=== PATIENT | female | born 1955 ===

== ENCOUNTER 2020-01-27 08:20 | Outpatient (REF) | payer MEDICARE, MEDICAID, SELFPAY ==
[2020-01-27 09:46] LABS: ~HepC Num1 0.08 S/CO (0.00-0.79); ~Hepatitis C Antibody Nonreactive (Nonreactive)
[2020-01-27 09:53] LABS: Vitamin D 25-OH Total 30.3 ng/mL (>30)
== END 2020-01-27 08:21 | disposition home or self-care (01) ==
LOC: HO.LAB 08:20
PROVIDERS: PCP Internal Medicine Geriatric Medicine; Visit Provider Internal Medicine Geriatric Medicine
DX: M81.0 Age-related osteoporosis without current pathological fracture (principal); Z11.59 Encounter for screening for other viral diseases
CPT/HCPCS: 82306; 86803

== ENCOUNTER 2020-05-23 07:37 | Outpatient (REF) | payer MEDICARE, MEDICAID, SELFPAY ==
--- NOTE | ~2020-05-23 | US_ITS ---
EXAMINATION: US ABDOMEN COMPLETE CLINICAL INFORMATION: Right upper quadrant pain. COMPARISON: None TECHNIQUE: Real-time imaging of the abdominal viscera. FINDINGS: PANCREAS: Normal. ABDOMINAL AORTA: The proximal, mid, and distal segments are normal in caliber. INFERIOR VENA CAVA: Visualized portions are normal. LIVER: Normal. The liver is normal in size. The liver contour is normal. Parenchymal echogenicity is normal. No focal hepatic lesion. There is no intrahepatic biliary duct dilatation seen. GALLBLADDER: Normal. The gallbladder is physiologically distended without evidence of stones, sludge, polyps, wall thickening or pericholecystic fluid. COMMON BILE DUCT: Normal in caliber measuring 0.3 cm in diameter. RIGHT KIDNEY: Normal. No hydronephrosis. No renal calculi or focal parenchymal lesions. The kidney measures 10.7 cm in maximum dimension. LEFT KIDNEY: There is a small 6 mm left renal cyst. No hydronephrosis. No renal calculi. The kidney measures 10.3 cm in maximum dimension. SPLEEN: Normal. The spleen measures 8.3 cm in maximum dimension. FREE FLUID: None. US/US abdomen complete IMPRESSION: Small left renal cyst otherwise unremarkable exam.
== END 2020-05-23 07:38 | disposition home or self-care (01) ==
LOC: HO.US 07:37
PROVIDERS: Visit Provider Internal Medicine Geriatric Medicine
DX: R10.11 Right upper quadrant pain (principal)
CPT/HCPCS: 76700

== ENCOUNTER 2020-06-29 12:52 | Outpatient (REF) | payer MEDICARE, MEDICAID, SELFPAY ==
--- NOTE | ~2020-06-29 | MM_ITS ---
EXAMINATION: MM SCREENING DIGITAL BREAST TOMOSYNTHESIS, BILATERAL CLINICAL INFORMATION: Screening. Asymptomatic. Prior bilateral excisional biopsies . The lifetime risk of breast cancer based on the Tyrer-Cuzick Model is 10%. COMPARISON: Mammography: 04/27/2019, 01/08/2018 TECHNIQUE: Digital breast tomosynthesis is performed in both the craniocaudal and mediolateral oblique views along with computer-aided detection (CAD). Synthesized 2D images are generated from the tomosynthesis. FINDINGS: There are scattered areas of fibroglandular density (ACR BI-RADS breast composition Category b). Parenchymal pattern is similar to prior studies. There is no developing density or interval mass or architectural abnormality. No abnormal calcifications. Left axilla unremarkable. There is a prominent node right axilla since prior exam 2019. Patient had second dose COVID vaccine right arm recently, 06/21/2020 and finding likely related to benign reactive change. The skin contours are smooth. No coarsening of the Cl's ligaments. MM/MM tomosynthesis screening BI IMPRESSION: 1. Right: Prominent right axillary node, likely reactive change from recent vaccination right arm. Breast otherwise unremarkable. 2. Left: No mammographic evidence of malignancy. ASSESSMENT: BI-RADS 0: Incomplete - Need Additional Imaging Evaluation RECOMMENDATION: 1. Additional views of the right breast in 6-12 weeks (MLO). 2. Targeted ultrasound if warranted after review of the additional views. 3. Radiology department staff will contact the patient for additional imaging. This patient's information was entered into a reminder system with a target due date for their next mammogram.
== END 2020-06-29 12:53 | disposition home or self-care (01) ==
LOC: HO.MAMMO 12:52
PROVIDERS: PCP Internal Medicine Geriatric Medicine; Visit Provider Internal Medicine Geriatric Medicine
DX: Z12.31 Encounter for screening mammogram for malignant neoplasm of breast (principal)
CPT/HCPCS: 77063; 77067

== ENCOUNTER 2020-09-03 10:05 | Outpatient (REF) | payer MEDICARE, MEDICAID, SELFPAY ==
--- NOTE | ~2020-09-03 | MM_ITS ---
EXAMINATION: MM DIAGNOSTIC DIGITAL BREAST TOMOSYNTHESIS, RIGHT US DIAGNOSTIC ULTRASOUND BREAST, RIGHT CLINICAL INFORMATION: Prominent right axillary node, likely reactive change from evacuation right arm. TC score 10%. COMPARISON: Mammography: 06/29/2020, 04/27/2019. TECHNIQUE: Digital breast tomosynthesis is performed. 2D images are generated from the tomosynthesis. The following views are obtained: 3-D MLO. Ultrasound right breast is targeted to the axilla. Grayscale imaging and color Doppler are performed. FINDINGS: There are scattered areas of fibroglandular density (ACR BI-RADS breast composition Category b). The prominent right axillary node noted on recent imaging 06/29/2020 is decreased in size, similar to the 2019 exam. Ultrasound demonstrates normal right axillary node corresponding to the mammography. No measures 1.1 cm short axis with normal rio architecture and color flow. Results are discussed with the patient at time of visit. MM/MM tomosynthesis added views R IMPRESSION: Normal right axillary node, decreased in size from recent mammography. ASSESSMENT: BI-RADS 2: Benign RECOMMENDATION: Routine annual mammography screening. This patient's information was entered into a reminder system with a target due date for their next mammogram.
== END 2020-09-03 10:06 | disposition home or self-care (01) ==
LOC: HO.MAMMO 10:05
PROVIDERS: PCP Internal Medicine Geriatric Medicine; Visit Provider Internal Medicine Geriatric Medicine
DX: N63.31 Unspecified lump in axillary tail of the right breast (principal)
CPT/HCPCS: 76642; 77061; 77065

== ENCOUNTER 2020-11-08 08:43 | Outpatient (REF) | payer MEDICARE, MEDICAID, SELFPAY ==
--- NOTE | ~2020-11-08 | XR_ITS ---
EXAMINATION: XR HIP, LEFT XR HIP, RIGHT CLINICAL INFORMATION: Pain COMPARISON: DEXA from 10/19/2018. TECHNIQUE: Right hip, 2 views Left hip, 2 views FINDINGS: Right hip: Bone density is diffusely decreased in this patient with history of osteoporosis. There is mild narrowing of superomedial joint space of the right hip and coxa profunda of the hip. The proximal femur and acetabulum are intact. No fracture or osteonecrosis. Soft tissues are unremarkable. Left hip: There is mild narrowing of superomedial joint space of the left hip and coxa profunda of the hip. The proximal femur and acetabulum are intact. No fracture or osteonecrosis. Soft tissues are unremarkable. XR/XR hip LT min 2V IMPRESSION: * No acute findings. No fracture or subluxation of either hip. * Mild narrowing of superomedial joint space of each hip could be a manifestation of mild degeneration of the articular cartilage.
--- NOTE | ~2020-11-08 | XR_ITS ---
EXAMINATION: XR HIP, LEFT XR HIP, RIGHT CLINICAL INFORMATION: Pain COMPARISON: DEXA from 10/19/2018. TECHNIQUE: Right hip, 2 views Left hip, 2 views FINDINGS: Right hip: Bone density is diffusely decreased in this patient with history of osteoporosis. There is mild narrowing of superomedial joint space of the right hip and coxa profunda of the hip. The proximal femur and acetabulum are intact. No fracture or osteonecrosis. Soft tissues are unremarkable. Left hip: There is mild narrowing of superomedial joint space of the left hip and coxa profunda of the hip. The proximal femur and acetabulum are intact. No fracture or osteonecrosis. Soft tissues are unremarkable. XR/XR hip RT min 2V IMPRESSION: * No acute findings. No fracture or subluxation of either hip. * Mild narrowing of superomedial joint space of each hip could be a manifestation of mild degeneration of the articular cartilage.
== END 2020-11-08 08:44 | disposition home or self-care (01) ==
LOC: HO.XRAY 08:43
PROVIDERS: PCP Internal Medicine Geriatric Medicine; Visit Provider Internal Medicine Geriatric Medicine
DX: M17.12 Unilateral primary osteoarthritis, left knee (principal); M25.552 Pain in left hip
CPT/HCPCS: 73502

== ENCOUNTER 2020-11-27 07:48 | Outpatient (REF) | payer MEDICARE, MEDICAID, SELFPAY ==
--- NOTE | ~2020-11-27 | XR_ITS ---
EXAMINATION: XR BOTH KNEES AP STANDING XR LEFT KNEE, 2 VIEWS CLINICAL INFORMATION: Pain. COMPARISON: Most recent knee radiographs dated 06/18/2018 TECHNIQUE: Standing AP view of both knees and lateral and sunrise views of the left knee. FINDINGS: Right knee: Total right knee arthroplasty. No acute hardware or osseous fracture. No perihardware lucency to suggest loosening or infection. No abnormal soft tissue calcification. Left knee: Severe medial compartment joint space narrowing with subchondral sclerosis and mild bony remodeling. Mild subchondral cystic change. Tricompartmental marginal osteophytes. No acute fracture or dislocation. No significant joint effusion. Redemonstration of posterior ossified loose bodies. XR/XR knee LT 2V IMPRESSION: Right knee: Total knee arthroplasty without evidence of hardware complication. Left knee: Tricompartmental osteoarthritis, most severe within the medial compartment. Findings have slightly progressed when compared to the prior radiographs from 2019.
--- NOTE | ~2020-11-27 | XR_ITS ---
EXAMINATION: XR BOTH KNEES AP STANDING XR LEFT KNEE, 2 VIEWS CLINICAL INFORMATION: Pain. COMPARISON: Most recent knee radiographs dated 06/18/2018 TECHNIQUE: Standing AP view of both knees and lateral and sunrise views of the left knee. FINDINGS: Right knee: Total right knee arthroplasty. No acute hardware or osseous fracture. No perihardware lucency to suggest loosening or infection. No abnormal soft tissue calcification. Left knee: Severe medial compartment joint space narrowing with subchondral sclerosis and mild bony remodeling. Mild subchondral cystic change. Tricompartmental marginal osteophytes. No acute fracture or dislocation. No significant joint effusion. Redemonstration of posterior ossified loose bodies. XR/XR knee standing BI IMPRESSION: Right knee: Total knee arthroplasty without evidence of hardware complication. Left knee: Tricompartmental osteoarthritis, most severe within the medial compartment. Findings have slightly progressed when compared to the prior radiographs from 2019.
== END 2020-11-27 07:49 | disposition home or self-care (01) ==
LOC: HO.HOSX 07:48
PROVIDERS: Visit Provider Physician Assistant
DX: M17.12 Unilateral primary osteoarthritis, left knee (principal)
CPT/HCPCS: 73560; 73565; 99212

== ENCOUNTER → 2020-12-10 08:14 | Outpatient (BNVA) | payer MEDICARE, MEDICAID, SELFPAY | PROVIDERS: Visit Provider Orthopaedic Surgery | DX: M17.12 Unilateral primary osteoarthritis, left knee (principal) | CPT/HCPCS: 99212 ==

== ENCOUNTER → 2021-01-03 10:03 | Outpatient (BNVA) | payer MEDICARE, MEDICAID, SELFPAY | PROVIDERS: Visit Provider Obstetrics & Gynecology ==

== ENCOUNTER 2021-01-23 09:22 | Outpatient (REF) | payer MEDICARE, MEDICAID, SELFPAY ==
--- NOTE | ~2021-01-23 | MM_ITS ---
EXAMINATION: BONE DENSITOMETRY CLINICAL INDICATION: Menopause. COMPARISON: Previous BD dated 10/19/2018 and baseline BD dated 10/14/2016. TECHNIQUE: Using a [employer] DXA System (software version: 13.1) manufactured by [employer], dual-energy x-ray absorptiometry was performed of the lumbar spine and left hip. The images are of good technical quality. Summary results are attached. FINDINGS: AP SPINE L1-L4: Current: BMD 0.944 g/cm2, Z-score -0.8, T-score -2.0, osteopenia, 0.1% increase from previous, 0.9% decrease from baseline (<5% change is not significant). Prior: BMD 0.943 g/cm2. Baseline: BMD 0.953 g/cm2. LEFT FEMUR, NECK: Current: BMD 0.641 g/cm2, Z-score -1.6, T-score -2.9, osteoporosis. Prior: BMD 0.611 g/cm2. Baseline: BMD 0.690 g/cm2. LEFT FEMUR, TOTAL: Current: BMD 0.677 g/cm2, Z-score -1.6, T-score -2.6, osteoporosis, 8.1% increase from previous, 7.0% decrease from baseline (<5% change is not significant). Prior: BMD 0.626 g/cm2. Baseline: BMD 0.728 g/cm2. IDENTIFIED RISK FACTORS: Menopause, osteoporosis, left oophorectomy, hysterectomy. HISTORY OF FRACTURE: None listed. MEDICATIONS: Calcium, vitamin D. MM/XR DEXA axial skeleton IMPRESSION: 1. DIAGNOSIS: Osteoporosis based on the lowest T-score value of -2.9 in the femoral neck applying World Health Organization criteria. 2. 10-YEAR FRACTURE RISK PREDICTION, FRAX: According to the guidelines, FRAX calculation should only be performed on patients in the osteopenia bone density category. 3. Treatment Recommendations: NOF guidelines recommend consideration for treatment in postmenopausal women and men age 50 and older presenting with the following: -A hip or vertebral (clinical or morphometric) fracture. -T-score less than or equal to -2.5 at the femoral neck or spine after appropriate evaluation to exclude secondary causes. -Low bone mass at the hip or spine and a 10-year fracture probability by FRAX of greater than or equal to 3% for hip fracture or greater than or equal to 20% for major osteoporotic fracture based on the [place] adapted WHO algorithm. 4. Other Recommendations: All treatment decisions require clinical judgment and consideration of individual patient factors, including patient preferences, comorbidities, previous drug use, risk factors not captured in the FRAX model (e.g. frailty, falls, vitamin D deficiency, increased bone turnover, interval significant decline in bone density) and possible under or overestimation of fracture risk by FRAX. Additional medical evaluation for secondary cause of low bone mineral density may be appropriate. FUTURE SCAN RECOMMENDATION: People with diagnosed cases of osteoporosis or at high risk for fracture should have regular bone mineral density tests. For patients eligible for Medicare, routine testing is allowed once every 2 years. The testing frequency can be increased to one year for patients who have rapidly progressing disease, those who are receiving or discontinuing medical therapy to restore bone mass, or have additional risk factors.
== END 2021-01-23 09:23 | disposition home or self-care (01) ==
LOC: HO.MAMMO 09:22
PROVIDERS: Visit Provider Obstetrics & Gynecology
DX: Z13.820 Encounter for screening for osteoporosis (principal); M81.0 Age-related osteoporosis without current pathological fracture; Z78.0 Asymptomatic menopausal state; Z79.899 Other long term (current) drug therapy
CPT/HCPCS: 77080

== ENCOUNTER 2021-01-24 08:09 | Emergency (ER) | payer MEDICARE, MEDICAID, SELFPAY ==
--- NOTE | ~2021-01-24 | CT_ITS ---
EXAMINATION: CT BRAIN AND CT CERVICAL SPINE WITHOUT CONTRAST. CLINICAL INFORMATION: Fall plus LOC. Neck pain. COMPARISON: None TECHNIQUE: 5 mm thin axial and reformatted 2 mm thin sagittal and coronal images of brain were obtained without contrast. Subsequently axial 3 mm thin and reformatted 2 mm thin sagittal coronal images of cervical spine were obtained. DL [id number] FINDINGS: BRAIN: There is no acute intra-axial, extra-axial bleed, masses or midline shift. There is no acute infarction evolution. There is no edema. The lateral ventricles are symmetrical in size and configuration without enlargement. The yung to white matter difference is maintained normal. The bone windows reveal no calvarial abnormality bilateral paranasal sinuses are significant well-aerated and clear. The mastoid sinuses are clear. There is no scalp soft tissue abnormality seen. CERVICAL SPINE: There is mild straightening of cervical lordosis. The vertebral heights, alignment and disc heights are normal. There is mild ventral spurring C1-C2 disc level. There is mild ventral spondylosis C3-C4, C4-C5, C5-C6 and C6-C7 disc levels. There is mild posterior spondylosis at C6-C7 disc level. The craniovertebral junction and the C1-C2 alignment is normal. There is mild left C7-T1 facet joint arthropathy. The prevertebral and paravertebral soft tissues are normal. CT/CT cervical spine wo con IMPRESSION: No acute intracranial process seen There is mild straightening of cervical lordosis with ventral spondylosis C3-C4, C4-C5, C5-C6 and C6-C7 disc levels. There is no visible acute fracture, dislocation or subluxation seen.
--- NOTE | ~2021-01-24 | XR_ITS ---
EXAMINATION: XR RIBS, LEFT CLINICAL INFORMATION: Fall, trauma, anterior chest wall pain. COMPARISON: Chest radiographs 06/02/2018, 10/16/2016. TECHNIQUE: Frontal view chest and 3 views of the left ribs are obtained for a total of 4 views. FINDINGS: There is no visible rib fracture or rib destructive process. The lungs are clear. There is no pneumothorax or pleural reaction. No airspace consolidation or effusion. The costophrenic sulci are well-defined. The heart is normal in size. Tapering cardiac apex is consistent with areolar tissue. The hilar and mediastinal contours are normal. There are multilevel degenerative changes spine. Circumscribed cyst left humeral tuberosity 1.2 cm. XR/XR ribs LT min 3V w CXR1V IMPRESSION: 1. No visible rib fracture or rib destructive process. 2. No pneumothorax or effusion.
--- NOTE | ~2021-01-24 | XR_ITS ---
EXAMINATION: XR KNEE, LEFT CLINICAL INFORMATION: Fall, trauma, pain COMPARISON: Radiographs left knee 11/27/2020. TECHNIQUE: 5 views of the left knee. FINDINGS: There are prominent tricompartment osteoarthritic changes, greatest medial compartment with joint narrowing and osteophyte. There may be some fine meniscal calcification. No erosive change. There is spurring at the quadriceps insertion patella. Small suprapatellar effusion again seen, slightly increased. Hoffa's fat pad appears normal. There is no fracture or dislocation or destructive process. XR/XR knee LT 4V IMPRESSION: 1. No fracture or dislocation. 2. Prominent tricompartment osteoarthritis with effusion.
--- NOTE | ~2021-01-24 | CT_ITS ---
EXAMINATION: CT BRAIN AND CT CERVICAL SPINE WITHOUT CONTRAST. CLINICAL INFORMATION: Fall plus LOC. Neck pain. COMPARISON: None TECHNIQUE: 5 mm thin axial and reformatted 2 mm thin sagittal and coronal images of brain were obtained without contrast. Subsequently axial 3 mm thin and reformatted 2 mm thin sagittal coronal images of cervical spine were obtained. DL [id number] FINDINGS: BRAIN: There is no acute intra-axial, extra-axial bleed, masses or midline shift. There is no acute infarction evolution. There is no edema. The lateral ventricles are symmetrical in size and configuration without enlargement. The yung to white matter difference is maintained normal. The bone windows reveal no calvarial abnormality bilateral paranasal sinuses are significant well-aerated and clear. The mastoid sinuses are clear. There is no scalp soft tissue abnormality seen. CERVICAL SPINE: There is mild straightening of cervical lordosis. The vertebral heights, alignment and disc heights are normal. There is mild ventral spurring C1-C2 disc level. There is mild ventral spondylosis C3-C4, C4-C5, C5-C6 and C6-C7 disc levels. There is mild posterior spondylosis at C6-C7 disc level. The craniovertebral junction and the C1-C2 alignment is normal. There is mild left C7-T1 facet joint arthropathy. The prevertebral and paravertebral soft tissues are normal. CT/CT head/brain wo con IMPRESSION: No acute intracranial process seen There is mild straightening of cervical lordosis with ventral spondylosis C3-C4, C4-C5, C5-C6 and C6-C7 disc levels. There is no visible acute fracture, dislocation or subluxation seen.
[2021-01-24 09:13] VITALS: BP 171/90; PULSE 88; RESP 16; O2SAT 99; BMI 33.0
--- NOTE | 2021-01-24 09:47 | ED.FALL ---
HPI - Fall General Chief Complaint: Fall Stated Complaint: fall chest back shoulder inj Time Seen by Provider: 01/24/21 09:47 Source: patient Mode of arrival: ambulatory Limitations: no limitations History of Present Illness HPI Narrative: 65-year-old female past medical history significant for hypertension and asthma presents to the emergency department with 6 days of progressively worsening headache, neck pain, anterior chest wall pain, and left knee pain status post trip and fall. Patient tells me she tripped on the curb and fell on the left side of her body, she states that she lost consciousness. She tells me that she is having anterior chest wall pain with palpation, and at times it hurts when she takes a deep breath. She tells me she does not know why she did not come to the hospital before, but she decided to come in today because the pain is intolerable. She is not on any blood thinners. She has had no past surgical procedures the left knee. She denies shortness of breath, nausea, vomiting, fevers, chills, abdominal pain, vision changes. MD complaint: fall Onset (ago): day(s) (6) Fall from: standing Fall witnessed: yes, by family Place fall occurred: other (shopping ) Loss of consciousness: yes Prolonged down time: no Symptoms prior to fall: none Context: tripped/slipped Location of injury: other (head, neck, left knee ) Severity: severe Severity scale (1-10): 10 Quality: other (constant ) Associated symptoms (after fall): headache, neck pain and chest pain Related Data Home Medications Medication Instructions Recorded Confirmed albuterol sulfate 2.5 mg INHALATION QID 12/10/20 atorvastatin 80 mg tablet 80 mg PO DAILY 12/10/20 docusate sodium 100 mg capsule 100 mg PO BID 12/10/20 (Colace) mometasone 50 mcg/actuation nasal 2 spray INTRANASAL DAILY 12/10/20 spray (Nasonex) polyvinyl alcohol 1.4 % eye drops 1 drp OPHTHALMIC (EYE) BID-QID PRN 12/10/20 (Artificial Tears (polyvinyl alcohol)) raloxifene 60 mg tablet (Evista) 60 mg PO DAILY 12/10/20 sennosides 8.6 mg capsule (senna) 8.6 mg PO BID 12/10/20 sertraline 50 mg tablet 50 mg PO DAILY 12/10/20 Previous Rx's Medication Instructions Recorded cyclobenzaprine 10 mg tablet 10 mg PO BEDTIME PRN #7 tab 01/24/21 lidocaine 5 % topical patch 1 patch TOPICAL DAILY PRN #15 ea 01/24/21 naproxen 500 mg tablet 500 mg PO BID #14 tab 01/24/21 Allergies Allergy/AdvReac Type Severity Reaction Status Date / Time No Known Allergies Allergy Verified 01/03/21 10:26 [No Known Allergies*] Review of Systems Review of Systems: Constitutional : No Weight loss, No Fever, No Chills, No Fatigue, No Malaise ENT/Mouth : No sore throat, No Rhinorrhea Eyes: No Eye Pain, No Swelling, No Redness Cardiovascular : + Chest Pain, No SOB, No Dyspnea on Exertion, No Orthopnea, No Edema, No Palpitations Respiratory : No Cough, No Sputum, No Wheezing Gastrointestinal : No Nausea, No Vomiting, No Diarrhea, No Constipation, No abdominal Pain, No Hematochezia, No Melena Genitourinary : No Dysuria, No Urinary Frequency, No Hematuria, Musculoskeletal : + joint pain, No Myalgias, No Joint Swelling, + neck pain Skin : No Skin Lesions, No rash Neuro : No Weakness, No Numbness, No Dizziness, + Headache All other systems reviewed and are negative [facility] Past Medical History Attestation statement: The following information was validated with the patient. Source: old records reviewed and nursing notes reviewed Medical History Arthritis Asthma Hypertension Surgical History H/O unilateral oophorectomy History of total right knee replacement Family History Family History Maternal Aunt Breast CA Mother Colon cancer Social History Social History Patient Tobacco Use Status: Current someday Tobacco user Advance Directives: No Advance Directives Information Provided: Yes Current occupational status: disabled Current occupation: rt handed Physical Exam Vital Signs: Vital Signs: Last Vital Signs Temp 98.5 F 01/24/21 11:11 Pulse 73 01/24/21 11:11 Resp 16 01/24/21 11:11 BP 129/71 01/24/21 11:11 Pulse Ox 98 01/24/21 11:11 BMI result Body Mass Index 33.0 VSS - slightly hypertensive. Appearance: Alert.? Oriented X3.? No acute distress.? Head: Normocephalic, atraumatic, no step-offs or deformities Eyes: Pupils equal, round and reactive to light.?EOMI ENT: Pharynx normal.? Neck: Normal inspection.? Neck supple.? CVS: Normal heart rate and rhythm.? Pulses normal.? Respiratory: No respiratory distress.? Breath sounds normal.? Abdomen: Soft and nontender.? Skin: Skin warm and dry.? Normal skin color.? Normal skin turgor.?+ small abrasion to left knee Extremities: No lower extremity edema.? No calf ttp. 5/5 strength to bilateral upper and lower extremities + full ROM to neck, and left knee however painful. Back: No midline tenderness, no C-spine tenderness, full range of motion, no CVA tenderness bilaterally Neuro: Oriented X 3.? No motor deficit.? No sensory deficit. Steady gait no ataxia. Course Reevaluation(s) Reevaluation #1: Ct scan negative. Xray of knee no fractures, osteoarthritis noted. Xray of chest and ribs negative. No leukocytosis, anemia or electrolyte abnormlaites noted. COVID negative. Pain to neck, head and knee likley secondary to muscle strain. No ICH. At this time pateint safe for DC home w/PCP follow up. Should return to ED with new or worsening symptoms Time: 11:39 MDM - Fall [facility] Narrative Medical decision making narrative: 1001 65-year-old female past medical history significant for hypertension, asthma, arthritis presents to the emergency department with headache, neck pain and left knee pain status post trip and fall 6 days ago. Positive LOC. Not currently on blood thinners. Upon physical examination patient appears well, she is ambulating with a steady gait, no acute distress. S1-S2 appreciated free of murmurs. Lungs are clear. Abdomen soft nontender nondistended. No focal neuro deficits, normal [id number], [id number], normal strength upper and lower extremities. Neck and knee with full range of motion, however slightly painful. There is a small abrasion noted overlying the left knee. No midline tenderness of the neck or back. Sensory and motor intact. There is pain to palpation with anterior chest wall. No midline tenderness, no back pain no concern for cauda equina or epidural abcess Plan at this time is to obtain a CT of the head/neck. X-ray of the ribs and chest as well as a left knee x-ray. Basic labs will be ordered, and EKG will be done. Medical Records Attestation: I reviewed the patient's medical records. Lab Data Attestation: I reviewed the patient's lab results. Result diagrams: 01/24/21 10:36 01/24/21 10:36 Labs: Lab Results 01/24/21 01/24/21 01/24/21 Range/Units 10:36 10:36 10:36 WBC 6.6 (4.8-10.8) X10*3/uL RBC 4.24 (4.20-5.50) X10*6/uL Hgb 12.6 (12.0-16.0) g/dl Hct 38.0 (37.0-47.0) % MCV 89.6 (80.0-98.0) fL MCH 29.7 (27.0-33.0) pg MCHC 33.2 (31.0-35.0) g/dl RDW 13.0 (11.0-16.0) % Plt Count 234 (160-400) X10*3/uL MPV 10.4 (9.4-12.3) fL Immature Gran % (Auto) 0.3 (0.0-0.4) % Neut % (Auto) 72.6 (45-73) % Lymph % (Auto) 19.4 L (20-40) % [place] % (Auto) 5.2 (2-11) % Eos % (Auto) 1.7 (0-4) % Baso % (Auto) 0.8 (0-2) % Lymph # (Auto) 1.3 (1.2-4.9) X10*3/uL [place] # (Auto) 0.3 (0.1-1.2) X10*3/uL Eos # (Auto) 0.1 (0.0-0.4) X10*3/uL Baso # (Auto) 0.1 (0.0-0.2) X10*3/uL Abs Immat Gran (auto) 0.02 (0.00-0.03) X10*3/uL Absolute Neuts (auto) 4.8 (2.0-8.3) x10*3/uL Absolute Nucleated RBC 0.000 (0.0-0.012) X10*3/uL Nucleated RBC % (auto) 0.0 (0.0-0.2) /100WBC Sodium 141 (135-145) mmol/L Potassium 4.0 (3.3-5.1) mmol/L Chloride 105 (96-108) mmol/L Carbon Dioxide 27 (22-29) mmol/L Anion Gap 13 (12-20) BUN 14 (9-16) mg/dL Creatinine 0.80 (0.5-1.4) mg/dL Estim Creat Clear Calc 62.4 Estimated GFR > 60 Random Glucose 96 (60-115) mg/dL Calcium 9.9 (8.4-10.2) mg/dL Magnesium 2.2 (1.6-2.6) mg/dL Total Bilirubin 0.8 (0.0-1.0) mg/dL AST 23 (5-31) U/L ALT 31 (0-31) U/L Alkaline Phosphatase 98 (39-117) U/L Total Protein 7.2 (6.5-8.0) g/dL Albumin 4.4 (3.5-5.0) g/dL COVID-19 ([facility]OR[facility]) Negative (Negative) COVID-19 Clin Com See Note Imaging Data CT head/brain and c-spine: Attestation: I personally reviewed and interpreted this imaging study as follows: Radiologist's impression: CT/CT cervical spine wo con IMPRESSION: No acute intracranial process seen ? There is mild straightening of cervical lordosis with ventral spondylosis C3-C4, C4-C5, C5-C6 and C6-C7 disc levels. There is no visible acute fracture, dislocation or subluxation seen. xray of chest and ribs : Attestation: I personally reviewed and interpreted this imaging study as follows: Radiologist's impression: XR/XR ribs LT min 3V w CXR1V IMPRESSION: ? 1. No visible rib fracture or rib destructive process. 2. No pneumothorax or effusion. Xray knee : Attestation: I personally reviewed and interpreted this imaging study as follows: Radiologist's impression: XR/XR knee LT 4V IMPRESSION: ? 1. No fracture or dislocation. 2. Prominent tricompartment osteoarthritis with effusion. ECG Data Attestation: I personally reviewed and interpreted this ECG as follows: ECG interpretation date: 01/24/21 ECG interpretation time: 10:18 Prior ECG tracings: available for review Interpretation: Ventricular rate of 90, IN normal, QRS normal, QT/QTC normal. EKG shows normal sinus rhythm. No ST elevations or inversions. No acute ischemia. No acute changes when compared to EKG from June 09, 2017. Critical Care Time Critical Care Time Critical Care Time: No Discharge Plan Discharge Clinical Impression: Osteoarthritis of left knee, Neck strain, Fall Patient Disposition: Home, Self-Care Instructions: Cervical Strain (ED), Osteoarthritis (ED), Fall Prevention for Older Adults (ED), Fall Prevention (ED) Additional Instructions: Take your medications as prescribed. Cyclobenzaprine is a muscle relaxer it can make you tired please do not drive on this medicaiton Follow-up with your primary care provider this week. Return to the emergency department with new or worsening symptoms. In case of emergency call 911 Prescriptions: New cyclobenzaprine 10 mg tablet 10 mg PO BEDTIME PRN (Reason: muscle spasm) Qty: 7 RF: 0 lidocaine 5 % adhesive patch,medicated 1 patch topical DAILY PRN (Reason: pain) Qty: 15 RF: 0 naproxen 500 mg tablet 500 mg PO BID Qty: 14 RF: 0 Referrals: Name,MD Aaron [Primary Care Provider] - 2 days Stand Alone Forms: Work/School Release
--- NOTE | 2021-01-24 09:57 | ECG_ITS ---
Test Reason : FALL Blood Pressure : / mmHG Vent. Rate : 090 BPM Atrial Rate : 090 BPM P-R Int : 186 ms QRS Dur : 080 ms QT Int : 386 ms P-R-T Axes : 068 -03 055 degrees QTc Int : 472 ms Normal sinus rhythm Normal ECG When compared with ECG of 09-JUN-2017 09:12, No significant change was found Referred By: Priscilla Oreilly Electronically Signed By:KARENA RUDOLPH
[2021-01-24] MEDS: Ketorolac Tromethamine 15 MG/ML VIAL 30 MG IM (10:42)
[2021-01-24] MEDS: Cyclobenzaprine HCl 10 MG TABLET PO (10:42)
[2021-01-24 10:49] LABS: MANUAL DIFF FLAG NO
[2021-01-24 10:50] LABS: Basophils Absolute Auto 0.1 X10*3/uL (0.0-0.2); Basophils Percent Auto 0.8 % (0-2); Eosinophils Absolute Auto 0.1 X10*3/uL (0.0-0.4); Eosinophils Percent Auto 1.7 % (0-4); Hemoglobin 12.6 g/dl (12.0-16.0); Imm Gran Abs Auto 0.02 X10*3/uL (0.00-0.03); Imm Gran Pct Auto 0.3 % (0.0-0.4); Lymphocytes Absolute Auto 1.3 X10*3/uL (1.2-4.9); Lymphocytes Percent Auto 19.4 % (20-40); Mean Corpuscular HGB Conc 33.2 g/dl (31.0-35.0); Mean Corpuscular Hemoglobin 29.7 pg (27.0-33.0); Mean Corpuscular Volume 89.6 fL (80.0-98.0); Mean Platelet Volume 10.4 fL (9.4-12.3); Monocytes Absolute Auto 0.3 X10*3/uL (0.1-1.2); Monocytes Percent Auto 5.2 % (2-11); Neutrophils Absolute Auto 4.8 x10*3/uL (2.0-8.3); Neutrophils Percent Auto 72.6 % (45-73); Platelet Count 234 X10*3/uL (160-400); Red Blood Count 4.24 X10*6/uL (4.20-5.50); White Blood Count 6.6 X10*3/uL (4.8-10.8)
[2021-01-24 11:08] LABS: Alanine Aminotransferase 31 U/L (0-31); Albumin Level 4.4 g/dL (3.5-5.0); Alkaline Phosphatase 98 U/L (39-117); Anion Gap 13 (12-20); Aspartate Amino Transferase 23 U/L (5-31); Bilirubin Total 0.8 mg/dL (0.0-1.0); Blood Urea Nitrogen 14 mg/dL (9-16); Calcium 9.9 mg/dL (8.4-10.2); Carbon Dioxide 27 mmol/L (22-29); Chloride 105 mmol/L (96-108); Creatinine Clr Calc Pharmacy 62.4; Estimated Glomerular Filt Rate > 60; Glucose Random 96 mg/dL (60-115); Magnesium 2.2 mg/dL (1.6-2.6); Sodium 141 mmol/L (135-145); Total Protein 7.2 g/dL (6.5-8.0)
[2021-01-24 11:11] VITALS: BP 129/71; PULSE 73; RESP 16; TEMP 36.9; O2SAT 98
[2021-01-24 11:11] LABS: COVID-19 Test Negative (Negative); IDNOW Serial# 9DD0AD1C
== END 2021-01-24 12:25 | disposition home or self-care (01) ==
PROVIDERS: Physician Assistant; Emergency Provider Emergency Medicine; PCP Internal Medicine Geriatric Medicine
DX: S16.1XXA Strain of muscle, fascia and tendon at neck level, initial encounter (principal); W10.1XXA Fall (on)(from) sidewalk curb, initial encounter; M17.12 Unilateral primary osteoarthritis, left knee; R07.9 Chest pain, unspecified; Z20.822 Contact with and (suspected) exposure to COVID-19; Y93.01 Activity, walking, marching and hiking; Y92.480 Sidewalk as the place of occurrence of the external cause; Y99.9 Unspecified external cause status
CPT/HCPCS: 36415; 70450; 71101; 72125; 73564; 80053; 83735; 85025; 87635; 93005; 96372; 99284; J1885

== ENCOUNTER → 2021-01-31 09:14 | Outpatient (BNVA) | payer MEDICARE, MEDICAID, SELFPAY | PROVIDERS: PCP Internal Medicine Geriatric Medicine; Visit Provider Obstetrics & Gynecology | DX: M81.0 Age-related osteoporosis without current pathological fracture (principal) | CPT/HCPCS: 99212 ==

== ENCOUNTER → 2021-02-28 10:59 | Outpatient (BNVA) | payer MEDICARE, MEDICAID, SELFPAY | PROVIDERS: Visit Provider Physician Assistant | DX: M17.12 Unilateral primary osteoarthritis, left knee (principal) | CPT/HCPCS: 99212 ==

== ENCOUNTER → 2021-06-20 10:41 | Outpatient (BNVA) | payer MEDICARE, MEDICAID, SELFPAY | PROVIDERS: Visit Provider Physician Assistant | DX: M17.12 Unilateral primary osteoarthritis, left knee (principal) | CPT/HCPCS: 99212 ==

== ENCOUNTER 2021-06-25 08:02 | Inpatient (IN) | payer MEDICARE, MEDICAID, SELFPAY ==
[2021-02-27 12:04] VITALS: BMI 31.9
[2021-02-27 12:08] VITALS: BP 141/70; PULSE 82; RESP 20; O2SAT 97
--- NOTE | 2021-02-27 12:23 | P.CONAN_ITS ---
HPI - Anesthesia Eval Consult details Narrative: Rescheduled to 06/2021 65yo F for Left Knee Replacement Total PCP cleared s/p Right TKA 2018 with spinal/block - pt reports, no issue PMFSH Active Problems Active Problems: All Active Problems (Updated 02/27/21 @ 11:59 by Leigh Perez RN) Osteoarthritis of left knee (Acute) Well woman exam (Acute) Atrophic vaginitis (Acute) Urinary frequency (Acute) Osteoporosis (Acute) Past Medical History Medical History Arthritis Asthma COVID-19 vaccine series completed GERD (gastroesophageal reflux disease) Hypertension Pre-diabetes Family History Family History Maternal Aunt Breast CA Mother Colon cancer Family history of problems with anesthesia: No Surgical History Surgical History H/O colonoscopy H/O unilateral oophorectomy History of total right knee replacement Hx of breast biopsy Hx of hand surgery Hx of hysterectomy Hx of knee surgery History of Problems with Anesthesia: No Social History Social History Are you a primary care attendant to a significant other at home: No Do you presently have visiting nurse or other home services: No Patient Tobacco Use Status: Former Tobacco user Quit Date: age 43 Tobacco use type: Cigarette Advance Directives Date on File: 07/17/17 Current occupational status: disabled Current occupation: rt handed Narrative Narrative: No recent illness No CP/SOB with activity, limited only to pain Meds Allergies Allergy/AdvReac Type Severity Reaction Status Date / Time No Known Allergies Allergy Verified 02/28/21 11:33 [No Known Allergies*] Home Medications Medication Instructions Recorded Confirmed Last Taken Type atorvastatin 80 80 mg PO DAILY 12/10/20 02/27/21 Unknown History mg tablet mometasone 50 2 spray 12/10/20 02/27/21 Unknown History mcg/actuation INTRANASAL DAILY nasal spray (Nasonex) polyvinyl alcohol 1 drp OPHTHALMIC 12/10/20 02/26/21 Unknown History 1.4 % eye drops (EYE) BID-QID PRN (Artificial Tears (polyvinyl alcohol)) albuterol sulfate 1 amp INHALATION 02/26/21 02/27/21 Unknown History QID albuterol sulfate 2 puff PO Q4-6H 02/26/21 02/27/21 Unknown History 90 mcg/actuation PRN aerosol inhaler (Ventolin HFA) amlodipine 10 mg 1 tab PO QAM 02/26/21 02/27/21 Unknown History tablet fluticasone 500 1 puff PO Q12H 02/26/21 02/27/21 Unknown History mcg-salmeterol 50 mcg/dose blistr powdr for inhalation (Advair Diskus) montelukast 10 mg 1 tab PO QPM 02/26/21 02/27/21 Unknown History tablet omeprazole 20 mg 1 cap PO QAM 02/26/21 02/27/21 Unknown History capsule,delayed release valsartan 320 1 tab PO DAILY 02/26/21 02/27/21 Unknown History mg-hydrochlorothi azide 12.5 mg tablet Exam Exam Date and Time: February 27, 2021 1223 Height,Weight and Vital Signs: Height 5 ft 1 in Weight 76.657 kg Last Vital Signs Pulse 82 02/27/21 12:08 Resp 20 02/27/21 12:08 BP 141/70 H 02/27/21 12:08 Pulse Ox 97 02/27/21 12:08 Pertinent Lab Results Pertinent Lab Results: Laboratory Tests 01/24/21 01/24/21 10:36 10:36 WBC 6.6 Hgb 12.6 Hct 38.0 Plt Count 234 Sodium 141 Potassium 4.0 Chloride 105 Carbon Dioxide 27 BUN 14 Creatinine 0.80 Lab Results 02/27/21 02/27/21 Range/Units 12:10 12:55 Nasal Screen MRSA (PCR) NEGATIVE (Negative) Nasal S. aureus Screen NEGATIVE (Negative) Nasal MRSA/S.aureus Interp SEE NOTE Blood Type A Positive Antibody Screen NEGATIVE Narrative Narrative: EKG 01/2021 Vent. Rate : 090 BPM ? ? Atrial Rate : 090 BPM ?? P-R Int : 186 ms? QRS Dur : 080 ms ? ? QT Int : 386 ms ? ? ? P-R-T Axes : 068 -03 055 degrees ?? QTc Int : 472 ms ? Normal sinus rhythm Normal ECG When compared with ECG of 09-JUN-2017 09:12, No significant change was found Airway Mallampati Class: I TM Dist: >3cm Neck ROM: Full Adult Head Mouth w/Numbe Teeth: 1. [place] Loose/Missing/Broken Teeth: No Heart: RRR Lungs: CTAB Assessment and Plan Assessment Anesthesia Assessment: Anesthesia Plan Discussed (Spinal and block) and PAT Visit Final Anesthetic Review Family History of Problems with Anesthesia: No History of Problems with Anesthesia: No
[2021-02-27 14:18] LABS: MRSA Nasal PCR NEGATIVE (Negative); SA Nasal PCR NEGATIVE (Negative)
[2021-06-12 11:55] VITALS: BP 144/77; PULSE 82; RESP 20; O2SAT 97
[2021-06-12 13:11] LABS: Hematocrit 39.6 % (37.0-47.0); Hemoglobin 12.9 g/dl (12.0-16.0); Mean Corpuscular HGB Conc 32.6 g/dl (31.0-35.0); Mean Corpuscular Hemoglobin 29.1 pg (27.0-33.0); Mean Corpuscular Volume 89.2 fL (80.0-98.0); Mean Platelet Volume 10.8 fL (9.4-12.3); Platelet Count 247 X10*3/uL (160-400); Red Blood Count 4.44 X10*6/uL (4.20-5.50); Red Cell Distribution Width 13.1 % (11.0-16.0); White Blood Count 6.7 X10*3/uL (4.8-10.8)
[2021-06-12 13:42] LABS: Anion Gap 13 (12-20); Blood Urea Nitrogen 17 mg/dL (9-16); Calcium 10.7 mg/dL (8.4-10.2); Carbon Dioxide 29 mmol/L (22-29); Chloride 101 mmol/L (96-108); Creatinine Clr Calc Pharmacy 63.1; Estimated Glomerular Filt Rate > 60; Glucose Random 93 mg/dL (60-115); Sodium 139 mmol/L (135-145)
[2021-06-12 14:22] LABS: MRSA Nasal PCR NEGATIVE (Negative); SA Nasal PCR NEGATIVE (Negative)
--- NOTE | 2021-06-24 08:47 | P.CONAN_ITS ---
Documented by User: Leann Mendoza NP 06/24/21 08:48 HPI - Anesthesia Eval Consult details Narrative: 65yo F for Left Knee Replacement Total PCP cleared s/p Right TKA 2018 with spinal/block - pt reports, no issue PMFSH Active Problems Active Problems: All Active Problems (Updated 02/27/21 @ 11:59 by Leigh Perez RN) Osteoarthritis of left knee (Acute) Well woman exam (Acute) Atrophic vaginitis (Acute) Urinary frequency (Acute) Osteoporosis (Acute) Past Medical History Medical History Arthritis Asthma COVID-19 vaccine series completed GERD (gastroesophageal reflux disease) Hypertension Pre-diabetes Family History Family History Maternal Aunt Breast CA Mother Colon cancer Family history of problems with anesthesia: No Surgical History Surgical History H/O colonoscopy H/O unilateral oophorectomy History of total right knee replacement Hx of breast biopsy Hx of hand surgery Hx of hysterectomy Hx of knee surgery History of Problems with Anesthesia: No Social History Social History (Updated 06/20/21 @ 11:33 by Elizabeth Mckeon CMA) Household Members: Spouse Household Members Other:: daughter Housing: House Are you a primary residential care facility manager to a significant other at home: No Do you presently have visiting nurse or other home services: No Alcohol intake: current Alcohol intake frequency: holidays/special occasions only Patient Tobacco Use Status: Former Tobacco user Quit Date: age 43 Tobacco use type: Cigarette Years Smoked: 20 Use of substances other than those prescribed or required for medical reasons: No Have you been hit, kicked, punched, or otherwise hurt by someone within the past year? If so, by whom?: No Are you DNR?: No Advance Directives: Yes Advance Directives Information Provided: Yes Advance Directives on File: Yes Advance Directives Date on File: 07/17/17 Recently lost weight without trying: No Eating poorly because of decreased appetite: No Nutrition Risks: No Nutritional Risk Poor oral hygiene: No Current occupational status: disabled Current occupation: rt handed Meds Allergies Allergy/AdvReac Type Severity Reaction Status Date / Time No Known Allergies Allergy Verified 06/20/21 11:31 [No Known Allergies*] Home Medications Medication Instructions Recorded Confirmed Last Taken Type atorvastatin 80 mg tablet 80 mg PO DAILY 12/10/20 06/12/21 Unknown History mometasone 50 mcg/actuation nasal 2 spray INTRANASAL DAILY 12/10/20 06/12/21 Unknown History spray (Nasonex) polyvinyl alcohol 1.4 % eye drops 1 drp OPHTHALMIC (EYE) BID-QID PRN 12/10/20 06/12/21 Unknown History (Artificial Tears (polyvinyl alcohol)) albuterol sulfate 1 amp INHALATION QID 02/26/21 06/12/21 Unknown History albuterol sulfate 90 mcg/actuation 2 puff PO Q4-6H PRN 02/26/21 06/12/21 Unknown History aerosol inhaler (Ventolin HFA) amlodipine 10 mg tablet 1 tab PO QAM 02/26/21 06/12/21 Unknown History fluticasone 500 mcg-salmeterol 50 1 puff PO Q12H 02/26/21 06/12/21 Unknown History mcg/dose blistr powdr for inhalation (Advair Diskus) montelukast 10 mg tablet 1 tab PO QPM 02/26/21 06/12/21 Unknown History omeprazole 20 mg capsule,delayed 1 cap PO QAM 02/26/21 06/12/21 Unknown History release acetaminophen 500 mg tablet 1 tab PO Q8H PRN 06/12/21 06/12/21 Unknown History cyclobenzaprine 5 mg tablet 1 tab PO TID PRN 06/12/21 06/12/21 Unknown History valsartan 320 1 tab PO DAILY 06/12/21 06/12/21 Unknown History mg-hydrochlorothiazide 25 mg tablet Exam Exam Date and Time: June 24, 2021 0847 Height,Weight and Vital Signs: Height 5 ft 1 in Weight 76.657 kg Last Vital Signs Pulse 82 06/12/21 11:55 Resp 20 06/12/21 11:55 BP 144/77 H 06/12/21 11:55 Pulse Ox 97 06/12/21 11:55 Pertinent Lab Results Pertinent Lab Results: Laboratory Tests 02/27/21 02/27/21 06/12/21 12:10 12:55 12:15 WBC RBC Hgb Hct MCV MCH MCHC RDW Plt Count MPV Absolute Nucleated RBC Nucleated RBC % (auto) Sodium Potassium Chloride Carbon Dioxide Anion Gap BUN Creatinine Estim Creat Clear Calc Estimated GFR Random Glucose Calcium Nasal Screen MRSA (PCR) NEGATIVE NEGATIVE Nasal S. aureus Screen NEGATIVE NEGATIVE Nasal MRSA/S.aureus Interp SEE NOTE SEE NOTE Blood Type A Positive Antibody Screen NEGATIVE 06/12/21 06/12/21 06/12/21 12:51 12:54 12:54 WBC 6.7 RBC 4.44 Hgb 12.9 Hct 39.6 MCV 89.2 MCH 29.1 MCHC 32.6 RDW 13.1 Plt Count 247 MPV 10.8 Absolute Nucleated RBC 0.000 Nucleated RBC % (auto) 0.0 Sodium 139 Potassium 4.0 Chloride 101 Carbon Dioxide 29 Anion Gap 13 BUN 17 H Creatinine 0.81 Estim Creat Clear Calc 63.1 Estimated GFR > 60 Random Glucose 93 Calcium 10.7 H D Nasal Screen MRSA (PCR) Nasal S. aureus Screen Nasal MRSA/S.aureus Interp Blood Type A Positive Antibody Screen NEGATIVE Narrative Narrative: EKG 01/2021 Vent. Rate : 090 BPM ? ? Atrial Rate : 090 BPM ?? P-R Int : 186 ms? QRS Dur : 080 ms ? ? QT Int : 386 ms ? ? ? P-R-T Axes : 068 -03 055 degrees ?? QTc Int : 472 ms ? Normal sinus rhythm Normal ECG When compared with ECG of 09-JUN-2017 09:12, No significant change was found Airway Mallampati Class: I TM Dist: >3cm Neck ROM: Full Loose/Missing/Broken Teeth: No Heart: RRR Lungs: CTAB Other: Exam on 02/27/21 with PAT Assessment and Plan Assessment Anesthesia Assessment: Anesthesia Plan Discussed, PAT Visit and Chart Reviewed Final Anesthetic Review Family History of Problems with Anesthesia: No History of Problems with Anesthesia: No Documented by User: Andrew Barba MD 06/25/21 10:18 [facility] Past Medical History Medical History Arthritis Asthma COVID-19 vaccine series completed GERD (gastroesophageal reflux disease) Hypertension Pre-diabetes Family History Family History Maternal Aunt Breast CA Mother Colon cancer Surgical History Surgical History H/O colonoscopy H/O unilateral oophorectomy History of total right knee replacement Hx of breast biopsy Hx of hand surgery Hx of hysterectomy Hx of knee surgery Social History Social History (Updated 06/20/21 @ 11:33 by Elizabeth Mckeon CMA) Household Members: Spouse Household Members Other:: daughter Housing: House Are you a primary residential care facility manager to a significant other at home: No Do you presently have visiting nurse or other home services: No Alcohol intake: current Alcohol intake frequency: holidays/special occasions only Patient Tobacco Use Status: Former Tobacco user Quit Date: age 43 Tobacco use type: Cigarette Years Smoked: 20 Use of substances other than those prescribed or required for medical reasons: No Have you been hit, kicked, punched, or otherwise hurt by someone within the past year? If so, by whom?: No Are you DNR?: No Advance Directives: Yes Advance Directives Information Provided: Yes Advance Directives on File: Yes Advance Directives Date on File: 07/17/17 Recently lost weight without trying: No Eating poorly because of decreased appetite: No Nutrition Risks: No Nutritional Risk Poor oral hygiene: No Current occupational status: disabled Current occupation: rt handed Meds Allergies Allergy/AdvReac Type Severity Reaction Status Date / Time No Known Allergies Allergy Verified 06/20/21 11:31 [No Known Allergies*] Home Medications Medication Instructions Recorded Confirmed Last Taken Type atorvastatin 80 mg tablet 80 mg PO DAILY 12/10/20 06/12/21 Unknown History mometasone 50 mcg/actuation nasal 2 spray INTRANASAL DAILY 12/10/20 06/12/21 Unknown History spray (Nasonex) polyvinyl alcohol 1.4 % eye drops 1 drp OPHTHALMIC (EYE) BID-QID PRN 12/10/20 06/12/21 Unknown History (Artificial Tears (polyvinyl alcohol)) albuterol sulfate 1 amp INHALATION QID 02/26/21 06/12/21 Unknown History albuterol sulfate 90 mcg/actuation 2 puff PO Q4-6H PRN 02/26/21 06/12/21 Unknown History aerosol inhaler (Ventolin HFA) amlodipine 10 mg tablet 1 tab PO QAM 02/26/21 06/12/21 Unknown History fluticasone 500 mcg-salmeterol 50 1 puff PO Q12H 02/26/21 06/12/21 Unknown History mcg/dose blistr powdr for inhalation (Advair Diskus) montelukast 10 mg tablet 1 tab PO QPM 02/26/21 06/12/21 Unknown History omeprazole 20 mg capsule,delayed 1 cap PO QAM 02/26/21 06/12/21 Unknown History release acetaminophen 500 mg tablet 1 tab PO Q8H PRN 06/12/21 06/12/21 Unknown History cyclobenzaprine 5 mg tablet 1 tab PO TID PRN 06/12/21 06/12/21 Unknown History valsartan 320 1 tab PO DAILY 06/12/21 06/12/21 Unknown History mg-hydrochlorothiazide 25 mg tablet Exam Airway Mallampati Class: II Loose/Missing/Broken Teeth: Yes Assessment and Plan Final Anesthetic Review NPO: Yes ASA Class: II Final Preanesthetic Review: Meds/Allgs Chart Reviewed, Consent Obtained/Reviewed and Anes Risks/Benef Reviewed Patient Risk: Intermediate Procedure Risk: Intermediate Anesthetic Plan Anesthetic Plan: Spinal and Regional Block Disposition: Inp. Admit - Standard Bed
[2021-06-25] VITALS (25 sets, daily range): BP systolic 106–129; BP diastolic 58–77; PULSE 63–104; RESP 16–20; TEMP 36.1–36.9; O2SAT 93–98
--- NOTE | ~2021-06-25 | XR_ITS ---
EXAMINATION: XR KNEE, LEFT CLINICAL INFORMATION: Left total knee arthroplasty. COMPARISON: Left knee radiographs dated 11/27/2020. TECHNIQUE: Four views of the left knee. FINDINGS: The patient is status post left knee arthroplasty showing good anatomic alignment with no evidence for hardware malfunction. Intra-articular and subcutaneous air are noted. Surgical clips overlie the anterior soft tissues. XR/XR knee LT 2V IMPRESSION: Post surgical changes. No hardware abnormality.
[2021-06-25 08:20] LABS: Hematocrit 40.3 % (37.0-47.0)
[2021-06-25] MEDS: Lactated Ringers 1,000 ML 100 ML IVCONT ×3 (08:26→22:59)
[2021-06-25 08:35] LABS: COVID-19 Test Negative (Negative); IDNOW Serial# 16C4AD1C
--- NOTE | 2021-06-25 09:22 | MHC.SHP ---
Pre-Procedural Eval Section A Date of Service: 06/25/21 The patient is an INPATIENT: No Changes since office visit: Yes Patient answered all questions; No Cold of Flu in the past 2 weeks, No New Medical Problems and No Changes in Medication The History & Physical has been completed within 30 days and I have reviewed it.: Yes Section B Chief Complaint: LT TKA Allergies: Allergies Allergy/AdvReac Type Severity Reaction Status Date / Time No Known Allergies Allergy Verified 06/20/21 11:31 [No Known Allergies*] Plan I have reviewed the history and physical and performed a pertinent physical examination on my patient. No changes have occurred unless specified.
--- NOTE | 2021-06-25 11:26 | P.BOP_ITS ---
Brief Operative Note Date of Service: 06/25/21 Pre-op diagnosis: Left knee OA Post-op diagnosis: same Procedure: Left TKA Implants: [place] Tri[employer] Press fit posterior stabilized 03/28/15/a Surgeon: Ramses Jacobson MD Anesthesia: regional and spinal Was an Associate Professor Of Media Arts used for this Procedure?: Yes Associate Professor Of Media Arts: Javi Clinton Estimated blood loss (mL): 150 IV fluids (mL): 1,000 Pathology: other Condition: stable Disposition: PACU
--- NOTE | 2021-06-25 11:35 | W.PM.OPN ---
Operative Note Operative Note Date of Service: 06/25/21 Narrative: Pre-op diagnosis: Left knee OA Post-op diagnosis: same Procedure: Left TKA Implants: [place] Tri[employer] Press fit posterior stabilized 03/28/15PS/29a Surgeon: Ramses Jacobson MD Anesthesia: regional and spinal Was an Hemodialysis Patient Care Specialist used for this Procedure?: Yes Hemodialysis Patient Care Specialist: Javi Clinton Estimated blood loss (mL): 150 IV fluids (mL): 1,000 Pathology: other Condition: stable Disposition: PACU Procedure in detail: The patient was brought to the operating room and prepped and draped in standard sterile fashion. A time-out was called to identify proper site proper procedure proper surgeon and IV antibiotics were administered. 1 g of IV tranexamic acid was administered. I began by making a midline incision to the retinaculum and performed a medial parapatellar arthrotomy. The patella was translated laterally and the knee was flexed up. The medial compartmanet was eburnated. I performed a small medial peel and resected the infrapatellar fat pad. Hickman's line was then used to drill my intramedullary femoral guide and my distal femur cut of 10 mm was made in 5 degrees of valgus while protecting the soft tissues. I then measured a # 2 femur and placed my cutting guide and made my anterior posterior and chamfer cuts protecting the soft tissues at all times. I then made my box and removed the PCL. Once I was satisfied with my cuts I turned my attention to the tibia. I removed the meniscus medially and laterally and , using an external cutting guide, in line with the tibial crest and the third ray, I made my distal tibial cut in 0 deg slope of while protecting the PCL the posterior soft tissues at all times. I removed several large osteophytes from the posterior fossa. An extension block was used to confirm appropriate amount of bony resection. I then sized a #3 tibia and once I was satisfied that there was complete tibial coverage I placed my trial and with the trial femur in place took the knee through range of motion. I was satisfied with the extension and flexion as well as the balance and stability at 0, 30 and 90 degrees. I then turned my attention to the patella where I removed 1 cm from the undersurface of the patella and then trialed a 29a patellar button. Again the knee was taken through range of motion I was satisfied with the tracking. I then returned to the femur and drilled my femoral lug holes and prepared the tibia. A femoral bone plug was placed and the knee was irrigated copiously. I then press fit the patella, tibia and femur in standard fashion. I trialed different inserts until I selected a #16 insert. The final insert was placed and a 3 minutes iodine soak with local TXA was performed. A Werewolf cautery wand was used to maintain hemostasis over the capsule and meniscal beds, the gutters and peripatellar soft tissues. The knee was then closed with a running Quill suture, a 3 0 Vicryl and salazar on the skin. Patient was then placed in sterile dressing and brought to recovery room in stable condition there were no known complications.
[2021-06-25] MEDS: HYDROmorphone HCl 0.5 MG/0.5 ML SYRINGE 0.25 MG IVPUSH ×4 (11:57→12:42)
[2021-06-25] MEDS: oxyCODONE HCl Immed Release 5 MG TABLET PO (11:57)
[2021-06-25] MEDS: ceFAZolin Sodium/Dextrose,Iso 2 GM/50 ML PIGGYBACK IV (15:36)
[2021-06-25] MEDS: oxyCODONE HCl Immed Release 5 MG TABLET 10 MG PO ×2 (16:30→20:59)
--- NOTE | 2021-06-25 17:09 | P.CONIM_ITS ---
History of Present Illness Data of Consult Service Date: 06/25/21 Primary Care Provider: Aaron Martinez MD HPI Reason for consult: htn, asthma, hld 65F Admitted for elective left total knee arthroplasty. Medical consult requested for management of comorbidities of hypertension, hyperlipidemia, osteoporosis, asthma. Patient is feeling well postoperatively, denies chest pain, shortness of breath, fever, chills. Review of Systems Review of Systems: Yes all other systems are reviewed and are negative [facility] Medical History Arthritis Asthma COVID-19 vaccine series completed GERD (gastroesophageal reflux disease) Hypertension Pre-diabetes Family History Maternal Aunt Breast CA Mother Colon cancer Surgical History H/O colonoscopy H/O unilateral oophorectomy History of total right knee replacement Hx of breast biopsy Hx of hand surgery Hx of hysterectomy Hx of knee surgery Social History Household Members: Family Household Members Other:: daughter Housing: House Are you a primary career guidance counselor to a significant other at home: No Do you presently have visiting nurse or other home services: No Alcohol intake: current Alcohol intake frequency: holidays/special occasions only Patient Tobacco Use Status: Former Tobacco user Quit Date: 2001 Tobacco use type: Cigarette Years Smoked: 20 Smoked in Last 30 Days: No Patient Interested in Nicotine Replacement: No Patient Given Instructions on How to Stop Smoking: No Second Hand Smoke Exposure: No Use of substances other than those prescribed or required for medical reasons: No Have you been hit, kicked, punched, or otherwise hurt by someone within the past year? If so, by whom?: No Do you feel safe in your current relationship?: Yes Is there a partner from a previous relationship who is making you feel unsafe now?: No Are you made to feel afraid or neglected: No Are you DNR?: No Advance Directives: Yes Advance Directives Information Provided: Yes Advance Directives on File: Yes Advance Directives Date on File: 07/17/17 Do you have thoughts of harming others: None Do you have a plan to hurt others: No Plan Recently lost weight without trying: No How much weight loss: Not applicable Eating poorly because of decreased appetite: Yes Nutrition screen score: 1 Nutrition Risks: No Nutritional Risk Patient : No : No Poor oral hygiene: No Current occupational status: disabled Current occupation: rt handed Meds Allergies Allergy/AdvReac Type Severity Reaction Status Date / Time begum Allergy Itching Verified 06/25/21 16:25 pollen extracts Allergy Sneezing Verified 06/25/21 16:26 tomato Allergy Hives Verified 06/25/21 16:24 Active Medications: Current Medications Acetaminophen (Acetaminophen 325 Mg Tablet) 650 mg PO Q6H PRN PRN Reason: Pain, Mild (Pain Scale 1-3) Albuterol Sulfate (Albuterol Sulfate 90 Mcg 8 Gm Inhaler) 2 puff INHALE Q4H PRN PRN Reason: Wheezing Albuterol Sulfate (Albuterol Sulfate (0.083%) 2.5 Mg/3 Ml Vial.Neb) 2.5 mg INHALE RQID [facility] Last Admin: 06/25/21 15:13 Dose: Not Given Documented by: Artificial Tears (Artificial Tears 15 Ml Drops) 1 drop EYE-BOTH TID PRN PRN Reason: Dry Eye(S) Aspirin (Aspirin 325 Mg Tablet) 325 mg PO BID [facility] Celecoxib (Celecoxib 200 Mg Capsule) 200 mg PO BID [facility] Cyclobenzaprine HCl (Cyclobenzaprine Hcl 5 Mg Tablet) 5 mg PO TID PRN PRN Reason: low back pain Docusate Sodium (Docusate Sodium 100 Mg Capsule) 100 mg PO BID [facility] Fluticasone Propionate (Fluticasone Propionate Nasal 16 Gm Bogue) 2 spray NOSTRIL-B DAILY [facility] Fluticasone/Vilanterol (Fluticasone/Vilanterol 200/25 Blst.W.Dev) 1 puff INHALE DAILY [facility] Hydromorphone HCl (Hydromorphone Hcl 1 Mg/Ml Syringe) 0.25 mg IVPUSH Q4H PRN; Protocol PRN Reason: Pain, Severe (Pain Scale 7-10) Lactated Ringer's (Lr) 1,000 mls @ 100 mls/hr IVCONT .Q10H [facility] Last Admin: 06/25/21 13:23 Dose: 100 mls/hr Documented by: Montelukast Sodium (Montelukast Sodium 10 Mg Tablet) 10 mg PO BEDTIME [facility] Omeprazole (Omeprazole 20 Mg Capsule.Dr) 20 mg PO DAILY@0630 [facility] Ondansetron HCl (Ondansetron Hcl 4 Mg/2 Ml Vial) 4 mg IVPUSH Q8H PRN PRN Reason: Nausea and Vomiting Oxycodone HCl (Oxycodone Hcl Immed Release 5 Mg Tablet) 10 mg PO Q4H PRN PRN Reason: Pain, Moderate (Pain Scale 4-6 Last Admin: 06/25/21 16:30 Dose: 10 mg Documented by: Oxycodone HCl (Oxycodone Hcl Er 10 Mg Tab.Er.12h) 10 mg PO BID [facility] Sodium Chloride (0.9 % Sodium Chloride Flush 3 Ml Syringe) 3 ml IVFLUSH QSHIFT [facility] Last Admin: 06/25/21 16:26 Dose: Not Given Documented by: Home Medications Medication Instructions Recorded Confirmed Last Taken Type atorvastatin 80 mg tablet 80 mg PO DAILY 12/10/20 06/12/21 Unknown History mometasone 50 mcg/actuation nasal 2 spray INTRANASAL DAILY 12/10/20 06/12/21 Unknown History spray (Nasonex) polyvinyl alcohol 1.4 % eye drops 1 drp OPHTHALMIC (EYE) BID-QID PRN 12/10/20 06/12/21 Unknown History (Artificial Tears (polyvinyl alcohol)) albuterol sulfate 1 amp INHALATION QID 02/26/21 06/12/21 Unknown History albuterol sulfate 90 mcg/actuation 2 puff PO Q4-6H PRN 02/26/21 06/12/21 Unknown History aerosol inhaler (Ventolin HFA) amlodipine 10 mg tablet 1 tab PO QAM 02/26/21 06/12/21 Unknown History fluticasone 500 mcg-salmeterol 50 1 puff PO Q12H 02/26/21 06/12/21 Unknown History mcg/dose blistr powdr for inhalation (Advair Diskus) montelukast 10 mg tablet 1 tab PO QPM 02/26/21 06/12/21 Unknown History omeprazole 20 mg capsule,delayed 1 cap PO QAM 02/26/21 06/12/21 Unknown History release acetaminophen 500 mg tablet 1 tab PO Q8H PRN 06/12/21 06/12/21 Unknown History cyclobenzaprine 5 mg tablet 1 tab PO TID PRN 06/12/21 06/12/21 Unknown History valsartan 320 1 tab PO DAILY 06/12/21 06/12/21 Unknown History mg-hydrochlorothiazide 25 mg tablet Physical Exam Vital Signs and Narrative: Vital Signs: Last Vital Signs Temp 97 F 06/25/21 15:30 Pulse 79 06/25/21 15:30 Resp 16 06/25/21 15:30 BP 122/77 06/25/21 15:30 Pulse Ox 97 06/25/21 15:30 BMI result Body Mass Index 31.9 General: AO X 3, no acute distress Resp: CTA bilateral, no accessory muscles used CVS: S1,S2,RRR GI: soft, non tender, non distended Neuro: motor grossly intact, alert Psych: appropriate affect, appropriate insight Results Labs CBC and Chem 7: 06/25/21 08:09 06/12/21 12:54 Labs: Laboratory Results - last 24 hr 06/25/21 07:55 COVID-19 ([facility]) Negative COVID-19 Clin Com See Note Imaging Radiologist's Impressions: Impressions Knee X-Ray 06/25/21 12:33 IMPRESSION: Post surgical changes. No hardware abnormality. Assessment and Plan (1) Osteoarthritis of left knee: Status: Acute Plan 65-year-old female admitted status post left TKA hypertension on amlodipine, valsartan / hydrochlorothiazide at home, can hold BP meds perioperatively, restart when blood pressures high Hyperlipidemia continue statin mild persistent asthma continue Advair, bronchodilators as needed osteoporosis hold alendronate for now
[2021-06-25] MEDS: Acetaminophen 325 MG TABLET 650 MG PO (18:46)
[2021-06-25] MEDS: Albuterol Sulfate (0.083%) 2.5 MG/3 ML VIAL.NEB INHALE (19:25)
[2021-06-25] MEDS: Montelukast Sodium 10 MG TABLET PO (19:47)
[2021-06-25] MEDS: Docusate Sodium 100 MG CAPSULE PO (19:47)
[2021-06-25] MEDS: oxyCODONE HCl ER 10 MG TAB.ER.12H PO (19:47)
[2021-06-25] MEDS: Celecoxib 200 MG CAPSULE PO (19:47)
[2021-06-26] VITALS (11 sets, daily range): BP systolic 105–143; BP diastolic 55–80; PULSE 85–100; RESP 17–20; TEMP 36.2–36.9; O2SAT 92–98
[2021-06-26] MEDS: oxyCODONE HCl Immed Release 5 MG TABLET 10 MG PO ×3 (01:43→13:27)
[2021-06-26] MEDS: Omeprazole 20 MG CAPSULE.DR PO (06:00)
[2021-06-26 06:42] LABS: MANUAL DIFF FLAG NO
[2021-06-26 06:51] LABS: Basophils Percent Auto 0.1 % (0-2); Hematocrit 33.4 % (37.0-47.0); Hemoglobin 10.8 g/dl (12.0-16.0); Imm Gran Abs Auto 0.11 X10*3/uL (0.00-0.03); Imm Gran Pct Auto 0.8 % (0.0-0.4); Lymphocytes Absolute Auto 0.9 X10*3/uL (1.2-4.9); Lymphocytes Percent Auto 6.1 % (20-40); Mean Corpuscular HGB Conc 32.3 g/dl (31.0-35.0); Mean Corpuscular Hemoglobin 29.3 pg (27.0-33.0); Mean Corpuscular Volume 90.5 fL (80.0-98.0); Monocytes Absolute Auto 0.9 X10*3/uL (0.1-1.2); Monocytes Percent Auto 6.3 % (2-11); Neutrophils Absolute Auto 12.2 x10*3/uL (2.0-8.3); Neutrophils Percent Auto 86.7 % (45-73); Platelet Count 249 X10*3/uL (160-400); Red Blood Count 3.69 X10*6/uL (4.20-5.50); Red Cell Distribution Width 13.2 % (11.0-16.0); White Blood Count 14.1 X10*3/uL (4.8-10.8)
[2021-06-26 07:04] LABS: Anion Gap 15 (12-20); Blood Urea Nitrogen 23 mg/dL (9-16); Calcium 9.2 mg/dL (8.4-10.2); Carbon Dioxide 26 mmol/L (22-29); Chloride 98 mmol/L (96-108); Creatinine Clr Calc Pharmacy 60.1; Estimated Glomerular Filt Rate > 60; Glucose Fasting 133 mg/dL (60-99); Potassium 4.5 mmol/L (3.3-5.1); Sodium 134 mmol/L (135-145)
[2021-06-26] MEDS: Albuterol Sulfate (0.083%) 2.5 MG/3 ML VIAL.NEB INHALE ×4 (07:25→19:33)
--- NOTE | 2021-06-26 08:16 | P.PNOP_ITS ---
Subjective Subjective Date of Service: 06/26/21 Interval history: Postop day 1 status post left knee Patient is resting in bed No overnight events Physical Exam Vital Signs: Vital Signs: Last Vital Signs Temp 98.4 F 06/26/21 03:33 Pulse 91 06/26/21 07:25 Resp 18 06/26/21 07:25 BP 124/61 06/26/21 03:33 Pulse Ox 92 06/26/21 03:33 BMI result Body Mass Index 31.9 Const: General: cooperative, healthy appearing and no acute distress Resp: Effort & Inspection: normal respiratory effort and able to speak in complete sentences Cardio: Rate: regular rate Peripheral pulses: Peripheral pulses 2+ throughout GI: Palpation (GI): Soft to palpation Skin: General skin exam: no rashes or lesions noted Extrem: Other: incision clean dry and intact. [place] intact. No erythema or joint effusion. Calf supple nontender. Neurovascularly intact. Procedures Date of Service Date of Service: 06/26/21 Progress Note: A&P Assessment and plan (1) Status post total left knee replacement: Status: Acute Assessment and Plan: * Continue pain mgmnt * Begin Aspirin for dvt ppx * begin PT for LT TKA * Dispo planning-Pending PT eval, pain mgmnt Time Spent With Patient Time: Total time spent is greater than 50% in coordination of care (as documented) at patient's floor/unit and/or counseling patient: Quality Stroke Does the patient have a stroke diagnosis?: No VTE Prior VTE?: No VTE Risk Level:: Surgical - very high VTE Device Contraindication: N/A - Device Ordered VTE Drug Contraindication: N/A - Med Ordered
[2021-06-26] MEDS: Lactated Ringers 1,000 ML 100 ML IVCONT ×2 (09:12→20:17)
[2021-06-26] MEDS: ondansetron HCL 4 MG/2 ML VIAL IVPUSH (09:13)
[2021-06-26] MEDS: Aspirin 325 MG TABLET PO ×2 (09:16→20:18)
[2021-06-26] MEDS: Celecoxib 200 MG CAPSULE PO ×2 (09:16→20:20)
[2021-06-26] MEDS: Docusate Sodium 100 MG CAPSULE PO ×2 (09:17→20:19)
[2021-06-26] MEDS: Atorvastatin Calcium 80 MG TABLET PO (09:17)
[2021-06-26] MEDS: oxyCODONE HCl ER 10 MG TAB.ER.12H PO ×2 (09:17→20:19)
[2021-06-26] MEDS: amLODIPine Besylate 5 MG TABLET PO (09:17)
--- NOTE | 2021-06-26 09:27 | MHC.CM.PN ---
met with pt who lives with her souse pt is independent had no previous servceis pt will be going home with home physical therapy pt is vax has own ride home
--- NOTE | 2021-06-26 15:26 | HO.POSTANES ---
Post Anesthesia Evaluation Post Anesthesia Evaluation Vital Signs: Vital Signs Temp Pulse Resp BP Pulse Ox 06/26/21 15:09 88 18 06/26/21 12:00 97.7 F 95 18 125/80 94 06/26/21 11:12 89 18 06/26/21 08:00 98.3 F 100 18 105/55 L 98 06/26/21 07:25 91 18 06/26/21 03:33 98.4 F 98 20 124/61 92 Anesthesia: Spinal and Nerve Block Mental Status: Awake Pain Control: Satisfactory Nausea/Vomiting: None Hydration: Adequate Anesthesia-Related Issues: No Anes. Related Issues
[2021-06-26] MEDS: HYDROmorphone HCl 1 MG/ML SYRINGE 0.25 MG IVPUSH (15:52)
[2021-06-26] MEDS: 0.9 % Sodium Chloride Flush 3 ML SYRINGE IVFLUSH (15:54)
[2021-06-26] MEDS: Montelukast Sodium 10 MG TABLET PO (20:20)
--- NOTE | 2021-06-26 20:28 | PC.NURSE ---
Ppatient c/o itchiness all over her body,reports allergy to begum ,pollen and tomateos,has begum in room from her daughter but does not want to remove them I Dr. Gibson notified E will adm Benadryl when ordered
[2021-06-26] MEDS: diphenhydrAMINE HCL 25 MG TABLET PO (20:40)
[2021-06-26] MEDS: Acetaminophen 325 MG TABLET 650 MG PO (20:41)
[2021-06-27] VITALS (10 sets, daily range): BP systolic 117–146; BP diastolic 57–68; PULSE 98–105; RESP 17–20; TEMP 36.2–37.1; O2SAT 91–97
[2021-06-27] MEDS: oxyCODONE HCl Immed Release 5 MG TABLET 10 MG PO ×3 (00:26→19:29)
[2021-06-27 06:01] LABS: MANUAL DIFF FLAG NO
[2021-06-27 06:08] LABS: Basophils Percent Auto 0.2 % (0-2); Eosinophils Percent Auto 0.1 % (0-4); Hematocrit 29.4 % (37.0-47.0); Hemoglobin 9.4 g/dl (12.0-16.0); Imm Gran Abs Auto 0.08 X10*3/uL (0.00-0.03); Imm Gran Pct Auto 0.6 % (0.0-0.4); Lymphocytes Absolute Auto 0.8 X10*3/uL (1.2-4.9); Lymphocytes Percent Auto 6.5 % (20-40); Mean Corpuscular Hemoglobin 29.3 pg (27.0-33.0); Mean Corpuscular Volume 91.6 fL (80.0-98.0); Mean Platelet Volume 10.8 fL (9.4-12.3); Monocytes Absolute Auto 0.9 X10*3/uL (0.1-1.2); Neutrophils Absolute Auto 11.1 x10*3/uL (2.0-8.3); Neutrophils Percent Auto 85.6 % (45-73); Platelet Count 206 X10*3/uL (160-400); Red Blood Count 3.21 X10*6/uL (4.20-5.50); Red Cell Distribution Width 13.9 % (11.0-16.0); White Blood Count 12.9 X10*3/uL (4.8-10.8)
[2021-06-27 06:32] LABS: Anion Gap 12 (12-20); Blood Urea Nitrogen 25 mg/dL (9-16); Calcium 8.6 mg/dL (8.4-10.2); Carbon Dioxide 27 mmol/L (22-29); Chloride 99 mmol/L (96-108); Creatinine Clr Calc Pharmacy 61.5; Estimated Glomerular Filt Rate > 60; Glucose Fasting 121 mg/dL (60-99); Sodium 134 mmol/L (135-145)
[2021-06-27] MEDS: Omeprazole 20 MG CAPSULE.DR PO (06:34)
[2021-06-27] MEDS: Albuterol Sulfate (0.083%) 2.5 MG/3 ML VIAL.NEB INHALE ×4 (07:55→20:14)
[2021-06-27] MEDS: Fluticasone/Vilanterol 200/25 BLST.W.DEV 1 PUFF INHALE (07:55)
[2021-06-27] MEDS: Aspirin 325 MG TABLET PO ×2 (09:14→22:30)
[2021-06-27] MEDS: oxyCODONE HCl ER 10 MG TAB.ER.12H PO ×2 (09:14→22:30)
[2021-06-27] MEDS: amLODIPine Besylate 5 MG TABLET PO (09:15)
[2021-06-27] MEDS: 0.9 % Sodium Chloride Flush 3 ML SYRINGE IVFLUSH ×2 (09:15→22:31)
[2021-06-27] MEDS: Atorvastatin Calcium 80 MG TABLET PO (09:15)
[2021-06-27] MEDS: Docusate Sodium 100 MG CAPSULE PO ×2 (09:15→22:30)
[2021-06-27] MEDS: Celecoxib 200 MG CAPSULE PO ×2 (09:15→22:30)
--- NOTE | 2021-06-27 19:14 | P.PNOP_ITS ---
Subjective Subjective Date of Service: 06/27/21 Interval history: POD 2 s/p LT TKA no overnight events PT went well yesterday, states she is feeling better in regards to the pain denies cp,palpitations, sob Physical Exam Vital Signs: Vital Signs: Last Vital Signs Temp 97.8 F 06/27/21 15:26 Pulse 105 H 06/27/21 15:52 Resp 20 06/27/21 15:52 BP 126/62 06/27/21 15:26 Pulse Ox 94 06/27/21 15:26 BMI result Body Mass Index 31.9 Const: General: cooperative, healthy appearing and no acute distress Resp: Effort & Inspection: normal respiratory effort and able to speak in complete sentences Cardio: Rate: regular rate Peripheral pulses: Peripheral pulses 2+ throu ghout GI: Palpation (GI): Soft to palpation Skin: General skin exam: no rashes or lesions noted Extrem: Other: incision clean dry and intact. [place] intact. No erythema or joint effusion. Calf supple nontender. Neurovascularly intact. Procedures Date of Service Date of Service: 06/27/21 Progress Note: A&P Assessment and plan (1) Status post total left knee replacement: Status: Acute Assessment and Plan: continue pain mgmnt continue PT for LT TKA continue ASA for dvt ppx dispo-pending pain mgmnt and PT clearance. Time Spent With Patient Time: Total time spent is greater than 50% in coordination of care (as documented) at patient's floor/unit and/or counseling patient: Quality Stroke Does the patient have a stroke diagnosis?: No VTE Prior VTE?: No VTE Risk Level:: Surgical - very high VTE Device Contraindication: N/A - Device Ordered VTE Drug Contraindication: N/A - Med Ordered
[2021-06-27] MEDS: Montelukast Sodium 10 MG TABLET PO (22:30)
[2021-06-28 03:38] VITALS: BP 111/57; PULSE 90; RESP 18; TEMP 36.8; O2SAT 93
[2021-06-28] MEDS: Omeprazole 20 MG CAPSULE.DR PO (05:57)
[2021-06-28] MEDS: oxyCODONE HCl Immed Release 5 MG TABLET 10 MG PO (05:59)
[2021-06-28 06:06] LABS: MANUAL DIFF FLAG NO
[2021-06-28 06:14] LABS: Basophils Percent Auto 0.2 % (0-2); Eosinophils Absolute Auto 0.1 X10*3/uL (0.0-0.4); Eosinophils Percent Auto 0.8 % (0-4); Hematocrit 25.1 % (37.0-47.0); Hemoglobin 8.2 g/dl (12.0-16.0); Imm Gran Abs Auto 0.05 X10*3/uL (0.00-0.03); Imm Gran Pct Auto 0.6 % (0.0-0.4); Lymphocytes Percent Auto 11.2 % (20-40); Mean Corpuscular HGB Conc 32.7 g/dl (31.0-35.0); Mean Corpuscular Hemoglobin 29.5 pg (27.0-33.0); Mean Corpuscular Volume 90.3 fL (80.0-98.0); Mean Platelet Volume 10.6 fL (9.4-12.3); Monocytes Absolute Auto 0.7 X10*3/uL (0.1-1.2); Monocytes Percent Auto 7.8 % (2-11); Neutrophils Absolute Auto 6.9 x10*3/uL (2.0-8.3); Neutrophils Percent Auto 79.4 % (45-73); Platelet Count 168 X10*3/uL (160-400); Red Blood Count 2.78 X10*6/uL (4.20-5.50); Red Cell Distribution Width 14.1 % (11.0-16.0); White Blood Count 8.7 X10*3/uL (4.8-10.8)
[2021-06-28 06:33] LABS: Anion Gap 10 (12-20); Blood Urea Nitrogen 17 mg/dL (9-16); Calcium 8.2 mg/dL (8.4-10.2); Carbon Dioxide 30 mmol/L (22-29); Chloride 98 mmol/L (96-108); Creatinine Clr Calc Pharmacy 64.7; Estimated Glomerular Filt Rate > 60; Glucose Fasting 121 mg/dL (60-99); Potassium 3.8 mmol/L (3.3-5.1); Sodium 134 mmol/L (135-145)
[2021-06-28] MEDS: 0.9 % Sodium Chloride Flush 3 ML SYRINGE IVFLUSH (07:34)
[2021-06-28 07:48] VITALS: BP 136/61; PULSE 99; RESP 17; TEMP 36.7; O2SAT 95
--- NOTE | 2021-06-28 07:53 | P.DS_ITS ---
DS: Providers Provider Date of Service: 06/28/21 Date of admission: 06/25/21 08:02 Primary care physician: Aaron Martinez MD Consults: 06/25/21 16:03 Consult to Hospitalist Routine Consulting Provider: Hospitalist Reason For Exam: HTN DS: Diagnosis Discharge Diagnosis (1) Status post total left knee replacement: Status: Acute DS: Summary Hospital Course Hospital Course: The patient underwent a successful left total knee arthroplasty, was transferred to PACU and then to the floor to recover. During their stay, their vitals were stable, afebrile at 98.1. Labs were unremarkable, H/H 8.2/25.1. POD 1 she was started on asa for DVT ppx, they also received PT services twice a day. Prior to discharge, their dressing was change, incision clean dry and intact, new Aquacel dressing applied and the plan was to be discharged home with vna Time Spent with Patient Time attestation: Total time spent providing and/or coordinating discharge services: Discharge coordination time: Less than 30 minutes Quality: Safe Use of Opioids Does Pt have an Active Cancer Diagnosis on the Problem List?: No Quality: Stroke Does the patient have a stroke diagnosis?: No Physical Exam Vital Signs: Vital Signs: Last Vital Signs Temp 98.1 F 06/28/21 07:48 Pulse 99 06/28/21 07:48 Resp 17 06/28/21 07:48 BP 136/61 06/28/21 07:48 Pulse Ox 95 06/28/21 07:48 BMI result Body Mass Index 31.9 Const: General: cooperative and no acute distress Orientation/consciousness: patient oriented x3 Resp: Effort & Inspection: normal respiratory effort and able to speak in complete sentences Cardio: Rate: regular rate Peripheral pulses: Peripheral pulses 2+ throughout GI: Palpation (GI): Soft to palpation Skin: General skin exam: no rashes or lesions noted Neuro: General: patient oriented x3 Extrem: Other: incision clean dry and intact. [place] intact. No erythema or joint effusion. Calf supple nontender. Neurovascularly intact. DS: Data Data Completed and Pending Completed studies during hospitalization [Text1]: Pending at discharge 06/25/21 11:08 Surgical [PTH] Routine Labs on day of discharge: Laboratory Results - last 24 hr 06/28/21 06/28/21 05:59 05:59 WBC 8.7 RBC 2.78 L Hgb 8.2 L Hct 25.1 L MCV 90.3 MCH 29.5 MCHC 32.7 RDW 14.1 Plt Count 168 MPV 10.6 Immature Gran % (Auto) 0.6 H Neut % (Auto) 79.4 H Lymph % (Auto) 11.2 L [place] % (Auto) 7.8 Eos % (Auto) 0.8 Baso % (Auto) 0.2 Lymph # (Auto) 1.0 L [place] # (Auto) 0.7 Eos # (Auto) 0.1 Baso # (Auto) 0.0 Abs Immat Gran (auto) 0.05 H Absolute Neuts (auto) 6.9 Absolute Nucleated RBC 0.000 Nucleated RBC % (auto) 0.0 Sodium 134 L Potassium 3.8 Chloride 98 Carbon Dioxide 30 H Anion Gap 10 L BUN 17 H Creatinine 0.79 Estim Creat Clear Calc 64.7 Estimated GFR > 60 Fasting Glucose 121 H Calcium 8.2 L Discharge Plan Discharge Patient Disposition: Home Health Service Discharge Diagnosis: lt tka Referrals: Javi Clinton PA-C [Physician Route Clerk] - 2 Weeks (07/11/21 12:30 [facility] Javi Clinton PA-C) Discharge Medications: New celecoxib 200 mg Capsule 200 mg PO BID 30 Days Qty: 60 0RF docusate sodium 100 mg Capsule 100 mg PO BID 14 Days Qty: 28 0RF oxycodone 5 mg Tablet 5 mg PO Q4H PRN (Reason: Pain, Moderate (Pain Scale 4-6) 7 Days Qty: 42 0RF acetaminophen 325 mg Tablet 650 mg PO Q6H PRN (Reason: Pain, Mild (Pain Scale 1-3)) 30 Days Qty: 240 0RF aspirin 325 mg Tablet 325 mg PO BID 42 Days Qty: 84 0RF Continued albuterol sulfate 2.5 mg /3 mL (0.083 %) solution for nebulization 1 amp inhalation QID 0RF amlodipine 10 mg tablet 1 tab PO QAM 0RF fluticasone propion-salmeterol [Advair Diskus] 500-50 mcg/dose blister with device 1 puff PO Q12H 0RF omeprazole 20 mg capsule,delayed release(DR/EC) 1 cap PO QAM 0RF montelukast 10 mg tablet 1 tab PO QPM 0RF albuterol sulfate [Ventolin HFA] 90 mcg/actuation HFA aerosol inhaler 2 puff PO Q4-6H PRN (Reason: Wheezing) 0RF valsartan-hydrochlorothiazide 320-25 mg Tablet 1 tab PO DAILY 0RF cyclobenzaprine 5 mg tablet 1 tab PO TID PRN (Reason: low back pain) 0RF polyvinyl alcohol [Artificial Tears (polyvin alc)] 1.4 % drops 1 drp ophthalmic (eye) BID-QID PRN (Reason: Dry Eye(S)) 0RF mometasone [Nasonex] 50 mcg/actuation spray,non-aerosol 2 spray intranasal DAILY 0RF Rx Instructions: administer into each nostril atorvastatin 80 mg tablet 80 mg PO DAILY 0RF alendronate 70 mg tablet 70 mg PO QWEEK Qty: 14 3RF Discontinued acetaminophen 500 mg tablet 1 tab PO Q8H PRN (Reason: Pain) 0RF Discharge Orders: Discharge Order (Routine); Ordered 06/28/21 Ordered By: Javi Clinton Diet: regular diet Activity on Discharge: Use cane or walker Stand Alone Forms: Patient Portal Discharge page Care Plan Goals: Restore function of joint Health Concerns: none Plan of Treatment: Physical Therapy Pain management DVT prophylaxis Assessment: Physical Therapy for Total knee arthroplasty: WBAT, gait training, ROM 0-12, quad strength * Limit stair climbing * No showering, no tub bath-keep dressing clean, dry and intact * No driving x6 weeks * Continue Aspirin twice a day x 6 weeks * Follow up with [facility]: * --you will also have your first out patient PT rach on the day of your post op appt-so please plan on being in the office that day for an extended period of time.
--- NOTE | 2021-06-28 07:56 | W.MHC.F2F ---
Service Date Service Date: 06/28/21 Encounter Date of encounter: 06/28/21 Reasons for Services Signs and symptoms assessed: left knee pain , swelling, weakness, unable to drive Reason for physical therapy: home safety and mobility, therapeutic exercises, restore joint function, gait/transfer training, ADL training and energy conservation Reason for occupational therapy: home safety and mobility, therapeutic exercises, restore joint function, gait/transfer training, ADL training and energy conservation Overseeing Care: Ramses Jacobson Homebound: Leaving the home is medically contraindicated at this time without the asist of a device and/or another person due th the listed conditions above and below. Reason homebound: unsteady gait / fall risk, pain with ambulation, pain with transfers, poor balance / fall risk and unable to drive Homebound supporting statement: Pt. is considered home bound due to recent surgery. Unable to drive, poor balance, poor gait mechanics. Certification: Based on the above findings, I certify that this patient is confined to the home and needs intermittent half-way care, physical therapy and/or speech therapy, or continues to need occupational therapy. The patient is under my care, and I have initiated the establishment of the plan of care. The patient will be followed by a physician who will periodically review the plan of care.
[2021-06-28 08:43] VITALS: PULSE 84; RESP 16; O2SAT 98
[2021-06-28] MEDS: Albuterol Sulfate (0.083%) 2.5 MG/3 ML VIAL.NEB INHALE (08:43)
[2021-06-28] MEDS: Fluticasone/Vilanterol 200/25 BLST.W.DEV 1 PUFF INHALE (08:43)
--- NOTE | 2021-06-28 08:52 | MHC.CM.PN ---
PATIENT IS DISCHARGED HOME WITH [facility]. RN AND PATIENT AWARE OF PLAN. IMM 06/26 COMPLETED
[2021-06-28] MEDS: Aspirin 325 MG TABLET PO (09:53)
[2021-06-28] MEDS: Docusate Sodium 100 MG CAPSULE PO (09:53)
[2021-06-28] MEDS: Atorvastatin Calcium 80 MG TABLET PO (09:53)
[2021-06-28] MEDS: Celecoxib 200 MG CAPSULE PO (09:53)
[2021-06-28] MEDS: amLODIPine Besylate 5 MG TABLET PO (09:53)
[2021-06-28] MEDS: oxyCODONE HCl ER 10 MG TAB.ER.12H PO (09:53)
[2021-06-28] MEDS: Fluticasone Propionate Nasal 16 GM SPRAY 2 SPRAY NOSTRIL-B (09:56)
[2021-06-28 10:22] VITALS: PULSE 84
== END 2021-06-28 10:05 | disposition home health service (06) | DRG 470 ==
LOC: HO.SSSA 08:10 → HO.S3 15:03
PROVIDERS: Nurse Practitioner; Orthopaedic Surgery; Admitting Provider Physician Assistant; PCP Internal Medicine Geriatric Medicine; Visit Provider Physician Assistant
PROC: 0SRD0JA Replacement of Left Knee Joint with Synthetic Substitute, Uncemented, Open Approach (ICD-10-PCS; CPT 27447; principal; 2021-06-25 09:30)
DX: M17.12 Unilateral primary osteoarthritis, left knee (principal); J45.30 Mild persistent asthma, uncomplicated; E78.5 Hyperlipidemia, unspecified; M81.0 Age-related osteoporosis without current pathological fracture; K21.9 Gastro-esophageal reflux disease without esophagitis; I10 Essential (primary) hypertension; Z20.822 Contact with and (suspected) exposure to COVID-19; Z87.891 Personal history of nicotine dependence; Z79.51 Long term (current) use of inhaled steroids; Z79.899 Other long term (current) drug therapy
CPT/HCPCS: 36415; 73560; 80048; 85014; 85018; 85025; 85027; 86850; 86900; 86901; 87635; 87640; 87641; 88305; 88311; 94640; 97110; 97116; 97162; C1776; J0690; J1100; J1170; J2250; J2370; J2405; J2795; Q0163

== ENCOUNTER → 2021-07-01 11:22 | Outpatient (BNVA) | payer MEDICARE, MEDICAID, SELFPAY | PROVIDERS: PCP Internal Medicine Geriatric Medicine; Visit Provider Orthopaedic Surgery | DX: Z13.89 Encounter for screening for other disorder (principal) ==

== ENCOUNTER → 2021-07-11 12:12 | Outpatient (BNVA) | payer MEDICARE, MEDICAID, SELFPAY | PROVIDERS: PCP Internal Medicine Geriatric Medicine; Visit Provider Physician Assistant | DX: Z47.1 Aftercare following joint replacement surgery (principal); Z96.652 Presence of left artificial knee joint | CPT/HCPCS: 99212 ==

== ENCOUNTER 2021-07-31 09:00 | Outpatient (RCR) | payer MEDICARE, MEDICAID, SELFPAY ==
--- NOTE | 2021-07-11 13:02 | MHC.PT.EP ---
[facility] [place] Office [place] Office [place] Office [address] Rose Mary Souza [address] [phone] F: [phone] F: [phone] F: [phone] F: [phone] Physical Therapy Plan of Care Date of Evaluation: Date of Surgery: 06/25/21 Diagnosis: LEFT TKA Assessment: 65 YO FEMALE REF TO PT S/P LEFT TKA 06/25/21 - SHE RESIDES W HER SPOUSE IN A 1 LEVEL HOME AND IS CURRENTLY AMB W A CANE . OBJECTIVE FINDINGS: LIMITED AROM Lt KNEE, TIGHT PSOAS MM HERON AND DECR ANKLE DF HERON; DECR STRENGTH IN PROX / LUMBOPELVIC AND Lt LE, POST-OP PAIN IN LEFT KNEE ,AND HEALING ANT Lt KNEE INCISION. FUNCTIONALLY, Pt IS AMB W A CANE - SHE HAS COMPENSATORY GAIT, MODIFIED STAIR MGMT, DECR STANDING, SLEEPING, AND DECR AMPARO TO ADLs REQ Lt KNEE FLEX. Pt IS A VERY GOOD PT CANDIDATE TO GUIDE HER IN HER POST-OP TKR COURSE, ADDRESSING THE ABOVE FINDINGS, PAIN MGMT, AND MAXIMIZING FUNCTIONAL INDEPENDENCE. Frequency and Duration: The patient will be seen 2 X wk X 9 wks Short Term Goals: Pt DEMON PROPER QUAD SET IN 1 WK Pt'S KNEE PAIN DECREASED TO 2-3/10 IN 2 WKS Pt DEMON WFL AROM HIP EXT AND ANKLE DF/PF AND AROM KNEE 0* TO 120* IN 3 WKS Pt DEMO IMPROVED GAIT MECH W LEAST RESTRICTIVE AD ON LEVEL GROUND AND STAIRS IN 2 WKS Pt INDEP W SCAR MOBILITY LEFT ANT KNEE IN 3 WKS Glaze Wiper Goals: Pt INDEP W HEP PROGRESSION AND SELF-SX MGMT STRATEGIES IN 9 WKS Pt RESUME REG ADLs EVIDENT W IMPROVED LEFI SCORE BY 8-10 POINTS (AT EVAL ) IN 9 WKS Pt INCR LE STRENGTH BY 1 GRADE IN 9 WKS Treatment Plan: Modalities to reduce pain, spasms and effusion. Manual therapy to restore motion and function. Therapeutic exercise to improve strength and flexibility. Neuromuscular re-education for posture and balance. Therapeutic activities to return to functional activities of daily living. Electronically signed by: Jacey ParkerPT Please sign and return to therapist. Thank you for your referral.
--- NOTE | 2021-07-31 10:35 | MHC.PT.DC ---
[facility] [place] Office [place] [facility] [place] [facility] [address] Rose Mary Souza [address] [facility] [phone] F: [phone] F: [phone] F: [phone] F: [phone] Physical Therapy Discharge Report Diagnosis: LEFT TKA Date of Surgery: 06/25/21 Date of Evaluation: 07/11/21 Date of Discharge: 07/31/21 Treatments to Date: 6 Cancellations to Date: No Shows to Date: Discharge Status: Achieved Goals Independent with HEP Discharge Summary: Pt HAS DEMON SIGNIF PROGRESS IN PT S/P LEFT TKA. HER PAIN IS MINIMAL, SHE DEMON GAIT W/O ASST DEVICES ON LEVEL GROUND AND STAIRS W RECIPROCAL TECHN. Pt HAS SIGNIF IMPROVED HER LEFI SCORE AND HAS MET HER PT GOALS. HER LEFT KNEE AROM TODAY IS 0* TO 125*. Pt IS MOTIVATED AND COMPLIANT W HEP. Electronically signed by: Jacey Parker PT Please sign and return to therapist. Thank you for your referral.
== END 2021-07-31 10:35 | disposition home or self-care (01) ==
LOC: HO.PT 09:00
PROVIDERS: Visit Provider Physician Assistant
DX: Z96.652 Presence of left artificial knee joint (principal)
CPT/HCPCS: 97110; 97161

== ENCOUNTER 2021-09-05 08:55 | Outpatient (REF) | payer MEDICARE, MEDICAID, SELFPAY ==
--- NOTE | ~2021-09-05 | MM_ITS ---
EXAMINATION: MM SCREENING DIGITAL BREAST TOMOSYNTHESIS, BILATERAL CLINICAL INFORMATION: Screening. Asymptomatic. Prior history remote bilateral excisional biopsies, . The lifetime risk of breast cancer based on the Tyrer-Cuzick Model is 4%. COMPARISON: Mammography: 09/03/2020, 06/29/2020, 04/27/2019, 01/08/2018, 05/14/2017, targeted right breast/axillary ultrasound 09/03/2020. TECHNIQUE: Digital breast tomosynthesis is performed in both the craniocaudal and mediolateral oblique views along with computer-aided detection (CAD). Synthesized 2D images are generated from the tomosynthesis. FINDINGS: There are scattered areas of fibroglandular density (ACR BI-RADS breast composition Category b). There are no significant changes from prior studies. Scattered bilateral minor asymmetries are stable. No developing density, significant mass, or interval architectural changes. No abnormal calcifications. There is old scarring central right breast on CC view. The axilla and skin contours are unremarkable. MM/MM tomosynthesis screening BI IMPRESSION: No mammographic evidence of malignancy. ASSESSMENT: BI-RADS 2: Benign RECOMMENDATION: Routine annual mammography screening. This patient's information was entered into a reminder system with a target due date for their next mammogram.
== END 2021-09-05 08:56 | disposition home or self-care (01) ==
LOC: HO.MAMMO 08:55
PROVIDERS: Visit Provider Internal Medicine Geriatric Medicine
DX: Z12.31 Encounter for screening mammogram for malignant neoplasm of breast (principal)
CPT/HCPCS: 77063; 77067

== ENCOUNTER 2021-10-14 08:24 | Outpatient (REF) | payer MEDICARE, MEDICAID, SELFPAY ==
--- NOTE | ~2021-10-14 | XR_ITS ---
EXAMINATION: X-RAY LEFT KNEE, LATERAL AND SUNRISE VIEW X-RAY BILATERAL KNEES STANDING AP VIEW CLINICAL INFORMATION: Pain. COMPARISON: Radiograph of the left knee 06/25/2021. TECHNIQUE: Lateral and sunrise views of the left knee. AP standing view of both knees. FINDINGS: Total left knee arthroplasty with patellar prosthesis intact. Small joint effusion and soft tissue swelling of the anterior compartment. Total right knee arthroplasty appears intact in this limited single AP view of the right knee. No acute fracture or malalignment. XR/XR knee LT 2V IMPRESSION: Small left joint effusion with soft tissue swelling of the anterior compartment of the left knee. Correlate with physical examination. Total left knee arthroplasty with patellar prosthesis. No evidence of hardware failure. Limited evaluation of the right knee with only one AP view provided demonstrating a total right knee arthroplasty.
--- NOTE | ~2021-10-14 | XR_ITS ---
EXAMINATION: X-RAY LEFT KNEE, LATERAL AND SUNRISE VIEW X-RAY BILATERAL KNEES STANDING AP VIEW CLINICAL INFORMATION: Pain. COMPARISON: Radiograph of the left knee 06/25/2021. TECHNIQUE: Lateral and sunrise views of the left knee. AP standing view of both knees. FINDINGS: Total left knee arthroplasty with patellar prosthesis intact. Small joint effusion and soft tissue swelling of the anterior compartment. Total right knee arthroplasty appears intact in this limited single AP view of the right knee. No acute fracture or malalignment. XR/XR knee standing BI IMPRESSION: Small left joint effusion with soft tissue swelling of the anterior compartment of the left knee. Correlate with physical examination. Total left knee arthroplasty with patellar prosthesis. No evidence of hardware failure. Limited evaluation of the right knee with only one AP view provided demonstrating a total right knee arthroplasty.
== END 2021-10-14 08:25 | disposition home or self-care (01) ==
LOC: HO.HOSX 08:24
PROVIDERS: Visit Provider Orthopaedic Surgery
DX: M25.562 Pain in left knee (principal); M25.561 Pain in right knee
CPT/HCPCS: 73560; 73565

== ENCOUNTER 2022-05-22 08:34 | Outpatient (REF) | payer MEDICARE, MEDICAID, SELFPAY ==
--- NOTE | ~2022-05-22 | XR_ITS ---
EXAMINATION: XR HIP, LEFT CLINICAL INFORMATION: Left hip pain. COMPARISON: None available. TECHNIQUE: Two views of the left hip. FINDINGS: Minimal left hip degenerative joint changes are seen. There is no acute fracture or dislocation. The visualized right hemipelvis is intact. Mild pubic symphysis degenerative joint changes are seen. The soft tissues are unremarkable. XR/XR hip LT min 2V IMPRESSION: 1. Minimal left hip degenerative joint changes suggesting osteoarthritis. 2. Mild pubic symphysis degenerative joint changes.
--- NOTE | ~2022-05-22 | XR_ITS ---
EXAMINATION: XR LUMBOSACRAL SPINE CLINICAL INFORMATION: Chronic midline low back pain with bilateral sciatica. COMPARISON: None available. TECHNIQUE: Three views of the lumbosacral spine. FINDINGS: Prominent marginal osteophyte formation is seen in the visualized inferior lumbar spine. Mild marginal osteophyte formation and degenerative disc disease is seen at L1-2. Mild disc space narrowing and grade 1 anterolisthesis is seen at L4-5 with approximate 8 mm displacement and bilateral facet arthropathy. Severe degenerative disc disease and minimal grade 1 anterolisthesis is seen at L5-S1. Bilateral facet arthropathy is seen at this level as well. There is no acute fracture. The soft tissues are unremarkable. XR/XR lumbar spine 2-3V IMPRESSION: Multilevel degenerative changes in the lumbar spine most pronounced at L4-5 and L5-S1 with grade 1 anterolisthesis at L4-5 and L5-S1. No acute abnormality. If the patient has persistent pain, further evaluation with lumbar spine MRI is recommended.
--- NOTE | ~2022-05-22 | XR_ITS ---
EXAMINATION: XR HIP, RIGHT CLINICAL INFORMATION: Right hip pain. COMPARISON: None available. TECHNIQUE: Two views of the right hip. FINDINGS: Minimal right hip degenerative joint changes are seen. There is no acute fracture or dislocation. The visualized right hemipelvis is intact. Mild pubic symphysis degenerative joint changes are seen. The soft tissues are unremarkable. XR/XR hip RT min 2V IMPRESSION: Minimal right hip degenerative joint changes suggesting osteoarthritis. No acute fracture.
== END 2022-05-22 08:35 | disposition home or self-care (01) ==
LOC: HO.XRAY 08:34
PROVIDERS: PCP Internal Medicine Geriatric Medicine; Visit Provider Internal Medicine Geriatric Medicine
DX: M54.41 Lumbago with sciatica, right side (principal); M54.42 Lumbago with sciatica, left side
CPT/HCPCS: 72100; 73502

== ENCOUNTER → 2022-07-17 08:41 | Outpatient (BNVA) | payer MEDICARE, SELFPAY | PROVIDERS: PCP Internal Medicine Geriatric Medicine; Visit Provider Physician Assistant | DX: K21.9 Gastro-esophageal reflux disease without esophagitis (principal); Z86.010 Personal history of colon polyps | CPT/HCPCS: 99202 ==

== ENCOUNTER 2022-08-20 09:47 | Outpatient (RCR) | payer MEDICARE, MEDICAID, SELFPAY | END 2022-09-11 08:28 | disposition home or self-care (01) | LOC: HO.PT 09:47 | PROVIDERS: PCP Internal Medicine Geriatric Medicine; Visit Provider Internal Medicine Geriatric Medicine | DX: M54.16 Radiculopathy, lumbar region (principal); M47.816 Spondylosis without myelopathy or radiculopathy, lumbar region | CPT/HCPCS: 97110; 97162 ==

== ENCOUNTER 2022-10-15 08:58 | Outpatient (REF) | payer MEDICARE, MEDICAID, SELFPAY ==
--- NOTE | ~2022-10-15 | MM_ITS ---
EXAMINATION: MM SCREENING DIGITAL BREAST TOMOSYNTHESIS, BILATERAL CLINICAL INFORMATION: Screening. Asymptomatic. Prior history remote bilateral excisional biopsies, . COMPARISON: Mammography: 09/05/2021, 09/03/2020, 06/29/2020, 04/27/2019, and dating back to 2017. TECHNIQUE: Digital breast tomosynthesis is performed in both the craniocaudal and mediolateral oblique views along with computer-aided detection (CAD). Synthesized 2D images are generated from the tomosynthesis. FINDINGS: There are scattered areas of fibroglandular density (ACR BI-RADS breast composition Category b). There are no suspicious masses, suspicious grouped calcifications, or areas of architectural distortion. The parenchymal pattern is stable from prior exams. There are no skin changes. MM/MM tomosynthesis screening BI IMPRESSION: No mammographic evidence of malignancy. ASSESSMENT: BI-RADS BI-RADS 1 - Negative RECOMMENDATION: Routine annual mammography screening. 1 year F/U This examination should not preclude the clinical evaluation of a suspicious palpable abnormality. This patient's information was entered into a reminder system with a target due date for their next mammogram.
== END 2022-10-15 08:59 | disposition home or self-care (01) ==
LOC: HO.MAMMO 08:58
PROVIDERS: PCP Internal Medicine Geriatric Medicine; Visit Provider Internal Medicine Geriatric Medicine
DX: Z12.31 Encounter for screening mammogram for malignant neoplasm of breast (principal)
CPT/HCPCS: 77063; 77067

== ENCOUNTER → 2022-10-15 09:15 | Outpatient (BNV) | payer MEDICARE, SELFPAY | PROVIDERS: PCP Internal Medicine Geriatric Medicine; Visit Provider Radiology Diagnostic Radiology | DX: Z12.31 Encounter for screening mammogram for malignant neoplasm of breast (principal) | CPT/HCPCS: 77063; 77067 ==

== ENCOUNTER 2023-01-27 10:15 | Outpatient (REF) | payer MEDICARE, MEDICAID, SELFPAY ==
--- NOTE | ~2023-01-27 | MM_ITS ---
EXAMINATION: BONE DENSITOMETRY CLINICAL INDICATION: Age-related osteoporosis without current pathological fracture. COMPARISON: Previous BD dated 01/23/2021 and baseline BD dated 10/14/2016. TECHNIQUE: Using a [employer] DXA System (software version: 13.1) manufactured by [employer], dual-energy x-ray absorptiometry was performed of the lumbar spine and left hip. The images are of good technical quality. Summary results are attached. FINDINGS: AP SPINE L1-L4: Current: BMD 1.048 g/cm2, Z-score 0.2, T-score -1.1, osteopenia, 11.0% increase from previous, 10.0% increase from baseline (<5% change is not significant). Prior: BMD 0.944 g/cm2. Baseline: BMD 0.953 g/cm2. LEFT FEMUR, NECK: Current: BMD 0.659 g/cm2, Z-score -1.3, T-score -2.7, osteoporosis. Prior: BMD 0.641 g/cm2. Baseline: BMD 0.690 g/cm2. LEFT FEMUR, TOTAL: Current: BMD 0.697 g/cm2, Z-score -1.3, T-score -2.5, osteoporosis, 3.0% increase from previous, 4.3% decrease from baseline (<5% change is not significant). Prior: BMD 0.677 g/cm2. Baseline: BMD 0.728 g/cm2. IDENTIFIED RISK FACTORS: Osteoporosis. Menopause. Hysterectomy. Left oophorectomy. HISTORY OF FRACTURE: None listed. MEDICATIONS: Calcium supplement and/or multivitamin. Vitamin D. Bisphosphonates. MM/XR DEXA axial skeleton IMPRESSION: 1. DIAGNOSIS: Osteoporosis based on the lowest T-score value of -2.7 in the femoral neck applying World Health Organization criteria. 2. 10-YEAR FRACTURE RISK PREDICTION, FRAX: According to the guidelines, FRAX calculation should only be performed on patients in the osteopenia bone density category.?Therefore, FRAX was not performed on this patient.? 3. Treatment Recommendations: NOF guidelines recommend consideration for treatment in postmenopausal women and men age 50 and older presenting with the following: -A hip or vertebral (clinical or morphometric) fracture. -T-score less than or equal to -2.5 at the femoral neck or spine after appropriate evaluation to exclude secondary causes. -Low bone mass at the hip or spine and a 10-year fracture probability by FRAX of greater than or equal to 3% for hip fracture or greater than or equal to 20% for major osteoporotic fracture based on the [place] adapted WHO algorithm. 4. Other Recommendations: All treatment decisions require clinical judgment and consideration of individual patient factors, including patient preferences, comorbidities, previous drug use, risk factors not captured in the FRAX model (e.g. frailty, falls, vitamin D deficiency, increased bone turnover, interval significant decline in bone density) and possible under or overestimation of fracture risk by FRAX. Additional medical evaluation for secondary cause of low bone mineral density may be appropriate. FUTURE SCAN RECOMMENDATION: People with diagnosed cases of osteoporosis or at high risk for fracture should have regular bone mineral density tests. For patients eligible for Medicare, routine testing is allowed once every 2 years. The testing frequency can be increased to one year for patients who have rapidly progressing disease, those who are receiving or discontinuing medical therapy to restore bone mass, or have additional risk factors.
== END 2023-01-27 10:16 | disposition home or self-care (01) ==
LOC: HO.MAMMO 10:15
PROVIDERS: PCP Internal Medicine Geriatric Medicine; Visit Provider Internal Medicine Geriatric Medicine
DX: Z13.820 Encounter for screening for osteoporosis (principal); Z78.0 Asymptomatic menopausal state; M81.0 Age-related osteoporosis without current pathological fracture
CPT/HCPCS: 77080

== ENCOUNTER 2023-02-11 08:13 | Outpatient (AMB) | payer MEDICARE, MEDICAID, SELFPAY ==
--- NOTE | 2023-02-11 08:24 | MHC.OFFVIS ---
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 Complaining of urinary frequency especially at night Last Pap/HPV was few years ago negative, history of hysterectomy for benign disease with no history of abnormal Pap smears Last Mammogram was BI-RADS 1 in 11/15 Last Colonoscopy was 5 years ago, the patient is due this year for another screening colonoscopy, the patient has an appointment scheduled with GI for another screening colonoscopy within few weeks Last DEXA scan was in 02/14 T-score at the spine and femur level -1.1/-2.7 BMD at the spine level increased by 11% from previous and by 10% from baseline, the femur level increased by 3% from previous and decreased by 4.3% from baseline. [facility] Medical History COVID-19 vaccine series completed Pre-diabetes GERD (gastroesophageal reflux disease) Arthritis Asthma Hypertension Osteoarthritis of left knee Surgical History History of left knee surgery Hx of breast biopsy Hx of hysterectomy H/O colonoscopy Hx of hand surgery Hx of knee surgery H/O unilateral oophorectomy History of total right knee replacement Family History Maternal Aunt Breast CA Mother Colon cancer Social History Household Members: Family Household Members Other:: daughter Housing: House Are you a primary child care specialist to a significant other at home: No Do you presently have visiting nurse or other home services: No Alcohol intake: current Alcohol intake frequency: holidays/special occasions only Patient Tobacco Use Status: Former Tobacco user Quit Date: 2001 Tobacco use type: Cigarette Years Smoked: 20 Second Hand Smoke Exposure: No Advance Directives Date on File: 07/17/17 service: No Current occupational status: disabled Current occupation: rt handed Female Reproductive History Menstrual Age of Menarche: 9 Menopause type: natural Total pregnancies: 1 Full term: 1 Number of Living Children: 1 Date of Mammogram: 10/15/22 Review of Systems Const All systems reviewed & are unremarkable except as noted in HPI and below Card Reports as per HPI Resp Reports as per HPI GI Reports as per HPI and Reports no additional complaints Reports as per HPI Physical Exam Vital Signs: Last Vital Signs BP 132/70 02/11/23 08:25 BMI result Body Mass Index 31.4 Const General: cooperative, healthy appearing and comfortable Chest Chest palpation & inspection: normal inspection of the chest and normal palpation of entire chest wall Breast/axilla inspection: normal inspection of the breasts and normal inspection of the axillae Breast/axilla palpation: normal palpation of the breasts, normal palpation of the axillae and no axillary lymphadenopathy Resp Effort & Inspection: normal respiratory effort Auscultation: clear to auscultation bilaterally Percussion: percussion normal Cardio Palpation: normal PMI Rate: regular rate Rhythm: regular rhythm Heart sounds: no murmurs and no rubs Peripheral pulses: Peripheral pulses 2+ throughout GI Inspection: Yes normal to inspection Palpation (GI): Soft to palpation, nontender, no guarding, not rigid and No hepatosplenomegaly present Percussion: Yes normal to percussion Auscultation: normal bowel sounds Rectal Exam - Female: deferred General: Yes bladder normal to palpation External Female Exam: No lesion Speculum Exam - Vagina: normal appearance of the vagina, normal palpation, normal vaginal discharge and not erythematous Speculum Exam - Cervix: Cervix absent Bimanual exam- vagina & uterus: normal bimanual exam, normal palpation, bladder normal to palpation and uterus absent Bimanual Exam- Adnexa, other: tender and Other (No pelvic masses) Assessment & Plan Assessment & Plan (1) Well woman exam: Code(s): Z01.419 - Encounter for gynecological examination (general) (routine) without abnormal findings Plan: Co testing not indicated since the patient 's age is above 65 with no history of abnormal Pap smears last 25 years and status post hysterectomy for benign disease. Counseled the patient about the recommended dietary allowance of 1200 mg of Calcium & 800 IU of vitamin D. Instructions given the patient to schedule next screening Mammogram in 02/15. The patient has an appointment with GI in few weeks for screening colonoscopy . The patient was instructed to perform monthly self-breast exams and to schedule an annual exam in a year; All questions answered and the patient verbalized understanding. (2) Osteoporosis: Code(s): M81.0 - Age-related osteoporosis without current pathological fracture Plan: Discussed the patient the results of her DEXA scan showing evidence of osteoporosis with an increase in bone density with no significant more than 5% decrease, since the patient discontinued alendronate due to body aches in bone pain, will refer to rheumatology for further management (3) Nocturia: Code(s): R35.1 - Nocturia Plan: Discussed with the patient possible causes of nocturia, Will refer to Urology for further manage Coding Level of Care Code Est Pt Prev Care >65y(18767) Diagnoses Well woman exam Z01.419 Osteoporosis M81.0 Nocturia R35.1
[2023-02-11 08:25] VITALS: BP 132/70; BMI 31.4
== END 2023-02-11 08:50 | disposition home or self-care (01) ==
LOC: HO.HWS 08:13
PROVIDERS: PCP Internal Medicine Geriatric Medicine; Visit Provider Obstetrics & Gynecology
DX: Z01.419 Encounter for gynecological examination (general) (routine) without abnormal findings (principal); M81.0 Age-related osteoporosis without current pathological fracture; R35.1 Nocturia
CPT/HCPCS: 99397

== ENCOUNTER → 2023-02-11 08:13 | Outpatient (BNVA) | payer MEDICARE, MEDICAID, SELFPAY | PROVIDERS: PCP Internal Medicine Geriatric Medicine; Visit Provider Obstetrics & Gynecology | DX: Z01.419 Encounter for gynecological examination (general) (routine) without abnormal findings (principal); M81.0 Age-related osteoporosis without current pathological fracture; R35.1 Nocturia | CPT/HCPCS: 99397 ==

== ENCOUNTER 2023-03-20 10:20 | Outpatient (AMB) | payer MEDICARE, MEDICAID, SELFPAY ==
--- NOTE | 2023-03-20 10:21 | A.OFFVIS_ITS ---
Intake Vital Signs 03/20/23 10:24 Height 5 ft 1 in Weight 173 lb 4.533 oz BMI 32.7 BP 120/70 Blood Pressure Location Lt brachial Position Sitting Pulse 89 Pulse Source Pulse Oximeter Temp 97.4 F Temp Source Skin Pulse Oximetry (%) 97 Oxygen Delivery Method Room Air Intake Visit Reasons: osteoporosis Intake Note: New patient, internally referred, presents today for osteoporosis. 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 Casiano, 67 yoF presents today on PCP referral for Osteoporosis management. She was started on Alendronate but has had some side effects such as worsening thoracic back pain per patient. She does take calcium and vitamin D. She also takes Omeprazole for GERD. Her medical history includes asthma and pure hypercholesterolemia, Hysterectomy, and GERD. Her risk factors for Osteoporosis includes being a postmenopause, long standing use of PPIs for GERD, and uses steroids for Asthma. She is fairly active, and denies excessive consumption of alcohol. Patient denies history of eating disorder and other concerns for mal-absorption. She denies inflammatory arthritis but has Osteoarthritis. She denies personal and family history of fr actures. Per PCP records 01/2023 Presenting for annual exam. Complaining of urinary frequency especially at night Last Pap/HPV was few years ago negative, history of hysterectomy for benign disease with no history of abnormal Pap smears Last Mammogram was BI-RADS 1 in 11/15 Last Colonoscopy was 5 years ago, the patient is due this year for another screening colonoscopy, the patient has an appointment scheduled with GI for another screening colonoscopy within few weeks Last DEXA scan was in 02/14 T-score at the spine and femur level -1.1/-2.7 BMD at the spine level increased by 11% from previous and by 10% from baseline, the femur level increased by 3% from previous and decreased by 4.3% from baseline. 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, bilateral Hypovitaminosis D Age related osteoporosis COVID-19 vaccine series completed Pre-diabetes GERD (gastroesophageal reflux disease) Arthritis Asthma Hypertension Osteoarthritis of left knee Surgical History History of left knee surgery Hx of breast biopsy Hx of hysterectomy H/O colonoscopy Hx of hand surgery Hx of knee surgery H/O unilateral oophorectomy History of total right knee replacement Family History (Updated 03/20/23 @ 10:23 by ELMO Leal) Maternal Aunt Breast CA Mother Colon cancer Arthritis Sister Arthritis Social History Household Members: Family Household Members Other:: daughter Housing: House Are you a primary career services officer to a significant other at home: No Do you presently have visiting nurse or other home services: No Alcohol intake: current Alcohol intake frequency: holidays/special occasions only Patient Tobacco Use Status: Former Tobacco user Quit Date: 2001 Tobacco use type: Cigarette Years Smoked: 20 Second Hand Smoke Exposure: No Advance Directives Date on File: 07/17/17 service: No Current occupational status: disabled Current occupation: rt handed Female Reproductive History Menstrual Age of Menarche: 9 Physical Exam Vital Signs: Last Vital Signs Temp 97.4 F 03/20/23 10:24 BMI result Body Mass Index 32.7 Vital signs reviewed. Constitutional: Non-toxic appearing. No acute distress. Well-developed and well-nourished. HEENT: Normocephalic and atraumatic. External auditory canals without erythema or edema bilaterally. Dry mucous membranes. No pharyngeal erythema or exudates. Skin: Warm and dry. No rashes or lesions noted. Neck: Full and painless range of motion. No cervical lymphadenopathy. Cardio: Regular rate and rhythm. No murmurs, gallops, or rubs. No lower extremity edema. No JVD. Pulmonary: No respiratory distress. No accessory muscle usage. Scattered expiratory wheezing. Musculoskeletal: Normal range of motion in joints throughout the body. No deformity or other signs of injury. Herberden nodes to bilateral DIPs non tender Neuro: Alert and oriented x4. Cranial nerves 2-12 grossly intact. No focal deficits appreciated. Results Reviewed Results Reviewed: EXAMINATION: BONE DENSITOMETRY CLINICAL INDICATION: Age-related osteoporosis without current pathological fracture. COMPARISON: Previous BD dated 01/23/2021 and baseline BD dated 10/14/2016. TECHNIQUE: Using a [employer] DXA System (software version: 13.1) manufactured by [employer], dual-energy x-ray absorptiometry was performed of the lumbar spine and left hip. The images are of good technical quality. Summary results are attached. FINDINGS: AP SPINE L1-L4: Current: BMD 1.048 g/cm2, Z-score 0.2, T-score -1.1, osteopenia, 11.0% increase from previous, 10.0% increase from baseline (<5% change is not significant). Prior: BMD 0.944 g/cm2. Baseline: BMD 0.953 g/cm2. LEFT FEMUR, NECK: Current: BMD 0.659 g/cm2, Z-score -1.3, T-score -2.7, osteoporosis. Prior: BMD 0.641 g/cm2. Baseline: BMD 0.690 g/cm2. LEFT FEMUR, TOTAL: Current: BMD 0.697 g/cm2, Z-score -1.3, T-score -2.5, osteoporosis, 3.0% increase from previous, 4.3% decrease from baseline (<5% change is not significant). Prior: BMD 0.677 g/cm2. Baseline: BMD 0.728 g/cm2. IDENTIFIED RISK FACTORS: Osteoporosis. Menopause. Hysterectomy. Left oophorectomy. HISTORY OF FRACTURE: None listed. MEDICATIONS: Calcium supplement and/or multivitamin. Vitamin D. Bisphosphonates. Assessment & Plan Assessment & Plan (1) Age related osteoporosis: Code(s): M81.0 - Age-related osteoporosis without current pathological fracture Qualifiers: Presence of current pathological fracture: without current pathological fracture Qualified Code(s): M81.0 - Age-related osteoporosis without current pathological fracture (2) Hypovitaminosis D: Code(s): E55.9 - Vitamin D deficiency, unspecified (3) GERD (gastroesophageal reflux disease): Comment: Here of acid reflux, however opportunity for dietary modifications Code(s): K21.9 - Gastro-esophageal reflux disease without esophagitis Qualifiers: Esophagitis presence: with esophagitis Esophagitis bleeding: without hemorrhage Qualified Code(s): K21.00 - Gastro-esophageal reflux disease with esophagitis, without bleeding (4) Osteoarthritis of hands, bilateral: Code(s): M19.041 - Primary osteoarthritis, right hand; M19.042 - Primary osteoarthritis, left hand Qualifiers: Osteoarthritis type: primary Qualified Code(s): M19.041 - Primary osteoarthritis, right hand; M19.042 - Primary osteoarthritis, left hand (5) Osteoarthritis of lumbar spine: Code(s): M47.816 - Spondylosis without myelopathy or radiculopathy, lumbar region Qualifiers: Spinal osteoarthritis complication: without myelopathy or radiculopathy Qualified Code(s): M47.816 - Spondylosis without myelopathy or radiculopathy, lumbar region Plan #Osteoporosis/Hypo Vitamin D/GERD: Mrs. Casiano is here for management of Osteoporosis. Bone Density shows lowest TScore -2.7. I think Reclast infusion is a reasonable option. We will start the PA and obtain initial lab work. We discussed possible flu like symptoms and joint ache for about 1 week after the infusion for which she can take Tylenol. The patient is currently taking calcium carbonate. I will switch her to Calcium citrate for better absorption given that she takes a PPI. Patient is encouraged to do muscle strengthening exercises and we discussed fall precautions for home and outside. We will meet again in 6 months. #Osteoarthritis Multiple Joints: She has severe OA of the lumbar spine and her hand IP joints have herberden nodes which she denies are not painful. Her back pain is about 1 year old. She takes Tylenol and is happy with that regimen. She does have chronic low back pain that affects sleep. She may benefit from a O rtho/Surgical Evaluation and will discuss with PCP if she decides to go that route She does not want injections to the lower back. I spent 40 minutes reviewing chart, evaluating patient, prescribing, ordering and documenting Orders: Orders Vitamin D 1,25 dihydroxy Today E55.9 - Vitamin D deficiency, unspecified, M81.0 - Age-related osteoporosis without current pathological fracture Parathyroid Hormone Intact Today E55.9 - Vitamin D deficiency, unspecified, M 81.0 - Age-related osteoporosis without current pathological fracture Collagen Type I C-Telopeptide Today E55.9 - Vitamin D deficiency, unspecified, M81.0 - Age-related osteoporosis without current pathological fracture Comprehensive Met. Panel Today E55.9 - Vitamin D deficiency, unspecified, M81.0 - Age-related osteoporosis without current pathological fracture Alkaline Phosphatase Bone Today E55.9 - Vitamin D deficiency, unspecified, M81.0 - Age-related osteoporosis without current pathological fracture Collagen Crosslinks NTX Today E55.9 - Vitamin D deficiency, unspecified, M81.0 - Age-related osteoporosis without current pathological fracture Thyroid Stimulating Hormone Today E55.9 - Vitamin D deficiency, unspecified, M81.0 - Age-related osteoporosis without current pathological fracture Complete Blood Count Man Dif Today E55.9 - Vitamin D deficiency, unspecified, M81.0 - Age-related osteoporosis without current pathological fracture Creatinine Clearance Urine Today E55.9 - Vitamin D deficiency, unspecified, M81.0 - Age-related osteoporosis without current pathological fracture Referrals Rheumatology Referral E55.9 - Vitamin D deficiency, unspecified, M81.0 - Age- related osteoporosis without current pathological fracture Coding Level of Care Code Est Pt Level 4 (40434) Diagnoses Age-related osteoporosis without current pathological fracture M81.0 Presence of current pathological fracture: without current pathological fracture Hypovitaminosis D E55.9 Gastroesophageal reflux disease with esophagitis without hemorrhage K21.00 Esophagitis presence: with esophagitis Esophagitis bleeding: without hemorrhage Primary osteoarthritis of both hands M19.041; M19.042 Osteoarthritis type: primary 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
[2023-03-20 10:24] VITALS: BP 120/70; PULSE 89; TEMP 36.3; O2SAT 97; BMI 32.7
== END 2023-03-20 10:53 | disposition home or self-care (01) ==
PROVIDERS: PCP Internal Medicine Geriatric Medicine; Visit Provider Nurse Practitioner Family
DX: M81.0 Age-related osteoporosis without current pathological fracture (principal); E55.9 Vitamin D deficiency, unspecified; K21.00 Gastro-esophageal reflux disease with esophagitis, without bleeding; M19.041 Primary osteoarthritis, right hand; M19.042 Primary osteoarthritis, left hand; M47.816 Spondylosis without myelopathy or radiculopathy, lumbar region
CPT/HCPCS: 99214

== ENCOUNTER → 2023-03-20 10:20 | Outpatient (BNVA) | payer MEDICARE, MEDICAID, SELFPAY | PROVIDERS: PCP Internal Medicine Geriatric Medicine; Visit Provider Nurse Practitioner Family | DX: M81.0 Age-related osteoporosis without current pathological fracture (principal); E55.9 Vitamin D deficiency, unspecified; K21.9 Gastro-esophageal reflux disease without esophagitis; M19.041 Primary osteoarthritis, right hand; M19.042 Primary osteoarthritis, left hand; M47.816 Spondylosis without myelopathy or radiculopathy, lumbar region | CPT/HCPCS: 99212 ==

== ENCOUNTER 2023-03-23 08:29 | Outpatient (REF) | payer MEDICARE, MEDICAID, SELFPAY ==
[2023-03-23 10:46] LABS: Baso%MD 1.2 %; Hematocrit 38.9 % (37.0-47.0); Hemoglobin 12.8 g/dl (12.0-16.0); IG%MD 0.4 %; Lymph%MD 24.6 %; Mean Corpuscular HGB Conc 32.9 g/dl (31.0-35.0); Mean Corpuscular Volume 88.2 fL (80.0-98.0); Mean Platelet Volume 10.6 fL (9.4-12.3); Neut%MD 62.8 %; Platelet Count 259 X10*3/uL (160-400); Red Blood Count 4.41 X10*6/uL (4.20-5.50); Red Cell Distribution Width 13.2 % (11.0-16.0)
[2023-03-23 10:53] LABS: Alanine Aminotransferase 26 U/L (0-31); Albumin Level 4.2 g/dL (3.5-5.0); Alkaline Phosphatase 71 U/L (39-117); Anion Gap 10 (12-20); Aspartate Amino Transferase 20 U/L (5-31); Bilirubin Total 0.5 mg/dL (0.0-1.0); Blood Urea Nitrogen 14 mg/dL (9-16); Calcium 9.9 mg/dL (8.4-10.2); Carbon Dioxide 32 mmol/L (22-29); Chloride 104 mmol/L (96-108); Estimated Glomerular Filt Rate > 60; Glucose Random 91 mg/dL (60-115); Potassium 3.6 mmol/L (3.3-5.1); Sodium 142 mmol/L (135-145); Total Protein 7.4 g/dL (6.5-8.0)
[2023-03-23 11:02] LABS: Alanine Aminotransferase 25 U/L (0-31); Albumin Level 4.2 g/dL (3.5-5.0); Alkaline Phosphatase 70 U/L (39-117); Anion Gap 10 (12-20); Aspartate Amino Transferase 20 U/L (5-31); Bilirubin Total 0.5 mg/dL (0.0-1.0); Blood Urea Nitrogen 14 mg/dL (9-16); Calcium 9.6 mg/dL (8.4-10.2); Carbon Dioxide 31 mmol/L (22-29); Chloride 104 mmol/L (96-108); Cholesterol 203 mg/dL (<200); Estimated Glomerular Filt Rate > 60; Glucose Random 91 mg/dL (60-115); HDL Cholesterol 55 mg/dL (>40); LDL Cholesterol Calculated 122 mg/dL (<100); Potassium 3.5 mmol/L (3.3-5.1); Sodium 141 mmol/L (135-145); Total Protein 7.4 g/dL (6.5-8.0); Triglycerides 132 mg/dL (<150)
[2023-03-23 11:15] LABS: Thyroid Stimulating Hormone 2.52 uIU/mL (0.32-4.0)
[2023-03-23 11:29] LABS: Parathyroid Hormone Intact 165.3 pg/mL (8.7-77.1)
[2023-03-23 11:33] LABS: Band Neutrophils Percent 2 % (3-5); Basophils Abs Manual 0.1 X10*3/uL (0.0-0.2); Basophils Percent Manual 2 % (0-2); Lymphocytes Absolute Manual 1.4 X10*3/uL (1.2-4.9); Lymphocytes Percent Manual 27 % (20-40); Monocytes Absolute Manual 0.4 X10*3/uL (0.1-1.2); Monocytes Percent Manual 7 % (2-11); Neutrophils Absolute Manual 3.2 X10*3/uL (2.0-8.3); Neutrophils Percent Manual 62 % (45-73)
[2023-03-23 11:36] LABS: Platelet Estimate NORMAL (NORMAL); Platelet Morphology Comment NORMAL; RBC Morphology NORMAL; Toxic Vacuolation PRESENT
[2023-03-23 11:59] LABS: Total Volume 24 Hour Urine 1725 mL
[2023-03-23 12:00] LABS: Creatinine (CrCl) 0.82 mg/dL (0.5-1.4)
[2023-03-23 12:14] LABS: Creatinine Clearance 106.3 mL/min (85-125); Creatinine, 24Hr Urine 1.3 G/Day (1.0-2.0); Creatinine, mg/dL 72.83
[2023-03-26 16:33] LABS: Alkaline Phosphatase Bone 13.8 mcg/L (5.6-29.0)
[2023-03-26 19:18] LABS: VITAMIN D (1,25 OH) D3 63 pg/mL; Vit D (1,25-Dihydroxy) Total 63 pg/mL (18-72); Vitamin D (1,25 OH) D2 <8 pg/mL
[2023-03-26 21:28] LABS: N-Telopeptide 22 (see note); NTXCreaRU 43 mg/dL (20-275)
[2023-03-27 14:29] LABS: Collagen Type I C-Telopeptide 267 pg/mL (see note)
== END 2023-03-23 08:30 | disposition home or self-care (01) ==
LOC: HO.10HDL 08:29
PROVIDERS: Internal Medicine Geriatric Medicine; Visit Provider Nurse Practitioner Family
DX: M81.0 Age-related osteoporosis without current pathological fracture (principal); E55.9 Vitamin D deficiency, unspecified; I10 Essential (primary) hypertension; R52 Pain, unspecified; E78.00 Pure hypercholesterolemia, unspecified
CPT/HCPCS: 36415; 80053; 80061; 82523; 82575; 82652; 83970; 84075; 84443; 85007; 85027

== ENCOUNTER 2023-04-01 09:49 | Outpatient (AMB) | payer MEDICARE, MEDICAID, SELFPAY ==
--- NOTE | 2023-04-01 09:47 | A.OFFVIS_ITS ---
Intake Intake Visit Reasons: Nocturia Intake Note: New Patient presents for initial visit Nocturia Urology Medications: none Blood Thinner: none PVR: Electrocardiogram Technician Required: No Accompanied by: Self / Same As Patient Allergies begum Allergy (Verified 04/01/23 10:43) Itching pollen extracts Allergy (Verified 04/01/23 10:43) Sneezing tomato Allergy (Verified 04/01/23 10:43) Hives Medication List - Last Reconciled 04/01/23 by ANA Mills-LEATHA acetaminophen 650 mg (2 x 325 mg) PO Q6H PRN 30 days albuterol sulfate 1 amp inhalation QID albuterol sulfate 90 mcg/actuation (Ventolin HFA) 2 puffs PO Q4-6H PRN amlodipine 1 tab PO QAM atorvastatin 80 mg PO DAILY bisacodyl (Dulcolax (bisacodyl)) 10 mg (2 x 5 mg) PO ONCE 1 day calcium carbonate-vitamin D3 600 mg-20 mcg (800 unit) 1 tab PO fluticasone propion-salmeterol 500-50 mcg/dose (Advair Diskus) 1 puff PO Q12H montelukast 1 tab PO QPM omeprazole 1 cap PO QAM polyethylene glycol 3350 (Miralax) 238 grams PO ONCE PRN 1 day polyvinyl alcohol 1.4% (Artificial Tears (polyvinyl alcohol)) 1 drp ophthalmic (eye) BID-QID PRN sertraline 25 mg PO DAILY valsartan-hydrochlorothiazide 320-25 mg 1 tab PO DAILY HPI HPI Comments History of Present Illness Details Lorie is a pleasant 67-year-old female patient of Dr. Martinez. She has a past medical history of osteoarthritis, pre diabetes, GERD, asthma, and hypertension. She presents to the office today as a new patient for nocturia. In discussion with the patient today she reports episodes of nocturia approximately 5 times per night. She otherwise denies urinary urgency, urinary frequency, incontinence, hematuria, dysuria, foul smelling urine, changes to urinary stream, flank pain, fever, and or chills. Discussed at length potential causes of nocturia. When asked she does report snoring and feels fatigued in the morning. Discussed further workup of potential sleep apnea. Discussed obtaining retroperitoneal ultrasound for further assessment evaluation. In office urinalysis results reviewed with the patient today. PVR 50 mL. She otherwise denies any other issues or concerns at this time. 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, bilateral Hypovitaminosis D Age related osteoporosis COVID-19 vaccine series completed Pre-diabetes GERD (gastroesophageal reflux disease) Arthritis Asthma Hypertension Osteoarthritis of left knee Surgical History History of left knee surgery Hx of breast biopsy Hx of hysterectomy H/O colonoscopy Hx of hand surgery Hx of knee surgery H/O unilateral oophorectomy History of total right knee replacement Family History Maternal Aunt Breast CA Mother Colon cancer Arthritis Sister Arthritis Social History Household Members: Family Household Members Other:: daughter Housing: House Are you a primary hemodialysis patient care specialist to a significant other at home: No Do you presently have visiting nurse or other home services: No Alcohol intake: current Alcohol intake frequency: holidays/special occasions only Patient Tobacco Use Status: Former Tobacco user Quit Date: 2001 Tobacco use type: Cigarette Years Smoked: 20 Second Hand Smoke Exposure: No Advance Directives Date on File: 07/17/17 service: No Current occupational status: disabled Current occupation: rt handed Female Reproductive History Menstrual Age of Menarche: 9 Review of Systems Eyes Reports no additional complaints ENT Reports no additional complaints Card Reports as per HPI Resp Reports as per HPI GI Reports as per HPI Reports as per HPI Musc Reports as per HPI Neuro Reports no additional complaints Psych Reports no additional complaints Endo Reports no additional complaints Srinivas/Lymph Reports no additional complaints Aller/Immun Reports no additional complaints Physical Exam Const General: cooperative, healthy appearing, comfortable, no acute distress, well developed, alert and awake Orientation/consciousness: patient oriented x3 Limitations: no limitations HEENT Head: Yes normal to inspection, Yes normocephalic and Yes atraumatic Ears: hearing grossly normal bilaterally Eyes General: appearance normal, both eyes and all related structures Neck Neck: Yes normal visual inspection and Yes trachea midline Chest Chest palpation & inspection: normal inspection of the chest Resp Effort & Inspection: normal respiratory effort and able to speak in complete sentences Cardio Rate: regular rate GI Inspection: Yes normal to inspection General: Yes no CVA tenderness Back/Spine/Pelvis Back: no CVA tenderness Skin General skin exam: no rashes or lesions noted Neuro General: patient oriented x3 Extrem General: Yes normal to inspection Psych Appearance: grossly normal and well kempt Mental Status: mental status grossly normal Speech and movement: Normal speech and movement present and Clear speech present Affect: normal affect Attitude: cooperative Thought process: Normal thought process present Thought content: Normal thought content present Insight: Fair insight present (Psych) Judgement: Fair judgement present (Psych) Office Procedures Post Void Residual Post Residual Void Post Void Residual (PVR): 50 36443-[id number] Void Residual by ultrasound Results AMB Urinalysis, Automated UA Leukoctes 0 Enrique/uL Last Edit by [employer] on 04/01/23 10:22 UA Nitrite Negative Last Edit by [employer] [place] on 04/01/23 10:22 UA Urobilinogen 0.2 mg/dL Last Edit by [employer] [place] on 04/01/23 10:22 UA Protein 15 mg/dL Last Edit by [employer] [place] on 04/01/23 10:22 UA pH 6.0 Last Edit by [employer] [place] on 04/01/23 10:22 UA Blood 0 Uvaldo/uL Last Edit by [employer] [employer] on 04/01/23 10:22 UA Specific [place] 1.020 Last Edit by [employer] [place] on 04/01/23 10:22 UA Ketone Negative Last Edit by [employer] [place] on 04/01/23 10:22 UA Bilirubin 0 mg/dL Last Edit by [employer] [place] on 04/01/23 10:22 UA Glucose 0 mg/dL Last Edit by [employer] on 04/01/23 10:22 Results Reviewed Results Reviewed: Laboratory Last Values Urine pH (Auto) 6.0 04/01/23 09:50 Specific [place] (Auto) 1.020 04/01/23 09:50 Urine Protein (Auto) 15 mg/dL 04/01/23 09:50 Glucose (UA)(Auto) 0 mg/dL 04/01/23 09:50 Urine Ketones (Auto) Negative 04/01/23 09:50 Urine Blood (Auto) 0 Uvaldo/uL 04/01/23 09:50 Urine Nitrite (Auto) Negative 04/01/23 09:50 Urine Bilirubin (Auto) 0 mg/dL 04/01/23 09:50 Urine Urobilinogen (Auto) 0.2 mg/dL 04/01/23 09:50 Leukocyte Esterase (Auto) 0 Enrique/uL 04/01/23 09:50 Assessment & Plan Assessment & Plan (1) Nocturia: Code(s): R35.1 - Nocturia (2) Snoring: Code(s): R06.83 - Snoring (3) Fatigue: Code(s): R53.83 - Other fatigue Plan In office urinalysis results reviewed with the patient today; as noted above. PVR 50 mL. Discussed at length potential causes for nocturia she is experiencing. Will refer for further assessment evaluation of sleep apnea. Will obtain retroperitoneal ultrasound for further assessment evaluation. Discussed limiting fluids 2-3 hours prior to bed to assist with decreasing episodes of nocturia. Follow-up in 3 months with imaging and sleep study; or sooner with any issues, concerns, and or questions. Orders: Orders AMB Urinalysis Automated Today Z13.9 - Encounter for screening, unspecified AMB Post Void Residual by ultrasound Today R35.0 - Frequency of micturition US retroperitoneal comp Today R35.1 - Nocturia RT home sleep study Today R06.83 - Snoring, R35.1 - Nocturia, R53.83 - Other fatigue Patient Instructions: The patient had an opportunity to ask questions regarding the treatment plan. All questions were answered. Physical exam, labs, and imaging were discussed and reviewed in detail. As well as risks, benefits, and discussion of treatment choices. No major barriers to understanding were identified. The patient expressed understanding and agreement with the above treatment plan. The patient was made aware they should contact our office by phone for worsening of their current condition, the appearance of new symptoms, or with any questions or concerns. Compliance is encouraged with any medications and follow up testing that is ordered. It is a privilege to be allowed the opportunity to participate in? your urological care.? Again, if you have any questions or concerns If you have any questions or concerns please do not hesitate to contact me. The office is [phone]. This note is constructed using voice recognition software. While every effort has been made to ensure accuracy instrument mechanic weapons system errors may have been included. Yours sincerely, Aracely Sen, [employer] Coding Level of Care Code New Pt Level 3 (67679) Diagnoses Nocturia R35.1 Snoring R06.83 Fatigue R53.83 CPT Codes Post Residual Void - PVR CPT Code: 18266-Axls Void Residual by ultrasound ([id number])
== END 2023-04-01 10:58 | disposition home or self-care (01) ==
PROVIDERS: PCP Internal Medicine Geriatric Medicine; Visit Provider Nurse Practitioner Family
DX: R35.1 Nocturia (principal); R06.83 Snoring; R53.83 Other fatigue; Z13.9 Encounter for screening, unspecified
CPT/HCPCS: 99203; 99213

== ENCOUNTER → 2023-04-01 09:49 | Outpatient (BNVA) | payer MEDICARE, MEDICAID, SELFPAY | PROVIDERS: PCP Internal Medicine Geriatric Medicine; Visit Provider Nurse Practitioner Family | DX: R35.1 Nocturia (principal); R06.83 Snoring; R53.83 Other fatigue | CPT/HCPCS: 51798; 81003; 99202 ==

== ENCOUNTER 2023-04-02 09:14 | Outpatient (REF) | payer MEDICARE, MEDICAID, SELFPAY | END 2023-04-02 09:15 | disposition home or self-care (01) | LOC: HO.MDS 09:14 | PROVIDERS: Visit Provider Internal Medicine Endocrinology, Diabetes & Metabolism | DX: M81.0 Age-related osteoporosis without current pathological fracture (principal) | CPT/HCPCS: 96365; J3489 ==

== ENCOUNTER → 2023-05-13 12:39 | Outpatient (REF) | payer MEDICARE, MEDICAID, SELFPAY | LOC: HO.SL 12:39 | PROVIDERS: PCP Internal Medicine Geriatric Medicine; Visit Provider Nurse Practitioner Family | DX: R06.83 Snoring (principal); R53.83 Other fatigue; R35.1 Nocturia | CPT/HCPCS: 95806 ==

== ENCOUNTER → 2023-05-13 13:14 | Outpatient (BNV) | payer MEDICARE, MEDICAID, SELFPAY | PROVIDERS: PCP Internal Medicine Geriatric Medicine; Visit Provider Internal Medicine | DX: R06.83 Snoring (principal) | CPT/HCPCS: 95806 ==

== ENCOUNTER 2023-06-19 10:01 | Outpatient (REF) | payer MEDICARE, MEDICAID, SELFPAY ==
--- NOTE | ~2023-06-19 | US_ITS ---
EXAMINATION: US RETROPERITONEAL COMPLETE (RENAL) CLINICAL INFORMATION: Nocturia. COMPARISON: Ultrasound abdomen complete 05/23/2020. TECHNIQUE: Real-time imaging of the kidneys and bladder. FINDINGS: RIGHT KIDNEY: 10.0 x 5.1 x 4.4 cm (SAG x AP x TRV). The kidney is normal in size, contour, and echogenicity. Renal cortical thickness is normal. No calculi or focal parenchymal lesions. No hydronephrosis. LEFT KIDNEY: 10.2 x 6.0 x 4.8 cm (SAG x AP x TRV). The kidney is normal in size, contour, and echogenicity. Renal cortical thickness is normal. No renal calculi or hydronephrosis. Small cortical and parapelvic simple cysts. No follow-up imaging is recommended. BLADDER: Well distended and normal. Bilateral ureteral jets are demonstrated. Prevoid bladder volume is 153 mL. Postvoid bladder volume is 9.5 mL. US/US retroperitoneal comp IMPRESSION: Unremarkable renal and bladder ultrasound.
== END 2023-06-19 10:02 | disposition home or self-care (01) ==
LOC: HO.US 10:01
PROVIDERS: PCP Internal Medicine Geriatric Medicine; Visit Provider Nurse Practitioner Family
DX: R35.1 Nocturia (principal)
CPT/HCPCS: 76770

== ENCOUNTER 2023-06-30 09:36 | Outpatient (AMB) | payer MEDICARE, MEDICAID, SELFPAY ==
--- NOTE | 2023-06-30 09:38 | A.OFFVIS_ITS ---
Intake Visit Reasons: 3m/US(set) Intake Note: Patient presents for follow up visit for urinary frequency and ultrasound results Imagin06/19/23 Urology Medications: none Blood Thinner: none PVR: 15ml's Parachute Packer Required: No Accompanied by: Self / Same As Patient Allergies begum Allergy (Verified 06/30/23 21:33) Itching pollen extracts Allergy (Verified 06/30/23 21:33) Sneezing tomato Allergy (Verified 06/30/23 21:33) Hives Medication List - Last Reconciled 06/30/23 by ANA Mills-LEATHA acetaminophen 650 mg (2 x 325 mg) PO Q6H PRN 30 days albuterol sulfate 1 amp inhalation QID albuterol sulfate 90 mcg/actuation (Ventolin HFA) 2 puffs PO Q4-6H PRN amlodipine 1 tab PO QAM atorvastatin 80 mg PO DAILY bisacodyl (Dulcolax (bisacodyl)) 10 mg (2 x 5 mg) PO ONCE 1 day calcium carbonate-vitamin D3 600 mg-20 mcg (800 unit) 1 tab PO fluticasone propion-salmeterol 500-50 mcg/dose (Advair Diskus) 1 puff PO Q12H montelukast 1 tab PO QPM omeprazole 1 cap PO QAM polyethylene glycol 3350 (Miralax) 238 grams PO ONCE PRN 1 day polyvinyl alcohol 1.4% (Artificial Tears (polyvinyl alcohol)) 1 drp ophthalmic (eye) BID-QID PRN sertraline 25 mg PO DAILY valsartan-hydrochlorothiazide 320-25 mg 1 tab PO DAILY HPI Comments Details: Lorie is a pleasant 67-year-old female patient of Dr. Martinez. She has a past medical history of osteoarthritis, pre diabetes, GERD, asthma, and hypertension. She presents to the office today for follow-up. Of note, patient was seen approximately 3 months ago as a new patient for as a new patient for nocturia at which time a retroperitoneal ultrasound was ordered and sleep study for further assessment evaluation of possible sleep apnea. In discussion with the patient today she reports feeling it is not her bladder that wakes her up. She reports having insomnia and feels because she does not sleep well she gets up to use the bathroom. Recent retroperitoneal ultrasound results reviewed with the patient today. Bilateral kidneys with no calculi and or hydronephrosis. Small cortical and parapelvic simple cyst noted. No follow-up imaging is recommended per radiology report. The bladder is well distended and normal. Bladder ureteral jets are demonstrated. Pre void bladder volume is approximately 150 mL. Postvoid bladder volume is approximately 10 mL. Unremarkable renal bladder ultrasound. It appears sleep study has been completed. No sleep apnea noted. In office urinalysis results reviewed with the patient today. PVR 0 mL. Discussed importance of bedtime routine to assist with sleep hygiene and insomnia. She otherwise denies urinary urgency, urinary frequency, incontinence, hematuria, dysuria, foul smelling urine, changes to urinary stream, flank pain, fever, and or chills. When asked she does report snoring and feels fatigued in the morning. Discussed further workup of potential sleep apnea. She otherwise denies any other issues or concerns at this time. 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, bilateral Hypovitaminosis D Age related osteoporosis COVID-19 vaccine series completed Pre-diabetes GERD (gastroesophageal reflux disease) Arthritis Asthma Hypertension Osteoarthritis of left knee Surgical History History of left knee surgery Hx of breast biopsy Hx of hysterectomy H/O colonoscopy Hx of hand surgery Hx of knee surgery H/O unilateral oophorectomy History of total right knee replacement Family History Maternal Aunt Breast CA Mother Colon cancer Arthritis Sister Arthritis Social History Household Members: Family Household Members Other:: daughter Housing: House Are you a primary daycare provider to a significant other at home: No Do you presently have visiting nurse or other home services: No Alcohol intake: current Alcohol intake frequency: holidays/special occasions only Patient Tobacco Use Status: Former Tobacco user Quit Date: 2001 Tobacco use type: Cigarette Years Smoked: 20 Second Hand Smoke Exposure: No Advance Directives Date on File: 07/17/17 service: No Current occupational status: disabled Current occupation: rt handed Female Reproductive History Menstrual Age of Menarche: 9 Review of Systems Eyes Reports no additional complaints ENT Reports no additional complaints Card Reports as per HPI Resp Reports as per HPI GI Reports as per HPI Reports as per HPI Musc Reports as per HPI Neuro Reports no additional complaints Psych Reports no additional complaints Endo Reports no additional complaints Srinivas/Lymph Reports no additional complaints Aller/Immun Reports no additional complaints Physical Exam Const General: cooperative, healthy appearing, comfortable, no acute distress, well developed, alert and awake Orientation/consciousness: patient oriented x3 Limitations: no limitations HEENT Head: Yes normal to inspection, Yes normocephalic and Yes atraumatic Ears: hearing grossly normal bilaterally Eyes General: appearance normal, both eyes and all related structures Neck Neck: Yes normal visual inspection and Yes trachea midline Chest Chest palpation & inspection: normal inspection of the chest Resp Effort & Inspection: normal respiratory effort and able to speak in complete sentences Cardio Rate: regular rate GI Inspection: Yes normal to inspection General: Yes no CVA tenderness Back/Spine/Pelvis Back: no CVA tenderness Skin General skin exam: no rashes or lesions noted Neuro General: patient oriented x3 Extrem General: Yes normal to inspection Psych Appearance: grossly normal and well kempt Mental Status: mental status grossly normal Speech and movement: Normal speech and movement present and Clear speech present Affect: normal affect Attitude: cooperative Thought process: Normal thought process present Thought content: Normal thought content present Insight: Fair insight present (Psych) Judgement: Fair judgement present (Psych) Office Procedures Post Void Residual Post Residual Void Post Void Residual (PVR): 15 [id number] Void Residual by ultrasound Results AMB Urinalysis, Automated UA Leukoctes 15 Enrique/uL Last Edit by [employer] on 06/30/23 09:59 UA Nitrite Last Edit by [employer] [place] on 06/30/23 09:59 UA Urobilinogen 0.2 mg/dL Last Edit by [employer] on 06/30/23 09:59 UA Protein 15 mg/dL Last Edit by [employer] on 06/30/23 09:59 UA pH 6.0 Last Edit by [employer] on 06/30/23 09:59 UA Blood 0 Uvaldo/uL Last Edit by [employer] on 06/30/23 09:59 UA Specific [place] 1.015 Last Edit by [employer] on 06/30/23 09:59 UA Ketone Positive Last Edit by [employer] on 06/30/23 09:59 UA Bilirubin 1 mg/dL Last Edit by [employer]ia [employer] on 06/30/23 09:59 UA Glucose 0 mg/dL Last Edit by [employer] on 06/30/23 09:59 Results Reviewed Results Reviewed: Laboratory Last Values Urine pH (Auto) 6.0 06/30/23 09:44 Specific [place] (Auto) 1.015 06/30/23 09:44 Urine Protein (Auto) 15 mg/dL 06/30/23 09:44 Glucose (UA)(Auto) 0 mg/dL 06/30/23 09:44 Urine Ketones (Auto) Positive 06/30/23 09:44 Urine Blood (Auto) 0 Uvaldo/uL 06/30/23 09:44 Urine Bilirubin (Auto) 1 mg/dL 06/30/23 09:44 Urine Urobilinogen (Auto) 0.2 mg/dL 06/30/23 09:44 Leukocyte Esterase (Auto) 15 Enrique/uL 06/30/23 09:44 Date of Service: 06/19/23 EXAMINATION: US RETROPERITONEAL COMPLETE (RENAL) FINDINGS: RIGHT KIDNEY: 10.0 x 5.1 x 4.4 cm (SAG x AP x TRV). The kidney is normal in size, contour, and echogenicity. Renal cortical thickness is normal. No calculi or focal parenchymal lesions. No hydronephrosis. LEFT KIDNEY: 10.2 x 6.0 x 4.8 cm (SAG x AP x TRV). The kidney is normal in size, contour, and echogenicity. Renal cortical thickness is normal. No renal calculi or hydronephrosis. Small cortical and parapelvic simple cysts. No follow-up imaging is recommended. BLADDER: Well distended and normal. Bilateral ureteral jets are demonstrated. Prevoid bladder volume is 153 mL. Postvoid bladder volume is 9.5 mL. IMPRESSION: Unremarkable renal and bladder ultrasound. Assessment & Plan Assessment & Plan (1) Nocturia: Code(s): R35.1 - Nocturia Category: Medical Plan In office urinalysis results reviewed with the patient today; as noted above. PVR 0 mL. Recent retroperitoneal ultrasound results reviewed with the patient today. Recent sleep study results reviewed with the patient today; as noted above. Discussed importance of sleep hygiene to assist with insomnia. Discussed importance of limiting fluids 2-3 hours prior to bed to decrease episodes of nocturia. Discussed pelvic floor therapy verses trial of medication verses surveillance monitoring Will continue with surveillance monitoring at this time. Follow-up in 6 months with PVR; or sooner with any issues, concerns, and or questions. Orders: Orders AMB Urinalysis Automated Today Z13.9 - Encounter for screening, unspecified AMB Post Void Residual by ultrasound Today R35.0 - Frequency of micturition Patient Instructions: The patient had an opportunity to ask questions regarding the treatment plan. All questions were answered. Physical exam, labs, and imaging were discussed and reviewed in detail. As well as risks, benefits, and discussion of treatment choices. No major barriers to understanding were identified. The patient expressed understanding and agreement with the above treatment plan. The patient was made aware they should contact our office by phone for worsening of their current condition, the appearance of new symptoms, or with any questions or concerns. Compliance is encouraged with any medications and follow up testing that is ordered. It is a privilege to be allowed the opportunity to participate in? your urological care.? Again, if you have any questions or concerns If you have any questions or concerns please do not hesitate to contact me. The office is [phone]. This note is constructed using voice recognition software. While every effort has been made to ensure accuracy auto transport driver errors may have been included. Yours sincerely, BELLO Mills Coding Level of Care Code Est Pt Level 3 (00960) Diagnoses Nocturia R35.1 CPT Codes Post Residual Void - PVR CPT Code: 35543-Taix Void Residual by ultrasound ([id number])
== END 2023-06-30 10:17 | disposition home or self-care (01) ==
PROVIDERS: PCP Internal Medicine Geriatric Medicine; Visit Provider Nurse Practitioner Family
DX: R35.1 Nocturia (principal); Z13.9 Encounter for screening, unspecified
CPT/HCPCS: 99213

== ENCOUNTER → 2023-06-30 09:36 | Outpatient (BNVA) | payer MEDICARE, MEDICAID, SELFPAY | PROVIDERS: PCP Internal Medicine Geriatric Medicine; Visit Provider Nurse Practitioner Family | DX: R35.1 Nocturia (principal); R35.0 Frequency of micturition | CPT/HCPCS: 51798; 81003; 99212 ==

== ENCOUNTER 2023-07-31 09:00 | Outpatient (REF) | payer MEDICARE, MEDICAID, SELFPAY ==
--- NOTE | ~2023-07-31 | XR_ITS ---
EXAMINATION: XR ANKLE, LEFT CLINICAL INFORMATION: Pain and swelling. COMPARISON: None available. TECHNIQUE: AP, lateral, and mortise views of the left ankle. FINDINGS: Well-corticated chronic appearing osseous fragments adjacent to the medial malleolus. No evidence of acute fractures or subluxation. Moderate multifocal degenerative osteoarthritis. Calcaneal spurring. Nonspecific diffuse soft tissue swelling, slightly more noticeable adjacent to the lateral malleolus. XR/XR ankle LT 2V IMPRESSION: 1. No acute fractures or malalignment. 2. Moderate multifocal degenerative osteoarthritis. 3. Nonspecific soft tissue swelling, slightly more noticeable adjacent to the lateral malleolus. If symptoms persist on short-term follow-up, consider further characterization with an MRI of the left ankle.
== END 2023-07-31 09:01 | disposition home or self-care (01) ==
LOC: HO.XRAY 09:00
PROVIDERS: PCP Internal Medicine Geriatric Medicine; Visit Provider Internal Medicine Geriatric Medicine
DX: M25.572 Pain in left ankle and joints of left foot (principal)
CPT/HCPCS: 73600

== ENCOUNTER 2023-08-03 10:18 | Outpatient (AMB) | payer MEDICARE, MEDICAID, SELFPAY ==
[2023-08-03 10:28] VITALS: BP 148/60; BMI 32.5
--- NOTE | 2023-08-03 10:28 | A.OFFVIS_ITS ---
Vital Signs 08/03/23 10:28 Height 5 ft 1 in Weight 171 lb 15.369 oz BMI 32.5 BP 148/60 H Intake Visit Reasons: Pelvic pain Clerk Operator Required: No Information Interpreted: non-clinical & clinical Continuous Process Coffee Roaster: Continuous Process Coffee Roaster Present (Elizabeth Mckeon ELMO) Accompanied by: Self / Same As Patient Allergies begum Allergy (Verified 08/03/23 10:33) Itching pollen extracts Allergy (Verified 08/03/23 10:33) Sneezing tomato Allergy (Verified 08/03/23 10:33) Hives Post menopausal: Yes HPI Comments Details: The patient is presenting with left-sided lower abdominal pain started few days ago. It's intermittent in nature lasting few seconds and occurs 3x/day. 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, bilateral Hypovitaminosis D Age related osteoporosis COVID-19 vaccine series completed Pre-diabetes GERD (gastroesophageal reflux disease) Arthritis Asthma Hypertension Osteoarthritis of left knee Surgical History History of left knee surgery Hx of breast biopsy Hx of hysterectomy H/O colonoscopy Hx of hand surgery Hx of knee surgery H/O unilateral oophorectomy History of total right knee replacement Family History Maternal Aunt Breast CA Mother Colon cancer Arthritis Sister Arthritis Social History Household Members: Family Household Members Other:: daughter Housing: House Are you a primary respiratory care specialist to a significant other at home: No Do you presently have visiting nurse or other home services: No Alcohol intake: current Alcohol intake frequency: holidays/special occasions only Patient Tobacco Use Status: Former Tobacco user Tobacco use type: Cigarette Years Smoked: 20 Second Hand Smoke Exposure: No Advance Directives Date on File: 07/17/17 service: No Current occupational status: disabled Current occupation: rt handed Female Reproductive History Menstrual Age of Menarche: 9 Review of Systems Const All systems reviewed & are unremarkable except as noted in HPI and below Card Reports as per HPI and Reports no additional complaints Resp Reports as per HPI and Reports no additional complaints GI Reports as per HPI and Reports no additional complaints Reports as per HPI Physical Exam Vital Signs: BMI result Body Mass Index 32.5 Const General: cooperative, healthy appearing and comfortable GI Inspection: Yes normal to inspection Palpation (GI): Soft to palpation, Tenderness to palpation present (GI) in the LLQ, no guarding and No Rebound tenderness present General: Yes bladder normal to palpation External Female Exam: No lesion Speculum Exam - Vagina: normal appearance of the vagina, normal vaginal discharge and not erythematous Speculum Exam - Cervix: Cervix absent Bimanual exam- vagina & uterus: bladder normal to palpation and uterus absent Bimanual Exam- Adnexa, other: Other (No masses detected) Results AMB Urinalysis Dipstick UR Leukocytes Trace Last Edit by Elizabeth Mckeon CMA on 08/03/23 10:38 UR Nitrite Negative Last Edit by Elizabeth Mckeon, POWER ELECTRONICS RESEARCH ENGINEER on 08/03/23 10:38 UR Urobilinogen Normal Last Edit by Elizabeth Mckeon, CASSI on 08/03/23 10:38 UR Protein Negative Last Edit by Elizabeth Mckeon, POWER ELECTRONICS RESEARCH ENGINEER on 08/03/23 10:38 UR Ph 6.0 Last Edit by Elizabeth Mckeon, POWER ELECTRONICS RESEARCH ENGINEER on 08/03/23 10:38 UR Blood Negative Last Edit by Elizabeth Mckeon, POWER ELECTRONICS RESEARCH ENGINEER on 08/03/23 10:38 UR Specific [place] 1.010 Last Edit by Elizabeth Mckeon, POWER ELECTRONICS RESEARCH ENGINEER on 08/03/23 10:38 UR Ketone Negative Last Edit by Elizabeth Mckeon, POWER ELECTRONICS RESEARCH ENGINEER on 08/03/23 10:38 UR Bilirubin Negative Last Edit by Elizabeth Mckeon, POWER ELECTRONICS RESEARCH ENGINEER on 08/03/23 10:38 UR Glucose Negative Last Edit by Elizabeth Mckeon, POWER ELECTRONICS RESEARCH ENGINEER on 08/03/23 10:38 Assessment & Plan Assessment & Plan (1) LLQ abdominal pain: Code(s): R10.32 - Left lower quadrant pain Category: Medical Plan: Urine dip done in the office was negative. pelvic ultrasound ordered. Discussed with the patient the differential diagnosis of left lower quadrant abdominal pain including but not limited to adnexal, GI the (Irritable bowel syndrome, diverticulitis, others), musculoskeletal, myofascial pain abdominal wall , adhesions, endometriosis, psychological and others causes. Instructed the patient to go to emergency room yee to be evaluated for causes of abdominal pain, to schedule pelvic ultrasound and a follow-up appointment within 2 weeks. All questions answered, the patient verbalized understanding especially the urgency of her clinical situation and agreed with the plan. Instructed the patient to schedule follow-up appointment in 2 weeks Orders: Orders AMB Urinalysis Dipstick Today R10.2 - Pelvic and perineal pain Coding Level of Care Code Est Pt Level 3 (43507) Diagnoses LLQ abdominal pain R10.32
== END 2023-08-03 10:49 | disposition home or self-care (01) ==
LOC: HO.HWS 10:18
PROVIDERS: PCP Internal Medicine Geriatric Medicine; Visit Provider Obstetrics & Gynecology
DX: R10.32 Left lower quadrant pain (principal); R10.2 Pelvic and perineal pain
CPT/HCPCS: 99213

== ENCOUNTER → 2023-08-03 10:18 | Outpatient (BNVA) | payer MEDICARE, MEDICAID, SELFPAY | PROVIDERS: PCP Internal Medicine Geriatric Medicine; Visit Provider Obstetrics & Gynecology | DX: R10.32 Left lower quadrant pain (principal) | CPT/HCPCS: 81002; 99212 ==

== ENCOUNTER 2023-08-04 07:47 | Emergency (ER) | payer MEDICARE, MEDICAID, SELFPAY ==
--- NOTE | ~2023-08-04 | US_ITS ---
EXAMINATION: US PELVIC CLINICAL INFORMATION: Rule out torsion, left-sided pain. COMPARISON: None available. TECHNIQUE: Transabdominal and transvaginal pelvic ultrasound. Transvaginal exam performed for better visualization of ovaries. FINDINGS: The uterus has been removed. The ovaries are not seen. No fluid is seen in the pelvis. US/US pelvic and transvaginal IMPRESSION: Ovaries not seen. Torsion cannot be excluded.
[2023-08-04 07:53] VITALS: BP 148/79; PULSE 94; RESP 18; TEMP 36.8; O2SAT 97; BMI 34.1
[2023-08-04 08:10] LABS: MANUAL DIFF FLAG NO
[2023-08-04 08:13] LABS: Basophils Absolute Auto 0.1 X10*3/uL (0.0-0.2); Basophils Percent Auto 1.3 % (0-2); Eosinophils Absolute Auto 0.4 X10*3/uL (0.0-0.4); Eosinophils Percent Auto 6.8 % (0-4); Hematocrit 37.8 % (37.0-47.0); Hemoglobin 12.8 g/dl (12.0-16.0); Imm Gran Abs Auto 0.05 X10*3/uL (0.00-0.03); Imm Gran Pct Auto 0.8 % (0.0-0.4); Lymphocytes Absolute Auto 1.7 X10*3/uL (1.2-4.9); Lymphocytes Percent Auto 28.7 % (20-40); Mean Corpuscular HGB Conc 33.9 g/dl (31.0-35.0); Mean Corpuscular Hemoglobin 29.6 pg (27.0-33.0); Mean Corpuscular Volume 87.5 fL (80.0-98.0); Monocytes Absolute Auto 0.4 X10*3/uL (0.1-1.2); Monocytes Percent Auto 6.4 % (2-11); Neutrophils Absolute Auto 3.4 x10*3/uL (2.0-8.3); Platelet Count 283 X10*3/uL (160-400); Red Blood Count 4.32 X10*6/uL (4.20-5.50); Red Cell Distribution Width 13.4 % (11.0-16.0); White Blood Count 6.1 X10*3/uL (4.8-10.8)
[2023-08-04 08:14] LABS: Appearance Urine Clear; Color Urine Yellow; Glucose Urine UA Negative (Negative); Leukocyte Esterase Urine Small (1+) (Negative); Nitrite Urine Negative (Negative); UMIC TRIGGER UACC YES; Urine Blood Negative (Negative); Urine Ketones Trace mg/dL (Negative); Urine Protein Negative (Neg-Trace)
[2023-08-04 08:26] LABS: Bacteria Urine None Seen (None Seen); Hyaline Casts Urine 0-2 /LPF (0-2); RBC Urine 0-2 /HPF (0-2); Squamous Epithelial Cell Urine 0-2 /HPF (0-2); UACC Culture Trigger YES; WBC Urine 0-5 /HPF (0-5)
[2023-08-04 08:32] LABS: Alanine Aminotransferase 25 U/L (0-31); Albumin Level 4.4 g/dL (3.5-5.0); Alkaline Phosphatase 68 U/L (39-117); Anion Gap 13 (12-20); Aspartate Amino Transferase 24 U/L (5-31); Bilirubin Direct 0.1 mg/dL (0.0-0.5); Bilirubin Total 0.4 mg/dL (0.0-1.0); Blood Urea Nitrogen 16 mg/dL (9-16); Calcium 10.3 mg/dL (8.4-10.2); Carbon Dioxide 30 mmol/L (22-29); Chloride 103 mmol/L (96-108); Creatinine Clr Calc Pharmacy 62.5; Estimated Glomerular Filt Rate > 60; Glucose Random 102 mg/dL (60-115); Lipase 24 U/L (8-78); Potassium 3.5 mmol/L (3.3-5.1); Sodium 142 mmol/L (135-145); Total Protein 7.6 g/dL (6.5-8.0)
[2023-08-04 09:12] VITALS: BP 151/71; PULSE 79; RESP 16; TEMP 36.7; O2SAT 98
--- NOTE | 2023-08-04 09:40 | ED.ABDPAIN ---
HPI - Abdominal Pain General Chief Complaint: Abdominal Pain Stated Complaint: pelvic pain Time Seen by Provider: 08/04/23 09:03 Source: patient and old records reviewed Mode of arrival: ambulatory Limitations: no limitations History of Present Illness ED Provider: Marcial Horta PA-C HPI narrative: 67-year-old female with history of GERD, osteoporosis, hysterectomy with unilateral oopherectomy presenting for evaluation of LLQ pain x4 days. Thursday morning she woke up with a sharp pain in her lower left abdomen. Since then she has had intermittent pains in the same place ~3x/day. Yesterday she was seen by her cosmetic sales advisor for this issue. They did a cosmetic sales advisor exam and urine dip which were both normal and told her to come to the ER for further eval. She denies nausea, vomitting, diarrhea. Denies constipation, last BM was this morning, has not noticed any blood in her stool. Denies urinary symptoms including burning, urgency, or frequency. Denies vaginal discharge or bleeding. Denies fevers/sweats/chills. MD elicited complaint: abdominal pain Onset (ago): day(s) (4) Pain Consistency: intermittent Location: LLQ Quality: sharp Radiation: none Migration to: no migration Exacerbating factors: nothing Relieving factors: nothing Associated symptoms: denies other symptoms Related Data Home Medications ?Medication ?Instructions ?Recorded ?Confirmed atorvastatin 80 mg tablet 80 mg PO DAILY 12/10/20 07/17/22 polyvinyl alcohol 1.4 % eye drops 1 drp ophthalmic (eye) BID-QID PRN 12/10/20 07/17/22 (Artificial Tears (polyvinyl Dry Eye(S) alcohol)) albuterol sulfate 2.5 mg/3 mL 1 amp inhalation QID 02/26/21 07/17/22 (0.083 %) solution for nebulization albuterol sulfate 90 mcg/actuation 2 puff PO Q4-6H PRN Wheezing 02/26/21 07/17/22 aerosol inhaler (Ventolin HFA) amlodipine 10 mg tablet 1 tab PO QAM 02/26/21 07/17/22 fluticasone 500 mcg-salmeterol 50 1 puff PO Q12H 02/26/21 07/17/22 mcg/dose blistr powdr for inhalation (Advair Diskus) montelukast 10 mg tablet 1 tab PO QPM 02/26/21 07/17/22 omeprazole 20 mg capsule,delayed 1 cap PO QAM 02/26/21 07/17/22 release valsartan 320 1 tab PO DAILY 06/12/21 07/17/22 mg-hydrochlorothiazide 25 mg tablet calcium carbonate 600 mg-vitamin 1 tab PO 01/07/22 07/17/22 D3 20 mcg (800 unit) tablet sertraline 25 mg tablet 25 mg PO DAILY 01/07/22 07/17/22 Previous Rx's ?Medication ?Instructions ?Recorded acetaminophen 325 mg tablet 650 mg (2 x 325 mg) PO Q6H PRN 06/28/21 Pain, Mild (Pain Scale 1-3) 30 days #240 tabs bisacodyl 5 mg tablet,delayed 10 mg (2 x 5 mg) PO ONCE 07/17/22 release (Dulcolax (bisacodyl)) colonoscopy prep 1 day #2 tabs polyethylene glycol 3350 17 238 g PO ONCE PRN laxative effect 07/17/22 gram/dose oral powder (Miralax) 1 day #238 grams Allergies Allergy/AdvReac Type Severity Reaction Status Date / Time begum Allergy Itching Verified 08/04/23 07:57 pollen extracts Allergy Sneezing Verified 08/04/23 07:57 tomato Allergy Hives Verified 08/04/23 07:57 Review of Systems Review of Systems Yes all other systems are reviewed and are negative [facility] Past Medical History Medical History 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, bilateral Hypovitaminosis D Age related osteoporosis COVID-19 vaccine series completed Pre-diabetes GERD (gastroesophageal reflux disease) Arthritis Asthma Hypertension Osteoarthritis of left knee Surgical History History of left knee surgery Hx of breast biopsy Hx of hysterectomy H/O colonoscopy Hx of hand surgery Hx of knee surgery H/O unilateral oophorectomy History of total right knee replacement Family History Family History Maternal Aunt Breast CA Mother Colon cancer Arthritis Sister Arthritis Social History Social History Household Members: Family Household Members Other:: daughter Housing: House Are you a primary director day care center to a significant other at home: No Do you presently have visiting nurse or other home services: No Alcohol intake: current Alcohol intake frequency: holidays/special occasions only Patient Tobacco Use Status: Former Tobacco user Tobacco use type: Cigarette Years Smoked: 20 Second Hand Smoke Exposure: No Advance Directives: No Advance Directives Information Provided: Yes Advance Directives Date on File: 07/17/17 service: No Current occupational status: disabled Current occupation: rt handed Physical Exam ED Vital Signs: Vital Signs - 24 hr 08/04/23 07:53 08/04/23 09:12 Temperature 98.3 F 98.1 F Pulse Rate 94 79 Respiratory Rate 18 16 Blood Pressure 148/79 H 151/71 H Pulse Oximetry 97 98 Oxygen Delivery Method Room Air Room Air BMI result Body Mass Index 34.1 Appearance: Alert. Oriented X3. No acute distress. Head: normocephalic, atraumatic. Eyes: Pupils equal, round and reactive to light. ENT: Pharynx normal. No tonsillar swelling or exudate. Neck: Normal inspection. Neck supple. CVS: Normal heart rate and rhythm. Pulses normal. Respiratory: No respiratory distress. Breath sounds normal. Abdomen: +BS x4. Soft, nondistended. Focal tenderness to palpation in the LLQ with voluntary guarding, no rebound. Skin: Skin warm and dry. Normal skin color. Normal skin turgor. No rashes. Extremities: No lower extremity edema. No joint swelling. Neuro/psych: Oriented X 3. No motor deficit. No sensory deficit. CN II-XII intact. Normal speech and cognition. Medical Decision Making Medical Decision Making MDM Narrative: 67-year-old female with history of GERD, osteoporosis, hysterectomy with unilateral oopherectomy presenting for evaluation of LLQ pain x4 days. Patient is having abdominal pain, denies rectal bleeding, therefore suspicion for diverticulosis is low. No known history of diverticulosis, no leukocytosis, no fever, LLQ pain is intermittent ~3x/day, therefore suspicion for diverticulitis is low. Patient denies urinary symptoms, urinalysis in cosmetic sales advisor office yesterday and here today are not concerning for UTI. Pain in LLQ is intermittent and sharp, therefore considering passage of kidney stone, however no blood on urine dip. Pain is focal in adnexal area, therefore considering ovarian cyst +/- rupture. Patient has history of hysterctomy with unilateral oopherectomy but is not sure which ovary was taken. Pelvic and transvaginal US were obtained as initial diagnostic study to evaluate for the above differential diagnosis. Due to downtime in radiology department the read will be delayed. After US patient eloped from the emergency department prior to getting rad results back. Differential Diagnosis Differential Diagnoses: The differential diagnosis associated with the presentation includes diverticulosis, diverticulitis, colitis, UTI, nephrolithiasis, ovarian cyst +/-rupture Lab Data MDM Lab Attestation statement: I reviewed the patient's lab results. 08/04/23 08:07 08/04/23 08:07 Labs: Lab Results 08/04/23 Range/Units 08:07 WBC 6.1 (4.8-10.8) X10*3/uL RBC 4.32 (4.20-5.50) X10*6/uL Hgb 12.8 (12.0-16.0) g/dl Hct 37.8 (37.0-47.0) % MCV 87.5 (80.0-98.0) fL MCH 29.6 (27.0-33.0) pg MCHC 33.9 (31.0-35.0) g/dl RDW 13.4 (11.0-16.0) % Plt Count 283 (160-400) X10*3/uL MPV 10.0 (9.4-12.3) fL Immature Gran % (Auto) 0.8 H (0.0-0.4) % Neut % (Auto) 56.0 (45-73) % Lymph % (Auto) 28.7 (20-40) % [place] % (Auto) 6.4 (2-11) % Eos % (Auto) 6.8 H (0-4) % Baso % (Auto) 1.3 (0-2) % Lymph # (Auto) 1.7 (1.2-4.9) X10*3/uL [place] # (Auto) 0.4 (0.1-1.2) X10*3/uL Eos # (Auto) 0.4 (0.0-0.4) X10*3/uL Baso # (Auto) 0.1 (0.0-0.2) X10*3/uL Abs Immat Gran (auto) 0.05 H (0.00-0.03) X10*3/uL Absolute Neuts (auto) 3.4 (2.0-8.3) x10*3/uL Absolute Nucleated RBC 0.000 (0.0-0.012) X10*3/uL Nucleated RBC % (auto) 0.0 (0.0-0.2) /100WBC Sodium 142 (135-145) mmol/L Potassium 3.5 (3.3-5.1) mmol/L Chloride 103 (96-108) mmol/L Carbon Dioxide 30 H (22-29) mmol/L Anion Gap 13 (12-20) BUN 16 (9-16) mg/dL Creatinine 0.79 (0.5-1.4) mg/dL Estim Creat Clear Calc 62.5 Estimated GFR > 60 Random Glucose 102 (60-115) mg/dL Calcium 10.3 H (8.4-10.2) mg/dL Total Bilirubin 0.4 (0.0-1.0) mg/dL Direct Bilirubin 0.1 (0.0-0.5) mg/dL AST 24 (5-31) U/L ALT 25 (0-31) U/L Alkaline Phosphatase 68 (39-117) U/L Total Protein 7.6 (6.5-8.0) g/dL Albumin 4.4 (3.5-5.0) g/dL Lipase 24 (8-78) U/L Urine Color Yellow Urine Appearance Clear Urine pH 7.0 (5.0-9.0) Ur Specific [place] 1.020 (1.005-1.025) Urine Protein Negative (Neg-Trace) mg/dL Urine Glucose (UA) Negative (Negative) mg/dL Urine Ketones Trace (Negative) mg/dL Urine Blood Negative (Negative) Urine Nitrite Negative (Negative) Ur Leukocyte Esterase Small (1+) H (Negative) Urine RBC 0-2 (0-2) /HPF Urine WBC 0-5 (0-5) /HPF Ur Squamous Epith Cells 0-2 (0-2) /HPF Urine Bacteria None Seen (None Seen) Hyaline Casts 0-2 (0-2) /LPF External Record Review External record reviewed: Office record, Outpatient record and Prior outpatient labs Prescription Management I considered prescription management with: Pain Medication Critical Care Time Critical Care Time Critical Care Time: No Discharge Plan Discharge Clinical Impression: Abdominal pain Qualifiers: Abdominal location: left lower quadrant Qualified Code(s): R10.32 - Left lower quadrant pain Patient Disposition: Left W/O Completing Treatment Prescriptions: No Action albuterol sulfate 2.5 mg /3 mL (0.083 %) solution for nebulization 1 amp inhalation QID amlodipine 10 mg tablet 1 tab PO QAM fluticasone propion-salmeterol [Advair Diskus] 500-50 mcg/dose blister with device 1 puff PO Q12H omeprazole 20 mg capsule,delayed release(DR/EC) 1 cap PO QAM montelukast 10 mg tablet 1 tab PO QPM albuterol sulfate [Ventolin HFA] 90 mcg/actuation HFA aerosol inhaler 2 puff PO Q4-6H PRN (Reason: Wheezing) valsartan-hydrochlorothiazide 320-25 mg Tablet 1 tab PO DAILY acetaminophen 325 mg Tablet 650 mg PO Q6H PRN (Reason: Pain, Mild (Pain Scale 1-3)) 30 Days Qty: 240 0RF polyvinyl alcohol [Artificial Tears (polyvin alc)] 1.4 % drops 1 drp ophthalmic (eye) BID-QID PRN (Reason: Dry Eye(S)) atorvastatin 80 mg tablet 80 mg PO DAILY sertraline 25 mg tablet 25 mg PO DAILY calcium carbonate-vitamin D3 600 mg-20 mcg (800 unit) tablet 1 tab PO bisacodyl [Dulcolax (bisacodyl)] 5 mg tablet,delayed release (DR/EC) 10 mg PO ONCE 1 Days Qty: 2 0RF Rx Instructions: Take 2 tablets by mouth at 12:00pm the day before your procedure. polyethylene glycol 3350 [Miralax] 17 gram/dose powder 238 g PO ONCE PRN (Reason: laxative effect) 1 Days Qty: 238 0RF Rx Instructions: Take as directed by mouth the day before your procedure. Discharge Date/Time: 08/04/23 12:24
--- NOTE | 2023-08-04 10:17 | PC.NURSE ---
Pt in US
--- NOTE | 2023-08-04 12:22 | PC.NURSE ---
Pt noted to still not be in room after US, this RN called US who reported they brought the patient back awhile. They said they told her you're all set and thought maybe she misunderstood and left. Clara HURST made aware, stated she will call pt.
== END 2023-08-04 12:24 | disposition left against medical advice (07) ==
PROVIDERS: Emergency Provider Emergency Medicine; PCP Internal Medicine Geriatric Medicine
DX: R10.32 Left lower quadrant pain (principal); R10.2 Pelvic and perineal pain; Z79.899 Other long term (current) drug therapy; Z87.891 Personal history of nicotine dependence
CPT/HCPCS: 36415; 76830; 76856; 80053; 81001; 82248; 83690; 85025; 87086; 99283; 99284

== ENCOUNTER 2023-08-05 07:52 | Emergency (ER) | payer MEDICARE, MEDICAID, SELFPAY ==
--- NOTE | ~2023-08-05 | XR_ITS ---
EXAMINATION: XR LUMBOSACRAL SPINE CLINICAL INFORMATION: Low back pain COMPARISON: Lumbar spine x-ray on 05/22/2022 TECHNIQUE: Three views of the lumbosacral spine. FINDINGS: The visualized lumbar vertebrae are intact with mild L2-L3 dextroscoliosis. There is persistent anterior L4 on L5 displacement by 0.8 cm, unchanged. Intervertebral disc spaces are markedly reduced at L5-S1 level, mildly reduced at L1-L2, L3-L4 and L4-L5. XR/XR lumbar spine 2-3V IMPRESSION: 1. Unchanged mild L2-L3 dextroscoliosis, grade 1 L4-L5 anterolisthesis and advanced L5-S1 degenerative lumbar disc disease. 2. Interval development of L1-L2, L3-L4 and L4-L5 degenerative lumbar disc disease. 3. No fracture or dislocation of lumbar spine is seen.
[2023-08-05 07:55] VITALS: BP 154/81; PULSE 101; RESP 18; TEMP 36.7; O2SAT 97; BMI 33.8
[2023-08-05 10:26] VITALS: BP 144/72; PULSE 85; RESP 16; TEMP 36; O2SAT 97
[2023-08-05] MEDS: Ketorolac Tromethamine 30 MG/ML VIAL IM (10:29)
[2023-08-05] MEDS: Lidocaine 4 % Patch ADH..PATCH 1 PATCH TRANSDERMA (10:29)
--- NOTE | 2023-08-05 11:29 | ED.BACK ---
HPI - Back Pain/Injury General Chief Complaint: Back Pain/Injury Stated Complaint: Back pain Time Seen by Provider: 08/05/23 09:03 Source: patient, RN notes reviewed and old records reviewed Mode of arrival: ambulatory History of Present Illness ED Provider: Joann Armijo PA-C HPI Narrative: 67-year-old female with a past medical history of GERD, arthritis, presenting to the ED complaining of low back pain x 2 months s/p mechanical fall. Admits to pain radiating down LLE. Denies more recent injury/trauma or fall, numbness, tingling, weakness, incontinence/retention, fever. Has been taking cyclobenzaprine without relief. Related Data Home Medications ?Medication ?Instructions ?Recorded ?Confirmed atorvastatin 80 mg tablet 80 mg PO DAILY 12/10/20 07/17/22 polyvinyl alcohol 1.4 % eye drops 1 drp ophthalmic (eye) BID-QID PRN 12/10/20 07/17/22 (Artificial Tears (polyvinyl Dry Eye(S) alcohol)) albuterol sulfate 2.5 mg/3 mL 1 amp inhalation QID 02/26/21 07/17/22 (0.083 %) solution for nebulization albuterol sulfate 90 mcg/actuation 2 puff PO Q4-6H PRN Wheezing 02/26/21 07/17/22 aerosol inhaler (Ventolin HFA) amlodipine 10 mg tablet 1 tab PO QAM 02/26/21 07/17/22 fluticasone 500 mcg-salmeterol 50 1 puff PO Q12H 02/26/21 07/17/22 mcg/dose blistr powdr for inhalation (Advair Diskus) montelukast 10 mg tablet 1 tab PO QPM 02/26/21 07/17/22 omeprazole 20 mg capsule,delayed 1 cap PO QAM 02/26/21 07/17/22 release valsartan 320 1 tab PO DAILY 06/12/21 07/17/22 mg-hydrochlorothiazide 25 mg tablet calcium carbonate 600 mg-vitamin 1 tab PO 01/07/22 07/17/22 D3 20 mcg (800 unit) tablet sertraline 25 mg tablet 25 mg PO DAILY 01/07/22 07/17/22 Previous Rx's ?Medication ?Instructions ?Recorded acetaminophen 325 mg tablet 650 mg (2 x 325 mg) PO Q6H PRN 06/28/21 Pain, Mild (Pain Scale 1-3) 30 days #240 tabs bisacodyl 5 mg tablet,delayed 10 mg (2 x 5 mg) PO ONCE 07/17/22 release (Dulcolax (bisacodyl)) colonoscopy prep 1 day #2 tabs polyethylene glycol 3350 17 238 g PO ONCE PRN laxative effect 07/17/22 gram/dose oral powder (Miralax) 1 day #238 grams acetaminophen 500 mg tablet 500 mg PO Q6H PRN fever or pain 08/05/23 (Tylenol Extra Strength) #14 tabs ketorolac 10 mg tablet 10 mg PO TID PRN pain 5 days #15 08/05/23 tabs lidocaine 5 % topical patch 1 patch topical DAILY PRN pain #30 08/05/23 (Lidoderm) ea Allergies Allergy/AdvReac Type Severity Reaction Status Date / Time begum Allergy Itching Verified 08/05/23 07:56 pollen extracts Allergy Sneezing Verified 08/05/23 07:56 tomato Allergy Hives Verified 08/05/23 07:56 Review of Systems Review of Systems: Constitutional: No Fever, No Chills ENT/Mouth: No Ear Pain, No Nasal Congestion, No Sinus Pain, No Hoarseness, No sore throat, No Rhinorrhea, No Swallowing Difficulty Cardiovascular: No Chest Pain, No SOB Respiratory: No Cough Gastrointestinal: No Nausea, No Vomiting, No Abdominal pain Genitourinary: No Dysuria, No Urinary Frequency, No Hematuria, No Urinary Incontinence/retention, No Flank Pain Musculoskeletal: + joint pain, No Myalgias, No Joint Swelling Skin: No Skin Lesions, No rash Neuro: No Weakness, No Numbness, No Paresthesias Yes all other systems are reviewed and are negative Constitutional: Constitutional: Reports as per HPI Neurologic: Denies Sensory deficit (Neuro) [facility] Past Medical History Attestation statement: The following information was validated with the patient. 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, bilateral Hypovitaminosis D Age related osteoporosis COVID-19 vaccine series completed Pre-diabetes GERD (gastroesophageal reflux disease) Arthritis Asthma Hypertension Osteoarthritis of left knee Surgical History History of left knee surgery Hx of breast biopsy Hx of hysterectomy H/O colonoscopy Hx of hand surgery Hx of knee surgery H/O unilateral oophorectomy History of total right knee replacement Family History Family History Maternal Aunt Breast CA Mother Colon cancer Arthritis Sister Arthritis Social History Social History Household Members: Family Household Members Other:: daughter Housing: House Are you a primary manager progressive care to a significant other at home: No Do you presently have visiting nurse or other home services: No Alcohol intake: current Alcohol intake frequency: holidays/special occasions only Patient Tobacco Use Status: Former Tobacco user Tobacco use type: Cigarette Years Smoked: 20 Second Hand Smoke Exposure: No Advance Directives Date on File: 07/17/17 service: No Current occupational status: disabled Current occupation: rt handed Physical Exam Vital Signs: Vital Signs: Last Vital Signs Temp 0 F L 08/05/23 12:02 Pulse 0 L 08/05/23 12:02 Resp 16 08/05/23 12:02 BP 00/00 L 08/05/23 12:02 Pulse Ox 97 08/05/23 10:26 O2 Del Method Room Air 08/05/23 10:26 BMI result Body Mass Index 33.8 Const: General: cooperative, healthy appearing and no acute distress Orientation/consciousness: patient oriented x3 Limitations: no limitations HEENT: Head: Yes normal to inspection and Yes atraumatic Ears: hearing grossly normal bilaterally General nose exam: Normal external nose present Face and sinus: Yes normal facial exam Eyes: General: appearance normal, both eyes and all related structures EOM: EOMs intact bilaterally Neck: Neck: Yes normal visual inspection and Yes no meningeal signs Resp: Effort & Inspection: normal respiratory effort and no respiratory distress Cardio: Rate: regular rate Heart sounds: S1 normal heart sound present and S2 normal heart sound present GI: Inspection: Yes normal to inspection Palpation (GI): Soft to palpation, nontender, no guarding and not rigid : General: Yes no CVA tenderness Back/Spine/Pelvis: Other: No midline cervical/thoracic/lumbar spinous tenderness/step-off or deformity. +bilateral lumbar paraspinal ttp w/ swelling. no erythema/rash or ecchymosis Back: no CVA tenderness Skin: Rashes: no rashes Wounds: no wounds Neuro: Other: Strength intact throughout. No saddle anesthesia. Sensation intact to light touch. Neurovascular intact distally General: patient oriented x3, gait normal, tone normal, moves all extremities and no meningeal signs Cranial nerves: Yes CN's II-XII intact bilaterally Gait exam (Neuro): Normal gait present Motor exam (neuro): 5/5 motor strength present throughout Sensory Exam: No Sensory deficit (Neuro) Extrem: General: Yes normal to inspection Course Course Course Narrative: 1157--patient would like to be discharged prior to official x-ray results as needs to hand picker granddaughter. Will be contacted if results are abnormal Results discussed with patient including worrisome signs and symptoms and strict return precautions, and when to return to the emergency department. They verbalized understanding and feel safe for discharge at this time. Medications Administered Discontinued Medications Generic Name Dose Route Start Last Admin Trade Name Freq PRN Reason Stop Dose Admin Ketorolac Tromethamine 30 mg 08/05/23 09:48 08/05/23 10:29 Ketorolac Tromethamine 30 Mg/Ml Vial IM 08/05/23 09:49 30 mg ONCE ONE Administration Lidocaine 1 patch 08/05/23 09:48 08/05/23 10:29 Lidocaine 4 % Patch Adh..Patch TRANSDERMA 08/05/23 09:49 1 patch ONCE ONE Administration Protocol Medical Decision Making Medical Decision Making [facility] Narrative: 67-year-old female with a past medical history of GERD, arthritis, presenting to the ED complaining of low back pain x 2 months s/p mechanical fall. On exam vital signs stable, NAD, nontoxic appearing, physical exam as noted above without midline spinous tenderness red flag symptoms. No saddle anesthesia. Ambulating with steady gait. Concern for MSK pain/strain vs arthritis. Low suspicion for fracture, dislocation, cauda equina/cord compression or epidural abscess Plan: X-ray per patient request, pain control, PCP follow-up Please refer to course for remaining clinical decision making, interpretation of labs/imaging results, and discussions with consultants and/or family members. Differential Diagnosis Differential Diagnoses: The differential diagnosis associated with the presentation includes As above Lab Data [facility] Lab Attestation statement: I reviewed the patient's lab results. Independent Interpretation I performed an independent interpretation of an: Plain X-Ray Radiology Impression Discussion of test interpretation with radiology: I have reviewed the radiologist's reading. External Record Review External record reviewed: Inpatient record, Office record, Outpatient record, Prior outpatient labs, Prior outpatient radiology, Primary care record and Outside ED record Tests considered The following testing was considered but not selected: As above Prescription Management I considered prescription management with: Pain Medication Discharge Plan Discharge Clinical Impression: Low back pain Patient Disposition: Home, Self-Care Instructions: Acute Low Back Pain (ED) Additional Instructions: Your pain is likely musculoskeletal Toradol as an anti-inflammatory / pain medication, take with food Lidoderm patches are numbing patches, apply to painful area In addition take Tylenol at home If symptoms persist or worsen, pain becomes unbearable, you developed urinary retention or incontinence, or weakness return to the ED Prescriptions: New ketorolac 10 mg tablet 10 mg PO TID PRN (Reason: pain) 5 Days Qty: 15 0RF lidocaine [Lidoderm] 5 % adhesive patch,medicated 1 patch topical DAILY MDD remove after 12 hours PRN (Reason: pain) Qty: 30 0RF Rx Instructions: leave on most painful area for up to 12 hrs acetaminophen [Tylenol Extra Strength] 500 mg tablet 500 mg PO Q6H PRN (Reason: fever or pain) Qty: 14 0RF No Action albuterol sulfate 2.5 mg /3 mL (0.083 %) solution for nebulization 1 amp inhalation QID amlodipine 10 mg tablet 1 tab PO QAM fluticasone propion-salmeterol [Advair Diskus] 500-50 mcg/dose blister with device 1 puff PO Q12H omeprazole 20 mg capsule,delayed release(DR/EC) 1 cap PO QAM montelukast 10 mg tablet 1 tab PO QPM albuterol sulfate [Ventolin HFA] 90 mcg/actuation HFA aerosol inhaler 2 puff PO Q4-6H PRN (Reason: Wheezing) valsartan-hydrochlorothiazide 320-25 mg Tablet 1 tab PO DAILY acetaminophen 325 mg Tablet 650 mg PO Q6H PRN (Reason: Pain, Mild (Pain Scale 1-3)) 30 Days Qty: 240 0RF polyvinyl alcohol [Artificial Tears (polyvin alc)] 1.4 % drops 1 drp ophthalmic (eye) BID-QID PRN (Reason: Dry Eye(S)) atorvastatin 80 mg tablet 80 mg PO DAILY sertraline 25 mg tablet 25 mg PO DAILY calcium carbonate-vitamin D3 600 mg-20 mcg (800 unit) tablet 1 tab PO bisacodyl [Dulcolax (bisacodyl)] 5 mg tablet,delayed release (DR/EC) 10 mg PO ONCE 1 Days Qty: 2 0RF Rx Instructions: Take 2 tablets by mouth at 12:00pm the day before your procedure. polyethylene glycol 3350 [Miralax] 17 gram/dose powder 238 g PO ONCE PRN (Reason: laxative effect) 1 Days Qty: 238 0RF Rx Instructions: Take as directed by mouth the day before your procedure. Referrals: [facility] [Provider Group] Name,MD Aaron [Primary Care Provider] - Interventions: ED Discharge Assessment Last Done: 08/05/23 12:02 Discharge Date/Time: 08/05/23 12:03 Print Language: Croatian
[2023-08-05 11:43] VITALS: RESP 16
[2023-08-05 12:02] VITALS: BP 00/00; PULSE 0; RESP 16; TEMP -17.7; TEMP 0
== END 2023-08-05 12:03 | disposition home or self-care (01) ==
PROVIDERS: Emergency Provider Emergency Medicine Emergency Medical Services; PCP Internal Medicine Geriatric Medicine
DX: M54.50 Low back pain, unspecified (principal)
CPT/HCPCS: 72100; 96372; 99284; J1885

== ENCOUNTER 2023-08-07 10:34 | Day surgery (SDC) | payer MEDICARE, MEDICAID, SELFPAY ==
--- NOTE | 2023-08-05 10:35 | HO.ANESPROP2 ---
Documented by User: Leann Mendoza NP 08/05/23 10:36 HPI - Anesthesia Eval Consult details Narrative: 67yo F for Upper Endoscopy and Colonoscopy PMFSH Active Problems Active Problems: All Active Problems LLQ abdominal pain (Acute) Pelvic pain (Acute) Snoring (Acute) Fatigue (Acute) Osteoarthritis of lumbar spine (Acute) Osteoarthritis of hands, bilateral (Acute) Hypovitaminosis D (Acute) Age related osteoporosis (Acute) Nocturia (Acute) GERD (gastroesophageal reflux disease) (Acute) History of colon polyps (Acute) Status post total left knee replacement (Acute) Well woman exam (Acute) Atrophic vaginitis (Acute) Urinary frequency (Acute) Osteoporosis (Acute) Past Medical History Medical History 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, bilateral Hypovitaminosis D Age related osteoporosis COVID-19 vaccine series completed Pre-diabetes GERD (gastroesophageal reflux disease) Arthritis Asthma Hypertension Osteoarthritis of left knee Family History Family History Maternal Aunt Breast CA Mother Colon cancer Arthritis Sister Arthritis Family history of problems with anesthesia: No Surgical History Surgical History History of left knee surgery Hx of breast biopsy Hx of hysterectomy H/O colonoscopy Hx of hand surgery Hx of knee surgery H/O unilateral oophorectomy History of total right knee replacement History of Problems with Anesthesia: No Social History Social History Household Members: Family Household Members Other:: daughter Housing: House Are you a primary career services representative to a significant other at home: No Do you presently have visiting nurse or other home services: No Alcohol intake: current Alcohol intake frequency: holidays/special occasions only Patient Tobacco Use Status: Former Tobacco user Tobacco use type: Cigarette Years Smoked: 20 Second Hand Smoke Exposure: No Are you DNR?: No Advance Directives: No Advance Directives Information Provided: Yes Advance Directives Date on File: 07/17/17 Nutrition Risks: No Nutritional Risk service: No Current occupational status: disabled Current occupation: rt handed Meds Allergies Allergy/AdvReac Type Severity Reaction Status Date / Time begum Allergy Itching Verified 08/05/23 07:56 pollen extracts Allergy Sneezing Verified 08/05/23 07:56 tomato Allergy Hives Verified 08/05/23 07:56 Home Medications ?Medication ?Instructions ?Recorded ?Confirmed ?Last Taken ?Type atorvastatin 80 mg tablet 80 mg PO DAILY 12/10/20 07/17/22 Unknown History polyvinyl alcohol 1.4 % eye drops 1 drp ophthalmic (eye) BID-QID PRN 12/10/20 07/17/22 Unknown History (Artificial Tears (polyvinyl Dry Eye(S) alcohol)) albuterol sulfate 2.5 mg/3 mL 1 amp inhalation QID 02/26/21 07/17/22 Unknown History (0.083 %) solution for nebulization albuterol sulfate 90 mcg/actuation 2 puff PO Q4-6H PRN Wheezing 02/26/21 07/17/22 Unknown History aerosol inhaler (Ventolin HFA) amlodipine 10 mg tablet 1 tab PO QAM 02/26/21 07/17/22 Unknown History fluticasone 500 mcg-salmeterol 50 1 puff PO Q12H 02/26/21 07/17/22 Unknown History mcg/dose blistr powdr for inhalation (Advair Diskus) montelukast 10 mg tablet 1 tab PO QPM 02/26/21 07/17/22 Unknown History omeprazole 20 mg capsule,delayed 1 cap PO QAM 02/26/21 07/17/22 Unknown History release valsartan 320 1 tab PO DAILY 06/12/21 07/17/22 Unknown History mg-hydrochlorothiazide 25 mg tablet calcium carbonate 600 mg-vitamin 1 tab PO 01/07/22 07/17/22 Unknown History D3 20 mcg (800 unit) tablet sertraline 25 mg tablet 25 mg PO DAILY 01/07/22 07/17/22 Unknown History Exam Pertinent Lab Results Pertinent Lab Results: Laboratory Tests 08/04/23 08:07 WBC 6.1 Hgb 12.8 Hct 37.8 Plt Count 283 Sodium 142 Potassium 3.5 Chloride 103 Carbon Dioxide 30 H BUN 16 Creatinine 0.79 Assessment and Plan Assessment Anesthesia Assessment: Chart Reviewed Final Anesthetic Review Family History of Problems with Anesthesia: No History of Problems with Anesthesia: No Documented by User: Manju Bennett MD 08/07/23 10:53 [facility] Past Medical History Medical History 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, bilateral Hypovitaminosis D Age related osteoporosis COVID-19 vaccine series completed Pre-diabetes GERD (gastroesophageal reflux disease) Arthritis Asthma Hypertension Osteoarthritis of left knee Family History Family History Maternal Aunt Breast CA Mother Colon cancer Arthritis Sister Arthritis Surgical History Surgical History History of left knee surgery Hx of breast biopsy Hx of hysterectomy H/O colonoscopy Hx of hand surgery Hx of knee surgery H/O unilateral oophorectomy History of total right knee replacement Social History Social History Household Members: Family Household Members Other:: daughter Housing: House Are you a primary career services representative to a significant other at home: No Do you presently have visiting nurse or other home services: No Alcohol intake: current Alcohol intake frequency: holidays/special occasions only Patient Tobacco Use Status: Former Tobacco user Tobacco use type: Cigarette Years Smoked: 20 Second Hand Smoke Exposure: No Are you DNR?: No Advance Directives: No Advance Directives Information Provided: Yes Advance Directives Date on File: 07/17/17 Nutrition Risks: No Nutritional Risk service: No Current occupational status: disabled Current occupation: rt handed Meds Allergies Allergy/AdvReac Type Severity Reaction Status Date / Time begum Allergy Itching Verified 08/05/23 07:56 pollen extracts Allergy Sneezing Verified 08/05/23 07:56 tomato Allergy Hives Verified 08/05/23 07:56 Home Medications ?Medication ?Instructions ?Recorded ?Confirmed ?Last Taken ?Type atorvastatin 80 mg tablet 80 mg PO DAILY 12/10/20 07/17/22 Unknown History polyvinyl alcohol 1.4 % eye drops 1 drp ophthalmic (eye) BID-QID PRN 12/10/20 07/17/22 Unknown History (Artificial Tears (polyvinyl Dry Eye(S) alcohol)) albuterol sulfate 2.5 mg/3 mL 1 amp inhalation QID 02/26/21 07/17/22 Unknown History (0.083 %) solution for nebulization albuterol sulfate 90 mcg/actuation 2 puff PO Q4-6H PRN Wheezing 02/26/21 07/17/22 Unknown History aerosol inhaler (Ventolin HFA) amlodipine 10 mg tablet 1 tab PO QAM 02/26/21 07/17/22 Unknown History fluticasone 500 mcg-salmeterol 50 1 puff PO Q12H 02/26/21 07/17/22 Unknown History mcg/dose blistr powdr for inhalation (Advair Diskus) montelukast 10 mg tablet 1 tab PO QPM 02/26/21 07/17/22 Unknown History omeprazole 20 mg capsule,delayed 1 cap PO QAM 02/26/21 07/17/22 Unknown History release valsartan 320 1 tab PO DAILY 06/12/21 07/17/22 Unknown History mg-hydrochlorothiazide 25 mg tablet calcium carbonate 600 mg-vitamin 1 tab PO 01/07/22 07/17/22 Unknown History D3 20 mcg (800 unit) tablet sertraline 25 mg tablet 25 mg PO DAILY 01/07/22 07/17/22 Unknown History Exam Airway Mallampati Class: II TM Dist: >3cm Neck ROM: Full Heart: rrr Lungs: cta Assessment and Plan Assessment Anesthesia Assessment: Anesthesia Plan Discussed Final Anesthetic Review NPO: Yes ASA Class: II Final Preanesthetic Review: No Changes in Pt Med Stat, Meds/Allgs Chart Reviewed and Consent Obtained/Reviewed Patient Risk: Intermediate Procedure Risk: Intermediate Anesthetic Plan Anesthetic Plan: MAC: Disposition: Standard PACU
[2023-08-05 15:24] VITALS: BMI 32.5
[2023-08-07 10:43] VITALS: BMI 31.6
[2023-08-07 10:52] VITALS: BP 119/67; PULSE 94; RESP 18; TEMP 36.6; O2SAT 96
[2023-08-07] MEDS: Lactated Ringers 1,000 ML 100 ML IVCONT (10:52)
--- NOTE | 2023-08-07 12:12 | MHC.SHP ---
Pre-Procedural Eval Section A - 24 Hr Update-Section A only Date of Service: 08/07/23 The patient is an INPATIENT: No The patient has been examined within 24 hours of the surgical procedure. The History & Physical has been completed within 30 days and I have reviewed it.: No Section B - Complete if H&P > 30 days Chief Complaint: hx of colonic polyps,gerd, Relevant Family History (Specify if Yes): Yes Relevant Social History: Tobacco Use (Former smoker) Present Medications: see Short Stay Collaborative assessment Medical History: Significant History (Asthma COVID-19 vaccine series completed GERD (gastroesophageal reflux disease) Hypertension Osteoarthritis of left knee Pre-diabetes) History of Previous Operations: Relevant previous surgery/procedure and date(s) (H/O colonoscopy H/O unilateral oophorectomy History of left knee surgery History of total right knee replacement Hx of breast biopsy Hx of hand surgery Hx of hysterectomy Hx of knee surgery) Allergies: Allergies Allergy/AdvReac Type Severity Reaction Status Date / Time begum Allergy Itching Verified 08/07/23 11:05 pollen extracts Allergy Sneezing Verified 08/07/23 11:05 tomato Allergy Hives Verified 08/07/23 11:05 Review of Systems Sugical H&P ROS: Negative: Constitution, Cardiovascular, Respiratory and Gastrointestinal Exam Surgical H&P Exam: Normal: Heart, Normal: Lungs, Normal: Extremities and Normal: Abdomen Plan Diagnosis/Plan: Unchanged I have reviewed the history and physical and performed a pertinent physical examination on my patient. No changes have occurred unless specified. Time Spent With Patient Time: Total time managing care of this patient today ____ minutes.
--- NOTE | 2023-08-07 13:00 | HO.OPN-COLON ---
Colonoscopy Operative Note Operative Note Date of Service: 08/07/23 Narrative: FLEXIBLE TRANSORAL UPPER GASTROINTESTINAL ENDOSCOPY WITH BIOPSIES AND COLONOSCOPY TILL CECUM WITH BIOPSIES AND SNARE POLYPECTOMY Pre-op diagnosis: Surveillance for colon polyps, GERD Post-op diagnosis: GERD, Gastritis, Gastric polyp, Colon Polyp, melanosis coli, Diverticulosis, hemorrhoids Endoscopist:? Yudith Cerda MD Anesthesia:?MAC UPPER ENDOSCOPY Consent: Indications for the procedure and potential complications of bleeding, perforation, reaction to medications and missed diagnosis were discussed with the patient and informed consent was obtained. Instrument: Olympus GIF H 190 mid size upper endoscope Monitoring: Vital signs and clinical assessment, continuous EKG monitoring, Pulse oximetry, Carbon Dioxide monitoring and blood pressure monitoring were done throughout the procedure. Procedure: The patient was placed in the left lateral decubitis position and pre-procedure medications were administered and a bite block was placed. The endoscope was inserted into the mouth and advanced under direct vision to the third part of duodenum. A careful inspection was made as the upper endoscope was withdrawn including a retroflexed examination of the proximal stomach; Findings and interventions are described below. Findings: Larynx: Normal Esophagus: GE junction at 40 cms. No esophagitis or Cohen's. Stomach: A 7-8 mm benign appearing polyp in the distal body - biopsied. Moderate gastric erythema - biopsies were obtained from the antrum. Grade 2 flap valve on retroflexed examination of the cardia. Duodenum: Normal bulb and descending duodenum Intervention: Biopsies as noted above COLONOSCOPY PROCEDURE NOTE Instrument: Olympus PCF H 190 L variable stiffness pediatric colonoscope Monitoring: Vital signs and clinical assessment, intermittent blood pressure monitoring, continuous EKG monitoring, Pulse oximetry and Carbon Dioxide monitoring were done throughout the procedure. Please see anesthesia flowsheet. Colon withdrawl time was 16 minutes. Procedure: The patient was placed in the left lateral decubitis position and pre-procedure medications were administered. After a digital rectal examination of the ano-rectum, the video colonoscope was inserted into the rectum and advanced through the colon to the cecum. The colonoscope was slowly withdrawn in a retrograde panoramic fashion and the colon mucosa was carefully examined including a retroflexed view of the rectum. Findings and interventions are described below. Procedure Difficulty: Colon was long and tortuous and there was some loop formation Findings: Terminal Ileum: Not evaluated Cecum: Mild melanosis coli throughout the entire colon Ascending Colon: Mild melanosis coli throughout the entire colon - random biopsies were obtained from the right colon. Transverse Colon: Mild melanosis coli throughout the entire colon Descending Colon: Mild melanosis coli throughout the entire colon. Moderate diverticulosis Sigmoid Colon: A 7-8 mm sessile polyp - removed with a cold snare. Mild melanosis coli throughout the entire colon Severe diverticulosis with luminal narrowing Rectum: Normal Ano-rectum: Moderate internal hemorrhoids Colon preparation: Good after some irrigation. Rena Lara Bowel Preparation Scale Right colon; 2 Transverse colon: 2 Left colon; 2 (0 = Unprepared colon segment with mucosa not seen due to solid stool that cannot be cleared. 1 = Portion of mucosa of the colon segment seen, but other areas of the colon segment not well seen due to staining, residual stool and/or opaque liquid. 2 = Minor amount of residual staining, small fragments of stool and/or opaque liquid, but mucosa of colon segment seen well. 3 = Entire mucosa of colon segment seen well with no residual staining, small fragments of stool or opaque liquid) Impression and Post Procedure Diagnosis: Endoscopy Findings: STOMACH: A 7-8 mm benign appearing polyp in the distal body - biopsied. Moderate gastric erythema - biopsies were obtained from the antrum. Colonoscopy Findings: One small polyp was removed Mild melanosis coli throughout the entire colon - random biopsies were obtained from the right colon. Moderate to severe diverticulosis seen in the left colon Moderate hemorrhoids on retroflexed exam. Plan: I will send a letter with biopsy results. Patient was advised to schedule a follow-up appointment in the GI clinic with NATALI Aguirre for FU of GERD symptoms. Repeat Colonoscopy in 5 years if polyps are adenomatous and 10 year if polyps are hyperplastic. (Of note ot had a hyperplastic polyp removed during last colon in 2019) Above findings were reviewed with the patient and relevant handouts were given and the discharge area.
[2023-08-07 13:35] VITALS: BP 113/66; PULSE 92; RESP 16; TEMP 36.3; O2SAT 96
[2023-08-07 13:50] VITALS: BP 133/67; PULSE 78; RESP 18; TEMP 36.1; O2SAT 98
== END 2023-08-07 14:30 | disposition home or self-care (01) ==
PROVIDERS: PCP Internal Medicine Geriatric Medicine; Visit Provider Internal Medicine Gastroenterology
PROC: (CPT 45385; principal; 2023-08-07 14:20)
DX: Z12.11 Encounter for screening for malignant neoplasm of colon (principal); K63.5 Polyp of colon; K57.30 Diverticulosis of large intestine without perforation or abscess without bleeding; K64.8 Other hemorrhoids; K56.2 Volvulus; K63.89 Other specified diseases of intestine; Z86.010 Personal history of colon polyps; K21.9 Gastro-esophageal reflux disease without esophagitis; K29.50 Unspecified chronic gastritis without bleeding; B96.81 Helicobacter pylori [H. pylori] as the cause of diseases classified elsewhere; K31.7 Polyp of stomach and duodenum; I10 Essential (primary) hypertension; J45.909 Unspecified asthma, uncomplicated; Z79.899 Other long term (current) drug therapy
CPT/HCPCS: 45385; 45380; 43239; 88305; 88313; 88342; J2704

== ENCOUNTER → 2023-08-07 10:34 | Outpatient (BNV) | payer MEDICARE, MEDICAID, SELFPAY | PROVIDERS: PCP Internal Medicine Geriatric Medicine; Visit Provider Internal Medicine Gastroenterology | DX: Z12.11 Encounter for screening for malignant neoplasm of colon (principal); Z86.010 Personal history of colon polyps; K63.5 Polyp of colon; K63.89 Other specified diseases of intestine; K21.9 Gastro-esophageal reflux disease without esophagitis; K29.70 Gastritis, unspecified, without bleeding; K31.7 Polyp of stomach and duodenum | CPT/HCPCS: 43239; 45380; 45385 ==

== ENCOUNTER 2023-08-11 11:05 | Outpatient (REF) | payer MEDICARE, MEDICAID, SELFPAY ==
--- NOTE | ~2023-08-11 | US_ITS ---
EXAMINATION: US PELVIS CLINICAL INFORMATION: Left lower quadrant pain, oophorectomy in 1989 in [place], unknown side. Hysterectomy. COMPARISON: August 04, 2023. TECHNIQUE: Ultrasound of the pelvis is performed using both transabdominal and transvaginal transducers along with Doppler. Transvaginal imaging is performed due to inadequate visualization transabdominally. FINDINGS: The uterus is surgically absent. Bilateral ovaries not visualized. No significant free fluid. Limited visualization due to bowel gas. Incidental note on transvaginal ultrasound images of a 1.6 x 0.7 x 0.9 cm complex, diffusely hypoechoic focus with well-circumscribed margins of indeterminate etiology. This was not appreciated on pelvic ultrasound August 04, 2023. US/US pelvic and transvaginal IMPRESSION: 1. Uterus is surgically absent. Bilateral ovaries not visualized. 2. Incidental note on transvaginal ultrasound images of a 1.6 x 0.7 x 0.9 cm complex, diffusely hypoechoic focus with well-circumscribed margins of indeterminate etiology. This is not appreciated on pelvic ultrasound August 04, 2023. Correlation with clinical exam recommended to determine further management. MRI could be considered for further evaluation.
== END 2023-08-11 11:06 | disposition home or self-care (01) ==
LOC: HO.US 11:05
PROVIDERS: PCP Internal Medicine Geriatric Medicine; Visit Provider Obstetrics & Gynecology
DX: R10.2 Pelvic and perineal pain (principal)
CPT/HCPCS: 76830; 76856

== ENCOUNTER 2023-08-18 09:24 | Outpatient (AMB) | payer MEDICARE, MEDICAID, SELFPAY ==
--- NOTE | 2023-08-18 09:27 | A.OFFVIS_ITS ---
Vital Signs 08/18/23 09:32 08/18/23 09:34 Height 5 ft 1 in Weight 167 lb BMI 31.6 BP 171/78 H 157/80 H Blood Pressure Location Rt brachial Lt brachial Position Sitting Sitting Pulse 88 Pulse Source Pulse Oximeter Pulse Oximetry (%) 98 Oxygen Delivery Method Room Air Intake Visit Reasons: Back pain[place] [place] Intake Note: Pain today 11/02 Automobile Rental Clerk Required: No Allergies begum Allergy (Verified 08/18/23 09:31) Itching pollen extracts Allergy (Verified 08/18/23 09:31) Sneezing tomato Allergy (Verified 08/18/23 09:31) Hives HPI HPI Back pain/[facility] referral: Details: Patient is a pleasant 67 years old with history of osteoporosis, osteoarthritis, lumbar degenerative disc disease and chronic low back pain presents today for initial evaluation of acute on chronic low back pain with radiation into left lower extremity anteriorly with numbness and tingling in her anterior thigh, kim and top of the left foot. Pain also radiates up to her lower thoracic region with spasming and moderate pain with extension. She was referred to us by emergency room which she visited on 08/05/2023 for worsening low back pain. Reports mechanical fall in March this year with worsening unsteadiness and imbalance, decreased lumbar range of motion and persistent pain. She attended physical therapy at [facility] last summer for left-sided radiculopathy with minimal improvement. She notes, due to significant back pain exacerbation with exercises, she could not complete whole course of PT. Most recent lumbar x-ray is significant for L4-L5 anterolisthesis with displacement by 0.8 cm and advanced L5-S1 degenerative lumbar disc disease. She denies previous lumbar MRI imaging. Denies previous spine surgery or injections. Reports treating osteoporosis with Reclast, continues to take calci um. Pain affects her daily activities and functioning, sleep, mood, mobility and quality of life. Pain is constant and most severe in the mornings and middle of the night, rates pain at 9-10/10. Denies any fever, chills, abdominal or groin pain, headache, chest pain, dizziness, shortness of breath, footdrop, bladder or bowel dysfunction, or saddle anesthesia. Reports left lower extremity weakness with walking due to pain. Patient also reports left ankle pain with localized swelling in the lateral malleolus and decreased range of motion. She attributes this due to recent stretching exercises past 1-2 weeks. Denies recent trauma, injury or falls. She is interested to follow up with [facility] providers for this whom she saw last in 2021. Location: Upper back radiates down back and left leg anteriorly, left ankle Duration: Chronic pain >3 years, worsening pain for 3 months, mechanical fall 04/18 Characteristics of symptom or complaint: Aching, stabbing, pinching, numbness, tingling, radiating, shooting Aggravating or associated factors: Bending, movements, walking, standing, changing positions, lifting, pulling Relieving factors: Ice/heat therapy, Tylenol, cyclobenzaprine, naproxen, rest, stretching Treatment: PT at [facility] [place] for left sided radiculopathy, PT 2021 s/p TKA PFS Medical History 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, bilateral Hypovitaminosis D Age related osteoporosis COVID-19 vaccine series completed Pre-diabetes GERD (gastroesophageal reflux disease) Arthritis Asthma Hypertension Osteoarthritis of left knee Surgical History History of left knee surgery Hx of breast biopsy Hx of hysterectomy H/O colonoscopy Hx of hand surgery Hx of knee surgery H/O unilateral oophorectomy History of total right knee replacement Family History Maternal Aunt Breast CA Mother Colon cancer Arthritis Sister Arthritis Social History Household Members: Family Household Members Other:: daughter Housing: House Are you a primary home visit field care manager to a significant other at home: No Do you presently have visiting nurse or other home services: No Alcohol intake: current Alcohol intake frequency: holidays/special occasions only Comment: chronic back pain Patient Tobacco Use Status: Former Tobacco user Tobacco use type: Cigarette Years Smoked: 20 Second Hand Smoke Exposure: No Advance Directives Date on File: 07/17/17 service: No Current occupational status: disabled Current occupation: rt handed Female Reproductive History Menstrual Age of Menarche: 9 Review of Systems Const All systems reviewed & are unremarkable except as noted in HPI and below Physical Exam Vital Signs: Last Vital Signs Pulse 88 08/18/23 09:32 BP 157/80 H 08/18/23 09:34 Pulse Ox 98 08/18/23 09:32 Oxygen Delivery Method Room Air 08/18/23 09:32 BMI result Body Mass Index 31.6 General: Appears afebrile. Moderate distress due to pain. Alert and oriented. Mood and affect appropriate. Follows and participates in conversation appropriately. Respiratory effort is unlabored. No cough. Able to transition from sit to stand unassisted. Ambulates with bilaterally normal heel strike and toe off, reports LLE weakness and imbalance with walking General: Yes no CVA tenderness Back/Spine/Pelvis Other: Decreased lumbar ROM due to pain. Lumbar extension, axial rotation and flexion reproduce moderate pain. No midline tenderness to palpation in the thoracic or lumbar region. Demonstrates 5/5 right and 4/5 left strength of quadriceps bilaterally as well as flexion/dorsiflexion of bilateral feet against resistance. 2+ pedal pulses bilaterally. Seated straight leg rise with dorsiflexion positive on the left. +1 left +2 right patellar and +1 achilles reflexes right, not test on left due to ankle pain. Facet loading test positive bilaterally. Tesha sign positive bilaterally, Mahesh?s reproduces lateral hip pain but not low back pain. No groin pain with I/E hip rotations. Valsalva maneuver negative. Back: no CVA tenderness Cervical Spine: cervical ROM normal, cervical muscular tenderness and No Cervica l spine tenderness Thoracic/Lumbar Spine: thoracic and lumbar spine normal to inspection, No Thoracic/lumbar spine scar(s), Lasegue's sign positive on the left and localized, pain with thoraco-lumbar ROM, paraspinal muscle tenderness on the left greater than right, thoraco-lumbar ROM limited, thoracic spinal tenderness (lower thoracic) and lumbar spinal tenderness (L4-S1) Pelvis: no buttock tenderness Sacroiliac joints: bilaterally tender to palpation Extrem General: Yes capillary refill normal, Yes no calf tenderness, No cyanosis and No muscle atrophy Left lower extremity: ankle (Limited ROM due to pain) Details: tenderness Location: of the lateral malleolus and swelling Details: laterally; no warmth and no ecchymosis Results Reviewed Results Reviewed: XR LUMBOSACRAL SPINE 08/05/23 CLINICAL INFORMATION: Low back pain COMPARISON: Lumbar spine x-ray on 05/22/2022 TECHNIQUE: Three views of the lumbosacral spine. FINDINGS: The visualized lumbar vertebrae are intact with mild L2-L3 dextroscoliosis. There is persistent anterior L4 on L5 displacement by 0.8 cm, unchanged. Intervertebral disc spaces are markedly reduced at L5-S1 level, mildly reduced at L1-L2, L3-L4 and L4-L5. IMPRESSION: 1. Unchanged mild L2-L3 dextroscoliosis, grade 1 L4-L5 anterolisthesis and advanced L5-S1 degenerative lumbar disc disease. 2. Interval development of L1-L2, L3-L4 and L4-L5 degenerative lumbar disc disease. 3. No fracture or dislocation of lumbar spine is seen. Assessment & Plan Assessment & Plan (1) Osteoporosis: Code(s): M81.0 - Age-related osteoporosis without current pathological fracture Category: Medical (2) Thoracic back pain: Code(s): M54.6 - Pain in thoracic spine Category: Medical (3) Left ankle pain: Code(s): M25.572 - Pain in left ankle and joints of left foot Category: Medical (4) Lumbosacral spondylosis: Code(s): M47.817 - Spondylosis without myelopathy or radiculopathy, lumbosacral region Category: Medical (5) Spondylolisthesis of lumbar region: Code(s): M43.16 - Spondylolisthesis, lumbar region Category: Medical (6) Lumbar back pain with radiculopathy affecting left lower extremity: Code(s): M54.16 - Radiculopathy, lumbar region Category: Medical (7) Age related osteoporosis: Code(s): M81.0 - Age-related osteoporosis without current pathological fracture Category: Medical Qualifiers: Presence of current pathological fracture: without current pathological fracture Qualified Code(s): M81.0 - Age-related osteoporosis without current pathological fracture Plan Thoracic and lumbar imaging with flexion and extension views to assess for stability, degree of degenerative changes, any subluxation, listhesis, compression fractures or pars defects. MRI of the lumbar spine to assess for neural integrity and compression and follow up on L4-L5 anterolisthesis with displacement by 0.8 cm and advanced L5-S1 degenerative lumbar disc disease. Patient's back pain is function and mobility limiting and has been resistant to conservative treatments. Discussed interventional treatments to address left sided radicular, axial and discogenic symptoms. Due to osteoporosis, patient is not candidate for therapeutic injections in the spine. We discussed neuromodulation with Sprint PNS trial, SCS, BVN and RFA procedures. Information pamphlets were provided to patient. Script provided for gabapentin. Side effects and precautions were discussed with patient. Patient start gabapentin at bedtime for 1 week in advance it twice daily if well tolerated. Patient encouraged to follow up with Orthopedic providers to further evaluate acute left ankle pain with swelling and decreased ROM. Patient will return to the clinic to discuss results of the MRI/xray findings when it is done and consider interventional therapy vs neurosurgical evaluation as indicated. All questions and concerns have been answered and patient agreed with the plan. Follow up for MRI/xray results and sooner as needed. Orders: Orders XR thoracic spine 3V 08/18/23 M54.6 - Pain in thoracic spine, M81.0 - Age- related osteoporosis without current pathological fracture XR lumbar spine 4V min 08/18/23 M43.16 - Spondylolisthesis, lumbar region, M47.817 - Spondylosis without myelopathy or radiculopathy, lumbosacral region, M81.0 - Age-related osteoporosis without current pathological fracture MR lumbar spine wo con Today M43.16 - Spondylolisthesis, lumbar region, M47.817 - Spondylosis without myelopathy or radiculopathy, lumbosacral region, M54.16 - Radiculopathy, lumbar region, M81.0 - Age-related osteoporosis without current pathological fracture Referrals Orthopedics Referral M25.572 - Pain in left ankle and joints of left foot Medications: New gabapentin 300 mg PO BID 30 days 60 caps 0RF pain M47.817 - Spondylosis without myelopathy or radiculopathy, lumbosacral region, M54.16 - Radiculopathy, lumbar region, M54.6 - Pain in thoracic spine Coding Level of Care Code New Pt Level 4 (76862) Diagnoses Osteoporosis M81.0 Thoracic back pain M54.6 Left ankle pain M25.572 Lumbosacral spondylosis M47.817 Spondylolisthesis of lumbar region M43.16 Lumbar back pain with radiculopathy affecting left lower extremity M54.16 Age-related osteoporosis without current pathological fracture M81.0 Presence of current pathological fracture: without current pathological fracture
[2023-08-18 09:32] VITALS: BP 171/78; PULSE 88; O2SAT 98; BMI 31.6
[2023-08-18 09:34] VITALS: BP 157/80
== END 2023-08-18 10:07 | disposition home or self-care (01) ==
PROVIDERS: PCP Internal Medicine Geriatric Medicine; Visit Provider Nurse Practitioner Family
DX: M81.0 Age-related osteoporosis without current pathological fracture (principal); M54.6 Pain in thoracic spine; M25.572 Pain in left ankle and joints of left foot; M47.817 Spondylosis without myelopathy or radiculopathy, lumbosacral region; M43.16 Spondylolisthesis, lumbar region; M54.16 Radiculopathy, lumbar region
CPT/HCPCS: 99204; 99214

== ENCOUNTER → 2023-08-18 09:24 | Outpatient (BNVA) | payer MEDICARE, MEDICAID, SELFPAY | PROVIDERS: PCP Internal Medicine Geriatric Medicine; Visit Provider Nurse Practitioner Family | DX: M81.0 Age-related osteoporosis without current pathological fracture (principal); M54.6 Pain in thoracic spine; M54.16 Radiculopathy, lumbar region; M43.16 Spondylolisthesis, lumbar region; M47.817 Spondylosis without myelopathy or radiculopathy, lumbosacral region; M25.572 Pain in left ankle and joints of left foot | CPT/HCPCS: 99202 ==

== ENCOUNTER 2023-08-19 09:09 | Outpatient (REF) | payer MEDICARE, MEDICAID, SELFPAY ==
--- NOTE | ~2023-08-19 | XR_ITS ---
EXAMINATION: XR LUMBAR SPINE XR THORACIC SPINE CLINICAL INFORMATION: Age-related osteoporosis without current pathogens. COMPARISON: 08/05/2023 lumbar spine, 01/24/2021 X-ray chest and ribs, 06/02/2018 radiographs chest TECHNIQUE: 5 views of the lumbar spine. FINDINGS: Mild dextroscoliosis of the lumbar spine. Diffuse demineralization. Facet arthritis in the lower lumbar spine. Persistent grade 1 anterolisthesis of L4 on L5. Multilevel lumbar spondylosis with marked loss of disc space height at L5-S1 and [id number] loss of disc space height at L1-L2, L3-L4, and L4-L5. Degenerative changes in the left sacroiliac joint greater than right. Thoracic spine: Diffuse demineralization. Mild dextroscoliosis of the thoracic spine. Advanced degenerative changes in the thoracic spine with large anterior osteophytes in the [id number] thoracic spine. Degenerative changes on very limited images of the cervical spine could be evaluated with dedicated cervical spine radiographs. XR/XR lumbar spine 4V min IMPRESSION: 1. Redemonstration of grade 1 anterolisthesis of L4 on L5. 2. Multilevel lumbar spondylosis is severe at L5-S1. 3. Advanced multilevel degenerative changes in the thoracic spine.
--- NOTE | ~2023-08-19 | XR_ITS ---
EXAMINATION: XR LUMBAR SPINE XR THORACIC SPINE CLINICAL INFORMATION: Age-related osteoporosis without current pathogens. COMPARISON: 08/05/2023 lumbar spine, 01/24/2021 X-ray chest and ribs, 06/02/2018 radiographs chest TECHNIQUE: 5 views of the lumbar spine. FINDINGS: Mild dextroscoliosis of the lumbar spine. Diffuse demineralization. Facet arthritis in the lower lumbar spine. Persistent grade 1 anterolisthesis of L4 on L5. Multilevel lumbar spondylosis with marked loss of disc space height at L5-S1 and [id number] loss of disc space height at L1-L2, L3-L4, and L4-L5. Degenerative changes in the left sacroiliac joint greater than right. Thoracic spine: Diffuse demineralization. Mild dextroscoliosis of the thoracic spine. Advanced degenerative changes in the thoracic spine with large anterior osteophytes in the [id number] thoracic spine. Degenerative changes on very limited images of the cervical spine could be evaluated with dedicated cervical spine radiographs. XR/XR thoracic spine 3V IMPRESSION: 1. Redemonstration of grade 1 anterolisthesis of L4 on L5. 2. Multilevel lumbar spondylosis is severe at L5-S1. 3. Advanced multilevel degenerative changes in the thoracic spine.
== END 2023-08-19 09:10 | disposition home or self-care (01) ==
LOC: HO.XRAY 09:09
PROVIDERS: PCP Internal Medicine Geriatric Medicine; Visit Provider Nurse Practitioner Family
DX: M47.817 Spondylosis without myelopathy or radiculopathy, lumbosacral region (principal); M43.16 Spondylolisthesis, lumbar region; M54.6 Pain in thoracic spine; M81.0 Age-related osteoporosis without current pathological fracture
CPT/HCPCS: 72072; 72110

== ENCOUNTER 2023-09-07 08:36 | Outpatient (AMB) | payer MEDICARE, MEDICAID, SELFPAY ==
--- NOTE | 2023-09-07 09:15 | MHC.OFFVIS ---
Vital Signs 09/07/23 09:17 Height 5 ft 1 in Weight 165 lb 5.547 oz BMI 31.2 BP 146/70 H Intake Visit Reasons: Ultrasound follow up Barrel Endshake Adjuster Required: Yes Barrel Endshake Adjuster Language: Wallpaperer Helper Services: Barrel Endshake Adjuster Present (in person) Barrel Endshake Adjuster Name: Elizabeth BORREGO Information Interpreted: non-clinical & clinical Allergies begum Allergy (Verified 09/07/23 09:19) Itching pollen extracts Allergy (Verified 09/07/23 09:19) Sneezing tomato Allergy (Verified 09/07/23 09:19) Hives Post menopausal: Yes HPI Comments Details: Presenting for follow-up regarding left lower quadrant pain. The patient was seen in the office on 08/02 urine dip was negative. Pelvic ultrasound showed the following: IMPRESSION: 1. Uterus is surgically absent. Bilateral ovaries not visualized. 2. Incidental note on transvaginal ultrasound images of a 1.6 x 0.7 x 0.9 cm complex, diffusely hypoechoic focus with well-circumscribed margins of indeterminate etiology. This is not appreciated on pelvic ultrasound August 04, 2023. Correlation with clinical exam recommended to determine further management. MRI could be considered for further evaluation [facility] Medical History 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, bilateral Hypovitaminosis D Age related osteoporosis COVID-19 vaccine series completed Pre-diabetes GERD (gastroesophageal reflux disease) Arthritis Asthma Hypertension Osteoarthritis of left knee Surgical History History of left knee surgery Hx of breast biopsy Hx of hysterectomy H/O colonoscopy Hx of hand surgery Hx of knee surgery H/O unilateral oophorectomy History of total right knee replacement Family History Maternal Aunt Breast CA Mother Colon cancer Arthritis Sister Arthritis Social History Household Members: Family Household Members Other:: daughter Housing: House Are you a primary care professional to a significant other at home: No Do you presently have visiting nurse or other home services: No Alcohol intake: current Alcohol intake frequency: holidays/special occasions only Comment: chronic back pain Patient Tobacco Use Status: Former Tobacco user Tobacco use type: Cigarette Years Smoked: 20 Second Hand Smoke Exposure: No Advance Directives Date on File: 07/17/17 service: No Current occupational status: disabled Current occupation: rt handed Female Reproductive History Menstrual Age of Menarche: 9 Review of Systems Const All systems reviewed & are unremarkable except as noted in HPI and below Reports as per HPI and Reports no additional complaints GI Reports no additional complaints Reports no additional complaints Assessment & Plan Assessment & Plan (1) Pelvic mass: Code(s): R19.00 - Intra-abdominal and pelvic swelling, mass and lump, unspecified site Category: Medical Plan: Discussed with the patient the finding on ultrasound showing complex pelvic mass of unknown origin, recommended MRI. MRI of the pelvis with and without contrast ordered. Instructions given the patient to schedule an MRI and a follow-up appointment. All questions answered, the patient verbalized understanding Orders: Orders MR pelvis wo/w con Today R19.00 - Intra-abdominal and pelvic swelling, mass and lump, unspecified site Coding Level of Care Code Est Pt Level 3 (59630) Diagnoses Pelvic mass R19.00
[2023-09-07 09:17] VITALS: BP 146/70; BMI 31.2
== END 2023-09-07 09:30 | disposition home or self-care (01) ==
LOC: HO.HWS 08:36
PROVIDERS: PCP Internal Medicine Geriatric Medicine; Visit Provider Obstetrics & Gynecology
DX: R19.00 Intra-abdominal and pelvic swelling, mass and lump, unspecified site (principal)
CPT/HCPCS: 99213

== ENCOUNTER 2023-09-07 08:36 | Outpatient (REF) | payer MEDICARE, MEDICAID, SELFPAY ==
[2023-09-07 11:08] LABS: Blood Urea Nitrogen 15 mg/dL (9-16); Estimated Glomerular Filt Rate > 60
== END 2023-09-07 08:37 | disposition home or self-care (01) ==
LOC: HO.LAB 08:36
PROVIDERS: PCP Internal Medicine Geriatric Medicine; Visit Provider Obstetrics & Gynecology
DX: R19.00 Intra-abdominal and pelvic swelling, mass and lump, unspecified site (principal)
CPT/HCPCS: 36415; 82565; 84520; 99212

== ENCOUNTER 2023-09-21 09:02 | Outpatient (AMB) | payer MEDICARE, MEDICAID, SELFPAY ==
--- NOTE | 2023-09-20 12:03 | MHC.OFFVIS ---
Vital Signs 09/21/23 09:10 Height 5 ft 1 in Weight 174 lb 2.643 oz BMI 32.9 BP 142/74 H Blood Pressure Location Lt brachial Position Sitting Pulse 79 Pulse Source Pulse Oximeter Pulse Oximetry (%) 97 Oxygen Delivery Method Room Air Intake Visit Reasons: Asthma Allergies begum Allergy (Verified 09/21/23 09:12) Itching pollen extracts Allergy (Verified 09/21/23 09:12) Sneezing tomato Allergy (Verified 09/21/23 09:12) Hives HPI HPI Asthma: Details: Lorie is a pleasant 67 year old female, former smoker, with underlying asthma and GERD. She was referred by urology for pulmonary evaluation. She reports long history of asthma, never requiring intubations and has not been under the care of a pulmonary provider in quite some time. She has been moderately controlled on Advair 500 and albuterol MDI/neb. She continues to report intermittent dry cough, wheezing, chest tightness and dyspnea, which she attributes to allergies. She was previously on singulair with good effect however has been without for quite some time. She denies recent allergy testing. She denies any pets at home. She denies recent PFT. She denies any occupational exposures. She denies any pertinent family history. Of note, urology sent for home PSG for nocturia, daytime fatigue and excessive snoring, results negative. [facility] Medical History (Updated 09/21/23 @ 09:37 by Armida Moise NP) 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, bilateral Hypovitaminosis D Age related osteoporosis COVID-19 vaccine series completed Pre-diabetes GERD (gastroesophageal reflux disease) Arthritis Asthma Hypertension Osteoarthritis of left knee Surgical History History of left knee surgery Hx of breast biopsy Hx of hysterectomy H/O colonoscopy Hx of hand surgery Hx of knee surgery H/O unilateral oophorectomy History of total right knee replacement Family History Maternal Aunt Breast CA Mother Colon cancer Arthritis Sister Arthritis Social History Household Members: Family Household Members Other:: daughter Housing: House Are you a primary behavioral health care coordinator to a significant other at home: No Do you presently have visiting nurse or other home services: No Alcohol intake: current Alcohol intake frequency: holidays/special occasions only Comment: chronic back pain Patient Tobacco Use Status: Former Tobacco user Tobacco use type: Cigarette Years Smoked: 20 Second Hand Smoke Exposure: No Advance Directives Date on File: 07/17/17 service: No Current occupational status: disabled Current occupation: rt handed Female Reproductive History Menstrual Age of Menarche: 9 Review of Systems Const Denies chills, Denies excessive sweating, Denies fever(s), Denies headache(s) and Denies night sweats Eyes Denies dry eyes, Denies irritation and Denies itchy eyes ENT Reports Normal hearing present, Denies headache(s), Denies nasal congestion, Denies nasal discharge, Denies post nasal drip and Denies sore throat Card Denies chest pain, Denies chest pain at rest, Denies chest pain with activity, Denies claudication, Denies leg edema, Denies orthopnea and Denies paroxysmal nocturnal dyspnea Resp Denies chest congestion, Denies excessive phlegm production, Denies pain on inspiration, Denies pain with cough and Denies stridor Musc Denies myalgias Neuro Reports Normal hearing present and Denies headache(s) Endo Denies excessive sweating Srinivas/Lymph Denies lymphadenopathy Aller/Immun Denies itchy eyes and Denies seasonal rhinorrhea Physical Exam Vital Signs: Last Vital Signs Pulse 79 09/21/23 09:10 BP 142/74 H 09/21/23 09:10 Pulse Ox 97 09/21/23 09:10 Oxygen Delivery Method Room Air 09/21/23 09:10 BMI result Body Mass Index 32.9 Const General: cooperative, healthy appearing, comfortable, no acute distress, well developed and alert Orientation/consciousness: patient oriented x3 Limitations: no limitations HEENT Head: Yes normal to inspection, Yes normocephalic and Yes atraumatic Ears: hearing grossly normal bilaterally and external ears normal Eyes General: appearance normal, both eyes and all related structures Eyelids: Yes eyelids normal Sclerae: sclerae normal EOM: EOMs intact bilaterally Neck Neck: Yes normal visual inspection and Yes no lymphadenopathy Lymphatic: no lymphadenopathy noted Chest Chest palpation & inspection: normal inspection of the chest Resp Effort & Inspection: normal respiratory effort, able to speak in complete sentences, no audible wheezes, no cough, no stridor, not tachypneic, no tripod positioning and no use of accessory muscles Auscultation: clear to auscultation bilaterally Cardio Jugular venous distension: no JVD Rate: regular rate Rhythm: regular rhythm Skin Other: warm, dry General skin exam: no rashes or lesions noted Neuro General: patient oriented x3 Cranial nerves: Yes Normal hearing present Cognition (Neuro): normal cognition Gait exam (Neuro): Normal gait present Extrem General: Yes normal to inspection, Yes capillary refill normal, Yes no clubbing, cyanosis or edema and Yes no pedal edema Psych Appearance: grossly normal and well kempt Speech and movement: Normal speech and movement present and Clear speech present Affect: normal affect Attitude: cooperative Thought process: Normal thought process present Thought content: Normal thought content present Insight: Good insight present (Psych) Judgement: Good judgement present (Psych) Assessment & Plan Assessment & Plan (1) Asthma: Comment: uses Advair & Singulair daily Code(s): J45.909 - Unspecified asthma, uncomplicated Category: Medical (2) Environmental allergies: Code(s): Z91.09 - Other allergy status, other than to drugs and biological substances Category: Medical (3) Daytime somnolence: Code(s): R40.0 - Somnolence Category: Medical Plan Lorie's symptoms are likely related to underlying asthma with an allergic component. Will refill singulair and send for RAST. Patient reports prior PFT many years ago, will send order. She continues to report symptoms suggestive of ANDRAE despite negative home PSG, will send for in lab PSG. All questions were answered and patient is in agreement of plan. Will follow up in 6 weeks or sooner if needed. Orders: Orders Resp Allergy Profile Region I Today Z91.09 - Other allergy status, other than to drugs and biological substances Immunoglobulin E Today Z91.09 - Other allergy status, other than to drugs and biological substances Complete Blood Count Auto Diff Today Z91.09 - Other allergy status, other than to drugs and biological substances RT PSG in-lab sleep study Today R40.0 - Somnolence PFT pulmonary function test Today J45.909 - Unspecified asthma, uncomplicated Medications: New montelukast (Singulair) 10 mg PO BEDTIME 30 tabs 3RF Coding Level of Care Code New Pt Level 4 (68558) Diagnoses Asthma J45.909 Environmental allergies Z91.09 Daytime somnolence R40.0
[2023-09-21 09:10] VITALS: BP 142/74; PULSE 79; O2SAT 97; BMI 32.9
== END 2023-09-21 09:35 | disposition home or self-care (01) ==
PROVIDERS: PCP Internal Medicine Geriatric Medicine; Referring Provider Nurse Practitioner Family; Visit Provider Nurse Practitioner Family
DX: J45.909 Unspecified asthma, uncomplicated (principal); Z91.09 Other allergy status, other than to drugs and biological substances; R40.0 Somnolence
CPT/HCPCS: 99204; 99214

== ENCOUNTER 2023-09-21 09:02 | Outpatient (REF) | payer MEDICARE, MEDICAID, SELFPAY ==
[2023-09-21 09:54] LABS: MANUAL DIFF FLAG NO
[2023-09-21 10:39] LABS: Basophils Absolute Auto 0.1 X10*3/uL (0.0-0.2); Basophils Percent Auto 1.1 % (0-2); Eosinophils Absolute Auto 0.1 X10*3/uL (0.0-0.4); Eosinophils Percent Auto 1.5 % (0-4); Hematocrit 37.5 % (37.0-47.0); Hemoglobin 12.2 g/dl (12.0-16.0); Imm Gran Abs Auto 0.06 X10*3/uL (0.00-0.03); Imm Gran Pct Auto 0.8 % (0.0-0.4); Lymphocytes Absolute Auto 2.4 X10*3/uL (1.2-4.9); Lymphocytes Percent Auto 31.3 % (20-40); Mean Corpuscular HGB Conc 32.5 g/dl (31.0-35.0); Mean Corpuscular Hemoglobin 29.2 pg (27.0-33.0); Mean Corpuscular Volume 89.7 fL (80.0-98.0); Mean Platelet Volume 10.7 fL (9.4-12.3); Monocytes Absolute Auto 0.6 X10*3/uL (0.1-1.2); Monocytes Percent Auto 8.2 % (2-11); Neutrophils Absolute Auto 4.3 x10*3/uL (2.0-8.3); Neutrophils Percent Auto 57.1 % (45-73); Platelet Count 304 X10*3/uL (160-400); Red Blood Count 4.18 X10*6/uL (4.20-5.50); Red Cell Distribution Width 13.8 % (11.0-16.0); White Blood Count 7.6 X10*3/uL (4.8-10.8)
[2023-09-22 19:08] LABS: Class Alternaria alternata 0; Class Aspergillus fumigatus 0; Class Bermuda Grass 0; Class Birch 0; Class Cat Dander 0; Class Cladosporium herbarum 0; Class Cockroach 0; Class Common Ragweed 0/1; Class Cottonwood 0; Class Derm. pterony 0; Class Dermatophagoides farinae 0; Class Dog Dander 0; Class Elm 0; Class Maple Box Elder 0; Class Mountain Cedar 0; Class Mouse Urine Protein 0; Class Mugwort 0/1; Class Oak 0; Class Penicillium crysogenum 0; Class Rough Pigweed 0; Class Sheep Sorrel 0; Class Sycamore 0; Class Timothy Grass 0/1; Class Walnut Tree 0; Class White Ash 0; Class White Mulberry 0; D001 IgE D pteronyssinus <0.10 kU/L; D002 - IgE D farinae <0.10 kU/L; E001 - IgE Cat Dander <0.10 kU/L; E005 - IgE Dog Dander <0.10 kU/L; E072-IgE Mouse Urine <0.10 kU/L; G002 IgE Bermuda Grass <0.10 kU/L; G006 - IgE Timothy Grass 0.19 kU/L; I006-IgE Cockroach, German <0.10 kU/L; Immunoglobulin E 73 kU/L (<OR=114); M001 IgE Penicillium chrysogen <0.10 kU/L; M002 - IgE Cladosporium herbar <0.10 kU/L; M003 - IgE Aspergillus fumigat <0.10 kU/L; M006 - IgE Alternaria alternat <0.10 kU/L; T001 IgE Maple/Box Elder <0.10 kU/L; T003 IgE Common Silver Birch <0.10 kU/L; T006 - IgE Cedar, Mountain <0.10 kU/L; T007 - IgE Oak, White <0.10 kU/L; T008 IgE Elm, American <0.10 kU/L; T010 - IgE Walnut <0.10 kU/L; T011 - IgE Maple Leaf Sycamore <0.10 kU/L; T014 - IgE Cottonwood <0.10 kU/L; T015 - IgE Ash, White <0.10 kU/L; T070 - IgE White Mulberry <0.10 kU/L; W001 - IgE Ragweed, Short 0.27 kU/L; W006 - IgE Mugwort 0.11 kU/L; W014 IgE Pigweed, Common <0.10 kU/L; W018 IgE Sheep Sorrel <0.10 kU/L
== END 2023-09-21 09:03 | disposition home or self-care (01) ==
LOC: HO.LAB 09:02
PROVIDERS: PCP Internal Medicine Geriatric Medicine; Referring Provider Nurse Practitioner Family; Visit Provider Nurse Practitioner Family
DX: J45.909 Unspecified asthma, uncomplicated (principal); Z91.09 Other allergy status, other than to drugs and biological substances
CPT/HCPCS: 36415; 82785; 85025; 86003; 99202

== ENCOUNTER 2023-10-21 08:41 | Outpatient (REF) | payer MEDICARE, SELFPAY ==
--- NOTE | ~2023-10-21 | MM_ITS ---
EXAMINATION: MM SCREENING DIGITAL BREAST TOMOSYNTHESIS, BILATERAL CLINICAL INFORMATION: Screening. Asymptomatic. COMPARISON: Mammography: Comparison is made with available priors TECHNIQUE: Digital breast mammography with tomosynthesis is performed in both the craniocaudal and mediolateral oblique views along with computer-aided detection (CAD). FINDINGS: There are scattered areas of fibroglandular density (ACR BI-RADS breast composition Category b). Bilateral excisional biopsies. There are no significant masses, abnormal calcifications, or other abnormalities. MM/MM tomosynthesis screening BI IMPRESSION: No mammographic evidence of malignancy. ASSESSMENT: BI-RADS BI-RADS 2 - Benign Findings RECOMMENDATION: Routine annual mammography screening. 1 year F/U This examination should not preclude the clinical evaluation of a suspicious palpable abnormality. This patient's information was entered into a reminder system with a target due date for their next mammogram. Electronically signed by: Rakel Wilkes DO 11/24/2023 10:38 AM EDT
== END 2023-10-21 08:42 | disposition home or self-care (01) ==
LOC: HO.MAMMO 08:41
PROVIDERS: PCP Internal Medicine Geriatric Medicine; Visit Provider Internal Medicine Geriatric Medicine
DX: Z12.31 Encounter for screening mammogram for malignant neoplasm of breast (principal)
CPT/HCPCS: 77063; 77067

== ENCOUNTER → 2023-10-21 09:00 | Outpatient (BNV) | payer MEDICARE, SELFPAY | PROVIDERS: PCP Internal Medicine Geriatric Medicine; Visit Provider Internal Medicine | DX: Z12.31 Encounter for screening mammogram for malignant neoplasm of breast (principal) | CPT/HCPCS: 77063; 77067 ==

== ENCOUNTER 2023-12-02 07:30 | Outpatient (REF) | payer MEDICARE, MEDICAID, SELFPAY ==
--- NOTE | ~2023-12-02 | MR_ITS ---
EXAMINATION: MR LUMBAR SPINE WITHOUT CONTRAST CLINICAL INFORMATION: Radiculopathy, lumbar region COMPARISON: None available. TECHNIQUE: MRI of the lumbar spine was obtained using routine sequences without contrast. FINDINGS: Transitional anatomy with sacralization of L5. Grade 1 anterolisthesis at L4-5 as well as the extent L3-4. Diffusely heterogeneous bone marrow signal is likely degenerative. No acute bone marrow abnormality. Probable intraosseous hemangioma involving the right T11 pedicle. The vertebral body heights are preserved. Multilevel disc desiccation with severe disc height loss at L5-S1. Multilevel endplate osteophytosis. Schmorl's node involving the L3 superior endplate. The visualized spinal cord is normal in caliber. No abnormal cord signal. The conus medullaris terminates at L1. T11-12: Shallow disc bulge. No significant spinal canal stenosis. Mild right neural foraminal narrowing. T12-L1: Shallow disc bulge. No significant spinal canal stenosis. Mild to moderate right neural foraminal narrowing. L1-2: Shallow disc bulge with superimposed annular fissure. Bilateral facet arthrosis. Mild bilateral neural foraminal narrowing. L2-3: Diffuse disc bulge, ligamentum flavum hypertrophy, and bilateral facet arthrosis. No significant spinal canal stenosis. Mild to moderate left and mild right neural foraminal narrowing. L3-4: Diffuse disc bulge, ligamentum flavum hypertrophy, and bilateral facet arthrosis. There is also prominent dorsal epidural fat. Mild spinal canal stenosis. Mild to moderate left and mild right neural foraminal narrowing with the disc abutting the left exiting L3 nerve roots. L4-5: Diffuse disc bulge and bilateral facet arthrosis. Mild spinal canal stenosis. Mild bilateral neural foraminal narrowing. L5-S1: Bilateral facet arthrosis. No significant spinal canal stenosis. The paravertebral soft tissues are unremarkable. MR/MR lumbar spine wo con IMPRESSION: Mild multilevel degenerative changes of the lumbar spine without significant spinal canal stenosis. Multilevel neural foraminal narrowing is worst and mild to moderate at T12-L1 on the right, L2-3 on the left, and L3-4 on the left. At L3-4, the disc abuts the left exiting L3 nerve roots. Electronically signed by: Meron Patel MD 12/02/2023 03:41 PM EDT
--- NOTE | ~2023-12-02 | MR_ITS ---
EXAMINATION: MR PELVIS WITHOUT AND WITH CONTRAST CLINICAL INFORMATION: Intra-abdominal and pelvic swelling, mass and lump. COMPARISON: Correlated to pelvic ultrasound dated August 11, 2023. TECHNIQUE: Multiplanar, multisequence MRI pelvis without and following the IV contrast. Total of 7.5 mm Gadavist without reported immediate complications. FINDINGS: Submitted for interpretation on January 25, 2024. Limited by patient's motion artifact. The uterus is absent. There is no enhancing soft tissue mass in the vagina. There is a 7 mm nonenhancing fluid signal characteristic abnormality in the right lower pelvis likely right adnexa. No gross lymphadenopathy. No ascites. No intestinal obstruction pattern. Numerous diverticula in the left hemicolon. Abundant stool in the large intestine. Bone marrow inhomogeneity, bony pelvis and axial skeleton. Grade 1 anterolisthesis L4-5. No soft tissue enhancing lesion within the bladder. MR/MR pelvis wo/w con IMPRESSION: 7 mm cystic structure/lesion, right adnexa. Electronically signed by: Omi Chavez MD 01/25/2024 12:01 PM [facility]
[2023-12-02] MEDS: gadobutroL 7.5 ML VIAL IVPUSH (09:05)
== END 2023-12-02 07:31 | disposition home or self-care (01) ==
LOC: HO.MRI 07:30
PROVIDERS: PCP Internal Medicine Geriatric Medicine; Visit Provider Nurse Practitioner Family
DX: M54.16 Radiculopathy, lumbar region (principal); M43.16 Spondylolisthesis, lumbar region; M47.817 Spondylosis without myelopathy or radiculopathy, lumbosacral region; M81.0 Age-related osteoporosis without current pathological fracture; R19.00 Intra-abdominal and pelvic swelling, mass and lump, unspecified site
CPT/HCPCS: 72148; 72197; A9585

== ENCOUNTER → 2023-12-02 07:38 | Outpatient (BNV) | payer MEDICARE, MEDICAID, SELFPAY | PROVIDERS: PCP Internal Medicine Geriatric Medicine; Visit Provider Radiology Diagnostic Radiology | DX: R19.00 Intra-abdominal and pelvic swelling, mass and lump, unspecified site (principal) | CPT/HCPCS: 72197 ==

== ENCOUNTER 2023-12-21 10:02 | Outpatient (AMB) | payer MEDICARE, MEDICAID, SELFPAY ==
--- NOTE | 2023-12-21 09:04 | MHC.OFFVIS ---
Vital Signs 12/21/23 10:15 Height 5 ft 1 in Weight 171 lb 15.369 oz BMI 32.5 BP 130/72 Blood Pressure Location Rt brachial Position Sitting Pulse 70 Pulse Source Pulse Oximeter Pulse Oximetry (%) 98 Oxygen Delivery Method Room Air Intake Visit Reasons: Asthma Allergies begum Allergy (Verified 12/21/23 10:18) Itching pollen extracts Allergy (Verified 12/21/23 10:18) Sneezing tomato Allergy (Verified 12/21/23 10:18) Hives HPI HPI Asthma: Details: Lorie is a pleasant 68 year old female, former smoker, with underlying asthma and GERD. She has been on Advair 500 mcg, Singulair and albuterol MDI/neb. She reports suboptimal control on current regimen, requiring albuterol frequently for dry cough, wheezing, chest tightness and dyspnea. She denies any visits to urgent care hospitalizations related to respiratory distress since last visit. She continues to report symptoms suggestive of sleep apnea however prior home sleep study negative. She was sent for in lab sleep study however had to postpone due to eye surgery. 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, bilateral Hypovitaminosis D Age related osteoporosis COVID-19 vaccine series completed Pre-diabetes GERD (gastroesophageal reflux disease) Arthritis Asthma Hypertension Osteoarthritis of left knee Surgical History History of left knee surgery Hx of breast biopsy Hx of hysterectomy H/O colonoscopy Hx of hand surgery Hx of knee surgery H/O unilateral oophorectomy History of total right knee replacement Family History Maternal Aunt Breast CA Mother Colon cancer Arthritis Sister Arthritis Social History Household Members: Family Household Members Other:: daughter Housing: House Are you a primary child care development specialist to a significant other at home: No Do you presently have visiting nurse or other home services: No Alcohol intake: current Alcohol intake frequency: holidays/special occasions only Comment: chronic back pain Patient Tobacco Use Status: Former Tobacco user Tobacco use type: Cigarette Years Smoked: 20 Second Hand Smoke Exposure: No Advance Directives Date on File: 07/17/17 service: No Current occupational status: disabled Current occupation: rt handed Female Reproductive History Menstrual Age of Menarche: 9 Review of Systems Const Denies chills, Denies excessive sweating, Denies fever(s), Denies headache(s) and Denies night sweats Eyes Denies dry eyes, Denies irritation and Denies itchy eyes ENT Reports Normal hearing present, Denies headache(s), Denies nasal congestion, Denies nasal discharge, Denies post nasal drip and Denies sore throat Card Denies chest pain, Denies chest pain at rest, Denies chest pain with activity, Denies claudication, Denies leg edema, Denies orthopnea and Denies paroxysmal nocturnal dyspnea Resp Denies chest congestion, Denies excessive phlegm production, Denies pain on inspiration, Denies pain with cough and Denies stridor Musc Denies myalgias Neuro Reports Normal hearing present and Denies headache(s) Endo Denies excessive sweating Srinivas/Lymph Denies lymphadenopathy Aller/Immun Denies itchy eyes and Denies seasonal rhinorrhea Physical Exam Vital Signs: Last Vital Signs Pulse 70 12/21/23 10:15 BP 130/72 12/21/23 10:15 Pulse Ox 98 12/21/23 10:15 Oxygen Delivery Method Room Air 12/21/23 10:15 BMI result Body Mass Index 32.5 Const General: cooperative, healthy appearing, comfortable, no acute distress, well developed and alert Orientation/consciousness: patient oriented x3 Limitations: no limitations HEENT Head: Yes normal to inspection, Yes normocephalic and Yes atraumatic Ears: hearing grossly normal bilaterally and external ears normal Eyes General: appearance normal, both eyes and all related structures Eyelids: Yes eyelids normal Sclerae: sclerae normal EOM: EOMs intact bilaterally Neck Neck: Yes normal visual inspection and Yes no lymphadenopathy Lymphatic: no lymphadenopathy noted Chest Chest palpation & inspection: normal inspection of the chest Resp Effort & Inspection: normal respiratory effort, able to speak in complete sentences, no audible wheezes, no cough, no stridor, not tachypneic, no tripod positioning and no use of accessory muscles Auscultation: clear to auscultation bilaterally Cardio Jugular venous distension: no JVD Rate: regular rate Rhythm: regular rhythm Skin Other: warm, dry General skin exam: no rashes or lesions noted Neuro General: patient oriented x3 Cranial nerves: Yes Normal hearing present Cognition (Neuro): normal cognition Gait exam (Neuro): Normal gait present Extrem General: Yes normal to inspection, Yes capillary refill normal, Yes no clubbing, cyanosis or edema and Yes no pedal edema Psych Appearance: grossly normal and well kempt Speech and movement: Normal speech and movement present and Clear speech present Affect: normal affect Attitude: cooperative Thought process: Normal thought process present Thought content: Normal thought content present Insight: Good insight present (Psych) Judgement: Good judgement present (Psych) Assessment & Plan Assessment & Plan (1) Asthma: Comment: uses Advair & Singulair daily Code(s): J45.909 - Unspecified asthma, uncomplicated Category: Medical (2) Environmental allergies: Code(s): Z91.09 - Other allergy status, other than to drugs and biological substances Category: Medical (3) Daytime somnolence: Code(s): R40.0 - Somnolence Category: Medical Plan Will switch Advair to Symbicort. If no improvement consider Trelegy. She continues to report symptoms suggestive of ANDRAE despite negative home PSG, will send for in lab PSG. All questions were answered and patient is in agreement of plan. Will follow up in 6 weeks or sooner if needed. Medications: New budesonide-formoterol 160-4.5 mcg/actuation (Symbicort) 2 puffs inhalation Q12H 10.2 grams 4RF Coding Level of Care Code Est Pt Level 4 (90052) Diagnoses Asthma J45.909 Environmental allergies Z91.09 Daytime somnolence R40.0
[2023-12-21 10:15] VITALS: BP 130/72; PULSE 70; O2SAT 98; BMI 32.5
== END 2023-12-21 10:32 | disposition home or self-care (01) ==
PROVIDERS: PCP Internal Medicine Geriatric Medicine; Visit Provider Nurse Practitioner Family
DX: J45.909 Unspecified asthma, uncomplicated (principal); Z91.09 Other allergy status, other than to drugs and biological substances; R40.0 Somnolence
CPT/HCPCS: 99214

== ENCOUNTER → 2023-12-21 10:02 | Outpatient (BNVA) | payer MEDICARE, MEDICAID, SELFPAY | PROVIDERS: PCP Internal Medicine Geriatric Medicine; Visit Provider Nurse Practitioner Family | DX: J45.909 Unspecified asthma, uncomplicated (principal); R40.0 Somnolence; Z91.09 Other allergy status, other than to drugs and biological substances | CPT/HCPCS: 99212 ==

== ENCOUNTER 2023-12-31 09:15 | Outpatient (AMB) | payer MEDICARE, MEDICAID, SELFPAY ==
--- NOTE | 2023-12-31 09:17 | A.OFFVIS_ITS ---
Vital Signs 12/31/23 09:20 Height 5 ft 1 in Weight 163 lb BMI 30.8 BP 136/63 Blood Pressure Location Rt brachial Position Sitting Pulse 88 Pulse Source Pulse Oximeter Pulse Oximetry (%) 98 Oxygen Delivery Method Room Air Intake Visit Reasons: MRI follow up/ Xray results Intake Note: Pain today 0/10 Telecommunications Field Engineer Required: No Accompanied by: Self / Same As Patient Allergies begum Allergy (Verified 12/31/23 09:21) Itching pollen extracts Allergy (Verified 12/31/23 09:21) Sneezing tomato Allergy (Verified 12/31/23 09:21) Hives HPI Comments Details: Patient presents today to discuss recent lumbar spine MRI results. Denies any recent cough, cold, infection, fever or other significant changes in medical history since last office visit. PRIOR: Patient is a pleasant 67 years old with history of osteoporosis, osteoarthritis, lumbar degenerative disc disease and chronic low back pain presents today for initial evaluation of acute on chronic low back pain with radiation into left lower extremity anteriorly with numbness and tingling in her anterior thigh, kim and top of the left foot. Pain also radiates up to her lower thoracic region with spasming and moderate pain with extension. She was referred to us by emergency room which she visited on 08/05/2023 for worsening low back pain. Reports mechanical fall in March this year with worsening unsteadiness and imbalance, decreased lumbar range of motion and persistent pain. She attended physical therapy at [facility] last summer for left-sided radiculopathy with minimal improvement. She notes, due to significant back pain exacerbation with exercises, she could not complete whole course of PT. Most recent lumbar x-ray is significant for L4-L5 anterolisthesis with displacement by 0.8 cm and advanced L5-S1 degenerative lumbar disc disease. She denies previous lumbar MRI imaging. Denies previous spine surgery or injections. Reports treating osteoporosis with Reclast, continues to take calcium. Pain affects her daily activities and functioning, sleep, mood, mobility and quality of life. Pain is constant and most severe in the mornings and middle of the night, rates pain at 9-10/10. Denies any fever, chills, abdominal or groin pain, headache, chest pain, dizziness, shortness of breath, footdrop, bladder or bowel dysfunction, or saddle anesthesia. Reports left lower extremity weakness with walking due to pain. Patient also reports left ankle pain with localized swelling in the lateral malleolus and decreased range of motion. She attributes this due to recent stretching exercises past 1-2 weeks. Denies recent trauma, injury or falls. She is interested to follow up with [facility] providers for this whom she saw last in 2021. Location: Upper back radiates down back and left leg anteriorly, left ankle Duration: Chronic pain >3 years, worsening pain for 3 months, mechanical fall 04/18 Characteristics of symptom or complaint: Aching, stabbing, pinching, numbness, tingling, radiating, shooting Aggravating or associated factors: Bending, movements, walking, standing, changing positions, lifting, pulling Relieving factors: Ice/heat therapy, Tylenol, cyclobenzaprine, naproxen, rest, stretching Treatment: PT at [facility] July-August 2022 for left sided radiculopathy, PT 2021 s/p TKA PFSH Medical History (Updated 09/25/23 @ 16:38 by Armida Moise NP) 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, bilateral Hypovitaminosis D Age related osteoporosis COVID-19 vaccine series completed Pre-diabetes GERD (gastroesophageal reflux disease) Arthritis Asthma Hypertension Osteoarthritis of left knee Surgical History History of left knee surgery Hx of breast biopsy Hx of hysterectomy H/O colonoscopy Hx of hand surgery Hx of knee surgery H/O unilateral oophorectomy History of total right knee replacement Family History Maternal Aunt Breast CA Mother Colon cancer Arthritis Sister Arthritis Social History Household Members: Family Household Members Other:: daughter Housing: House Are you a primary day care teacher to a significant other at home: No Do you presently have visiting nurse or other home services: No Alcohol intake: current Alcohol intake frequency: holidays/special occasions only Comment: chronic back pain Patient Tobacco Use Status: Former Tobacco user Tobacco use type: Cigarette Years Smoked: 20 Second Hand Smoke Exposure: No Advance Directives Date on File: 07/17/17 service: No Current occupational status: disabled Current occupation: rt handed Female Reproductive History Menstrual Age of Menarche: 9 Review of Systems Const All systems reviewed & are unremarkable except as noted in HPI and below Physical Exam Vital Signs: Last Vital Signs Pulse 88 12/31/23 09:20 BP 136/63 12/31/23 09:20 Pulse Ox 98 12/31/23 09:20 Oxygen Delivery Method Room Air 12/31/23 09:20 BMI result Body Mass Index 30.8 General: Appears afebrile. Alert and oriented. Mood and affect appropriate. Follows and participates in conversation appropriately. Respiratory effort is unlabored. No cough. Able to transition from sit to stand unassisted. Ambulates with bilaterally normal heel strike and toe off, except left foot due to chronic left ankle pain. General: Yes no CVA tenderness Back/Spine/Pelvis Back: no CVA tenderness Cervical Spine: cervical ROM normal, cervical muscular tenderness and No Ce rvical spine tenderness Thoracic/Lumbar Spine: thoracic and lumbar spine normal to inspection, No Thoracic/lumbar spine scar(s), Lasegue's sign negative, straight leg raise neg ative bilaterally, pain with thoraco-lumbar ROM, paraspinal muscle tenderness on the left greater than right, thoraco-lumbar ROM limited, thoracic spinal tenderness (lower thoracic) and lumbar spinal tenderness (L4-S1) Pelvis: no buttock tenderness Sacroiliac joints: bilaterally tender to palpation (mild) Extrem General: Yes capillary refill normal and Yes no clubbing, cyanosis or edema Results Reviewed Results Reviewed: MR LUMBAR SPINE WITHOUT CONTRAST 12/02/23 CLINICAL INFORMATION: Radiculopathy, lumbar region. FINDINGS: Transitional anatomy with sacralization of L5. Grade 1 anterolisthesis at L4-5 as well as the extent L3-4. Diffusely heterogeneous bone marrow signal is likely degenerative. No acute bone marrow abnormality. Probable intraosseous hemangioma involving the right T11 pedicle. The vertebral body heights are preserved. Multilevel disc desiccation with severe disc height loss at L5-S1. Multilevel endplate osteophytosis. Schmorl's node involving the L3 superior endplate. The visualized spinal cord is normal in caliber. No abnormal cord signal. The conus medullaris terminates at L1. T11-12: Shallow disc bulge. No significant spinal canal stenosis. Mild right neural foraminal narrowing. T12-L1: Shallow disc bulge. No significant spinal canal stenosis. Mild to moderate right neural foraminal narrowing. L1-2: Shallow disc bulge with superimposed annular fissure. Bilateral facet arthrosis. Mild bilateral neural foraminal narrowing. L2-3: Diffuse disc bulge, ligamentum flavum hypertrophy, and bilateral facet arthrosis. No significant spinal canal stenosis. Mild to moderate left and mild right neural foraminal narrowing. L3-4: Diffuse disc bulge, ligamentum flavum hypertrophy, and bilateral facet arthrosis. There is also prominent dorsal epidural fat. Mild spinal canal stenosis. Mild to moderate left and mild right neural foraminal narrowing with the disc abutting the left exiting L3 nerve roots. L4-5: Diffuse disc bulge and bilateral facet arthrosis. Mild spinal canal stenosis. Mild bilateral neural foraminal narrowing. L5-S1: Bilateral facet arthrosis. No significant spinal canal stenosis. The paravertebral soft tissues are unremarkable. IMPRESSION: Mild multilevel degenerative changes of the lumbar spine without significant spinal canal stenosis. Multilevel neural foraminal narrowing is worst and mild to moderate at T12-L1 on the right, L2-3 on the left, and L3-4 on the left. At L3-4, the disc abuts the left exiting L3 nerve roots. XR LUMBAR SPINE XR THORACIC SPINE 08/19/23 CLINICAL INFORMATION: Age-related osteoporosis without current pathogens. COMPARISON: 08/05/2023 lumbar spine, 01/24/2021 X-ray chest and ribs, 06/02/2018 radiographs chest FINDINGS: Mild dextroscoliosis of the lumbar spine. Diffuse demineralization. Facet arthritis in the lower lumbar spine. Persistent grade 1 anterolisthesis of L4 on L5. Multilevel lumbar spondylosis with marked loss of disc space height at L5-S1 and [id number] loss of disc space height at L1-L2, L3-L4, and L4-L5. Degenerative changes in the left sacroiliac joint greater than right. Thoracic spine: Diffuse demineralization. Mild dextroscoliosis of the thoracic spine. Advanced degenerative changes in the thoracic spine with large anterior osteophytes in the [id number] thoracic spine. Degenerative changes on very limited images of the cervical spine could be evaluated with dedicated cervical spine radiographs. IMPRESSION: 1. Redemonstration of grade 1 anterolisthesis of L4 on L5. 2. Multilevel lumbar spondylosis is severe at L5-S1. 3. Advanced multilevel degenerative changes in the thoracic spine. Assessment & Plan Assessment & Plan (1) Osteoporosis: Code(s): M81.0 - Age-related osteoporosis without current pathological fracture Category: Medical (2) Thoracic back pain: Code(s): M54.6 - Pain in thoracic spine Category: Medical (3) Lumbosacral spondylosis: Code(s): M47.817 - Spondylosis without myelopathy or radiculopathy, lumbosacral region Category: Medical (4) Spondylolisthesis of lumbar region: Code(s): M43.16 - Spondylolisthesis, lumbar region Category: Medical (5) Lumbar back pain with radiculopathy affecting left lower extremity: Code(s): M54.16 - Radiculopathy, lumbar region Category: Medical Plan Thoracic and lumbar xray and lumbar spine MRI results were discussed with patient today. She denies any pain today and reports radicular symptoms have been improving with conservative measures. Patient does report axial low back pain with ADLs and cold weather changes. Due to osteoporosis, patient is not candidate for therapeutic injections in the spine. We reviewed neuromodulation with Sprint PNS trial, SCS, BVN and RFA procedures. Patient will notify our office if her symptoms reoccur. Recommend patient daily physical activity and home exercises program, adequate hydration, well balanced diet and weight optimization. All questions and concerns have been answered and patient agreed with the plan. Follow up as needed. Coding Level of Care Code Est Pt Level 3 (35450) Complex EM visit Add On G2211 Diagnoses Osteoporosis M81.0 Thoracic back pain M54.6 Lumbosacral spondylosis M47.817 Spondylolisthesis of lumbar region M43.16 Lumbar back pain with radiculopathy affecting left lower extremity M54.16
[2023-12-31 09:20] VITALS: BP 136/63; PULSE 88; O2SAT 98; BMI 30.8
== END 2023-12-31 09:42 | disposition home or self-care (01) ==
LOC: HO.PMC 09:16
PROVIDERS: PCP Internal Medicine Geriatric Medicine; Visit Provider Nurse Practitioner Family
DX: M81.0 Age-related osteoporosis without current pathological fracture (principal); M54.6 Pain in thoracic spine; M47.817 Spondylosis without myelopathy or radiculopathy, lumbosacral region; M43.16 Spondylolisthesis, lumbar region; M54.16 Radiculopathy, lumbar region
CPT/HCPCS: 99213; G2211

== ENCOUNTER → 2023-12-31 09:15 | Outpatient (BNVA) | payer MEDICARE, MEDICAID, SELFPAY | PROVIDERS: PCP Internal Medicine Geriatric Medicine; Visit Provider Nurse Practitioner Family | DX: M81.0 Age-related osteoporosis without current pathological fracture (principal); M54.6 Pain in thoracic spine; M47.817 Spondylosis without myelopathy or radiculopathy, lumbosacral region; M43.16 Spondylolisthesis, lumbar region; M54.16 Radiculopathy, lumbar region | CPT/HCPCS: 99212 ==

== ENCOUNTER 2024-01-25 15:06 | Outpatient (AMB) | payer MEDICARE, MEDICAID, SELFPAY ==
--- NOTE | 2024-01-25 15:07 | MHC.OFFVIS ---
Intake Visit Reasons: mri results Allergies begum Allergy (Verified 12/31/23 09:21) Itching pollen extracts Allergy (Verified 12/31/23 09:21) Sneezing tomato Allergy (Verified 12/31/23 09:21) Hives HPI Comments Details: The patient scheduled a telehealth follow-up appointment. 08/16 pelvic ultrasound showed the following: IMPRESSION: 1. Uterus is surgically absent. Bilateral ovaries not visualized. 2. Incidental note on transvaginal ultrasound images of a 1.6 x 0.7 x 0.9 cm complex, diffusely hypoechoic focus with well-circumscribed margins of indeterminate etiology. This is not appreciated on pelvic ultrasound August 04, 2023. Correlation with clinical exam recommended to determine further management. MRI could be considered for further evaluation. Pelvic MRI ordered 12/16 read on 01/25/2024 (after multiple attempts to request for the radiology report for an expedited read), report showed the following: IMPRESSION: 7 mm cystic structure/lesion, right adnexa. 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, bilateral Hypovitaminosis D Age related osteoporosis COVID-19 vaccine series completed Pre-diabetes GERD (gastroesophageal reflux disease) Arthritis Asthma Hypertension Osteoarthritis of left knee Surgical History History of left knee surgery Hx of breast biopsy Hx of hysterectomy H/O colonoscopy Hx of hand surgery Hx of knee surgery H/O unilateral oophorectomy History of total right knee replacement Family History Maternal Aunt Breast CA Mother Colon cancer Arthritis Sister Arthritis Social History Household Members: Family Household Members Other:: daughter Housing: House Are you a primary home health care worker to a significant other at home: No Do you presently have visiting nurse or other home services: No Alcohol intake: current Alcohol intake frequency: holidays/special occasions only Comment: chronic back pain Patient Tobacco Use Status: Former Tobacco user Tobacco use type: Cigarette Years Smoked: 20 Second Hand Smoke Exposure: No Advance Directives Date on File: 07/17/17 service: No Current occupational status: disabled Current occupation: rt handed Female Reproductive History Menstrual Age of Menarche: 9 Review of Systems Const All systems reviewed & are unremarkable except as noted in HPI and below Reports as per HPI and Reports no additional complaints GI Reports no additional complaints Reports no additional complaints Telehealth Telehealth Telehealth Platform: Telephone Location of provider rendering services: practice address Location of patient: address on file Patient Identification confirmed using: Name, : Yes Telehealth method: voice only Patient verbally consented to treatment: Yes Patient verbally consented to billing insurance company: Yes Patient informed of any privacy concerns related to visit: Yes Assessment & Plan Assessment & Plan (1) Complex ovarian cyst: Code(s): N83.299 - Other ovarian cyst, unspecified side Category: Medical Plan: Discussed with the patient the persistent complex ovarian cyst . The differential diagnosis discussed with the patient includes the following but not limited to: benign and malignant gynecological and non-gynecological. CA 125, CEA and CA 19-9 ordered. Referral to Elevator Constructor Hydraulic Oncology at [facility] for further management. Instructed the patient to call our office back in case a referral appointment is not scheduled, missed or canceled so that we will assist on rescheduling another appointment, the patient verbalized understanding agreed with the plan. I spent a total of 20 minutes reviewing the chart, talking to the patient via video and documenting in the medical record. Orders: Orders Carcinoembryonic Antigen Today N83.299 - Other ovarian cyst, unspecified side CA-125 Today N83.299 - Other ovarian cyst, unspecified side Carbohydrate Antigen 19-9 Today N83.299 - Other ovarian cyst, unspecified side Referrals Gynecologic Oncology Referral N83.299 - Other ovarian cyst, unspecified side Coding Level of Care Code Tele Est Pt Level 3 (53371) Diagnoses Complex ovarian cyst N83.299
== END 2024-01-25 15:19 | disposition home or self-care (01) ==
LOC: HO.HWS 15:06
PROVIDERS: PCP Internal Medicine Geriatric Medicine; Visit Provider Obstetrics & Gynecology
DX: N83.299 Other ovarian cyst, unspecified side (principal)
CPT/HCPCS: 99441

== ENCOUNTER 2024-01-26 07:50 | Outpatient (REF) | payer MEDICARE, SELFPAY ==
[2024-01-26 10:44] LABS: Carcinoembryonic Antigen < 1.73 ng/mL
[2024-01-28 09:03] LABS: CA-125 14 U/mL (<35); Carbohydrate Antigen 19-9 8 U/mL (<34)
== END 2024-01-26 07:51 | disposition home or self-care (01) ==
LOC: HO.LAB 07:50
PROVIDERS: PCP Internal Medicine Geriatric Medicine; Visit Provider Obstetrics & Gynecology
DX: N83.299 Other ovarian cyst, unspecified side (principal)
CPT/HCPCS: 36415; 82378; 86301; 86304

== ENCOUNTER 2024-02-02 09:03 | Outpatient (REF) | payer MEDICARE, SELFPAY ==
[2024-02-02 11:50] LABS: MANUAL DIFF FLAG NO
[2024-02-02 11:57] LABS: Basophils Absolute Auto 0.1 X10*3/uL (0.0-0.2); Basophils Percent Auto 1.2 % (0-2); Eosinophils Absolute Auto 0.2 X10*3/uL (0.0-0.4); Eosinophils Percent Auto 3.4 % (0-4); Hematocrit 35.5 % (37.0-47.0); Hemoglobin 11.9 g/dl (12.0-16.0); Imm Gran Abs Auto 0.02 X10*3/uL (0.00-0.03); Imm Gran Pct Auto 0.4 % (0.0-0.4); Lymphocytes Absolute Auto 1.2 X10*3/uL (1.2-4.9); Lymphocytes Percent Auto 23.5 % (20-40); Mean Corpuscular HGB Conc 33.5 g/dl (31.0-35.0); Mean Corpuscular Hemoglobin 29.8 pg (27.0-33.0); Mean Corpuscular Volume 88.8 fL (80.0-98.0); Mean Platelet Volume 11.1 fL (9.4-12.3); Monocytes Absolute Auto 0.3 X10*3/uL (0.1-1.2); Monocytes Percent Auto 6.4 % (2-11); Neutrophils Absolute Auto 3.3 x10*3/uL (2.0-8.3); Neutrophils Percent Auto 65.1 % (45-73); Platelet Count 265 X10*3/uL (160-400); Red Cell Distribution Width 13.5 % (11.0-16.0)
[2024-02-02 12:12] LABS: Anion Gap 13 (12-20); Blood Urea Nitrogen 14 mg/dL (9-16); Calcium 10.2 mg/dL (8.4-10.2); Carbon Dioxide 29 mmol/L (22-29); Chloride 103 mmol/L (96-108); Estimated Glomerular Filt Rate > 60; Glucose Random 108 mg/dL (60-115); Potassium 3.2 mmol/L (3.3-5.1); Sodium 142 mmol/L (135-145)
[2024-02-03 20:58] LABS: Immunoglobulin E 85 kU/L (<OR=114)
== END 2024-02-02 09:04 | disposition home or self-care (01) ==
LOC: HO.HHCL 09:03
PROVIDERS: Nurse Practitioner Family; Visit Provider Internal Medicine Geriatric Medicine
DX: Z91.09 Other allergy status, other than to drugs and biological substances (principal); Z79.1 Long term (current) use of non-steroidal anti-inflammatories (NSAID)
CPT/HCPCS: 36415; 80048; 82785; 85025

== ENCOUNTER 2024-02-04 08:44 | Outpatient (AMB) | payer MEDICARE, MEDICAID, SELFPAY ==
--- NOTE | 2024-02-04 09:10 | A.OFFVIS_ITS ---
Intake Visit Reasons: 6m follow up Intake Note: Patient presents for follow up visit for urinary frequency Urology Medications: none Blood Thinner: none PVR: 29ml's Ferryboat Operator Required: No Accompanied by: Self / Same As Patient Allergies begum Allergy (Verified 02/04/24 09:38) Itching pollen extracts Allergy (Verified 02/04/24 09:38) Sneezing tomato Allergy (Verified 02/04/24 09:38) Hives HPI Comments Details: Lorie is a pleasant 67-year-old female patient of Dr. Martinez. She has a past medical history of osteoarthritis, pre diabetes, GERD, asthma, and hypertension. She presents to the office today for follow-up. In discussion with the patient today she reports to be doing and feeling well. She reports she continues with episodes of nocturia however feels this is related to her insomnia and feels because she does not sleep well she gets up to use the bathroom. Previous workup has included a retroperitoneal ultrasound 06/16 noting bilateral kidneys with no calculi and or hydronephrosis. Small cortical and parapelvic simple cyst noted. No follow-up imaging is recommended per radiology report. The bladder is well distended and normal. Bladder ureteral jets are demonstrated. Pre void bladder volume is approximately 150 mL. Postvoid bladder volume is approximately 10 mL. Unremarkable renal bladder ultrasound. Patient has also had sleep study that noted no sleep apnea. In office urinalysis results reviewed with the patient today. PVR 15 mL. She denies urinary urgency, urinary frequency, incontinence, hematuria, dysuria, foul smelling urine, changes to urinary stream, flank pain, fever, and or chills. She discusses her upcoming appointment with inflated pad buffer for further assessment evaluation of 7 mm cystic structure/lesion in/on right adnexa. Discussed importance of bedtime routine to assist with sleep hygiene and insomnia. She otherwise denies any other issues or concerns at this time. 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, bilateral Hypovitaminosis D Age related osteoporosis COVID-19 vaccine series completed Pre-diabetes GERD (gastroesophageal reflux disease) Arthritis Asthma Hypertension Osteoarthritis of left knee Surgical History History of left knee surgery Hx of breast biopsy Hx of hysterectomy H/O colonoscopy Hx of hand surgery Hx of knee surgery H/O unilateral oophorectomy History of total right knee replacement Family History Maternal Aunt Breast CA Mother Colon cancer Arthritis Sister Arthritis Social History Household Members: Family Household Members Other:: daughter Housing: House Are you a primary pet care attendant to a significant other at home: No Do you presently have visiting nurse or other home services: No Alcohol intake: current Alcohol intake frequency: holidays/special occasions only Comment: chronic back pain Patient Tobacco Use Status: Former Tobacco user Tobacco use type: Cigarette Years Smoked: 20 Second Hand Smoke Exposure: No Advance Directives Date on File: 07/17/17 service: No Current occupational status: disabled Current occupation: rt handed Female Reproductive History Menstrual Age of Menarche: 9 Review of Systems Eyes Reports no additional complaints ENT Reports no additional complaints Card Reports as per HPI Resp Reports as per HPI GI Reports as per HPI Reports as per HPI Musc Reports as per HPI Neuro Reports no additional complaints Psych Reports no additional complaints Endo Reports no additional complaints Srinivas/Lymph Reports no additional complaints Aller/Immun Reports no additional complaints Physical Exam Const General: cooperative, healthy appearing, comfortable, no acute distress, well developed, alert and awake Orientation/consciousness: patient oriented x3 Limitations: no limitations HEENT Head: Yes normal to inspection, Yes normocephalic and Yes atraumatic Ears: hearing grossly normal bilaterally Eyes General: appearance normal, both eyes and all related structures Neck Neck: Yes normal visual inspection and Yes trachea midline Chest Chest palpation & inspection: normal inspection of the chest Resp Effort & Inspection: normal respiratory effort and able to speak in complete sentences Cardio Rate: regular rate GI Inspection: Yes normal to inspection General: Yes no CVA tenderness Back/Spine/Pelvis Back: no CVA tenderness Skin General skin exam: no rashes or lesions noted Neuro General: patient oriented x3 Extrem General: Yes normal to inspection Psych Appearance: grossly normal and well kempt Mental Status: mental status grossly normal Speech and movement: Normal speech and movement present and Clear speech present Affect: normal affect Attitude: cooperative Thought process: Normal thought process present Thought content: Normal thought content present Insight: Fair insight present (Psych) Judgement: Fair judgement present (Psych) Office Procedures Post Void Residual Post Residual Void Post Void Residual (PVR): 29 [id number] Void Residual by ultrasound Results AMB Urinalysis, Automated UA Leukoctes 0 Enrique/uL Last Edit by Vermillion on 02/04/24 09:40 UA Nitrite Last Edit by Vermillion on 02/04/24 09:40 UA Urobilinogen 0.2 mg/dL Last Edit by Vermillion on 02/04/24 09:40 UA Protein 15 mg/dL Last Edit by Vermillion on 02/04/24 09:40 UA pH 7.0 Last Edit by Vermillion on 02/04/24 09:40 UA Blood 0 Uvaldo/uL Last Edit by Vermillion on 02/04/24 09:40 UA Specific Delton 1.015 Last Edit by Vermillion on 02/04/24 09:40 UA Ketone Last Edit by Vermillion on 02/04/24 09:40 UA Bilirubin 0 mg/dL Last Edit by Vermillion on 02/04/24 09:40 UA Glucose 0 mg/dL Last Edit by Vermillion on 02/04/24 09:40 Assessment & Plan Assessment & Plan (1) Nocturia: Code(s): R35.1 - Nocturia Category: Medical Plan In office urinalysis results reviewed with the patient today; as noted above. PVR 29 mL. Discussed importance of sleep hygiene to assist with insomnia. Discussed importance of limiting fluids 2-3 hours prior to bed to decrease episodes of nocturia. Discussed pelvic floor therapy verses trial of medication verses surveillance monitoring; risks and benefits of these interventions were discussed. Will continue with surveillance monitoring at this time per patient request Follow-up in 6 months with PVR; or sooner with any issues, concerns, and or ques tions. Orders: Orders AMB Post Void Residual by ultrasound Today R35.1 - Nocturia AMB Urinalysis Automated Today Z13.9 - Encounter for screening, unspecified Patient Instructions: The patient had an opportunity to ask questions regarding the treatment plan. All questions were answered. Physical exam, labs, and imaging were discussed and reviewed in detail. As well as risks, benefits, and discussion of treatment choices. No major barriers to understanding were identified. The patient expressed understanding and agreement with the above treatment plan. The patient was made aware they should contact our office by phone for worsening of their current condition, the appearance of new symptoms, or with any questions or concerns. Compliance is encouraged with any medications and follow up testing that is ordered. It is a privilege to be allowed the opportunity to participate in? your urological care.? Again, if you have any questions or concerns If you have any questions or concerns please do not hesitate to contact me. The office is [phone]. This note is constructed using voice recognition software. While every effort has been made to ensure accuracy ophthalmology surgical technician errors may have been included. Yours sincerely, BELLO Mills Coding Level of Care Code Est Pt Level 3 (34716) Diagnoses Nocturia R35.1 CPT Codes Post Residual Void - PVR CPT Code: 07279-[id number] Void Residual by ultrasound ([id number])
== END 2024-02-04 09:49 | disposition home or self-care (01) ==
PROVIDERS: PCP Internal Medicine Geriatric Medicine; Visit Provider Nurse Practitioner Family
DX: Z13.9 Encounter for screening, unspecified (principal); R35.1 Nocturia
CPT/HCPCS: 99213

== ENCOUNTER → 2024-02-04 08:44 | Outpatient (BNVA) | payer MEDICARE, MEDICAID, SELFPAY | PROVIDERS: PCP Internal Medicine Geriatric Medicine; Visit Provider Nurse Practitioner Family | DX: R35.1 Nocturia (principal) | CPT/HCPCS: 51798; 81003; 99212 ==

== ENCOUNTER 2024-02-08 08:44 | Outpatient (AMB) | payer MEDICARE, MEDICAID, SELFPAY ==
--- NOTE | 2024-02-08 08:52 | MHC.OFFVIS ---
Vital Signs 02/08/24 08:55 Height 5 ft 1 in Weight 173 lb 1.006 oz BMI 32.7 BP 130/68 Blood Pressure Location Lt brachial Position Sitting Pulse 82 Pulse Source Pulse Oximeter Pulse Oximetry (%) 97 Oxygen Delivery Method Room Air Intake Visit Reasons: Asthma Allergies begum Allergy (Verified 02/08/24 09:00) Itching pollen extracts Allergy (Verified 02/08/24 09:00) Sneezing tomato Allergy (Verified 02/08/24 09:00) Hives HPI HPI Asthma: Details: Lorie is a pleasant 68 year old female, former smoker, quit 20 years ago with 20+pyh, with underlying asthma and GERD. She has been moderately controlled on Dulera, Singulair and albuterol MDI/neb. Some days she does note using albuterol MDI multiple times per day with certain triggers otherwise feels symptoms are fairly controlled. She denies any visits to urgent care hospitalizations related to respiratory distress since last visit. She continues to report symptoms suggestive of sleep apnea however prior home sleep study negative, she cancelled in lab sleep study due to eye surgery and is aware she needs to call to reschedule. Of note, patient also never had PFT performed despite order being placed in August, will look into this. 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, bilateral Hypovitaminosis D Age related osteoporosis COVID-19 vaccine series completed Pre-diabetes GERD (gastroesophageal reflux disease) Arthritis Asthma Hypertension Osteoarthritis of left knee Surgical History History of left knee surgery Hx of breast biopsy Hx of hysterectomy H/O colonoscopy Hx of hand surgery Hx of knee surgery H/O unilateral oophorectomy History of total right knee replacement Family History Maternal Aunt Breast CA Mother Colon cancer Arthritis Sister Arthritis Social History Household Members: Family Household Members Other:: daughter Housing: House Are you a primary health care facilities inspector to a significant other at home: No Do you presently have visiting nurse or other home services: No Alcohol intake: current Alcohol intake frequency: holidays/special occasions only Comment: chronic back pain Patient Tobacco Use Status: Former Tobacco user Tobacco use type: Cigarette Years Smoked: 20 Second Hand Smoke Exposure: No Advance Directives Date on File: 07/17/17 service: No Current occupational status: disabled Current occupation: rt handed Female Reproductive History Menstrual Age of Menarche: 9 Review of Systems Const Denies chills, Denies excessive sweating, Denies fever(s), Denies headache(s) and Denies night sweats Eyes Denies dry eyes, Denies irritation and Denies itchy eyes ENT Reports Normal hearing present, Denies headache(s), Denies nasal congestion, Denies nasal discharge, Denies post nasal drip and Denies sore throat Card Denies chest pain, Denies chest pain at rest, Denies chest pain with activity, Denies claudication, Denies leg edema, Denies dyspnea, Denies dyspnea on exertion, Denies orthopnea and Denies paroxysmal nocturnal dyspnea Resp Denies chest congestion, Denies cough, Denies excessive phlegm production, Denies pain on inspiration, Denies pain with cough, Denies dyspnea, Denies dyspnea on exertion, Denies stridor and Denies wheezing Musc Denies myalgias Neuro Reports Normal hearing present and Denies headache(s) Endo Denies excessive sweating Srinivas/Lymph Denies lymphadenopathy Aller/Immun Denies itchy eyes, Denies seasonal rhinorrhea and Denies wheezing Physical Exam Const General: cooperative, healthy appearing, comfortable, no acute distress, well developed and alert Nutritional Appearance: obese Orientation/consciousness: patient oriented x3 Limitations: no limitations HEENT Head: Yes normal to inspection, Yes normocephalic and Yes atraumatic Ears: hearing grossly normal bilaterally and external ears normal Eyes General: appearance normal, both eyes and all related structures Eyelids: Yes eyelids normal Sclerae: sclerae normal EOM: EOMs intact bilaterally Neck Neck: Yes normal visual inspection and Yes no lymphadenopathy Lymphatic: no lymphadenopathy noted Chest Chest palpation & inspection: normal inspection of the chest Resp Effort & Inspection: normal respiratory effort, able to speak in complete sentences, no audible wheezes, no cough, no stridor, not tachypneic, no tripod positioning and no use of accessory muscles Auscultation: clear to auscultation bilaterally Cardio Jugular venous distension: no JVD Rate: regular rate Rhythm: regular rhythm Skin Other: warm, dry General skin exam: no rashes or lesions noted Neuro General: patient oriented x3 Cranial nerves: Yes Normal hearing present Cognition (Neuro): normal cognition Gait exam (Neuro): Normal gait present Extrem General: Yes normal to inspection, Yes capillary refill normal, Yes no clubbing, cyanosis or edema and Yes no pedal edema Psych Appearance: grossly normal and well kempt Speech and movement: Normal speech and movement present and Clear speech present Affect: normal affect Attitude: cooperative Thought process: Normal thought process present Thought content: Normal thought content present Insight: Good insight present (Psych) Judgement: Good judgement present (Psych) Assessment & Plan Assessment & Plan (1) Asthma: Code(s): J45.909 - Unspecified asthma, uncomplicated Category: Medical (2) Environmental allergies: Code(s): Z91.09 - Other allergy status, other than to drugs and biological substances Category: Medical (3) Dyspnea: Code(s): R06.00 - Dyspnea, unspecified Category: Medical (4) Personal history of tobacco use: Code(s): Z87.891 - Personal history of nicotine dependence Category: Social Hx Plan At this time patient moderately controlled on current regimen, advised to continue. Awaiting PFT to be scheduled and order for CXR placed given intermittent dyspnea/cough and smoking history. All questions were answered and patient is in agreement of plan. Will follow up to review results or sooner if needed. Orders: Orders XR chest 2V Today R06.00 - Dyspnea, unspecified Medications: New albuterol sulfate 90 mcg/actuation (Ventolin HFA) 2 puffs PO Q4-6H PRN 1 ea 3RF Wheezing Refilled montelukast (Singulair) 10 mg PO BEDTIME 30 tabs 3RF Coding Level of Care Code Est Pt Level 4 (56280) Diagnoses Asthma J45.909 Environmental allergies Z91.09 Dyspnea R06.00 Personal history of tobacco use Z87.891
[2024-02-08 08:55] VITALS: BP 130/68; PULSE 82; O2SAT 97; BMI 32.7
== END 2024-02-08 09:19 | disposition home or self-care (01) ==
PROVIDERS: PCP Internal Medicine Geriatric Medicine; Visit Provider Nurse Practitioner Family
DX: J45.909 Unspecified asthma, uncomplicated (principal); Z91.09 Other allergy status, other than to drugs and biological substances; R06.00 Dyspnea, unspecified; Z87.891 Personal history of nicotine dependence
CPT/HCPCS: 99214

== ENCOUNTER → 2024-02-08 08:44 | Outpatient (BNVA) | payer MEDICARE, MEDICAID, SELFPAY | PROVIDERS: PCP Internal Medicine Geriatric Medicine; Visit Provider Nurse Practitioner Family | DX: J45.909 Unspecified asthma, uncomplicated (principal); R06.00 Dyspnea, unspecified; K21.9 Gastro-esophageal reflux disease without esophagitis; Z91.09 Other allergy status, other than to drugs and biological substances; Z87.891 Personal history of nicotine dependence | CPT/HCPCS: 99212 ==

== ENCOUNTER 2024-02-16 09:19 | Outpatient (REF) | payer MEDICARE, MEDICAID, SELFPAY ==
[2024-02-16 12:04] LABS: Estimated Average Glucose 117 mg/dL; Hemoglobin A1C 120.7616 umol/L; Hemoglobin A1c % 5.7 % (<6.0)
== END 2024-02-16 09:20 | disposition home or self-care (01) ==
LOC: HO.HHCL 09:19
PROVIDERS: Visit Provider Internal Medicine Geriatric Medicine
DX: Z00.00 Encounter for general adult medical examination without abnormal findings (principal); Z13.1 Encounter for screening for diabetes mellitus
CPT/HCPCS: 36415; 83036

== ENCOUNTER 2024-03-01 09:10 | Outpatient (REF) | payer MEDICARE, SELFPAY ==
--- NOTE | ~2024-03-01 | XR_ITS ---
EXAMINATION: XR CHEST CLINICAL INFORMATION: R06.00 - Dyspnea, unspecified COMPARISON: X-ray dated January 24, 2021 TECHNIQUE: 2 views of the chest were obtained. FINDINGS: No consolidation, pleural effusion or pneumothorax. Cardiomediastinal silhouette is normal in size. Multilevel thoracic spondylosis. S-shaped curvature of the thoracolumbar spine. XR/XR chest 2V IMPRESSION: No acute airspace disease. Electronically signed by: Omi Chavez MD 03/01/2024 10:32 AM YOLANDA
== END 2024-03-01 09:11 | disposition home or self-care (01) ==
LOC: HO.XRAY 09:10
PROVIDERS: PCP Internal Medicine Geriatric Medicine; Visit Provider Nurse Practitioner Family
DX: R06.00 Dyspnea, unspecified (principal)
CPT/HCPCS: 71046

== ENCOUNTER → 2024-03-01 09:17 | Outpatient (BNV) | payer MEDICARE, SELFPAY | PROVIDERS: PCP Internal Medicine Geriatric Medicine; Visit Provider Radiology Diagnostic Radiology | DX: R06.00 Dyspnea, unspecified (principal) | CPT/HCPCS: 71046 ==

== ENCOUNTER → 2024-03-06 20:30 | Outpatient (REF) | payer MEDICARE, SELFPAY | LOC: HO.SL 20:30 | PROVIDERS: PCP Internal Medicine Geriatric Medicine; Visit Provider Nurse Practitioner Family | DX: R40.0 Somnolence (principal); G47.9 Sleep disorder, unspecified | CPT/HCPCS: 95810 ==

== ENCOUNTER → 2024-03-06 20:30 | Outpatient (BNV) | payer MEDICARE, SELFPAY | PROVIDERS: PCP Internal Medicine Geriatric Medicine; Visit Provider Psychiatry & Neurology Neurology | DX: G47.33 Obstructive sleep apnea (adult) (pediatric) (principal) | CPT/HCPCS: 95810 ==

== ENCOUNTER 2024-03-18 09:38 | Outpatient (REF) | payer MEDICARE, SELFPAY ==
[2024-03-18 09:22] VITALS: PULSE 80; O2SAT 97
--- NOTE | 2024-03-18 09:42 | PFT_ITS ---
Indication: Asthma Spirometry [FEV1 to FVC 68%; FEV1 1.91 L; FVC 2.83 L. there is a significant response to bronchodilators noted.] Lung Volumes [Total lung capacity 100% predicted; expiratory reserve volume 41% predicted] Diffusion Capacity [DLCO 113% predicted] Comparisons [none] Interpretation [There is an obstructive ventilatory defect consistent with mild COPD. This can also be secondary to uncontrolled asthma. The patient did have a significant response to bronchodilators noted. Lung volumes are normal except for decrease in the expiratory reserve volume secondary to an elevated BMI. Diffusing capacity is within normal limits. Clinical correlation warranted.] MTDD
== END 2024-03-18 09:39 | disposition home or self-care (01) ==
LOC: HO.RESP 09:38
PROVIDERS: PCP Internal Medicine Geriatric Medicine; Visit Provider Nurse Practitioner Family
DX: J45.909 Unspecified asthma, uncomplicated (principal)
CPT/HCPCS: 94010; 94640; 94727; 94729

== ENCOUNTER → 2024-03-18 09:42 | Outpatient (BNV) | payer MEDICARE, MEDICAID, SELFPAY | PROVIDERS: PCP Internal Medicine Geriatric Medicine; Visit Provider Hospitalist | DX: J45.909 Unspecified asthma, uncomplicated (principal) | CPT/HCPCS: 94060; 94727; 94729 ==

== ENCOUNTER 2024-03-28 08:51 | Outpatient (AMB) | payer MEDICARE, MEDICAID, SELFPAY ==
--- NOTE | 2024-03-28 08:43 | A.OFFVIS_ITS ---
Vital Signs 03/28/24 08:56 Height 5 ft 1 in Weight 173 lb 1.006 oz BMI 32.7 BP 130/62 Blood Pressure Location Lt brachial Position Sitting Pulse 88 Pulse Source Pulse Oximeter Pulse Oximetry (%) 97 Oxygen Delivery Method Room Air Intake Visit Reasons: Asthma Gear Generator Set Up Operator Required: No Gear Generator Set Up Operator Services: Gear Generator Set Up Operator Offered & Declined Napkin Machine Operator: Napkin Machine Operator offered & declined Accompanied by: Self / Same As Patient Allergies begum Allergy (Verified 03/28/24 09:00) Itching pollen extracts Allergy (Verified 03/28/24 09:00) Sneezing tomato Allergy (Verified 03/28/24 09:00) Hives Medication List - Last Reconciled 03/28/24 by Sabine Palomares LPN acetaminophen (Tylenol Extra Strength) 500 mg PO Q6H PRN albuterol sulfate 1 amp inhalation QID albuterol sulfate 90 mcg/actuation (Ventolin HFA) 2 puffs PO Q4-6H PRN amlodipine 1 tab PO QAM atorvastatin 80 mg PO DAILY calcium carbonate-vitamin D3 600 mg-20 mcg (800 unit) 1 tab PO cyclobenzaprine 10 mg PO TID gabapentin 300 mg PO BID 30 days ketorolac 10 mg PO TID PRN 5 days lidocaine 5% (Lidoderm) 1 patch topical DAILY PRN MDD remove after 12 hours mometasone-formoterol 200-5 mcg/actuation (Dulera) 2 puffs inhalation BID montelukast (Singulair) 10 mg PO BEDTIME omeprazole 1 cap PO QAM polyvinyl alcohol 1.4% (Artificial Tears (polyvinyl alcohol)) 1 drp ophthalmic (eye) BID-QID PRN sertraline 25 mg PO DAILY valsartan-hydrochlorothiazide 320-25 mg 1 tab PO DAILY HPI HPI Asthma: Details: Lorie is a pleasant 68 year old female, former smoker, quit 20 years ago with 20+pyh, with underlying asthma and GERD. She has been moderately controlled on Dulera, Singulair and albuterol MDI/neb. She continues to use her albuterol MDI three times per day. Today she presents to review PFT results. She denies any visits to urgent care hospitalizations related to respiratory distress since last visit. 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, bilateral Hypovitaminosis D Age related osteoporosis COVID-19 vaccine series completed Pre-diabetes GERD (gastroesophageal reflux disease) Arthritis Asthma Hypertension Osteoarthritis of left knee Surgical History History of left knee surgery Hx of breast biopsy Hx of hysterectomy H/O colonoscopy Hx of hand surgery Hx of knee surgery H/O unilateral oophorectomy History of total right knee replacement Family History Maternal Aunt Breast CA Mother Colon cancer Arthritis Sister Arthritis Social History Household Members: Family Household Members Other:: daughter Housing: House Are you a primary plant care worker to a significant other at home: No Do you presently have visiting nurse or other home services: No Alcohol intake: current Alcohol intake frequency: holidays/special occasions only Comment: chronic back pain Patient Tobacco Use Status: Former Tobacco user Tobacco use type: Cigarette Years Smoked: 20 Second Hand Smoke Exposure: No Advance Directives Date on File: 07/17/17 service: No Current occupational status: disabled Current occupation: rt handed Female Reproductive History Menstrual Age of Menarche: 9 Review of Systems Const Denies chills, Denies excessive sweating, Denies fever(s), Denies headache(s) and Denies night sweats Eyes Denies dry eyes, Denies irritation and Denies itchy eyes ENT Reports Normal hearing present, Denies headache(s), Denies nasal congestion, Denies nasal discharge, Denies post nasal drip and Denies sore throat Card Denies chest pain, Denies chest pain at rest, Denies chest pain with activity, Denies claudication, Denies leg edema, Reports dyspnea, Denies dyspnea on exertion, Denies orthopnea and Denies paroxysmal nocturnal dyspnea Resp Denies chest congestion, Reports cough, Denies excessive phlegm production, Denies pain on inspiration, Denies pain with cough, Reports dyspnea, Denies dyspnea on exertion, Denies stridor and Denies wheezing Musc Denies myalgias Neuro Reports Normal hearing present and Denies headache(s) Endo Denies excessive sweating Srinivas/Lymph Denies lymphadenopathy Aller/Immun Denies itchy eyes, Denies seasonal rhinorrhea and Denies wheezing Physical Exam Vital Signs: Last Vital Signs Pulse 88 02/03/25 08:56 BP 130/62 03/28/24 08:56 Pulse Ox 97 03/28/24 08:56 Oxygen Delivery Method Room Air 03/28/24 08:56 BMI result Body Mass Index 32.7 Const General: cooperative, healthy appearing, comfortable, no acute distress, well developed and alert Nutritional Appearance: obese Orientation/consciousness: patient oriented x3 Limitations: no limitations HEENT Head: Yes normal to inspection, Yes normocephalic and Yes atraumatic Ears: hearing grossly normal bilaterally and external ears normal Eyes General: appearance normal, both eyes and all related structures Eyelids: Yes eyelids normal Sclerae: sclerae normal EOM: EOMs intact bilaterally Neck Neck: Yes normal visual inspection and Yes no lymphadenopathy Lymphatic: no lymphadenopathy noted Chest Chest palpation & inspection: normal inspection of the chest Resp Effort & Inspection: normal respiratory effort, able to speak in complete sentences, no audible wheezes, no cough, no stridor, not tachypneic, no tripod positioning and no use of accessory muscles Auscultation: clear to auscultation bilaterally Cardio Jugular venous distension: no JVD Rate: regular rate Rhythm: regular rhythm Skin Other: warm, dry General skin exam: no rashes or lesions noted Neuro General: patient oriented x3 Cranial nerves: Yes Normal hearing present Cognition (Neuro): normal cognition Gait exam (Neuro): Normal gait present Extrem General: Yes normal to inspection, Yes capillary refill normal, Yes no clubbing, cyanosis or edema and Yes no pedal edema Psych Appearance: grossly normal and well kempt Speech and movement: Normal speech and movement present and Clear speech present Affect: normal affect Attitude: cooperative Thought process: Normal thought process present Thought content: Normal thought content present Insight: Good insight present (Psych) Judgement: Good judgement present (Psych) Results Reviewed Results Reviewed: [address] [address] XRay Report Signed Patient: Lorie Casiano MR#: [id number] : 1955 Acct:[id number] Age/Sex: 68 / F ADM Date: 03/01/24 Loc: [facility] Attending Dr: Armida Moise NP Ordering Physician: Armida Moise NP Date of Service: 03/01/24 Procedure(s): XR chest 2V Accession Number(s): [id number] cc: Michelle,Aaron PORTILLO; Armida Moise NP~ EXAMINATION: XR CHEST CLINICAL INFORMATION: R06.00 - Dyspnea, unspecified COMPARISON: X-ray dated January 24, 2021 TECHNIQUE: 2 views of the chest were obtained. FINDINGS: No consolidation, pleural effusion or pneumothorax. Cardiomediastinal silhouette is normal in size. Multilevel thoracic spondylosis. S-shaped curvature of the thoracolumbar spine. XR/XR chest 2V IMPRESSION: No acute airspace disease. Electronically signed by: Omi Chavez MD 03/01/2024 10:32 AM EST Dictated By: Omi Julian MD Signed By: <Electronically signed by Oim Holley MD in OV> 03/01/24 1032 DD/ TD/TT: 03/01/24 0933 Rpg Programmer: Assessment & Plan Assessment & Plan (1) Asthma: Code(s): J45.909 - Unspecified asthma, uncomplicated Category: Medical (2) Environmental allergies: Code(s): Z91.09 - Other allergy status, other than to drugs and biological substances Category: Medical (3) Dyspnea: Code(s): R06.00 - Dyspnea, unspecified Category: Medical (4) Personal history of tobacco use: Code(s): Z87.891 - Personal history of nicotine dependence Category: Social Hx Plan Reviewed PFT which revealed an obstructive ventilatory defect consistent with mild COPD, could be secondary to uncontrolled asthma. The patient did have a significant response to bronchodilators noted. Lung volumes are normal except for decrease in the expiratory reserve volume secondary to an elevated BMI. Diffusing capacity is within normal limits. She continues to report suboptimal effect with current regimen and insurance is no longer covering Dulera. Will d/c and send in Trelegy. She is aware to call if unable to obtain. All questions were answered and patient is in agreement of plan. Will follow up in 6-8 weeks or sooner if needed. Medications: New pxfqzbyvuce-wignztkmt-apmqtfbk 200-62.5-25 mcg (Trelegy Ellipta) 1 inh inhalation DAILY 60 ea 3RF Discontinued mometasone-formoterol 200-5 mcg/actuation (Dulera) Discontinued Reason: Insurance Denied 2 puffs inhalation BID 1 ea 6RF Coding Level of Care Code Est Pt Level 4 (37279) Diagnoses Asthma J45.909 Environmental allergies Z91.09 Dyspnea R06.00 Personal history of tobacco use Z87.891
[2024-03-28 08:56] VITALS: BP 130/62; PULSE 88; O2SAT 97; BMI 32.7
--- OUTSIDE RECORDS SUMMARY | 2024-03-28 09:11 | XMS_ITS | Encounter Summary ---
Author Organization [employer] Address [address] [place] [address] Care Team Providers Care Installer Interior Assemblies Name Role Phone Name, Aaron PORTILLO Primary Care Provider [phone] Brennan Barrera RN Unavailable [phone] Encounter Details Date Type Department Care Team (Late st Contact Info) Description 08/05/2023 Telephone [facility] [address], [place] [id number] Kaci Ferraro, RN Social History Tobacco Use Types Packs/Day Years Used Date Smoking Tobacco: Never Smokeless Tobacco: Never Alcohol Use Standard Drinks/Week Comments Yes 0 (1 standard drink = 0.6 oz pur e alcohol) social Depression Answer Date Recorded Patient Health Questionnaire-9 Score 8 05/01/2023 Patient Health Questionnaire-9 Score 8 05/01/2023 Last PHQ-9: Questionnaire Data Not on file 0 05/01/2023 Housing Stability Answer Date Recorded What is your housing situation today? I have michelle henry 07/03/[address] you li ve. Do you have problems with any of the following? None of the above 07/03/2023 Food Insecurity Answer Date Recorded Within the past 12 months, y ou worried that your food would run out before you got money to buy more: Sometimes True 2023 Within the past 12 months,th e food you bought just didn't last and you didn't have enough money to get more: Sometimes True 07/03/2023 Transportation Answer Date Recorded In the past 12 months, has l ack of transportation kept you from medical appts, meetings, work or from getting things needed for daily living? No 07/03/2023 Utilities Answer Date Recorded In the past 12 months, has t he electric, gas, oil or water company threatened to shut off services in your home? Yes 07/03/2023 Depression Answer Date Recorded Patient Health Questionnaire-2 Score 2 05/01/2023 Comments Unknown Sex and Gender Information Value Date Recorded Sex Assigned at Female 12/23/2021 10:31 AM EDT Legal Sex Female 10:31 AM EDT Gender Identity Female 12/23/2021 10:31 AM EDT Sexual Orientation Straight 12/23/2021 10 :31 AM EDT documented as of this encounter Plan of Treatment Upcoming Encounters Date Type Department Care Team (Late st Contact Info) Description 05/18/2024 11:15 AM EDT Office Visit [facility] [address] [place] [id number] Name, MD Aaron [address] [place] [phone] documented as of this encounter Visit Diagnoses Not on filedocumented in this encounter Additional Health Concerns Assessment Noted Time PHQ-9 Depression Total Score: 8 05/01/19 24 9:58 AM EST documented as of this encounter Care Teams Installer Interior Assemblies Relationship Specialty Start Date End Date Name, MD Aaron [address] [place] [address] PCP - General Family Medicine 09/23/16 Brennan Barrera RN [address] [place] [id number] Education Site ManagerEdge Cutter 08/24/23 11/18/23 documented as of this encounter
--- OUTSIDE RECORDS SUMMARY | 2024-03-28 09:11 | XMS_ITS | Clinical Summary ---
Author Organization [employer] Address [address] [facility] [address] [place] [address] Care Team Providers Care Front Office Supervisor Name Role Phone Name, Aaron PORTILLO Primary Care Provider [phone] Allergies Active Allergy Reactions Criticality Noted Date Comments Mariana Hives 08/05/2023 Medications albuterol (2.5 MG/3ML) 0.083% nebulizer solution inhale 3 milliliter by nebulization route 4 times every day 270 mL 2 08/07/19 23 Active Calcium 600/Vitamin D3 600-20 MG-MCG tabletIndications: Osteopenia, unspecified location TAKE 1 TABLET BY MOUTH TWICE DAILY IN THE MORNING AND IN THE EVENING 60 tablet 11 04/30/19 24 Active atorvastatin (Lipitor) 80 MG tablet TAKE 1 TABLET BY MOUTH DAILY IN THE MORNING 90 tablet 11 04/30/19 24 Active zoledronic acid (Reclast) 5 MG/100ML solution Infuse 5 mg into a venous catheter yearly. Active Ventolin HFA 108 (90 Base) MCG/ACT inhaler INHALE 2 PUFFS BY MOUTH EVERY 4 TO 6 HOURS NEEDED 18 g 4 09/07/19 24 Active amLODIPine (Norvasc) 10 MG tablet TAKE 1 TABLET BY MOUTH DAILY IN THE MORNING 90 tablet 3 09/16/19 24 Active omeprazole (PriLOSEC) [address] capsule TAKE 1 CAPSULE BY MOUTH EVERY DAY 30 capsule 3 10/01/19 24 Active naproxen (Naprosyn) 500 MG tabletIndications: Primary osteoarthritis involving multiple joints,Essential hypertension,NSAID long-term use Take 1 tablet (500 mg) by mouth 2 times daily. 40 tablet 11/11/19 24 Active valsartan-hydroCHL OROthiazide (Diovan-HCT) 320-25 MG tablet TAKE 1 TABLET BY MOUTH EVERY DAY 30 tablet 5 02/04/20 24 Active mometasone-formote rol (Dulera) 200-5 MCG/ACT inhaler Inhale 2 puffs in the morning and at bedtime. Rinse mouth with water after use to reduce aftertaste and incidence of candidiasis. Do not swallow. 02/11/20 24 025 Active fluticasone (Flonase) 50 MCG/ACT nasal spray Administer 2 sprays into each nostril Once per day. Shake gently. Before first use, prime pump. After use, clean tip and replace cap. 16 g 2 02/11/20 24 025 Active azelastine (Astelin) 0.1 % nasal spray Administer 1 spray into each nostril 2 times daily. Use in each nostril as directed 30 mL 12 02/11/20 24 025 Active metFORMIN (Glucophage) 850 MG tabletIndications: Pre-diabetes Take 1 tablet (850 mg) by mouth with breakfast for 30 days, THEN 1 tablet (850 mg) with breakfast and with evening meal. 150 tablet 02/18/20 24 025 Active Active Problems Problem Noted Date Diagnosed Date ANDRAE (obstructive sleep apnea) 07/14/2023 Renal cyst 05/14/2022 History of total knee arthroplasty 08/19/2017 Overview (09/18/2023): L 2017 R 2021 H/O: hysterectomy 04/27/2017 Recurrent major depressive episodes, mild 2016 Primary osteoarthritis of both knees 10/24/2016 Moderate persistent asthma without complication 10/17/2016 Overview (2023): Taking advair 500-50 BID and using frequent albuterol. Following w/ pulm and has PFT upcoming. Cont: Montelukast 10mg daily Advair PRN albuterol Plan per pulm. Solitary pulmonary nodule 10/17/2016 Overview (05/01/2023): CT chest from April 2017: IMPRESSION: 2 mm left upper lobe pulmonary nodule. Chest x-ray finding is likely related to bony osteophyte of the thoracic spine. According to 2017 Fleischner criteria for pulmonary nodules less than 6 mm - High-risk patient: Optional chest CT followup in one year. Low-risk patient: No CT followup indicated. Osteoporosis 10/02/2016 Essential hypertension 10/02/2016 Overview (2023): BP improved on repeat. Cont valsartan-hydrochlorothiazide 320-25mg Amlodipine 10mg daily At/near goal today, </= 130/80. Continue to encourage low salt diet, regular exercise, home BP monitoring, compliance with medications. Call clinic if BP is frequently >150/90 Go to ED/call 911 if > 170/100 and having sx such as CLEMONS, visual changes, chest pain, SOB Last renal function: Lab Results Component Value Date GLUCOSE 102 08/04/2023 NA 142 08/04/2023 K 3.5 08/04/2023 CO2 30 (H) 08/04/2023 CL 103 08/04/2023 BUN 15 09/07/2023 CREATININE 0.86 09/07/2023 EGFR >60 09/07/2023 Allergic rhinitis 10/02/2016 Knee pain 10/02/2016 Resolved Problems Problem Noted Date Diagnosed Date Resolved Date Osteoarthritis of knee 10/02/201604/30 Moderate persistent asthma 10/02/2016 0 05/01/2023 Encounters Date Type Department Care Team Description 03/03/2024 Telephone [facility] [address] [place] [phone] Cedric Sloan MA feb recalls 02/18/2024 Telephone [facility] [address] [place] [address] Jaimee George, KAREEM 02/12/[address] [address] Aaron Martinez MD Medication Question 02/11/2024 11:30 AM EST Office Visit [address] [address] Aaron Martinez MD Essential hypertension (Primary Dx); Non-seasonal allergic rhinitis due to pollen 02/04/2024 Refill [facility] [address] [place] [phone] Janel Antoine MD 02/02/2024 Orders Only GENERIC EXTERNAL DATA DEPARTMENT Provider, Generic External Data 01/26/2024 Orders Only GENERIC EXTERNAL DATA DEPARTMENT Provider, Generic External Data from Last 3 Months Immunizations Name Administration Dates Next Due Influenza High-dose Quadriva lent Preservative Free 11/15/2021,11/04/2020 Influenza Quadrivalent Adjuvanted 01/19/2023 Influenza injectable quadriv alent IIV4 with preservative 12/28/2017,12/16/2016 Influenza injectable quadriv alent preservative free 12/03/2019 Influenza, High Dose Seasona l, Preservative Free 11/11/2023,03/07/2019 Moderna Covid-19 Vaccine 12+ 01/25/2021,06/22/19 21,05/24/2020 Moderna Covid-19 Vaccine 6+ Bivalent 02/06/2022 Pneumococcal Conjugate PCV 13 03/07/2019 Pneumococcal Conjugate PCV 20 01/28/2023 Pneumococcal Polysaccharide PPSV23 10/24/2016 RSV Bivalent 02/11/2023 Tdap 10/02/2016 Zoster, Recombinant 02/10/2021,11/17/2020 Social History Tobacco Use Types Packs/Day Years Used Date Smoking Tobacco: Never Smokeless Tobacco: Never Tobacco Cessation:Counseling Given: Not Answered Alcohol Use Standard Drinks/Week Comments Yes 0 [...] Orientation Straight 12/23/2021 10 :31 AM EDT Last Filed Vital Signs Vital Sign Reading Time Taken Comments Blood Pressure 137/86 02/11/2024 12:02 PM EST Pulse 88 02/11/2024 11:30 AM EST Temperature 35.9 ??C (96.7 ??F) 02/11/2024 11:[address] Respiratory Rate 18 02/11/2024 11:30 AM EST Oxygen Saturation 98% 02/11/2024 11:30 AM EST Inhaled Oxygen Concentration - - Weight 77.2 kg (170 lb 3.2 oz) 02/11/2024 11:30 AM EST Height 154.9 cm (5' 1 ) 02/11/2024 11:30 AM EST Body Mass Index 32.16 02/11/2024 11:30 AM EST Plan of Treatment Upcoming Encounters Date Type Department Care Team (Late st Contact Info) Description 05/18/2024 11:15 AM EDT Office Visit [facility] [address] [place] [address] Name, MD Aaron [address] [place] [address] Health Maintenance Due Date Last Done Comments CT Colonography 1955 FIT DNA/Cologuard 1955 FIT 1955 FOBT 1955 Sigmoidoscopy 1955 COVID-19 Vaccine ( season) 2023 02/20/2023, 02/06/2022, 01/25/2021, Additional history exists Depression Screening 04/30/2024 05/01/2023, 05/01/19 SDOH Screening 07/02/2024 07/03/2023 Alcohol/Substance Use Screening 02/10/2025 02/11/2024 Tobacco Screening 02/10/2025 02/11/2024 Diabetes: Hemoglobin A1C 02/15/2025 02/16/2024, 03/26 Mammogram 10/20/2025 10/21/2023, 09/24, 09/05/2021, Additional history exists DTaP/Tdap/Td Vaccines (2 - Td or Tdap) 10/02/2026 10/02/2016 Lipid Panel 03/23/2028 03/23/2023, 05/22/2022 Colonoscopy 08/06/2033 08/07/2023 Colorectal Cancer Screening 08/06/2033 Hepatitis C Screening Completed 01/27/2020 Zoster Vaccines Completed 02/10/2021, 11/17/2020 Pneumococcal Vaccine: 50+ Years Completed 01/28/2023, 03/07/2019, 10/24/2016 RSV Patients and Patients Aged 60 years or older Completed 02/11/2023 Influenza Vaccine Completed 11/11/2023, , 11/15/2021, Additional history exists HIB Vaccines Aged Out No longer eligi ble based on patient's age to complete this topic HPV Vaccines Aged Out No longer eligi ble based on patient's age to complete this topic Hepatitis A Vaccines Aged Out No long er eligible based on patient's age to complete this topic Hepatitis B Vaccines Aged Out No long er eligible based on patient's age to complete this topic IPV Vaccines Aged Out No longer eligi ble based on patient's age to complete this topic Meningococcal Vaccine Aged Out No yaron rosario eligible based on patient's age to complete this topic RSV under 20 months Aged Out No longe r eligible based on patient's age to complete this topic Rotavirus Vaccines Aged Out No longer eligible based on patient's age to complete this topic Procedures Procedure Name Priority Date/Time Associated Diagnosis Comments XR CHEST 2 VIEWS Routine 03/01/2024 9:17 AM EST HEMOGLOBIN A1C Routine 02/16/2024 9:20 AM EST Healthcare maintenance IMMUNOGLOBULIN E Routine 02/02/2024 9:05 AM EST BASIC METABOLIC PANEL Routine 02/02/2024 9:05 AM EST NSAID long-term use CBC WITH AUTO DIFFERENTIAL Routine 02/02/2024 9:05 AM EST NSAID long-term use CA 19-9 Routine 01/26/2024 7:59 AM EST CA 125 Routine 01/26/2024 7:59 AM EST CEA Routine 01/26/2024 7:59 AM EST BI MAMMOGRAM SCREENING TOMOSYNTHESIS BILATERAL Routine 10/21/2023 9:00 AM EDT HM COLONOSCOPY Routine 08/07/2023 LIPID PANEL, STANDARD Routine 03/23/2023 8:36 AM EST Essential hypertension Whole body pain High cholesterol ZZZ HISTORICAL HEPATITIS C ANTIBODY RFLX Routine 01/27/2020 8:30 AM EST from Last 3 Months or Most Recently Relevant to Health Maintenance Results * XR Chest 2 Views (03/01/2024 9:17 AM EST) Anatomical Region Laterality Modality Chest Radiographic Emmy ging 03/01/2024 9:17 AM EST Narrative 03/01/2024 10:35 AM EST ? [facility] ?[address] ?[place] [address] ?XRay Report ? Signed ? Patient: Casiano,Salineno ?MR#: [id number] ?? [id number] ? : 1955 ?Acct:[id number] ? Age/Sex: 68 / F ?ADM Date: 01/07/25 ? Loc: HO.XRAY ? Attending Dr: Armida Moise COATING MACHINE FEEDER ? Ordering Physician: Armida Moise NP ?? Date of Service: 03/01/24 ?? Procedure(s): XR chest 2V ?? Accession Number(s): [id number] ? cc: Name,Aaron PORTILLO; Armida Moise NP ? EXAMINATION: ?? XR CHEST ? CLINICAL INFORMATION: ?? R06.00 - Dyspnea, unspecified ? COMPARISON: ?? X-ray dated January 24, 2021 ? TECHNIQUE: ?? 2 views of the chest were obtained. ? FINDINGS: ?? No consolidation, pleural effusion or pneumothorax. Cardiomediastinal ?? silhouette is normal in size. ?? Multilevel thoracic spondylosis. S-shaped curvature of the ?? thoracolumbar spine. ? XR/XR chest 2V ?? IMPRESSION: ?? No acute airspace disease. ? Electronically signed by: ??Omi Chavez MD ??03/01/2024 10:32 AM ?? EST RP ? Dictated By: ?Omi Julian MD ? Signed By: ?<Electronically signed by Omi Holley MD in OV> ? 03/01/24 1032 ? DD/ 0917 ? TD/TT: 03/01/24 0933 ? Engineer Exhauster: ? Procedure Note [place], Image - 03/01/2024 [place] [address] XRay Report Signed Patient: Lorie CaisanoMR#: [id number] : 4Acct:[id number] Age/Sex: 68 / FADM Date: 03/01/24 Loc: NAK[facility] Attending Dr: Armida Moise NP Ordering Physician: Armida Moise NP Date of Service: 03/01/24 Procedure(s): XR chest 2V Accession Number(s): [id number] cc: Aaron Martinez MD; Armida Moise NP EXAMINATION: XR CHEST CLINICAL INFORMATION: R06.00 - Dyspnea, unspecified COMPARISON: X-ray dated January 24, 2021 TECHNIQUE: 2 views of the chest were obtained. FINDINGS: No consolidation, pleural effusion or pneumothorax. Cardiomediastinal silhouette is normal in size. Multilevel thoracic spondylosis. S-shaped curvature of the thoracolumbar spine. XR/XR chest 2V IMPRESSION: No acute airspace disease. Electronically signed by: Omi Chavez MD 03/01/2024 10:32 AM EST RP Dictated By: Omi Julian MD Signed By: <Electronically signed by Omi Holley MDin OV> 03/01/24 1032 DD/ TD/TT: 03/01/24932 Engineer Exhauster: [facility] External Provider IMG XR PROCEDURES Edited Result - Final * Hemoglobin A1c (02/16/2024 9:20 AM EST) Hemoglobin A1c 5.7 <6.0 % [facility] Comment:Hemoglobin A1C Refer ence Range Adults: 4.8 - 6.0 % Non diabetic: < 6.0 % Goal: < 7.0 %Additional Action Suggested: > 8.0 %Note: Hemoglobin A1c results are invalid for patients with abnormal amounts of HbF. Blood transfusions may impact the HbA1c concentration in the patient sample. Estimated Average Glucose 117 mg/dL [facility] Comment:eAG = Estimated ave rage glucose which is %A1C expressed asaverage glucose, using the formula of the P6L-HnwigjyAyeaget Glucose study (ADAG), Diabetes Care, Vol.31,#8,Sep. 2007 Blood Venous blood specimen / Unknown 02/16/2024 9:20 AM EST 02/16/2024 11:02 AM EST Aaron Martinez MD LAB BLOOD ORDERABLES Final Resul t [facility] [address] [place] [address] [phone] * (ABNORMAL) CBC auto differential (02/02/2024 9:05 AM EST) White Blood Count 5.0 4.8 - 10.8 X10*3/uL [facility] Red Blood Count 4.00(L) 4.20 - 5.50 X10*6/uL [facility] Hemoglobin 11.9(L) 12.0 - 16.0 g/dl [facility] Hematocrit 35.5(L) 37.0 - 47.0 % [facility] Mean Corpuscular Volume 88.8 80.0 - 98.0 fL [facility] Mean Corpuscular Hemoglobin 29.8 27.0 - 33.0 pg [facility] Mean Corpuscular HGB Conc 33.5 31.0 - 35.0 g/dl [facility] Red Cell Distribution Width 13.5 11.0 - 16.0 % [facility] Platelet Count 265 160 - 400 X10*3/uL [facility] Mean Platelet Volume 11.1 9.4 - 12.3 fL [facility] Neutrophils Percent Auto 65.1 45 - 73 % [facility] Imm Gran Pct Auto 0.4 0.0 - 0.4 % [facility] Lymphocytes Percent Auto 23.5 20 - 40 % [facility] Monocytes Percent Auto 6.4 2 - 11 % [facility] Eosinophils Percent Auto 3.4 0 - 4 % [facility] Basophils Percent Auto 1.2 0 - 2 % [facility] NRBC Pct Auto 0.0 0.0 - 0.2 /100WBC [facility] Neutrophils Absolute Auto 3.3 2.0 - 8.3 x10*3/uL [facility] Imm Gran Abs Auto 0.02 0.00 - 0.03 X10*3/uL [facility] Lymphocytes Absolute Auto 1.2 1.2 - 4.9 X10*3/uL [facility] Monocytes Absolute Auto 0.3 0.1 - 1.2 X10*3/uL [facility] Eosinophils Absolute Auto 0.2 0.0 - 0.4 X10*3/uL [facility] Basophils Absolute Auto 0.1 0.0 - 0.2 X10*3/uL [facility] NRBC Abs Auto 0.000 0.0 - 0.012 X10*3/uL [facility] Blood Venous blood specimen / Unknown 02/02/2024 9:05 AM EST 02/02/2024 11:46 AM EST Aaron Martinez MD LAB BLOOD ORDERABLES Final Resul t Performing Organization Address [facility] [address] [facility] Co de Phone Number [facility] [address] [place] [phone] * Immunoglobulin E (02/02/2024 9:05 AM EST) Pathologist [facility] Immunoglobulin E 85 <NM=348 kU/L [facility] Comment:THIS TEST WAS PERFOR MED AT:[facility] [place] [id number] JENSEN MD 02/02/2024 9:05 AM EST 02/02/2024 11:46 AM EST us Generic External Data Provider LAB BLOOD ORDERAB LES Final Result Performing Organization Address [facility] [address]/[facility] de Phone Number [facility] [address] [place] [phone] * (ABNORMAL) Basic Metabolic Panel (02/02/2024 9:05 AM EST) [facility] Sodium 142 135 - 145 mmol/L [facility] Potassium 3.2(L) 3.3 - 5.1 mmol/L [facility] Chloride 103 96 - 108 mmol/L [facility] Carbon Dioxide 29 22 - 29 mmol/L [facility] Anion Gap 13 12 - 20 [facility] Urea Nitrogen (BUN) 14 9 - 16 mg/dL [facility] Creatinine, Serum 0.84 0.5 - 1.4 mg/dL [facility] Estimated Glomerular Filt Rate >60 [facility] Comment:Chronic Kidney Disea se: Estimated GFR < 60 mL/min/1.95l6Xqlcxr Kidney Disease: Estimated GFR < 15 mL/min/1.73m2 Glucose 108 60 - 115 mg/dL [facility] Calcium 10.2 8.4 - 10.2 mg/dL [facility] Blood Venous blood specimen / Unknown 02/02/2024 9:05 AM EST 02/02/2024 11:46 AM EST Aaron Martinez MD LAB BLOOD ORDERABLES Final Resul t Performing Organization Address [facility] [address] [facility] Co de Phone Number [facility] [address] [place] [phone] * CA 19-9 (01/26/2024 7:59 AM EST) CA 19-9 8 <34 U/mL [facility] Comment:This test was perfor med using the Siemenschemiluminescent method. Values obtained fromdifferent assay methods cannot be usedinterchangeably. CA 19-9 levels, regardless ofvalue, should not be interpreted as absoluteevidence of the presence or absence of disease.THIS TEST WAS PERFORMED AT:[facility] [place] [id number] JENSEN MD 01/26/2024 7:59 AM EST 01/26/2024 8:05 AM EST Generic External Data Provider LAB BLOOD ORDERAB LES Final Result Performing Organization Address [facility] [address]/[facility] Co de Phone Number [facility] [address] [place] [phone] * CA 125 (01/26/2024 7:59 AM EST) CA 125 14 <35 U/mL [facility] Comment:This test was perfor med using the SiemensChemiluminescent method. Values obtained fromdifferent assay methods cannot be usedinterchangeably. CA 125 levels, regardless ofvalue, should not be interpreted as absoluteevidence of the presence or absence of disease.THIS TEST WAS PERFORMED AT:[facility] [place] [id number] JENSEN MD 01/26/2024 7:59 AM EST 01/26/2024 8:05 AM EST Generic External Data Provider LAB BLOOD ORDERAB LES Final Result Performing Organization Address [facility] de Phone Number [facility] [address] [place] [phone] * CEA (01/26/2024 7:59 AM EST) Carcinoembryonic Antigen <1.73 ng/mL [facility] Comment:CEA Reference Range: 93.4% Non-Smokers = 0.0-3.0 ng/mL 95.6% Smokers = 0.0-5.0 ng/mLCEA Methodology: Wise Alinity i ChemiluminescentMicroparticle Immunoassay (CMIA)CEA testing can have significant value in monitoring ofpatients with diagnosed malignancies in whom changingconcentrations of CEA are observed. Values obtained withdifferent assay methods cannot be used interchangeably. 01/26/2024 7:59 AM EST 01/26/2024 8:05 AM EST Generic External Data Provider LAB BLOOD ORDERAB LES Final Result Performing Organization Address [facility] de Phone Number [facility] [address] [place] [phone] * BI Mammogram Screening Tomosynthesis Bilateral (10/21/2023 9:00 AM EDT) Anatomical Region Laterality Modality Breast Bilateral Mammography 10/21/2023 9:00 AM EDT Narrative 11/24/2023 10:41 AM EDT ? [facility] ? [address] ?[place] [address] ? Mammography Report ? Signed ? Patient: Casiano,Lorie ?MR#: [id number] ?? [id number] ? : 1955 ?Acct:[id number] ? Age/Sex: 67 / F ?ADM Date: 08/28/24 ? Loc: HO.MAMMO ? Attending Dr: Aaron Martinez MD ? Ordering Physician: Aaron Martinez MD ?Results: 2Benign Fi ?? ndings ? Date of Service: 10/21/23 ?Follow Up: 1 Year From Orig ?? inal Mammogram ? Procedure(s): MM tomosynthesis screening BI ?? Accession Number(s): [id number] ? cc: Michelle,Aaron PORTILLO ? EXAMINATION: ?? MM SCREENING DIGITAL BREAST TOMOSYNTHESIS, BILATERAL ? CLINICAL INFORMATION: ? Screening. Asymptomatic. ? COMPARISON: ?? Mammography: Comparison is made with available priors ? TECHNIQUE: ?? Digital breast mammography with tomosynthesis is performed in both the ?? craniocaudal and mediolateral oblique views along with computer-aided ?? detection (CAD). ? FINDINGS: ?? There are scattered areas of fibroglandular density (ACR BI-RADS breast ?? composition Category b). ?? Bilateral excisional biopsies. ?? There are no significant masses, abnormal calcifications, or other ?? abnormalities. ? MM/MM tomosynthesis screening BI ?? IMPRESSION: ?? No mammographic evidence of malignancy. ? ASSESSMENT: ? BI-RADS BI-RADS 2 - Benign Findings ? RECOMMENDATION: ?? Routine annual mammography screening. ? 1 year F/U ? This examination should not preclude the clinical evaluation of a ?? suspicious palpable abnormality. ? This patient's information was entered into a reminder system with a ?? target due date for their next mammogram. ? Electronically signed by: ??Rakel Wilkes DO ??11/24/2023 10:38 AM EDT ?? RP ? Dictated By: ?Rakel Wilkes DO ? Signed By: ?<Electronically signed by Rakel Wilkes, DO in OV> ? 11/24/23 1038 ? DD/ 0900 ? TD/TT: 10/21/23 0920 ? Engineer Exhauster: ? Procedure Note Donotuseinterpreter, Image - 11/24/2023 [facility] [address] [place] [address] Mammography Report Signed Patient: Lorie CasianoMR#: [id number] : 1955cct:[id number] Age/Sex: 67 / FADM Date: 10/21/23 Loc: HO.MAMMO Attending Dr: Aaron Martinez MD Ordering Physician: Aaron Martinez MDResults: 2Benign Fi ndings Date of Service: 10/21/23Follow Up: 1 Year From Orig inal Mammogram Procedure(s): MM tomosynthesis screening BI Accession Number(s): [id number] cc: Aaron Martinez MD EXAMINATION: MM SCREENING DIGITAL BREAST TOMOSYNTHESIS, BILATERAL CLINICAL INFORMATION: Screening. Asymptomatic. COMPARISON: Mammography: Comparison is made with available priors TECHNIQUE: Digital breast mammography with tomosynthesis is performed in both the craniocaudal and mediolateral oblique views along with computer-aided detection (CAD). FINDINGS: There are scattered areas of fibroglandular density (ACR BI-RADS breast composition Category b). Bilateral excisional biopsies. There are no significant masses, abnormal calcifications, or other abnormalities. MM/MM tomosynthesis screening BI IMPRESSION: No mammographic evidence of malignancy. ASSESSMENT: BI-RADS BI-RADS 2 - Benign Findings RECOMMENDATION: Routine annual mammography screening. 1 year F/U This examination should not preclude the clinical evaluation of a suspicious palpable abnormality. This patient's information was entered into a reminder system with a target due date for their next mammogram. Electronically signed by: Rakel Wilkes DO 11/24/2023 10:38 AM EDT Dictated By: Rakel Wilkes DO Signed By: <Electronically signed by Rakel Wilkes DO in OV> 11/24/23 1038 DD/ 0900 TD/TT: 10/21/23 0920 Engineer Exhauster: us Aaron Martinez MD IMG BI PROCEDURES Edited Result - Final * Hm Colonoscopy (08/07/2023) Colonoscopy Normal Normal us Aaron Martinez MD HEALTH MAINTENANCE Final Result * (ABNORMAL) Lipid Panel, Standard (03/23/2023 8:36 AM EST) Triglycerides 132 <150 mg/dL [facility] Comment:Desirable Triglyceri de: less than 150 mg/dLBorderline High Triglyceride 150-199 mg/dLHigh Triglyceride: 200-499 mg/dLVery High Triglyceride: greater than or equal to 5OO mg/dL Cholesterol 203(H) <200 mg/dL [facility] Comment:Desirable Cholestero l: less than 200 mg/dLBorderline High Cholesterol: 200-239 mg/dLHigh Cholesterol: greater than 239 mg/dL LDL Cholesterol Calculated 122(H) <100 mg/dL [facility] Comment:Desirable LDL: less than 100 mg/dLNear Optimal/Above Optimal LDL: 110- 129 mg/dLBorderline High LDL: 130-159 mg/dLHigh LDL: 160-189 mg/dLVery High LDL: greater than or equal to 190 mg/dL HDL Cholesterol 55 >40 mg/dL [facility] Comment:Desirable HDL: great er than 40 mg/dL Note: This HDL assay may give artificially low results in patients with liver disease. Blood Venous blood specimen / Unknown 03/23/2023 8:36 AM EST 03/23/2023 10:37 AM EST us Aaron Martinez MD LAB BLOOD ORDERABLES Final Resul t [facility] [address] [place] [phone] * HEPATITIS C ANTIBODY RFLX (01/27/2020 8:30 AM EST) Hepatitis C Antibody Nonreactive Nonreactive [facility] Comment: Antibodies to HCV not detected; does not exclude early acute HCV infection. 01/27/2020 8:30 AM EST us Aaron Martinez MD HISTORICAL/NON ORDERABLE LABS Fi nal Result [facility] [address] from Last 3 Months or Most Recently Relevant to Health Maintenance Insurance [place] [id number] [facility] Care Teams Front Office Supervisor Relationship Specialty Start Date End Date Name, MD Aaron [address] [place] [address] PCP - General Family Medicine 09/23/16
--- OUTSIDE RECORDS SUMMARY | 2024-03-28 09:11 | XMS_ITS | Encounter Summary ---
Author Organization [facility] Address [address] [facility] 7t [place] [address] Care Team Providers Care Flakeboard Line Tender Name Role Phone Name, Aaron PORTILLO Primary Care Provider [phone] Brennan Barrera RN Unavailable [phone] Encounter Details Date Type Department Care Team (Late st Contact Info) Description 03/18/2022 Orders Only [facility] MED & PEDS [address] [place] [address] Libby Butcher LPN Social History Tobacco Use Types Packs/Day Years Used Date Smoking Tobacco: Never Assessed Comments Unknown Sex and Gender Information Value [...] Description 05/18/2024 11:15 AM EDT Office Visit [facility] MEDICINE [address] [place] [address] Aaron Martinez MD [address] [place] [address] documented as of this encounter Visit Diagnoses Not on filedocumented in this encounter Care Teams Flakeboard Line Tender Relationship Specialty Start Date End Date Aaron Martinez MD [address] [place] [address] PCP - General Family Medicine 09/23/16 Brennan Barrera RN [address] [place] [address] Manufacturing TechnicianCaddy Packer 08/24/23 11/18/23 documented as of this encounter
--- OUTSIDE RECORDS SUMMARY | 2024-03-28 09:11 | XMS_ITS | Encounter Summary ---
Author Organization [employer] Address [address] [facility] 7t [place] [address] Care Team Providers Care Electronic Tester Name Role Phone Name, Aaron PORTILLO Primary Care Provider [phone] Brennan Barrera RN Unavailable [phone] Encounter Details Date Type Department Care Team ([facility] st Contact Info) Description 07/31/2023 Telephone [facility] MEDICINE [address] [place], [place] [phone] Name, MD Aaron [address] [place] [address] Social History Tobacco Use Types Packs/Day Years [...] Description 05/18/2024 11:15 AM EDT Office Visit [facility] [address] [place] [address] Name, MD Aaron [address] [place] [address] documented as of this encounter Visit Diagnoses Not on filedocumented in this encounter Additional Health Concerns Assessment Noted Time PHQ-9 Depression Total Score: 8 05/01/19 24 9:58 AM EST documented as of this encounter Care Teams Electronic Tester Relationship Specialty Start Date End Date Name, MD Aaron [address] [place] [address] PCP - General Family Medicine 09/23/16 Brennan Barrera RN [address] [place] [address] Brick PointerTechnical Support Assistant 08/24/23 11/18/23 documented as of this encounter
--- OUTSIDE RECORDS SUMMARY | 2024-03-28 09:11 | XMS_ITS | Encounter Summary ---
Author Organization [facility] Address [address] [facility] 7t [place] [address] Care Team Providers Care Crop Or Livestock Tenant Farmer Name Role Phone Name, Aaron PORTILLO Primary Care Provider [phone] Brennan Barrera RN Unavailable [phone] Encounter Details Date Type Department Care Team (Late st Contact Info) Description 04/08/2022 Orders Only [facility] CHC MED & PEDS [address] [place] [address] Libby Butcher LPN Social History Tobacco Use [...] Description 05/18/2024 11:15 AM EDT Office Visit [facility] MEDICINE [address] [place] [address] Aaron Martinez MD [address] [place] [address] documented as of this encounter Visit Diagnoses Not on filedocumented in this encounter Care Teams Crop Or Livestock Tenant Farmer Relationship Specialty Start Date End Date Aaron Martinez MD [address] [place] [address] PCP - General Family Medicine 09/23/16 Brennan Barrera RN [address] [place] [address] Parts DriverMetallurgical Tester 08/24/23 11/18/23 documented as of this encounter
--- OUTSIDE RECORDS SUMMARY | 2024-03-28 09:11 | XMS_ITS | Encounter Summary ---
Author Organization [employer] Address 75 [facility] 7t [place] [address] Care Team Providers Care Nurse Informaticist Name Role Phone Name, Aaron PORTILLO Primary Care Provider [phone] Reason for Visit * Reason Onset Date Comments mar recalls 03/03/2024 Encounter Details Date Type Department Care Team (Late st Contact Info) Description 03/03/2024 Telephone [facility] MEDICINE [address] [place], [place] [phone] Cedric Sloan MA mar recalls Social History Tobacco Use Types Packs/Day Years [...] AM EDT documented as of this encounter Miscellaneous Notes * Telephone Encounter - Cedric Sloan MA - 03/03/2024 3:54 PM EST T/C placed to pt. Scheduled recall. Pt agrees with plan. Reminder letter sent . documented in this encounter Plan of Treatment Upcoming Encounters Date Type Department Care Team (Late st Contact Info) Description 05/18/2024 11:15 AM EDT Office Visit [facility] MEDICINE [address] [place] [address] Name, MD Aaron [address] [place] [address] documented as of this encounter Visit Diagnoses Not on filedocumented in this encounter Additional Health Concerns Assessment Noted Time PHQ-9 Depression Total Score: 8 05/01/19 24 9:58 AM EST documented as of this encounter Care Teams Nurse Informaticist Relationship Specialty Start Date End Date Name, MD Aaron [address] [place] [address] PCP - General Family Medicine 09/23/16 documented as of this encounter
--- OUTSIDE RECORDS SUMMARY | 2024-03-28 09:11 | XMS_ITS | Encounter Summary ---
Author Organization [facility] Address 75 [facility] 7t [place] [address] Care Team Providers Care Skein Bleacher Name Role Phone Name, Aaron PORTILLO Primary Care Provider [phone] Brennan Barrera RN Unavailable [phone] Reason for Visit * Reason Onset Date Comments Nurse Triage 08/03/2023 Encounter Details Date Type Department Care Team ([facility] st Contact Info) Description 08/03/2023 Telephone [facility] MEDICINE [address] [place], [place] [phone] Name, MD Aaron [address] [place] [address] Nurse Triage Social History Tobacco Use Types Packs/Day Years [...] encounter Miscellaneous Notes * Telephone Encounter - Jacinta Valadez RN - 08/03/2023 3:49 PM EDT Triage call with Charge Payment Farm Agent ID [id number] Pt is calling regarding left lower quadrant pain. [facility]was [facility] today in apt with Dr. Muñoz regarding pelvic pain. Pt is concerned because when finished with apt told Pt to go to ED if pain increases. Pt does have an appointment for sonogram on the . Pt last BM was yesterday, neg for constipation. Pt is advised to come to [facility] hours [id number] and 830am-400pm -fri. if needed. Home care is reviewed. Pt is advised should LLQ pain become worse go to ED for evaluation and Pt agrees. Protocol Used: Abdominal Pain - Female (Adult) Protocol-Based Disposition: Home Care Positive Triage Question: * Mild abdominal pain * All higher-acuity triage questions were negative Care Advice Discussed: * Reassurance and Education - Stomach Pain * Rest * Drink Clear Fluids * Diet * Pass a Stool * Reasons To Call Back - Severe pain lasts over 1 hour - Constant pain lasts over 2 hours - Intermittent pains (e.g., comes and goes, cramps) lasts over 48 hours - You are - You become worse * Telephone Encounter - Maria Teresa Freeman - 08/03/2023 1:41 PM EDT Symptom: Abdominal Pain - Female and leg swelling Outcome: Schedule an appointment to be seen within 24 hours Reason: Caller denied all higher acuity questions The caller accepted this outcome French speaking documented in this encounter Plan of Treatment Upcoming Encounters Date Type Department Care Team (Late st Contact Info) Description 05/18/2024 11:15 AM EDT Office Visit [facility] MEDICINE [address] [place] [address] Name, MD Aaron [address] [place] [address] documented as of this encounter Visit Diagnoses Not on filedocumented in this encounter Additional Health Concerns Assessment Noted Time PHQ-9 Depression Total Score: 8 05/01/19 24 9:58 AM EST documented as of this encounter Care Teams Skein Bleacher Relationship Specialty Start Date End Date Name, MD Aaron [address] [place] [address] PCP - General Family Medicine 09/23/16 Brennan Barrera, RN [address] [place] [address] Traffic Operations ManagerBed Operator 08/24/23 11/18/23 documented as of this encounter
--- OUTSIDE RECORDS SUMMARY | 2024-03-28 09:11 | XMS_ITS | Encounter Summary ---
Author Organization [employer] Address 75 [facility] 7t [place] [address] Care Team Providers Care Plastic Tile Setter Name Role Phone Name, Aaron PORTILLO Primary Care Provider [phone] Brennan Barrera RN Unavailable [phone] Reason for Visit * Reason Onset Date Comments Pre-op Exam 08/24/2023 Encounter Details Date Type Department Care Team (Late st Contact Info) Description 08/24/2023 Telephone [facility] MEDICINE [address] [place], [place] [phone] Name, MD Aaron [address] [place] [address] Pre-op Exam Social History Tobacco Use Types Packs/Day Years [...] encounter Miscellaneous Notes * Telephone Encounter - Amandeep Curtis - 08/24/2023 1:07 PM EDT TC placed to Jaqui with [facility] and patient who both agreed for pre-op on 10/26 with DORIAN Perry . Date of Surgery: 11/02/23 left eye ( right eye 11/23/23 Surgical procedure being done: cataract Type of anesthesia: MAC Lab needed: No EKG: Yes Surgeon's name: Dr. beckett Facility name: [address] [address] Surgeon's office number: [phone] Surgeon's office fax number: [phone] Contact name (person you spoke with): JAQUI with [facility] * Telephone Encounter - Paola Jenkins - 08/24/2023 11:15 AM EDT Date of Surgery: 11/02/23 left eye ( right eye 11/23/23 Surgical procedure being done: cataract Type of anesthesia: MAC Lab needed: No EKG: Yes Surgeon's name: Dr. beckett Facility name: [address] [address] Surgeon's office number: [phone] Surgeon's office fax number: [phone] Contact name (person you spoke with): JAQUI with [facility] [place] documented in this encounter Plan of Treatment Upcoming Encounters Date Type Department Care Team ([facility] st Contact Info) Description 05/18/2024 11:15 AM EDT Office Visit [facility] MEDICINE [address] [place] [address] Name, MD Aaron [address] [place] [address] documented as of this encounter Visit Diagnoses Not on filedocumented in this encounter Additional Health Concerns Assessment Noted Time PHQ-9 Depression Total Score: 8 05/01/19 24 9:58 AM EST documented as of this encounter Care Teams Plastic Tile Setter Relationship Specialty Start Date End Date Name, MD Aaron [address] [place] [address] PCP - General Family Medicine 09/23/16 Brennan Barrera, KAREEM [address] [place] [address] Celery StripperClassification Officer 08/24/23 11/18/23 documented as of this encounter
--- OUTSIDE RECORDS SUMMARY | 2024-03-28 09:11 | XMS_ITS | Encounter Summary ---
Author Organization [facility] Address [address] [facility] 7t [place] [address] Care Team Providers Care Quality Assistant Name Role Phone Name, Aaron PORTILLO Primary Care Provider [phone] Brennan Barrera RN Unavailable Encounter Details Date Type Department Care Team ([facility] Contact Info) Description 07/24/2022 Abstract [facility] MEDICINE [address] [place] [address] Name, MD Aaron [address] [place] [address] Social History Tobacco Use Types Packs/Day Years Used Date Smoking Tobacco: Never Smokeless Tobacco: Never Depression Answer Date Recorded Patient Health Questionnaire-9 Score 10 05/14/2022 Depression Answer Date Recorded Patient Health Questionnaire-2 Score 4 05/14/2022 Comments Unknown Sex and Gender Information Value Date Recorded Sex Assigned at Female 12/23/2021 10:31 AM EDT Legal Sex Female 10:31 AM EDT Gender Identity Female 12/23/2021 10:31 AM EDT Sexual Orientation Straight 12/23/2021 10 :31 AM EDT COVID-19 Exposure Response Date Recorded In the last 10 days, have yo u been in contact with someone who was confirmed or suspected to have Coronavirus/COVID-19? No / Unsure 07/03/2022 8:40 AM EDT documented as of this encounter Plan of Treatment Upcoming Encounters Date Type Department Care Team (Late Contact Info) Description 05/18/2024 11:15 AM EDT Office Visit [facility] MEDICINE [address] [place] [address] Name, MD Aaron [address] [place] [address] documented as of this encounter Visit Diagnoses Not on filedocumented in this encounter Additional Health Concerns Assessment Noted Time PHQ-9 Depression Total Score: 10 023 9:31 AM EDT documented as of this encounter Care Teams Quality Assistant Relationship Specialty Start Date End Date Name, MD Aaron [address] [place] [address] PCP - General Family Medicine 09/23/16 Brennan Barrera RN [address] [place] [address] Community Service Organization DirectorShop Girl 08/24/23 11/18/23 documented as of this encounter
--- OUTSIDE RECORDS SUMMARY | 2024-03-28 09:11 | XMS_ITS | Encounter Summary ---
Author Organization [employer] Address [address] [facility] 7t [place] [address] Care Team Providers Care Steam Cleaner Name Role Phone NameAaron MD Primary Care Provider [phone] Brennan Barrera RN Unavailable [phone] Reason for Visit * Reason Onset Date Comments Referral 08/18/2023 Encounter Details Date Type Department Care Team ([facility] st Contact Info) Description 08/18/2023 Telephone [facility] MEDICINE [address] [place], [place] [phone] Name, MD Aaron [address] [place] [address] Referral Social History Tobacco Use Types Packs/Day Years [...] encounter Miscellaneous Notes * Telephone Encounter - Trenton Torres RN - 08/18/2023 2:51 PM EDT Message sent to PCP. * Telephone Encounter - Joanie Barrera - 08/18/2023 1:46 PM EDT Tc from pt requesting to be referred to a orthopedic located in [place]. Please contact pt at [phone] documented in this encounter Plan of Treatment Upcoming Encounters Date Type Department Care Team (Late st Contact Info) Description 05/18/2024 11:15 AM EDT Office Visit [facility] MEDICINE [address] [place] [address] Name, MD Aaron [address] [place] [address] documented as of this encounter Visit Diagnoses Not on filedocumented in this encounter Additional Health Concerns Assessment Noted Time PHQ-9 Depression Total Score: 8 05/01/19 24 9:58 AM EST documented as of this encounter Care Teams Steam Cleaner Relationship Specialty Start Date End Date Name, MD Aaron [address] [place] [address] PCP - General Family Medicine 09/23/16 Brennan Barrera RN [address] [place] [address] Vamp LinerScoop Operator 08/24/23 11/18/23 documented as of this encounter
== END 2024-03-28 09:10 | disposition home or self-care (01) ==
PROVIDERS: PCP Internal Medicine Geriatric Medicine; Visit Provider Nurse Practitioner Family
DX: J45.909 Unspecified asthma, uncomplicated (principal); Z91.09 Other allergy status, other than to drugs and biological substances; R06.00 Dyspnea, unspecified; Z87.891 Personal history of nicotine dependence
CPT/HCPCS: 99214

== ENCOUNTER → 2024-03-28 08:51 | Outpatient (BNVA) | payer MEDICARE, MEDICAID, SELFPAY | PROVIDERS: PCP Internal Medicine Geriatric Medicine; Visit Provider Nurse Practitioner Family | DX: J45.909 Unspecified asthma, uncomplicated (principal); R06.00 Dyspnea, unspecified; Z91.09 Other allergy status, other than to drugs and biological substances; Z87.891 Personal history of nicotine dependence | CPT/HCPCS: 99212 ==

== ENCOUNTER 2024-05-16 08:49 | Outpatient (AMB) | payer MEDICARE, MEDICAID, SELFPAY ==
--- NOTE | 2024-05-16 08:53 | A.OFFVIS_ITS ---
Vital Signs 05/16/24 08:56 Height 5 ft 1 in Weight 171 lb 15.369 oz BMI 32.5 BP 124/62 Blood Pressure Location Lt brachial Position Sitting Pulse 86 Pulse Source Pulse Oximeter Pulse Oximetry (%) 98 Oxygen Delivery Method Room Air Intake Visit Reasons: Asthma Graphic Arts Technician Required: No Certified Nurse Practitioner: Certified Nurse Practitioner offered & declined Allergies begum Allergy (Verified 05/16/24 08:59) Itching pollen extracts Allergy (Verified 05/16/24 08:59) Sneezing tomato Allergy (Verified 05/16/24 08:59) Hives Medication List - Last Reconciled 05/16/24 by Sabine Palomares LPN acetaminophen (Tylenol Extra Strength) 500 mg PO Q6H PRN albuterol sulfate 1 amp inhalation QID albuterol sulfate 90 mcg/actuation (Ventolin HFA) 2 puffs PO Q4-6H PRN amlodipine 1 tab PO QAM atorvastatin 80 mg PO DAILY calcium carbonate-vitamin D3 600 mg-20 mcg (800 unit) 1 tab PO cyclobenzaprine 10 mg PO TID fluticasone furoate-vilanterol 200-25 mcg/dose (Breo Ellipta) 1 inh inhalation DAILY gabapentin 300 mg PO BID 30 days ketorolac 10 mg PO TID PRN 5 days lidocaine 5% (Lidoderm) 1 patch topical DAILY PRN MDD remove after 12 hours montelukast (Singulair) 10 mg PO BEDTIME omeprazole 1 cap PO QAM polyvinyl alcohol 1.4% (Artificial Tears (polyvinyl alcohol)) 1 drp ophthalmic (eye) BID-QID PRN sertraline 25 mg PO DAILY umeclidinium 62.5 mcg/actuation (Incruse Ellipta) 1 inh inhalation DAILY valsartan-hydrochlorothiazide 320-25 mg 1 tab PO DAILY HPI HPI Asthma: Details: Lorie is a pleasant 68 year old female, former smoker, quit 20 years ago with 20+pyh, with underlying asthma and GERD. She has been moderately controlled on Breo, Singulair and albuterol MDI/neb. She was prescribed Incruse however felt that it worsened her respiratory symptoms. She continues to use her albuterol MDI/neb three times per day for persistent dyspnea, wheezing and dry cough. Of note, she reports suboptimal effect with generic albuterol and felt increased benefit with name brand Ventolin, will send in. She denies any visits to urgent care hospitalizations related to respiratory distress since last visit. Today she presents to review in lab titration report. 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, bilateral Hypovitaminosis D Age related osteoporosis COVID-19 vaccine series completed Pre-diabetes GERD (gastroesophageal reflux disease) Arthritis Asthma Hypertension Osteoarthritis of left knee Surgical History History of left knee surgery Hx of breast biopsy Hx of hysterectomy H/O colonoscopy Hx of hand surgery Hx of knee surgery H/O unilateral oophorectomy History of total right knee replacement Family History Maternal Aunt Breast CA Mother Colon cancer Arthritis Sister Arthritis Social History Household Members: Family Household Members Other:: daughter Housing: House Are you a primary healthcare liaison to a significant other at home: No Do you presently have visiting nurse or other home services: No Alcohol intake: current Alcohol intake frequency: holidays/special occasions only Comment: chronic back pain Patient Tobacco Use Status: Former Tobacco user Tobacco use type: Cigarette Years Smoked: 20 Second Hand Smoke Exposure: No Advance Directives Date on File: 07/17/17 service: No Current occupational status: disabled Current occupation: rt handed Female Reproductive History Menstrual Age of Menarche: 9 Review of Systems Const Denies chills, Denies excessive sweating, Denies fever(s), Denies headache(s) and Denies night sweats Eyes Denies dry eyes, Denies irritation and Denies itchy eyes ENT Reports Normal hearing present, Denies headache(s), Denies nasal congestion, Denies nasal discharge, Denies post nasal drip and Denies sore throat Card Denies chest pain, Denies chest pain at rest, Denies chest pain with activity, Denies claudication, Denies leg edema, Reports dyspnea on exertion, Denies orthopnea and Denies paroxysmal nocturnal dyspnea Resp Denies chest congestion, Reports cough, Denies hemoptysis, Denies excessive phlegm production, Denies pain on inspiration, Denies pain with cough, Reports dyspnea on exertion, Denies stridor and Reports wheezing Musc Denies myalgias Neuro Reports Normal hearing present and Denies headache(s) Endo Denies excessive sweating Srinivas/Lymph Denies lymphadenopathy Aller/Immun Denies itchy eyes, Denies seasonal rhinorrhea and Reports wheezing Physical Exam Vital Signs: Last Vital Signs Pulse 86 05/16/24 08:56 BP 124/62 05/16/24 08:56 Pulse Ox 98 05/16/24 08:56 Oxygen Delivery Method Room Air 05/16/24 08:56 BMI result Body Mass Index 32.5 Const General: cooperative, healthy appearing, comfortable, no acute distress, well developed and alert Nutritional Appearance: obese Orientation/consciousness: patient oriented x3 Limitations: no limitations HEENT Head: Yes normal to inspection, Yes normocephalic and Yes atraumatic Ears: hearing grossly normal bilaterally and external ears normal Eyes General: appearance normal, both eyes and all related structures Eyelids: Yes eyelids normal Sclerae: sclerae normal EOM: EOMs intact bilaterally Neck Neck: Yes normal visual inspection and Yes no lymphadenopathy Lymphatic: no lymphadenopathy noted Chest Chest palpation & inspection: normal inspection of the chest Resp Effort & Inspection: normal respiratory effort, able to speak in complete se ntences, no audible wheezes, no cough, no stridor, not tachypneic, no tripod positioning and no use of accessory muscles Auscultation: clear to auscultation bilaterally Cardio Jugular venous distension: no JVD Rate: regular rate Rhythm: regular rhythm Skin Other: warm, dry General skin exam: no rashes or lesions noted Neuro General: patient oriented x3 Cranial nerves: Yes Normal hearing present Cognition (Neuro): normal cognition Gait exam (Neuro): Normal gait present Extrem General: Yes normal to inspection, Yes capillary refill normal, Yes no clubbing, cyanosis or edema and Yes no pedal edema Psych Appearance: grossly normal and well kempt Speech and movement: Normal speech and movement present and Clear speech present Affect: normal affect Attitude: cooperative Thought process: Normal thought process present Thought content: Normal thought content present Insight: Good insight present (Psych) Judgement: Good judgement present (Psych) Assessment & Plan Assessment & Plan (1) Asthma: Code(s): J45.909 - Unspecified asthma, uncomplicated Category: Medical (2) Environmental allergies: Code(s): Z91.09 - Other allergy status, other than to drugs and biological substances Category: Medical (3) Dyspnea: Code(s): R06.00 - Dyspnea, unspecified Category: Medical (4) Personal history of tobacco use: Code(s): Z87.891 - Personal history of nicotine dependence Category: Social Hx (5) Obstructive sleep apnea: Code(s): G47.33 - Obstructive sleep apnea (adult) (pediatric) Category: Medical Plan Patient reports suboptimal effect with Breo, unable to tolerate Incruse. Will send in Spiriva as well as name brand Ventolin. Reviewed sleep study results with patient which revealed an AHI of 5, however 28 with REM, minimal nocturnal hypoxemia as well as findings suggestive of PLMD. Since patient is quite symptomatic, will start CPAP therapy. Will send in prescription for APAP mode and pressure settings of 5-20 cmH2O with close monitoring for compliance and benefits. Sleep hygiene education reviewed. She is aware if there are any issues with the mask or CPAP machine, she will call the [employer] company or this office. Will also enter order for sleep medicine for further evaluation of PLMD. All questions were answered and patient is in agreement of plan. Will follow up in 8-12 weeks or sooner if needed. Orders: Referrals Sleep Medicine Referral G47.61 - Periodic limb movement disorder Medications: New tiotropium bromide 2.5 mcg/actuation (Spiriva Respimat) 2 puffs inhalation DAILY 4 grams 6RF Changed From albuterol sulfate 90 mcg/actuation (Ventolin HFA) 2 puffs PO Q4-6H PRN 1 ea 3RF Wheezing To Ventolin HFA 90 mcg/actuation (albuterol sulfate) 2 puffs PO Q4-6H PRN 8 grams 3RF Wheezing NS Discontinued umeclidinium 62.5 mcg/actuation (Incruse Ellipta) Discontinued Reason: Patient Completed Course 1 inh inhalation DAILY 30 ea 4RF Coding Level of Care Code Est Pt Level 4 (49211) Diagnoses Asthma J45.909 Environmental allergies Z91.09 Dyspnea R06.00 Personal history of tobacco use Z87.891 Obstructive sleep apnea G47.33
[2024-05-16 08:56] VITALS: BP 124/62; PULSE 86; O2SAT 98; BMI 32.5
== END 2024-05-16 09:21 | disposition home or self-care (01) ==
LOC: HO.HPS 08:50
PROVIDERS: PCP Internal Medicine Geriatric Medicine; Visit Provider Nurse Practitioner Family
DX: J45.909 Unspecified asthma, uncomplicated (principal); Z91.09 Other allergy status, other than to drugs and biological substances; R06.00 Dyspnea, unspecified; Z87.891 Personal history of nicotine dependence; G47.33 Obstructive sleep apnea (adult) (pediatric)
CPT/HCPCS: 99214

== ENCOUNTER → 2024-05-16 08:49 | Outpatient (BNVA) | payer MEDICARE, MEDICAID, SELFPAY | PROVIDERS: PCP Internal Medicine Geriatric Medicine; Visit Provider Nurse Practitioner Family | DX: J45.909 Unspecified asthma, uncomplicated (principal); R06.00 Dyspnea, unspecified; G47.33 Obstructive sleep apnea (adult) (pediatric); G47.61 Periodic limb movement disorder; Z91.09 Other allergy status, other than to drugs and biological substances; Z87.891 Personal history of nicotine dependence | CPT/HCPCS: 99212 ==

== ENCOUNTER 2024-07-05 10:44 | Outpatient (AMB) | payer MEDICARE, MEDICAID, SELFPAY ==
--- NOTE | 2024-07-05 10:51 | MHC.OFFVIS ---
Vital Signs 07/05/24 10:57 Height 5 ft 1 in Weight 163 lb BMI 30.8 BP 140/70 H Intake Visit Reasons: CLIENT CARE CONSULTANT annual exam/DO NOT RS [employer] Required: Yes [employer] Language: Senior Web Architect Services: [employer] Present (in person) [employer] W[employer] Name: Elizabeth BORREGO Information Interpreted: non-clinical & clinical Tank Erector: Tank Erector Present (Elizabeth BORREGO) Accompanied by: Self / Same As Patient Allergies begum Allergy (Verified 07/05/24 10:58) Itching pollen extracts Allergy (Verified 07/05/24 10:58) Sneezing tomato Allergy (Verified 07/05/24 10:58) Hives Post menopausal: Yes HPI Comments Details: Presenting for annual exam. No complaints. The patient was seen by [facility] regarding adnexal cyst , pelvic MRI was done and the patient has a follow-up appointment in 02/15, the recommendation according to the patient was to repeat in six-months, the patient is in the process schedule an appointment and imaging in 08/17 Last Pap/HPV was many years ago with history of abnormal Pap smear over the last 25 years, adequate screening between 55 and 65 years of age Last Mammogram was BI-RADS 2 in 10/16 Last Colonoscopy was done in 08/16, the recommendation was to repeat in 5 years Last DEXA scan was in 02/14 [facility] Medical History 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, bilateral Hypovitaminosis D Age related osteoporosis COVID-19 vaccine series completed Pre-diabetes GERD (gastroesophageal reflux disease) Arthritis Asthma Hypertension Osteoarthritis of left knee Surgical History History of left knee surgery Hx of breast biopsy Hx of hysterectomy H/O colonoscopy Hx of hand surgery Hx of knee surgery H/O unilateral oophorectomy History of total right knee replacement Family History Maternal Aunt Breast CA Mother Colon cancer Arthritis Sister Arthritis Social History Household Members: Family Household Members Other:: daughter Housing: House Are you a primary healthcare marketer to a significant other at home: No Do you presently have visiting nurse or other home services: No Alcohol intake: current Alcohol intake frequency: holidays/special occasions only Comment: chronic back pain Patient Tobacco Use Status: Former Tobacco user Tobacco use type: Cigarette Years Smoked: 20 Second Hand Smoke Exposure: No Advance Directives Date on File: 07/17/17 service: No Current occupational status: disabled Current occupation: rt handed Female Reproductive History Menstrual Age of Menarche: 9 Menopause type: surgical Date of Mammogram: 10/21/23 Date of last Bone Density Screenin01/27/23 Review of Systems Const All systems reviewed & are unremarkable except as noted in HPI and below Card Reports as per HPI Resp Reports as per HPI GI Reports as per HPI and Reports no additional complaints Reports as per HPI Physical Exam Vital Signs: Last Vital Signs BP 140/70 H 07/05/24 10:57 BMI result Body Mass Index 30.8 Const General: cooperative, healthy appearing and comfortable Chest Chest palpation & inspection: normal inspection of the chest and normal palpation of entire chest wall Breast/axilla inspection: normal inspection of the breasts and normal inspection of the axillae Breast/axilla palpation: normal palpation of the breasts, normal palpation of the axillae and no axillary lymphadenopathy Resp Effort & Inspection: normal respiratory effort Auscultation: clear to auscultation bilaterally Percussion: percussion normal Cardio Palpation: normal PMI Rate: regular rate Rhythm: regular rhythm Heart sounds: no murmurs and no rubs Peripheral pulses: Peripheral pulses 2+ throughout GI Inspection: Yes normal to inspection Palpation (GI): Soft to palpation, nontender, no guarding, not rigid and No hepatosplenomegaly present Percussion: Yes normal to percussion Auscultation: normal bowel sounds Rectal Exam - Female: deferred General: Yes bladder normal to palpation External Female Exam: No lesion Speculum Exam - Vagina: normal appearance of the vagina, normal palpation, normal vaginal discharge and not erythematous Speculum Exam - Cervix: normal appearance of the cervix and normal palpation Bimanual exam- vagina & uterus: normal bimanual exam, normal palpation, uterine size normal, bladder normal to palpation, consistency normal and normal palpation Bimanual Exam- Adnexa, other: normal adnexae, no masses and no tenderness Assessment & Plan Assessment & Plan (1) Well woman exam: Code(s): Z01.419 - Encounter for gynecological examination (general) (routine) without abnormal findings Category: Medical Plan: Co testing not indicated since the patient 's age is above 65 with no history of abnormal Pap smears last 25 years, adequately screen for the last 10 years with no history of immunosuppression. Counseled the patient about the recommended dietary allowance of 1200 mg of Calcium & 800 IU of vitamin D. Mammogram ordered for 10/17. Will order DEXA scan in 02/16 . The patient was instructed to perform monthly self-breast exams and to schedule a 2 week DEXA scan follow-up appointment and an annual exam in a year; All questions answered and the patient verbalized understanding. Orders: Orders MM tomosynthesis screening BI 10/12/24 Z12.31 - Encounter for screening mammogram for malignant neoplasm of breast XR DEXA axial skeleton 02/17/25 Z78.0 - Asymptomatic menopausal state Coding Level of Care Code Est Pt Prev Care >65y(46807) Diagnoses Well woman exam Z01.419
[2024-07-05 10:57] VITALS: BP 140/70; BMI 30.8
--- OUTSIDE RECORDS SUMMARY | 2024-07-05 12:07 | XMS_ITS | Encounter Summary ---
Author Organization [employer] Address [address] [place] [address] Care Team Providers Care Edge Burnisher Name Role Phone Name, Aaron PORTILLO Primary Care Provider [phone] Brennan Barrera RN Unavailable [phone] Encounter Details Date Type Department Care Team (Late st Contact Info) Description 08/05/2023 Telephone [facility] MEDICINE [address] [place], [place] [phone] Kaci Ferraro, RN Social History Tobacco Use [...] Care Team (Late st Contact Info) Description 08/19/2024 10:30 AM EDT Office Visit [facility] MEDICINE [address] [place] [address] Name, MD Aaron [address] [place] [address] documented as of this encounter Visit Diagnoses Not on filedocumented in this encounter Additional Health Concerns Assessment Noted Time PHQ-9 Depression Total Score: 8 05/01/19 24 9:58 AM EST documented as of this encounter Care Teams Edge Burnisher Relationship Specialty Start Date End Date Name, MD Aaron [address] [place] [address] PCP - General Family Medicine 09/23/16 Brennan Barrera RN [address] [place] [address] Orchid GrowerGyroscopic Instrument Tester 08/24/23 11/18/23 documented as of this encounter
--- OUTSIDE RECORDS SUMMARY | 2024-07-05 12:07 | XMS_ITS | Encounter Summary ---
Author Organization [employer] Address [address] [place] [address] Care Team Providers Care Mail Clerks Supervisor Name Role Phone Name, Aaron PORTILLO Primary Care Provider [phone] Brennan Barrera RN Unavailable [phone] Encounter Details Date Type Department Care Team ([facility] st Contact Info) Description 07/31/2023 Telephone [facility] MEDICINE [address] [place], [place] [phone] Name, MD Aaron [address] [place] [address] Social History Tobacco Use Types Packs/Day Years [...] Description 08/19/2024 10:30 AM EDT Office Visit [facility] MEDICINE [address] [place] [address] Name, MD Aaron [address] [place] [address] documented as of this encounter Visit Diagnoses Not on filedocumented in this encounter Additional Health Concerns Assessment Noted Time PHQ-9 Depression Total Score: 8 05/01/19 24 9:58 AM EST documented as of this encounter Care Teams Mail Clerks Supervisor Relationship Specialty Start Date End Date NameAaron MD [address] [place] [address] PCP - General Family Medicine 09/23/16 Brennan Barrera RN [address] [place] [address] Field Cane Scale ClerkAutomotive Service Porter 08/24/23 11/18/23 documented as of this encounter
--- OUTSIDE RECORDS SUMMARY | 2024-07-05 12:07 | XMS_ITS | Encounter Summary ---
Author Organization [employer] Address [address] [facility] 7t [place] [address] Care Team Providers Care Telephone Messenger Name Role Phone Name, Aaron PORTILLO Primary Care Provider [phone] Brennan Barrera RN Unavailable [phone] Encounter Details Date Type Department Care Team (Late st Contact Info) Description 03/18/2022 Orders Only [facility] PEDS [address] [place] [address] Libby Butcher LPN Social History Tobacco Use [...] Department Care Team (Late Contact Info) Description 08/19/2024 10:30 AM EDT Office Visit [facility] MEDICINE [address] [place] [address] NameAaron MD [address] [place] [address] documented as of this encounter Visit Diagnoses Not on filedocumented in this encounter Care Teams Telephone Messenger Relationship Specialty Start Date End Date NameAaron MD [address] [place] [address] PCP - General Family Medicine 09/23/16 Brennan Barrera RN [address] [place] [address] [place] [id number] Utilities Equipment RepairerBottom Sprayer 08/24/23 11/18/23 documented as of this encounter
--- OUTSIDE RECORDS SUMMARY | 2024-07-05 12:07 | XMS_ITS | Encounter Summary ---
Author Organization [employer] Address [address] [facility] 7[address] [place] [address] Care Team Providers Care Critical Care Rn Name Role Phone Name, Aaron PORTILLO Primary Care Provider [phone] Brennan Barrera RN Unavailable [phone] Encounter Details Date Type Department Care Team (Late st Contact Info) Description 04/08/2022 Orders Only [facility] MED & PEDS [address] [place] [address] Libby Butcher LPN Social History Tobacco Use [...] Description 08/19/2024 10:30 AM EDT Office Visit [facility] MEDICINE [address] [place] [address] NameAaron MD [address] [place] [address] documented as of this encounter Visit Diagnoses Not on filedocumented in this encounter Care Teams Critical Care Rn Relationship Specialty Start Date End Date NameAaron MD [address] [place] [address] PCP - General Family Medicine 09/23/16 Brnenan Barrera RN [address] [place] [address] [place] [address] Plating Machine OperatorSample Collector 08/24/23 11/18/23 documented as of this encounter
--- OUTSIDE RECORDS SUMMARY | 2024-07-05 12:07 | XMS_ITS | Encounter Summary ---
Author Organization [employer] Address [address] [place] [address] Care Team Providers Care Photoengraving Photographer Name Role Phone Name, Aaron PORTILLO Primary Care Provider [phone] Brennan Barrera RN Unavailable [phone] Reason for Visit * Reason Onset Date Comments Nurse Triage 08/03/2023 Encounter Details Date Type Department Care Team ([facility] st Contact Info) Description 08/03/2023 Telephone [facility] MEDICINE [address] [place], [place] [phone] Name, MD Aaron [address] [place] [address] Nurse Triage Social History Tobacco Use Types [...] 08/03/2023 3:49 PM EDT Triage call with [employer] Patent Solicitor ID [id number] Pt is calling regarding left lower quadrant pain. [facility] today in apt with Dr. Muñoz regarding pelvic pain. Pt is concerned because when finished with apt told Pt to go to ED if pain increases. Pt does have an appointment for sonogram on the . Pt last BM was yesterday, neg for constipation. Pt is advised to come to [facility] hours [id number] and 830am-400pm -fri. if needed. Home [...] acuity questions The caller accepted this outcome Albanian speaking documented in this encounter Plan of Treatment Upcoming Encounters Date Type Department Care Team (Late st Contact Info) Description 08/19/2024 10:30 AM EDT Office Visit [facility] MEDICINE [address] [place] [phone] Name, MD Aaron [address] [place] [address] documented as of this encounter Visit Diagnoses Not on filedocumented in this encounter Additional Health Concerns Assessment Noted Time PHQ-9 Depression Total Score: 8 05/01/19 9:58 AM EST documented as of this encounter Care Teams Photoengraving Photographer Relationship Specialty Start Date End Date Name, MD Aaron [address] [place] [address] PCP - General Family Medicine 09/23/16 Brennan Barrera RN [address] [place] [address] Living SupervisorFront Edger 08/24/23 11/18/23 documented as of this encounter
--- OUTSIDE RECORDS SUMMARY | 2024-07-05 12:07 | XMS_ITS | Encounter Summary ---
Author Organization [employer] Address [address] [facility] [address] [place] [address] Care Team Providers Care Director Stars Name Role Phone Name, Aaron PORTILLO Primary Care Provider Brennan Barrera RN Unavailable [phone] Encounter Details Date Type Department Care Team (Late st Contact Info) Description 07/24/2022 Abstract [facility] MEDICINE [address] [place] [address] NameAaron MD [address] [place] [address] Social History Tobacco Use Types Packs/Day Years [...] Description 08/19/2024 10:30 AM EDT Office Visit [facility] MEDICINE [address] [place] [address] [phone] Name, MD Aaron [address] [place] [address] documented as of this encounter Visit Diagnoses Not on filedocumented in this encounter Additional Health Concerns Assessment Noted Time PHQ-9 Depression Total Score: 10 023 9:31 AM EDT documented as of this encounter Care Teams Director Stars Relationship Specialty Start Date End Date Name, MD Aaron [address] [place] [address] PCP - General Family Medicine 09/23/16 Brennan Barrera RN [address] [place] [address] Grip WrapperSummer Law Associate 08/24/23 11/18/23 documented as of this encounter
--- OUTSIDE RECORDS SUMMARY | 2024-07-05 12:07 | XMS_ITS | Encounter Summary ---
Author Organization [facility] [employer] [facility] Address [address] 7t [place] [address] Care Team Providers Care Upsetter Name Role Phone Name, Aaron PORTILLO Primary Care Provider [phone] Brennan Barrera RN Unavailable [phone] Reason for Visit * Reason Onset Date Comments Referral 08/18/2023 Encounter Details Date Type Department Care Team ([facility] st Contact Info) Description 08/18/2023 Telephone [facility] [address] [place], [place] [phone] Name, MD Aaron [address] [place] [address] Referral Social History Tobacco Use Types Packs/Day [...] be referred to a orthopedic located in [place]. Please contact pt at [phone] documented in this encounter Plan of Treatment Upcoming Encounters Date Type Department Care Team (Late st Contact Info) Description 08/19/2024 10:30 AM EDT Office Visit [facility] [address] [place] [address] Name, MD Aaron [address] [place] [address] documented as of this encounter Visit Diagnoses Not on filedocumented in this encounter Additional Health Concerns Assessment Noted Time PHQ-9 Depression Total Score: 8 05/01/19 24 9:58 AM EST documented as of this encounter Care Teams Upsetter Relationship Specialty Start Date End Date Name, MD Aaron [address] [place] [address] PCP - General Family Medicine 09/23/16 Brennan Barrera RN [address] [place] [address] [place] [address] Personal CaregiverTelevision Receiver Analyzer 08/24/23 11/18/23 documented as of this encounter
--- OUTSIDE RECORDS SUMMARY | 2024-07-05 12:08 | XMS_ITS | Clinical Summary ---
Author Organization [employer] Address [address] [facility] 7t [place] [address] Care Team Providers Care Pole Framer Name Role Phone Name, Aaron PORTILLO Primary Care Provider [phone] Allergies Active Allergy Reactions Criticality Noted Date Comments Mariana Gutierrez 08/05/2023 Medications albuterol (2.5 MG/3ML) 0.083% nebulizer solution inhale 3 milliliter by nebulization route 4 times every day 270 mL 2 023 Active Calcium 600/Vitamin D3 600-20 MG-MCG tabletIndications :Osteopenia, unspecified location TAKE 1 TABLET BY MOUTH TWICE DAILY IN THE MORNING AND IN THE EVENING 60 tablet 11 024 Active atorvastatin (Lipitor) 80 MG tablet TAKE 1 TABLET BY MOUTH DAILY IN THE MORNING 90 tablet 11 024 Active zoledronic acid (Reclast) 5 MG/100ML solution Infuse 5 mg into a venous catheter yearly. Active Ventolin HFA 108 (90 Base) MCG/ACT inhaler INHALE 2 PUFFS BY MOUTH EVERY 4 TO 6 HOURS NEEDED 18 g 4 024 Active amLODIPine (Norvasc) 10 MG tablet TAKE 1 TABLET BY MOUTH DAILY IN THE MORNING 90 tablet 3 024 Active valsartan-hydroCH LOROthiazide (Diovan-HCT) 320-25 MG tablet TAKE 1 TABLET BY MOUTH EVERY DAY 30 tablet 5 024 Active mometasone-formot jeni (Dulera) 200-5 MCG/ACT inhaler Inhale 2 puffs in the morning and at bedtime. Rinse mouth with water after use to reduce aftertaste and incidence of candidiasis. Do not swallow. 024 2024 Active fluticasone (Flonase) 50 MCG/ACT nasal spray Administer 2 sprays into each nostril Once per day. Shake gently. Before first use, prime pump. After use, clean tip and replace cap. 16 g 2 024 2024 Active azelastine (Astelin) 0.1 % nasal spray Administer 1 spray into each nostril 2 times daily. Use in each nostril as directed 30 mL 12 024 2024 Active omeprazole (PriLOSEC) [address] capsule TAKE 1 CAPSULE BY MOUTH EVERY DAY 30 capsule 3 025 Active metFORMIN (Glucophage) 850 MG tabletIndications :Pre-diabetes Take 1 tablet (850 mg) by mouth with breakfast and with evening meal. TAKE 1 TABLET WITH BREAKFAST AND WITH DINNER 180 tablet 3 025 2025 Active naproxen (Naprosyn) 500 MG tabletIndications :Primary osteoarthritis involving multiple joints,Essential hypertension,NSAI D long-term use Take 1 tablet (500 mg) by mouth 2 times daily. 40 tablet 025 Active metFORMIN (Glucophage) 850 MG tabletIndications :Pre-diabetes Take 1 tablet (850 mg) by mouth with breakfast for 30 days, THEN 1 tablet (850 mg) with breakfast and with evening meal. 150 tablet 024 2024 Discontinued naproxen (Naprosyn) 500 MG tabletIndications :Primary osteoarthritis involving multiple joints,Essential hypertension,NSAI D long-term use TAKE 1 TABLET BY MOUTH TWICE DAILY 40 tablet 025 2024 Discontinued(R eorder (will not trigger notification to Pharmacy)) Active Problems Problem Noted Date Diagnosed Date [...] Encounters Date Type Department Care Team Description 06/28/2024 Refill [facility] [address] [place] [address] Name, MD Aaron Primary osteoarthritis involving multiple joints; Essential hypertension; NSAID long-term use 06/14/2024 Refill [facility] [address] [place] [address] NameAaron MD Pre-diabetes 05/17/2024 Telephone [facility] [address] [place] [address] Cedric Sloan MA [facility] Cancelled Appt 05/10/2024 Telephone [facility] [address] [place] [address] Cedric Sloan MA may recalls 05/06/2024 Population Health Risk Score [facility] Department [address] [place] [phone] Provider, Population Health Generic 04/17/2024 Refill [facility] [address] [facility] [place] [address] NameAaron MD from Last 3 Months Immunizations Name Administration [...] 10:30 AM EDT Office Visit [facility] [address] [place] [address] [place], [place] [address] Health Maintenance Due Date Last Done Comments [...] Procedure Name Priority Date/Time Associated Diagnosis Comments HEMOGLOBIN A1C Routine 02/16/2024 9:20 AM EST Healthcare maintenance BI MAMMOGRAM SCREENING TOMOSYNTHESIS BILATERAL Routine 10/21/2023 9:00 AM EDT HM COLONOSCOPY Routine 08/07/2023 LIPID PANEL, STANDARD Routine 03/23/2023 8:36 AM EST Essential hypertension Whole body pain High cholesterol ZZZ HISTORICAL HEPATITIS C ANTIBODY RFLX Routine 01/27/2020 8:30 AM EST from Last 3 Months or Most Recently Relevant to Health Maintenance Results * Hemoglobin A1c (02/16/2024 9:20 AM EST) Hemoglobin A1c 5.7 <6.0 % [facility] Comment:Hemoglobin A1C Refer ence Range Adults: 4.8 - 6.0 % Non diabetic: < 6.0 % Goal: < 7.0 %Additional Action Suggested: > 8.0 %Note: Hemoglobin A1c results are invalid for patients with abnormal amounts of HbF. Blood transfusions may impact the HbA1c concentration in the patient sample. Estimated Average Glucose 117 mg/dL [facility] Comment:eAG = Estimated ave rage glucose which is %A1C expressed asaverage glucose, using the formula of the P9U-EosxprnCmmlffs Glucose study (ADAG), Diabetes Care, Vol.31,#8,Sep. 2007 Blood Venous blood specimen / Unknown 02/16/2024 9:20 AM EST 02/16/2024 11:02 AM EST us Aaron Martinez MD LAB BLOOD ORDERABLES Final Resul t [facility] [address] [place] [address] [phone] * BI Mammogram Screening Tomosynthesis Bilateral (10/21/2023 9:00 AM EDT) Anatomical Region Laterality Modality Breast Bilateral Mammography 10/21/2023 9:00 AM EDT Narrative 11/24/2023 10:41 AM EDT ? [facility] [place] ? [address] ?[place] [address] ? Mammography Report ? Signed ? Patient: Casiano,[place] ?MR#: [id number] ?? [id number] ? : 1955 ?Acct:[id number] ? Age/Sex: 67 / F ?ADM Date: 10/21/23 ? Loc: HO.MAMMO ? Attending Dr: Aaron Name MD ? Ordering Physician: Name,Aaron MD ?Results: 2Benign Fi ?? ndings ? Date of Service: 10/21/23 ?Follow Up: 1 Year From Orig ?? inal Mammogram ? Procedure(s): MM tomosynthesis screening BI ?? Accession Number(s): [id number] ? cc: Name,Aaron PORTILLO ? EXAMINATION: ?? MM SCREENING DIGITAL [...] ??Rakel Wilkes DO ??11/24/2023 10:38 AM EDT ? Dictated By: ?Rakel Wilkes DO ? Signed By: ?<Electronically signed by Rakel Wilkes, DO in OV> ? 11/24/23 1038 ? DD/ 0900 ? TD/TT: 10/21/23 0920 ? Biztalk Software Developer: ? Procedure Note Sarahlily, Image - 11/24/2023 [facility] [address] [place] [address] Mammography Report Signed Patient: Lorie CasianoMR#: [id number] : 4Acct:[id number] Age/Sex: 67 / FADM Date: 10/21/23 Loc: HO.MAMMO Attending Dr: Aaron Martinez MD Ordering Physician: Aaron Martinezults: 2Benign Fi ndings Date of Service: 10/21/23Follow Up: 1 Year From Orig inal Mammogram Procedure(s): MM tomosynthesis screening BI Accession Number(s): [id number] cc: Aaron Martinez MD EXAMINATION: MM SCREENING [...] 11/24/23 1038 DD/ 0900 TD/TT: 10/21/23 0920 [employer]iz[employer] Software Developer: us Aaron Martinez MD IMG BI PROCEDURES Edited Result - Final * Hm Colonoscopy (08/07/2023) Colonoscopy Normal Normal us Aaron Martinez MD HEALTH MAINTENANCE Final Result * (ABNORMAL) Lipid Panel, Standard (03/23/2023 8:36 AM EST) Triglycerides 132 <150 mg/dL [facility] Comment:Desirable Triglyceri de: less than 150 mg/dLBorderline High Triglyceride 150-199 mg/dLHigh Triglyceride: 200-499 mg/dLVery High Triglyceride: greater than or equal to 5OO mg/dL Cholesterol 203(H) <200 mg/dL [facility] Comment:Desirable Cholestero l: less than 200 mg/dLBorderline High Cholesterol: 200-239 mg/dLHigh Cholesterol: greater than 239 mg/dL LDL Cholesterol Calculated 122(H) <100 mg/dL [facility] Comment:Desirable LDL: less than 100 mg/dLNear Optimal/Above Optimal LDL: 110- 129 mg/dLBorderline High LDL: 130-159 mg/dLHigh LDL: 160-189 mg/dLVery High LDL: greater than or equal to 190 mg/dL HDL Cholesterol 55 >40 mg/dL [facility] Comment:Desirable HDL: great er than 40 mg/dL Note: This HDL assay may give artificially low results in patients with liver disease. Blood Venous blood specimen / Unknown 03/23/2023 8:36 AM EST 03/23/2023 10:37 AM EST us Aaron Martinez MD LAB BLOOD ORDERABLES Final Resul t [facility] [address] [place] [address] [phone] * HEPATITIS C ANTIBODY RFLX (01/27/2020 8:30 AM EST) Hepatitis C Antibody Nonreactive Nonreactive [facility] Comment: Antibodies to HCV not detected; does not exclude early acute HCV infection. 01/27/2020 8:30 AM EST us Aaron Martinez MD HISTORICAL/NON ORDERABLE LABS Fi nal Result Performing Organization Address City/[facility]/ZIP Co de Phone Number [facility] [address] from Last 3 Months or Most Recently Relevant to Health Maintenance Insurance [place] [address] [place] [phone] [place] Care Teams Pole Framer Relationship Specialty Start Date End Date Name, MD Aaron [address] [place] [address] PCP - General Family Medicine 09/23/16
== END 2024-07-05 11:10 | disposition home or self-care (01) ==
LOC: HO.HWS 10:44
PROVIDERS: PCP Internal Medicine Geriatric Medicine; Visit Provider Obstetrics & Gynecology
DX: Z01.419 Encounter for gynecological examination (general) (routine) without abnormal findings (principal)
CPT/HCPCS: G0101

== ENCOUNTER → 2024-07-05 10:44 | Outpatient (BNVA) | payer MEDICARE, MEDICAID, SELFPAY | PROVIDERS: PCP Internal Medicine Geriatric Medicine; Visit Provider Obstetrics & Gynecology | DX: Z01.419 Encounter for gynecological examination (general) (routine) without abnormal findings (principal) | CPT/HCPCS: G0101 ==

== ENCOUNTER 2024-07-11 15:10 | Outpatient (REF) | payer MEDICARE, MEDICAID, SELFPAY ==
--- NOTE | ~2024-07-11 | MR_ITS ---
EXAMINATION: MR PELVIS WITHOUT THEN WITH IV CONTRAST HISTORY: Pelvis Mass, assess stability. TECHNIQUE: Axial T1, fat suppressed T1, and fat-suppressed T2, and coronal and sagittal T2 weighted MR images of the pelvis were obtained. Subsequently, axial and sagittal fat-suppressed T1-weighted images were obtained after the intravenous administration of 7.5 mm Gadavist. COMPARISON: Comparison is made with the prior examination dated 12/02/2023. Correlation is also made with a pelvic ultrasound dated 08/11/2023. FINDINGS: The patient is status post hysterectomy and left oophorectomy. The right ovary is unremarkable in appearance, demonstrating an 8 mm follicle. Immediately posterior to the vaginal cuff and to the left of midline, there is a 12 x 7 mm enhancing soft tissue nodule corresponding to the abnormality seen on prior ultrasound. This is unchanged from the prior MRI. No ascites or pelvic lymphadenopathy is identified. The visualized bones demonstrate normal marrow signal intensity. MR/MR pelvis wo/w con IMPRESSION: Stable 12 x 7 mm enhancing soft tissue nodule posterior to the vaginal cuff and to the left of midline, of uncertain etiology. Electronically signed by: Fabian Mejia MD 07/12/2024 07:23 AM EDT
--- OUTSIDE RECORDS SUMMARY | 2024-07-11 15:14 | XMS_ITS | Encounter Summary ---
Author Organization [employer] Address [address] [facility] 7t [place] [address] Care Team Providers Care Ui Application Developer Name Role Phone Name, Aaron PORTILLO Primary Care Provider [phone] Brennan Barrera RN Unavailable [phone] Reason for Visit * Reason Onset Date Comments Referral 08/18/2023 Encounter Details Date Type Department Care Team ([facility] st Contact Info) Description 08/18/2023 Telephone [facility] [address] [place], [place] [phone] Name, MD Aaron [address] [place] [address] Referral Social History Tobacco Use Types Packs/Day [...] be referred to a orthopedic located in [place]. Please contact pt at [phone] documented in this encounter Plan of Treatment Upcoming Encounters Date Type Department Care Team (Late st Contact Info) Description 08/19/2024 10:30 AM EDT Office Visit [facility] [address] [place] [address] Name, MD Aaron [address] [place] [address] documented as of this encounter Visit Diagnoses Not on filedocumented in this encounter Additional Health Concerns Assessment Noted Time PHQ-9 Depression Total Score: 8 05/01/19 24 9:58 AM EST documented as of this encounter Care Teams Ui Application Developer Relationship Specialty Start Date End Date Name, MD Aaron [address] [place] [address] PCP - General Family Medicine 09/23/16 Brennan Barrera RN [address] [place] [address] [place] [address] Sleeve Presser OperatorSupervisor [employer] 08/24/23 11/18/23 documented as of this encounter
--- OUTSIDE RECORDS SUMMARY | 2024-07-11 15:14 | XMS_ITS | Encounter Summary ---
Author Organization [employer] Address [address] [facility] 7t [place] [address] Care Team Providers Care Card Seller Name Role Phone Name, Aaron PORTILLO Primary Care Provider Brennan Barrera RN Unavailable [phone] Encounter Details Date Type Department Care Team (Late st Contact Info) Description 07/24/2022 Abstract [facility]INE [address] [place] [address] Name, MD Aaron [address] [place] [address] Social History Tobacco Use Types Packs/Day Years [...] Description 08/19/2024 10:30 AM EDT Office Visit [facility] MED[facility]INE [address] [place] [address] Name, MD Aaron [address] [place] [address] documented as of this encounter Visit Diagnoses Not on filedocumented in this encounter Additional Health Concerns Assessment Noted Time PHQ-9 Depression Total Score: 10 023 9:31 AM EDT documented as of this encounter Care Teams Card Seller Relationship Specialty Start Date End Date Name, MD Aaron [address] [place] [address] PCP - General Family Medicine 09/23/16 Brennan Barrera RN [address] [place] [address] Belling Machine OperatorComputer Tester 08/24/23 11/18/23 documented as of this encounter
--- OUTSIDE RECORDS SUMMARY | 2024-07-11 15:14 | XMS_ITS | Encounter Summary ---
Author Organization [employer] Address [address] [facility] [address] 7t [place] [address] Care Team Providers Care Tailer Off Name Role Phone Name, Aaron PORTILLO Primary Care Provider [phone] Brennan Barrera RN Unavailable [phone] Encounter Details Date Type Department Care Team ([facility] st Contact Info) Description 07/31/[address] [facility] [address] [place], [place] [phone] Name, MD Aaron [address] [place] [address] Social History Tobacco Use Types Packs/Day Years [...] Description 08/19/2024 10:30 AM EDT Office Visit [facility] [address] [place] [address] Name, MD Aaron [address] [place] [address] documented as of this encounter Visit Diagnoses Not on filedocumented in this encounter Additional Health Concerns Assessment Noted Time PHQ-9 Depression Total Score: 8 05/01/19 24 9:58 AM EST documented as of this encounter Care Teams Tailer Off Relationship Specialty Start Date End Date NameAaron MD [address] [place] [address] PCP - General Family Medicine 09/23/16 Brennan Barrera RN [address] [place] [address] Engineering Test MechanicCoin Rolling Machine Operator 08/24/23 11/18/23 documented as of this encounter
--- OUTSIDE RECORDS SUMMARY | 2024-07-11 15:14 | XMS_ITS | Encounter Summary ---
Author Organization [email or web address] Address [address] [facility] 7t [place] [address] Care Team Providers Care Jewelry Appraiser Name Role Phone NameAaron MD Primary Care Provider [phone] Brennan Barrera RN Unavailable [phone] Reason for Visit * Reason Onset Date Comments Nurse Triage 08/03/2023 Encounter Details Date Type Department Care Team (Late st Contact Info) Description 08/03/2023 Telephone [facility] [address] [place], [place] [phone] Name, MD Aaron [address] [place] [address] Nurse Triage Social History Tobacco Use Types [...] 08/03/2023 3:49 PM EDT Triage call with [facility] Electrical Maintenance Supervisor ID [id number] Pt is calling regarding left lower quadrant pain. [facility]was [facility] today in apt with Dr. Muñoz regarding pelvic pain. Pt is concerned because when finished with apt told Pt to go to ED if pain increases. Pt does have an appointment for sonogram on the . Pt last BM was yesterday, neg for constipation. Pt is advised to come to [facility] hours [id number] and 830am-400pm -fri. if needed. Home care [...] acuity questions The caller accepted this outcome Macedonian speaking documented in this encounter Plan of Treatment Upcoming Encounters Date Type Department Care Team (Late st Contact Info) Description 08/19/2024 10:30 AM EDT Office Visit [facility] [address] [place] [address] Name, MD aAron [address] [place] [address] documented as of this encounter Visit Diagnoses Not on filedocumented in this encounter Additional Health Concerns Assessment Noted Time PHQ-9 Depression Total Score: 8 05/01/19 24 9:58 AM EST documented as of this encounter Care Teams Jewelry Appraiser Relationship Specialty Start Date End Date Name, MD Aaron [address] [place] [address] PCP - General Family Medicine 09/23/16 Brennan Barrera RN [address] [place] [address] Radiologist Chief Of Breast ImagingEmployee Benefits Administrator 08/24/23 11/18/23 documented as of this encounter
--- OUTSIDE RECORDS SUMMARY | 2024-07-11 15:14 | XMS_ITS | Encounter Summary ---
Author Organization [employer] Address [address] [facility] 7t [place] [address] Care Team Providers Care Pipe Coremaker Name Role Phone Name, Aaron PORTILLO Primary Care Provider [phone] Brennan Barrera RN Unavailable [phone] Encounter Details Date Type Department Care Team (Late st Contact Info) Description 04/08/2022 Orders Only [facility] [address] [place] [address] Libby Butcher LPN Social History Tobacco Use [...] Description 08/19/2024 10:30 AM EDT Office Visit [facility] [address] [place] [address] NameAaron MD [address] [place] [address] documented as of this encounter Visit Diagnoses Not on filedocumented in this encounter Care Teams Pipe Coremaker Relationship Specialty Start Date End Date NameAaron MD [address] [place] [address] PCP - General Family Medicine 09/23/16 Brennan Barrera RN [address] [place] [address] [place] [address] Overnight BabysitterManufacturing Test Technician 08/24/23 11/18/23 documented as of this encounter
--- OUTSIDE RECORDS SUMMARY | 2024-07-11 15:14 | XMS_ITS | Clinical Summary ---
Author Organization [employer] Address [address] [facility] [address]t [place] [address] Care Team Providers Care Back Pad Inspector Name Role Phone Name, Aaron PORTILLO Primary Care Provider [phone] Allergies Active Allergy Reactions Criticality Noted Date Comments Tomato Hives 08/05/2023 Medications albuterol (2.5 MG/3ML) 0.083% [...] Type Department Care Team Description 06/28/[address] [facility] [address] [place] [address] Name, MD Aaron Primary osteoarthritis involving multiple joints; Essential hypertension; NSAID long-term use 06/14/2024 Refill [facility] [address] [place] [address] Aaron Martinez MD Pre-diabetes 05/17/2024 Telephone [facility] [address] [place] [address] Cedric Sloan [place] BHS Cancelled Appt 05/10/2024 Telephone [facility] [address] [place] [address] Cedric Sloan MA may recalls 05/06/2024 Population Health Risk Score Community Care [facility] ([facility]) Department [address] [place] [id number] Provider, Population Health Generic 04/17/2024 Refill [facility] [address] [place] [address] NameAaron MD from Last 3 Months Immunizations Immunization Administration Dates Next Due Influenza High-dose Quadriva [...] Description 08/19/2024 10:30 AM EDT Office Visit [facility] [address] [place] [address] Name, [place] [address] Health Maintenance Due Date Last Done Comments [...] patient's age to complete this topic Meningococcal B Vaccine Aged Out No l onger eligible based on patient's age to complete [...] AM EST) Hemoglobin A1c 5.7 <6.0 % [facility] Comment:Hemoglobin A1C Refer ence Range Adults: 4.8 - 6.0 % Non diabetic: < 6.0 % Goal: < 7.0 %Additional Action Suggested: > 8.0 %Note: Hemoglobin A1c results are invalid for patients with abnormal amounts of HbF. Blood transfusions may impact the HbA1c concentration in the patient sample. Estimated Average Glucose 117 mg/dL [facility] Comment:eAG = Estimated ave rage glucose which is %A1C expressed asaverage glucose, using the formula of the D8S-QprlomhSjgsuog Glucose study (ADAG), Diabetes Care, Vol.31,#8,Sep. 2007 Blood Venous blood specimen / Unknown 02/16/2024 9:20 AM EST 02/16/2024 11:02 AM EST us Aaron Martinez MD LAB BLOOD ORDERABLES Final Resul t [facility] [address] [place] [address] [phone] * BI Mammogram Screening Tomosynthesis Bilateral (10/21/2023 9:00 AM EDT) Anatomical Region Laterality Modality Breast Bilateral Mammography 10/21/2023 9:00 AM EDT Narrative 11/24/2023 10:41 AM EDT ? [facility] ? [address] ?[place] [address] ? Mammography Report ? Signed ? Patient: Casiano,Lorie ?MR#: [id number] ?? [id number] ? : 1955 ?Acct:[id number] ? Age/Sex: 67 / F ?ADM Date: 10/21/23 ? Loc: HO.MAMMO ? Attending Dr: Aaron Name MD ? Ordering Physician: Name,Aaron MD ?Results: 2Benign Fi ?? ndings ? Date of Service: 10/21/23 ?Follow Up: 1 Year From Orig ?? inal Mammogram ? Procedure(s): MM tomosynthesis screening BI ?? Accession Number(s): [id number] ? cc: Name,Aaron ? EXAMINATION: ?? MM SCREENING DIGITAL BREAST [...] DD/ 0900 ? TD/TT: 10/21/23 0920 ? Right Of Way Appraiser: ? Procedure Note Vicki, Image - 11/24/2023 [facility] [address] [place] [address] Mammography Report Signed Patient: Lorie CasianoMR#: [id number] : 4Acct:[id number] Age/Sex: 67 / FADM Date: 10/21/23 Loc: YAHAIRA Attending Dr: Aaron Martinez MD Ordering Physician: Aaron Martinezults: 2Benign Fi ndings Date of Service: 10/21/23Follow Up: 1 Year From Orig inal Mammogram Procedure(s): MM tomosynthesis screening BI Accession Number(s): [id number] cc: Aaron Martinez MD EXAMINATION: MM SCREENING [...] 11/24/23 1038 DD/ 0900 TD/TT: 10/21/[address] Appraiser: us Aaron Martinez MD IMG BI PROCEDURES Edited Result - Final * Hm Colonoscopy (08/07/2023) Colonoscopy Normal Normal us Aaron Martinez MD HEALTH MAINTENANCE Final Result * (ABNORMAL) Lipid Panel, Standard (03/23/2023 8:36 AM EST) Triglycerides 132 <150 mg/dL [facility] Comment:Desirable Triglyceri de: less than 150 mg/dLBorderline High Triglyceride 150-199 mg/dLHigh Triglyceride: 200-499 mg/dLVery High Triglyceride: greater than or equal to 5OO mg/dL Cholesterol 203(H) <200 mg/dL [facility] Comment:Desirable Cholestero l: less than 200 mg/dLBorderline High Cholesterol: 200-239 mg/dLHigh Cholesterol: greater than 239 mg/dL LDL Cholesterol Calculated 122(H) <100 mg/dL [facility] Comment:Desirable LDL: less than 100 mg/dLNear Optimal/Above Optimal LDL: 110- 129 mg/dLBorderline High LDL: 130-159 mg/dLHigh LDL: 160-189 mg/dLVery High LDL: greater than or equal to 190 mg/dL HDL Cholesterol 55 >40 mg/dL [facility] Comment:Desirable HDL: great er than 40 mg/dL Note: This HDL assay may give artificially low results in patients with liver disease. Blood Venous blood specimen / Unknown 03/23/2023 8:36 AM EST 03/23/2023 10:37 AM EST us Aaron Martinez MD LAB BLOOD ORDERABLES Final Resul t Performing Organization Address City/[facility]/ZIP Co de Phone Number [facility] [address] [place] [address] [phone] * HEPATITIS C ANTIBODY RFLX (01/27/2020 8:30 AM EST) Hepatitis C Antibody Nonreactive Nonreactive [facility] Comment: Antibodies to HCV not detected; does not exclude early acute HCV infection. 01/27/2020 8:30 AM EST us Aaron Martinez MD HISTORICAL/NON ORDERABLE LABS Fi nal Result Performing Organization Address City/[facility] Co de Phone Number [facility] [address] from Last 3 Months or Most Recently Relevant to Health Maintenance Insurance MEDICARE [facility] STANDARD Care Teams Back Pad Inspector Relationship Specialty Start Date End Date Name, MD Aaron [address] [place] [address] PCP - General Family Medicine 09/23/16
--- OUTSIDE RECORDS SUMMARY | 2024-07-11 15:14 | XMS_ITS | Encounter Summary ---
Author Organization [employer] Address [address] [facility] 7t [place] [address] Care Team Providers Care Repossession Agent Name Role Phone Name, Aaron PORTILLO Primary Care Provider [phone] Brennan Barrera RN Unavailable [phone] Encounter Details Date Type Department Care Team (Late st Contact Info) Description 03/18/2022 Orders Only [facility] [address] [place] [address] Libby Butcher LPN Social History Tobacco Use [...] Description 08/19/2024 10:30 AM EDT Office Visit [facility] [address] [place] [address] NameAaron MD [address] [place] [address] documented as of this encounter Visit Diagnoses Not on filedocumented in this encounter Care Teams Repossession Agent Relationship Specialty Start Date End Date NameAaron MD [address] [place] [address] PCP - General Family Medicine 09/23/16 Brennan Barrera RN [address] [place] [address] [place] [address] Supervisor Poultry ProcessingCryogenics Repairer 08/24/23 11/18/23 documented as of this encounter
--- OUTSIDE RECORDS SUMMARY | 2024-07-11 15:14 | XMS_ITS | Encounter Summary ---
Author Organization [employer] Address [address] [place] [address] Care Team Providers Care Head Host/Hostess Name Role Phone Name, Aaron PORTILLO Primary Care Provider [phone] Brennan Barrera RN Unavailable [phone] Encounter Details Date Type Department Care Team ([facility] st Contact Info) Description 08/05/2023 Telephone [facility] [address] [place], [place] [phone] Kaci Ferraro, RN Social History Tobacco Use [...] Description 08/19/2024 10:30 AM EDT Office Visit [facility] [address] [place] [address] Name, MD Aaron [address] [place] [address] documented as of this encounter Visit Diagnoses Not on filedocumented in this encounter Additional Health Concerns Assessment Noted Time PHQ-9 Depression Total Score: 8 05/01/19 24 9:58 AM EST documented as of this encounter Care Teams Head Host/Hostess Relationship Specialty Start Date End Date Name, MD Aaron [address] [place] [address] PCP - General Family Medicine 09/23/16 Brennan Barrera RN [address] [place] [phone] Aircraft Layout WorkerManager Target 08/24/23 11/18/23 documented as of this encounter
[2024-07-11] MEDS: gadobutroL 7.5 ML VIAL IVPUSH (15:41)
== END 2024-07-11 15:11 | disposition home or self-care (01) ==
LOC: HO.MRI 15:10
PROVIDERS: PCP Internal Medicine Geriatric Medicine; Visit Provider Obstetrics & Gynecology Gynecologic Oncology
DX: R19.09 Other intra-abdominal and pelvic swelling, mass and lump (principal)
CPT/HCPCS: 72197; A9585

== ENCOUNTER → 2024-07-11 15:21 | Outpatient (BNV) | payer MEDICARE, MEDICAID, SELFPAY | PROVIDERS: PCP Internal Medicine Geriatric Medicine; Visit Provider Radiology Diagnostic Radiology | DX: R19.09 Other intra-abdominal and pelvic swelling, mass and lump (principal) | CPT/HCPCS: 72197 ==

== ENCOUNTER 2024-08-04 08:16 | Outpatient (AMB) | payer MEDICARE, MEDICAID, SELFPAY ==
--- NOTE | 2024-08-04 08:22 | MHC.OFFVIS ---
Intake Visit Reasons: 6m/ PVR Intake Note: Patient presents for follow up visit for urinary frequency Urology Medications: none Blood Thinner: none PVR: 60ml's Professor Of Geology Required: No Accompanied by: Self / Same As Patient Allergies begum Allergy (Verified 08/04/24 09:07) Itching pollen extracts Allergy (Verified 08/04/24 09:07) Sneezing tomato Allergy (Verified 08/04/24 09:07) Hives Medication List - Last Reconciled 08/04/24 by ANA Mills-LEATHA acetaminophen (Tylenol Extra Strength) 500 mg PO Q6H PRN albuterol sulfate 1 amp inhalation QID amlodipine 1 tab PO QAM atorvastatin 80 mg PO DAILY calcium carbonate-vitamin D3 600 mg-20 mcg (800 unit) 1 tab PO fluticasone furoate-vilanterol 200-25 mcg/dose (Breo Ellipta) 1 inh inhalation DAILY montelukast (Singulair) 10 mg PO BEDTIME omeprazole 1 cap PO QAM polyvinyl alcohol 1.4% (Artificial Tears (polyvinyl alcohol)) 1 drp ophthalmic (eye) BID-QID PRN sertraline 25 mg PO DAILY tiotropium bromide 2.5 mcg/actuation (Spiriva Respimat) 2 puffs inhalation DAILY valsartan-hydrochlorothiazide 320-25 mg 1 tab PO DAILY Ventolin HFA 90 mcg/actuation (albuterol sulfate) 2 puffs PO Q4-6H PRN NS HPI Comments Details: Lorie is a pleasant 68-year-old female patient of Dr. Martinez. She has a past medical history of osteoarthritis, pre diabetes, GERD, asthma, and hypertension. She presents to the office today for follow-up. In discussion with the patient today she reports to be doing and feeling well. She reports feeling episodes of nocturia she had been experiencing has significantly improved. She currently denies any bothersome urinary issues or concerns. She does report to be following up with Dr. Pan through [facility] for cystic structure/lesion on the right adnexa and has been following up every 6 months for surveillance monitoring. In office urinalysis results reviewed with the patient today. PVR 60 mL. When asked she denies urinary urgency, urinary frequency, incontinence, nocturia, hematuria, dysuria, foul smelling urine, changes to urinary stream, flank pain, fever, and or chills. She is happy with her current voiding parameters. Previous workup has included a retroperitoneal ultrasound 06/16 noting bilateral kidneys with no calculi and or hydronephrosis. Small cortical and parapelvic simple cyst noted. No follow-up imaging is recommended per radiology report. The bladder is well distended and normal. Bladder ureteral jets are demonstrated. Pre void bladder volume is approximately 150 mL. Postvoid bladder volume is approximately 10 mL. Unremarkable renal bladder ultrasound. Patient has also had sleep study that noted no sleep apnea. She otherwise denies any other issues or concerns at this time. 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, bilateral Hypovitaminosis D Age related osteoporosis COVID-19 vaccine series completed Pre-diabetes GERD (gastroesophageal reflux disease) Arthritis Asthma Hypertension Osteoarthritis of left knee Surgical History History of left knee surgery Hx of breast biopsy Hx of hysterectomy H/O colonoscopy Hx of hand surgery Hx of knee surgery H/O unilateral oophorectomy History of total right knee replacement Family History Maternal Aunt Breast CA Mother Colon cancer Arthritis Sister Arthritis Social History Household Members: Family Household Members Other:: daughter Housing: House Are you a primary career developer to a significant other at home: No Do you presently have visiting nurse or other home services: No Alcohol intake: current Alcohol intake frequency: holidays/special occasions only Comment: chronic back pain Patient Tobacco Use Status: Former Tobacco user Tobacco use type: Cigarette Years Smoked: 20 Second Hand Smoke Exposure: No Advance Directives Date on File: 07/17/17 service: No Current occupational status: disabled Current occupation: rt handed Female Reproductive History Menstrual Age of Menarche: 9 Review of Systems Eyes Reports no additional complaints ENT Reports no additional complaints Card Reports as per HPI Resp Reports as per HPI GI Reports as per HPI Reports as per HPI Musc Reports as per HPI Neuro Reports no additional complaints Psych Reports no additional complaints Endo Reports no additional complaints Srinivas/Lymph Reports no additional complaints Aller/Immun Reports no additional complaints Physical Exam Const General: cooperative, healthy appearing, comfortable, no acute distress, well developed, alert and awake Orientation/consciousness: patient oriented x3 Limitations: no limitations HEENT Head: Yes normal to inspection, Yes normocephalic and Yes atraumatic Ears: hearing grossly normal bilaterally Eyes General: appearance normal, both eyes and all related structures Neck Neck: Yes normal visual inspection and Yes trachea midline Chest Chest palpation & inspection: normal inspection of the chest Resp Effort & Inspection: normal respiratory effort and able to speak in complete sentences Cardio Rate: regular rate GI Inspection: Yes normal to inspection General: Yes no CVA tenderness Back/Spine/Pelvis Back: no CVA tenderness Skin General skin exam: no rashes or lesions noted Neuro General: patient oriented x3 Extrem General: Yes normal to inspection Psych Appearance: grossly normal and well kempt Mental Status: mental status grossly normal Speech and movement: Normal speech and movement present and Clear speech present Affect: normal affect Attitude: cooperative Thought process: Normal thought process present Thought content: Normal thought content present Insight: Fair insight present (Psych) Judgement: Fair judgement present (Psych) Office Procedures Post Void Residual Post Residual Void Post Void Residual (PVR): 60 [id number] Void Residual by ultrasound Results AMB Urinalysis, Automated UA Leukoctes 15 Enrique/uL Last Edit by Sophia Chacko CCM on 08/04/24 08:40 UA Nitrite Last Edit by Sophia Chacko [facility] on 08/04/24 08:40 UA Urobilinogen 0.2 mg/dL Last Edit by oSphia Chacko [facility] on 08/04/24 08:40 UA Protein 15 mg/dL Last Edit by Sophia Chacko [facility] on 08/04/24 08:40 UA pH 5.5 Last Edit by Sophia Chacko [facility] on 08/04/24 08:40 UA Blood 0 Uvaldo/uL Last Edit by Sophia Chacko [facility] on 08/04/24 08:40 UA Specific [place] 1.020 Last Edit by Sophia Chacko [facility] on 08/04/24 08:40 UA Ketone Positive Last Edit by Sophia Chacko [facility] on 08/04/24 08:40 UA Bilirubin 0 mg/dL Last Edit by Sophia Chacko [facility] on 08/04/24 08:40 UA Glucose 0 mg/dL Last Edit by STEFAN Johns on 08/04/24 08:40 Results Reviewed Results Reviewed: Laboratory Last Values Urine pH (Auto) 5.5 08/04/24 08:39 Specific [place] (Auto) 1.020 08/04/24 08:39 Urine Protein (Auto) 15 mg/dL 08/04/24 08:39 Glucose (UA)(Auto) 0 mg/dL 08/04/24 08:39 Urine Ketones (Auto) Positive 08/04/24 08:39 Urine Blood (Auto) 0 Uvaldo/uL 08/04/24 08:39 Urine Bilirubin (Auto) 0 mg/dL 08/04/24 08:39 Urine Urobilinogen (Auto) 0.2 mg/dL 08/04/24 08:39 Leukocyte Esterase (Auto) 15 Enrique/uL 08/04/24 08:39 Assessment & Plan Assessment & Plan (1) Nocturia: Code(s): R35.1 - Nocturia Category: Medical Plan In office urinalysis results reviewed with the patient today; as noted above. PVR 60 mL. She currently denies any bothersome urinary issues or concerns. She reports be happy with current voiding parameters. Will continue with surveillance monitoring. Follow-up in 6 months with PVR; or sooner with any issues, concerns, and or questions. Orders: Orders AMB Urinalysis Automated Today Z13.9 - Encounter for screening, unspecified AMB Post Void Residual by ultrasound Today R35.0 - Frequency of micturition Patient Instructions: The patient had an opportunity to ask questions regarding the treatment plan. All questions were answered. Physical exam, labs, and imaging were discussed and reviewed in detail. As well as risks, benefits, and discussion of treatment choices. No major barriers to understanding were identified. The patient expressed understanding and agreement with the above treatment plan. The patient was made aware they should contact our office by phone for worsening of their current condition, the appearance of new symptoms, or with any questions or concerns. Compliance is encouraged with any medications and follow up testing that is ordered. It is a privilege to be allowed the opportunity to participate in? your urological care.? Again, if you have any questions or concerns If you have any questions or concerns please do not hesitate to contact me. The office is [phone]. This note is constructed using voice recognition software. While every effort has been made to ensure accuracy veterinary pathologist errors may have been included. Yours sincerely, ANA Mills-BC Coding Level of Care Code Est Pt Level 3 (75013) Complex EM visit Add On G2211 Diagnoses Nocturia R35.1 CPT Codes Post Residual Void - PVR CPT Code: 10731-Ctwt Void Residual by ultrasound ([id number])
== END 2024-08-04 09:05 | disposition home or self-care (01) ==
LOC: HO.HUSH 08:17
PROVIDERS: PCP Internal Medicine Geriatric Medicine; Visit Provider Nurse Practitioner Family
DX: R35.1 Nocturia (principal); Z13.9 Encounter for screening, unspecified
CPT/HCPCS: 99213; G2211

== ENCOUNTER → 2024-08-04 08:16 | Outpatient (BNVA) | payer MEDICARE, MEDICAID, SELFPAY | PROVIDERS: PCP Internal Medicine Geriatric Medicine; Visit Provider Nurse Practitioner Family | DX: R35.1 Nocturia (principal) | CPT/HCPCS: 51798; 81003; 99212 ==

== ENCOUNTER 2024-09-26 08:57 | Outpatient (REF) | payer MEDICARE, MEDICAID, SELFPAY ==
[2024-09-26 10:36] LABS: Alanine Aminotransferase 26 U/L (0-31); Albumin Level 4.5 g/dL (3.5-5.0); Alkaline Phosphatase 66 U/L (39-117); Anion Gap 12 (12-20); Aspartate Amino Transferase 23 U/L (5-31); Blood Urea Nitrogen 18 mg/dL (9-16); Calcium 10.3 mg/dL (8.4-10.2); Carbon Dioxide 32 mmol/L (22-29); Chloride 102 mmol/L (96-108); Cholesterol 161 mg/dL (<200); Estimated Glomerular Filt Rate > 60; HDL Cholesterol 57 mg/dL (>40); Potassium 4.3 mmol/L (3.3-5.1); Sodium 142 mmol/L (135-145); Total Protein 7.2 g/dL (6.5-8.0); Triglycerides 84 mg/dL (<150)
[2024-09-26 10:40] LABS: Hemoglobin A1C 121.5334 umol/L; Total Hemoglobin (HGBA1C) 3288.0753 umol/L
== END 2024-09-26 08:58 | disposition home or self-care (01) ==
LOC: HO.LAB 08:57
PROVIDERS: PCP Internal Medicine Geriatric Medicine; Visit Provider Internal Medicine Geriatric Medicine
DX: R73.03 Prediabetes (principal); E78.00 Pure hypercholesterolemia, unspecified; Z79.899 Other long term (current) drug therapy
CPT/HCPCS: 36415; 80053; 80061; 83036

== ENCOUNTER 2024-10-12 08:29 | Outpatient (REF) | payer MEDICARE, MEDICAID, SELFPAY ==
[2024-10-12 13:20] LABS: Ferritin 38 ng/mL (10-250)
[2024-10-12 13:34] LABS: Folate 12.1 ng/mL (> or = 4.0); Vitamin B12 361 pg/mL (200-900)
[2024-10-18 14:54] LABS: Vitamin D 25-OH, D2 <4 ng/mL; Vitamin D 25-OH, D3 40 ng/mL; Vitamin D 25-OH, Total 40 ng/mL (30-100)
== END 2024-10-12 08:30 | disposition home or self-care (01) ==
LOC: HO.HKASLDS 08:29
PROVIDERS: PCP Internal Medicine Geriatric Medicine; Visit Provider Psychiatry & Neurology Neurology
DX: G47.61 Periodic limb movement disorder (principal); G47.33 Obstructive sleep apnea (adult) (pediatric); G25.81 Restless legs syndrome; G47.52 REM sleep behavior disorder; G47.8 Other sleep disorders; Z79.1 Long term (current) use of non-steroidal anti-inflammatories (NSAID); Z79.899 Other long term (current) drug therapy
CPT/HCPCS: 36415; 82306; 82607; 82728; 82746; 84443; 99202

== ENCOUNTER 2024-10-12 08:29 | Outpatient (AMB) | payer MEDICARE, MEDICAID, SELFPAY ==
--- NOTE | 2024-10-12 08:45 | A.OFFVIS_ITS ---
Vital Signs 10/12/24 08:46 Height 5 ft 1 in Weight 161 lb 6 oz BMI 30.5 BP 138/82 Blood Pressure Location Rt brachial Position Sitting Pulse 71 Pulse Source Pulse Oximeter Pulse Oximetry (%) 97 Oxygen Delivery Method Room Air Intake Visit Reasons: INP-Periodic limb movement disorder Intake Note: Periodic limb movement disorder ref by Pulmonary dept. see note 3.24.25 Building Construction Ironworker Required: Yes Building Construction Ironworker Services: Building Construction Ironworker Offered & Declined Building Construction Ironworker Name: Daughter - George Accompanied by: Daughter Allergies begum Allergy (Verified 10/12/24 08:50) Itching pollen extracts Allergy (Verified 10/12/24 08:50) Sneezing tomato Allergy (Verified 10/12/24 08:50) Hives Medication List - Last Reconciled 10/12/24 by Anamika Mackey MD acetaminophen (Tylenol Extra Strength) 500 mg PO Q6H PRN albuterol sulfate 1 amp inhalation QID amlodipine 1 tab PO QAM atorvastatin 80 mg PO DAILY calcium carbonate-vitamin D3 600 mg-20 mcg (800 unit) 1 tab PO fluticasone furoate-vilanterol 200-25 mcg/dose (Breo Ellipta) 1 inh inhalation DAILY metformin mg PO montelukast (Singulair) 10 mg PO BEDTIME naproxen 500 mg PO BID omeprazole 1 cap PO QAM polyvinyl alcohol 1.4% (Artificial Tears (polyvinyl alcohol)) 1 drp ophthalmic (eye) BID-QID PRN tiotropium bromide 2.5 mcg/actuation (Spiriva Respimat) 2 puffs inhalation DAILY valsartan-hydrochlorothiazide 320-25 mg 1 tab PO DAILY Ventolin HFA 90 mcg/actuation (albuterol sulfate) 2 puffs PO Q4-6H PRN NS HPI Comments Details: 68y/o female comes for evaluation and management of periodic limb movement disorder. SHe started CPAP 3 mths ago and is doing better. The limb movements does not bother her but her reports limb movements she has some creepy crawly sensations , discomfort in her legs at rest . It usually starts at 7 pm - she usually puts on socks or heavy blanket or rubbing the legs etc . she goes to bed at 10 pm - sleeps at 11 .30 pm . she has 3 arousals at night due to leg movements sometimes she walks around to help her sleep . she also reports acting out her dreams once a week- her wakes her up. Her dreams are usually someone attacking or chasing her .she denies memory issues , denies any tremors. 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, bilateral Hypovitaminosis D Age related osteoporosis COVID-19 vaccine series completed Pre-diabetes GERD (gastroesophageal reflux disease) Arthritis Asthma Hypertension Osteoarthritis of left knee Surgical History History of left knee surgery Hx of breast biopsy Hx of hysterectomy H/O colonoscopy Hx of hand surgery Hx of knee surgery H/O unilateral oophorectomy History of total right knee replacement Family History Maternal Aunt Breast CA Mother Colon cancer Arthritis Sister Arthritis Social History Household Members: Family Household Members Other:: daughter Housing: House Are you a primary resident care manager to a significant other at home: No Do you presently have visiting nurse or other home services: No Alcohol intake: current Alcohol intake frequency: holidays/special occasions only Comment: chronic back pain Patient Tobacco Use Status: Former Tobacco user Tobacco use type: Cigarette Years Smoked: 20 Second Hand Smoke Exposure: No Advance Directives Date on File: 07/17/17 service: No Current occupational status: disabled Current occupation: rt handed Female Reproductive History Menstrual Age of Menarche: 9 Physical Exam Vital Signs: Last Vital Signs Pulse 71 10/12/24 08:46 BP 138/82 10/12/24 08:46 Pulse Ox 97 10/12/24 08:46 Oxygen Delivery Method Room Air 10/12/24 08:46 BMI result Body Mass Index 30.5 Const General: cooperative, healthy appearing, comfortable and no acute distress Nutritional Appearance: average body habitus Orientation/consciousness: patient oriented x3 Eyes Pupils: Equal, round and reactive pupils present Neuro General: patient oriented x3, gait normal, tone normal, moves all extremities and no focal motor deficits Cranial nerves: Yes Facial sensation intact/muscles of mastication intact, Yes Equal, round and reactive pupils present, Yes Bilaterally intact EOM present, Yes Nystagmus not present, Yes Normal facial strength present, Yes Midline tongue present and Yes Ability to bilaterally elevate shoulders present Cognition (Neuro): normal cognition Gait exam (Neuro): Normal gait present Motor exam (neuro): 5/5 motor strength present throughout and Normal motor muscle tone present throughout Deep tendon reflexes (DTR's): Right triceps reflex intensity grade: 2+, Left triceps reflex intensity grade: 2+, Rt Biceps (C5, C6): 2+, Left biceps reflex intensity grade: 2+, Right brachioradialis reflex intensity grade: 2+, Left brachioradialis reflex intensity grade: 2+, Right patellar reflex intensity grade: 2+, Left patellar reflex intensity grade: 2+ and Right ankle reflex intensity grade: 2+ Coordination: [id number]-gh-cypu test normal Assessment & Plan Assessment & Plan (1) Periodic limb movement: Comment: AHI 5 REM AHI 28 O2 veena 80 % PLM arousal index 16 Code(s): G47.61 - Periodic limb movement disorder Category: Medical (2) Obstructive sleep apnea: Code(s): G47.33 - Obstructive sleep apnea (adult) (pediatric) Category: Medical (3) Restless legs syndrome (RLS): Code(s): G25.81 - Restless legs syndrome Category: Medical (4) REM behavioral disorder: Code(s): G47.52 - REM sleep behavior disorder Category: Medical Plan I will trial her on gabapentin 100mg q 7 pm for restless legs and PLMD Melatonin 3mg qhs for REM behavior disorder Continue CPAP 5-20 cm of water and follow up Check ferritin TSH VIt B 12 Vit D to r/o reversible causes of PLMD Orders: Orders TSH reflex Free T4 Today G47.61 - Periodic limb movement disorder, G47.8 - Other sleep disorders Vitamin B12 and Folate Today G47.61 - Periodic limb movement disorder, G47.8 - Other sleep disorders Ferritin Today G47.61 - Periodic limb movement disorder, G47.8 - Other sleep disorders Vitamin D 25-OH (D2 and D3) Today G47.61 - Periodic limb movement disorder, G47.8 - Other sleep disorders Medications: New melatonin 3 mg PO BEDTIME 30 tabs 6RF sleep gabapentin 100 mg PO ONCE 30 caps 6RF Coding Level of Care Code New Pt Level 4 (88546) Complex EM visit Add On G2211 Diagnoses Periodic limb movement G47.61 Obstructive sleep apnea G47.33 Restless legs syndrome (RLS) G25.81 REM behavioral disorder G47.52
[2024-10-12 08:46] VITALS: BP 138/82; PULSE 71; O2SAT 97; BMI 30.5
--- OUTSIDE RECORDS SUMMARY | 2024-10-12 09:10 | XMS_ITS | Encounter Summary ---
Author Organization [employer] Address [address] [facility] 7t [place] [address] Care Team Providers Care Director Of Religious Life Name Role Phone Name, Aaron PORTILLO Primary Care Provider Encounter Details Date Type Department Care Team (Latest Contact Info) Description 10/07/2024 Travel Social History Tobacco Use Types Packs/Day Years Used Date Smoking Tobacco: Never Smokeless Tobacco: Never Alcohol Use Standard Drinks/Week Comments Yes 0 (1 standard drink = 0.6 oz pur e alcohol) social Depression Answer Date Recorded Patient Health Questionnaire-9 Score 9 08/19/2024 Patient Health Questionnaire-9 Score 9 08/19/2024 Last PHQ-9: Questionnaire Data Not on file 0 08/19/2024 Housing Stability Answer Date Recorded What is your housing situation today? I have michelle henry 08/12/[address] you li ve. Do you have problems with any of the following? None of the above 08/12/2024 Food Insecurity Answer Date Recorded Within the past 12 months, y ou worried that your food would run out before you got money to buy more: Never True 08/12/2024 Within the past 12 months,th e food you bought just didn't last and you didn't have enough money to get more: Never True Transportation Answer Date Recorded In the past 12 months, has l ack of transportation kept you from medical appts, meetings, work or from getting things needed for daily living? No 08/12/2024 Utilities Answer Date Recorded In the past 12 months, has t he electric, gas, oil or water company threatened to shut off services in your home? No 08/12/2024 Depression Answer Date Recorded Patient Health Questionnaire-2 Score 3 08/19/2024 Internet Access Answer Date Recorded Internet Access Q1 Yes 08/12/2024 Internet Access Q2 Not on file 08/12/2024 Comments Unknown Sex and Gender Information Value Date Recorded Sex Assigned at Female 12/23/2021 10:31 AM EDT Legal Sex Female 10:31 AM EDT Gender Identity Female 12/23/2021 10:31 AM EDT Sexual Orientation Straight 12/23/2021 10 :31 AM EDT documented as of this encounter Plan of Treatment Upcoming Encounters Date Type Department Care Team (Late st Contact Info) Description 01/06/2025 10:15 AM EST Office Visit [facility] [address] [place] [phone] Name, MD Aaron [address] [place] [address] documented as of this encounter Visit Diagnoses Not on filedocumented in this encounter Additional Health Concerns Assessment Noted Time PHQ-9 Depression Total Score: 9 08/20/19 25 11:55 AM EDT documented as of this encounter Care Teams Director Of Religious Life Relationship Specialty Start Date End Date Name, MD Aaron [address] [place] [address] PCP - General Family Medicine 09/23/16 documented as of this encounter
== END 2024-10-12 09:29 | disposition home or self-care (01) ==
LOC: HO.HSMS 08:30
PROVIDERS: PCP Internal Medicine Geriatric Medicine; Visit Provider Psychiatry & Neurology Neurology
DX: G47.61 Periodic limb movement disorder (principal); G47.33 Obstructive sleep apnea (adult) (pediatric); G25.81 Restless legs syndrome; G47.52 REM sleep behavior disorder
CPT/HCPCS: 99204; G2211

== ENCOUNTER 2024-10-26 08:36 | Outpatient (REF) | payer MEDICARE, MEDICAID, SELFPAY ==
--- OUTSIDE RECORDS SUMMARY | 2024-10-26 09:06 | XMS_ITS | Encounter Summary ---
Author Organization [employer] Address [address] [facility] [address] 7[address] [place] [address] Care Team Providers Care Predatory Animal Trapper Name Role Phone Name, Aaron PORTILLO Primary Care Provider [phone] Brennan Barrera RN Unavailable [phone] Encounter Details Date Type Department Care Team (Late st Contact Info) Description 08/05/2023 Telephone [facility] [address] [place], [place] [phone] Kaci Ferraro, RN Social History Tobacco Use [...] Description 01/06/2025 10:15 AM EST Office Visit [facility] [address] [place] [phone] Name, MD Aaron [address] [place] [address] documented as of this encounter Visit Diagnoses Not on filedocumented in this encounter Additional Health Concerns Assessment Noted Time PHQ-9 Depression Total Score: 8 05/01/19 24 9:58 AM EST documented as of this encounter Care Teams Predatory Animal Trapper Relationship Specialty Start Date End Date Name, MD Aaron [address] [place] [address] PCP - General Family Medicine 09/23/16 Brennan Barrera RN [address] [place] [address] Waiter/Waitress [employer] Assistant General Manager 08/24/23 11/18/23 documented as of this encounter
--- OUTSIDE RECORDS SUMMARY | 2024-10-26 09:06 | XMS_ITS | Encounter Summary ---
Author Organization [employer] Address [address] [facility] [address] 7[address] [place] [address] Care Team Providers Care Zoning Technician Name Role Phone Name, Aaron PORTILLO Primary Care Provider [phone] Brennan Barrera RN Unavailable [phone] Encounter Details Date Type Department Care Team ([facility] st Contact Info) Description 07/31/2023 Telephone [facility] [address] [place], [place] [phone] Name, MD Aaron [address] [place] [address] Social History Tobacco Use Types Packs/Day Years [...] Description 01/06/2025 10:15 AM EST Office Visit [facility] [address] [place] [phone] Name, MD Aaron [address] [place] [address] documented as of this encounter Visit Diagnoses Not on filedocumented in this encounter Additional Health Concerns Assessment Noted Time PHQ-9 Depression Total Score: 8 05/01/19 24 9:58 AM EST documented as of this encounter Care Teams Zoning Technician Relationship Specialty Start Date End Date Name, MD Aaron [address] [place] [address] PCP - General Family Medicine 09/23/16 Brennan Barrera, KAREEM [address] [place] [phone] Lead Data Entry OperatorTransit Proof Machine Operator 08/24/23 11/18/23 documented as of this encounter
--- OUTSIDE RECORDS SUMMARY | 2024-10-26 09:06 | XMS_ITS | Encounter Summary ---
Author Organization [employer] Address [address] [facility] 7t [place] [address] Care Team Providers Care Professor Of Voice Name Role Phone Name, Aaron PORTILLO Primary Care Provider [phone] Brennan Barrera RN Unavailable [phone] Reason for Visit * Reason Onset Date Comments Nurse Triage 08/03/2023 Encounter Details Date Type Department Care Team (Late st Contact Info) Description 08/03/2023 Telephone [facility] [address] [place], [place] [phone] Name, MD Aaron [address] [place], [place] [phone] Nurse Triage Social History Tobacco Use Types [...] 08/03/2023 3:49 PM EDT Triage call with [facility] Nurse ID [id number] Pt is calling regarding left lower quadrant pain. [facility] in [facility] today in apt with Dr. Muñoz regarding pelvic pain. Pt is concerned because when finished with apt told Pt to go to ED if pain increases. Pt does have an appointment for sonogram on the . Pt last BM was yesterday, neg for constipation. Pt is advised to come to [facility] hours [id number] and 830am-400pm -fri. if needed. Home [...] acuity questions The caller accepted this outcome Slovenian speaking documented in this encounter Plan of Treatment Upcoming Encounters Date Type Department Care Team (Late st Contact Info) Description 01/06/2025 10:15 AM EST Office Visit [facility] [address] [place] [phone] Name, MD Aaron [address] [place] [address] documented as of this encounter Visit Diagnoses Not on filedocumented in this encounter Additional Health Concerns Assessment Noted Time PHQ-9 Depression Total Score: 8 05/01/19 9:58 AM EST documented as of this encounter Care Teams Professor Of Voice Relationship Specialty Start Date End Date Name, MD Aaron [address] [place] [address] PCP - General Family Medicine 09/23/16 Brennan Barrera, KAREEM [address] [place] [address] Fib[employer]lass Boat Parts FinisherField Crop Ii Farmworker 08/24/23 11/18/23 documented as of this encounter
--- OUTSIDE RECORDS SUMMARY | 2024-10-26 09:06 | XMS_ITS | Encounter Summary ---
Author Organization [employer] Address [address] [place] [address] 7t [place] [address] Care Team Providers Care Campus Manager Name Role Phone Name, Aaron PORTILLO Primary Care Provider [phone] Brennan Barrera RN Unavailable [phone] Encounter Details Date Type Department Care Team (Late st Contact Info) Description 03/18/2022 Orders Only [facility] [address] [place] [address] Libby Butcher LPN Social History Tobacco Use [...] Description 01/06/2025 10:15 AM EST Office Visit [facility] [address] [place], [place] [phone] Name, MD Aaron [address] [place], [place] [phone] documented as of this encounter Visit Diagnoses Not on filedocumented in this encounter Care Teams Campus Manager Relationship Specialty Start Date End Date NameAaron MD [address] [place], [place] [phone] PCP - General Family Medicine 09/23/16 Brennan Barrera RN [address] [place] [address] Research DietitianUser Experience Developer 08/24/23 11/18/23 documented as of this encounter
--- OUTSIDE RECORDS SUMMARY | 2024-10-26 09:06 | XMS_ITS | Encounter Summary ---
Author Organization [employer] [facility] Address [address] [place] [address] [address]t [place] [address] Care Team Providers Care Customizer Name Role Phone Name, Aaron PORTILLO Primary Care Provider [phone] Brennan Barrera RN Unavailable [phone] Encounter Details Date Type Department Care Team (Late st Contact Info) Description 07/24/2022 Abstract [facility] MEDICINE [address] [place] [phone] Name, MD Aaron [address] [place] [address] Social History Tobacco Use Types Packs/Day Years [...] Description 01/06/2025 10:15 AM EST Office Visit [facility] MEDICINE [address] [place] [phone] Name, MD Aaron [address] [place] [address] documented as of this encounter Visit Diagnoses Not on filedocumented in this encounter Additional Health Concerns Assessment Noted Time PHQ-9 Depression Total Score: 10 023 9:31 AM EDT documented as of this encounter Care Teams Customizer Relationship Specialty Start Date End Date Name, MD Aaron [address] [place] [address] PCP - General Family Medicine 09/23/16 Brennan Barrera RN [address] [place] [address] Icu SpecialistShipping And Receiving Assistant 08/24/23 11/18/23 documented as of this encounter
--- OUTSIDE RECORDS SUMMARY | 2024-10-26 09:06 | XMS_ITS | Clinical Summary ---
Author Organization [facility] [facility] [employer] Address [address] [facility] [address]t [place] [address] Care Team Providers Care Vegetable Handler Name Role Phone Name, Aaron PORTILLO Primary Care Provider [phone] Allergies Active Allergy Reactions Criticality Noted Date Comments Tomato Hives 08/05/2023 Medications albuterol (2.5 MG/3ML) 0.083% nebulizer solution inhale 3 milliliter by nebulization route 4 times every day 270 mL 2 023 Active atorvastatin (Lipitor) 80 MG tablet TAKE 1 TABLET BY MOUTH DAILY IN THE MORNING 90 tablet 11 024 Active zoledronic acid (Reclast) 5 MG/100ML solution Infuse 5 mg into a venous catheter yearly. Active Ventolin HFA 108 (90 Base) MCG/ACT inhaler INHALE 2 PUFFS BY MOUTH EVERY 4 TO 6 HOURS NEEDED 18 g 4 024 Active mometasone-formot jeni (Dulera) 200-5 MCG/ACT [...] directed 30 mL 12 024 2024 Active metFORMIN (Glucophage) 850 MG tabletIndications :Pre-diabetes Take 1 tablet (850 mg) by mouth with breakfast and with evening meal. TAKE 1 TABLET WITH BREAKFAST AND WITH DINNER 180 tablet 3 025 2025 Active Calcium 600/Vitamin D3 600-20 MG-MCG tabletIndications :Osteopenia, unspecified location TAKE 1 TABLET BY MOUTH TWICE DAILY IN THE MORNING AND IN THE EVENING 60 tablet 11 Active valsartan-hydroCH LOROthiazide (Diovan-HCT) 320-25 MG tablet TAKE 1 TABLET BY MOUTH EVERY DAY 30 tablet 5 Active citalopram (CeleXA) 10 MG tablet Take 1 tablet (10 mg) by mouth Once per day. 30 tablet 11 025 2025 Active omeprazole (PriLOSEC) [address] capsule Take 1 capsule (20 mg) by mouth Once per day. 30 capsule 3 Active naproxen (Naprosyn) 500 MG tabletIndications :Primary osteoarthritis involving multiple joints,Essential hypertension,NSAI D long-term use Take 1 tablet (500 mg) by mouth 2 times daily. 40 tablet 2 Active amLODIPine (Norvasc) 10 MG tablet Take 1 tablet (10 mg) by mouth in the morning. 90 tablet 2 Active omeprazole (PriLOSEC) [address] capsule TAKE 1 CAPSULE BY MOUTH EVERY DAY 30 capsule 3 025 2024 Discontinued naproxen (Naprosyn) 500 MG tabletIndications :Primary osteoarthritis involving multiple joints,Essential hypertension,NSAI D long-term use Take 1 tablet (500 mg) by mouth 2 times daily. 40 tablet 025 2024 Discontinued(R eorder (will not trigger notification to Pharmacy)) citalopram (CeleXA) 10 MG tablet Take 1 tablet (10 mg) by mouth Once per day. 30 tablet 025 2024 Discontinued(R eorder (will not trigger notification to Pharmacy)) amLODIPine (Norvasc) 10 MG tablet TAKE 1 TABLET BY MOUTH EVERY MORNING 90 tablet 025 2024 Discontinued(R eorder (will not trigger notification to Pharmacy)) citalopram (CeleXA) 10 MG tablet Take 1 tablet (10 mg) by mouth Once per day. 30 tablet 025 2024 Discontinued(R eorder (will not trigger notification to Pharmacy)) omeprazole (PriLOSEC) [address] capsule TAKE 1 CAPSULE BY MOUTH EVERY DAY 30 capsule 3 025 2024 Discontinued(R eorder (will not trigger notification to Pharmacy)) Active Problems Problem Noted Date Diagnosed Date Pre-diabetes 08/19/2024 ANDRAE (obstructive sleep apnea) 07/14/2023 Renal cyst [...] Encounters Date Type Department Care Team Description 10/12/2024 Orders Only GENERIC EXTERNAL DATA DEPARTMENT Provider, Generic External Data 10/07/2024 9:00 AM EDT Telemedicine [facility] [address] [place] [phone] Aaron Martinez MD Recurrent major depressive episodes, mild (CMS/HCC) (Primary Dx); Primary osteoarthritis involving multiple joints; Essential hypertension; NSAID long-term use 10/07/2024 Travel 10/05/2024 Refill [facility] [address] [place] [phone] Aaron Martinez MD 09/27/2024 Refill [facility] [address] [place], [place] [phone] Aaron Martinez MD 09/19/2024 Refill [facility] [address] [place] [address] Aaron Martinez MD 08/19/2024 10:30 AM EDT Office Visit [facility] [address] [place] [phone] Aaron Martinez MD Pre-diabetes (Primary Dx); Essential hypertension; High cholesterol; On statin therapy; ANDRAE (obstructive sleep apnea); Recurrent major depressive episodes, mild (CMS/HCC) 08/19/2024 Travel 08/18/2024 Telephone [facility] [address] [place] [phone] Antonio Parker MA CHARTPREP 08/12/2024 Patient Outreach [facility] [address] [place] [address] NameAaron MD Pre-visit Planning (SDOH negative. Tobacco screening negative. ) 08/05/2024 Refill [facility] [address] [place] [address] Name, MD Aaron from Last 3 Months Immunizations Immunization Administration [...] Sign Reading Time Taken Comments Blood Pressure 131/78 08/19/2024 11:21 AM EDT Pulse 61 08/19/2024 11:02 AM EDT Temperature 36.6 C (97.8 F) 08/19/2024 11:02 AM EDT Respiratory Rate 12 08/19/2024 11:02 AM EDT Oxygen Saturation 98% 08/19/2024 11:02 AM EDT Inhaled Oxygen Concentration - - Weight 75 kg (165 lb 6.4 oz) 08/19/2024 11:02 AM EDT Height 154.9 cm (5' 1 ) 08/19/2024 11:02 AM EDT Body Mass Index 31.25 08/19/2024 11:02 AM EDT Plan of Treatment Upcoming Encounters Date Type Department Care Team (Late st Contact Info) Description 01/06/2025 10:15 AM EST Office Visit [facility] [address] [place] [address] Name, MD Aaron [address] [place] [address] Health Maintenance Due Date Last Done Comments CT Colonography 1955 FIT DNA/Cologuard 1955 FIT 1955 FOBT 1955 Sigmoidoscopy 1955 COVID-19 Vaccine ( season) 2023 02/20/2023, 02/06/2022, 01/25/2021, Additional history exists Influenza Vaccine (#1) 2024 , 01/19/2023, 11/15/2021, Additional history exists Alcohol/Substance Use Screening 02/10/2025 02/11/2024 Depression Monitoring 02/18/2025 08/19/2024, 025 SDOH Screening 08/12/2025 08/12/2024 Tobacco Screening 08/19/2025 08/19/2024 Mammogram 10/20/2025 10/21/2023, 09/24, 09/05/2021, Additional history exists DTaP/Tdap/Td Vaccines (2 - Td or Tdap) 10/02/2026 10/02/2016 Lipid Panel 09/26/2029 09/26/2024, 02/24, 05/22/2022 Colonoscopy 08/06/2033 08/07/2023 Colorectal Cancer Screening 08/06/2033 Hepatitis C Screening Completed 01/27/2020 Zoster Vaccines Completed 02/10/2021, 11/17/2020 Pneumococcal Vaccine: 50+ Years Completed 01/28/2023, 03/07/2019, 10/24/2016 RSV Patients and Patients Aged 60 years or older Completed 02/11/2023 HIB Vaccines Aged Out No longer eligi [...] Procedure Name Priority Date/Time Associated Diagnosis Comments VITAMIN D 25-OH (D2 AND D3) Routine 10/12/2024 9:31 AM EDT VITAMIN B12/FOLATE, SERUM PANEL Routine 10/12/2024 9:31 AM EDT TSH W/REFLEX TO FT4 Routine 10/12/2024 9 :31 AM EDT FERRITIN Routine 10/12/2024 9:31 AM EDT HEMOGLOBIN A1C Routine 09/26/2024 9:23 AM EDT Pre-diabetes LIPID PANEL, STANDARD Routine 09/26/2024 9:23 AM EDT High cholesterol On statin therapy COMPREHENSIVE METABOLIC PANEL Routine 09/26/2024 9:23 AM EDT High cholesterol On statin therapy BI MAMMOGRAM SCREENING TOMOSYNTHESIS BILATERAL Routine 10/21/2023 9:00 AM EDT HM COLONOSCOPY Routine 08/07/2023 ZZZ HISTORICAL HEPATITIS C ANTIBODY RFLX Routine 01/27/2020 8:30 AM EST from Last 3 Months or Most Recently Relevant to Health Maintenance Results * VITAMIN D 25-OH (D2 AND D3) (10/12/2024 9:31 AM EDT) Vitamin D, 25-OH, D2 <4 ng/mL [facility] Comment:This test was giovanny carrillo and its analytical performancecharacteristics have been determined by [employer] [facility], [place]. It hasnot been cleared or approved by the U.S. Food and DrugAdministration. This assay has been validated pursuantto the CLIA regulations and is used for clinicalpurposes.THIS TEST WAS PERFORMED AT:[email or web address] [place] [email or web address] HICKS MD,PHD Vitamin D, 25-OH, D3 40 ng/mL [facility] Comment:This test was develo ped and its analytical performancecharacteristics have been determined by [employer] [place], [place]. It hasnot been cleared or approved by the U.S. Food and DrugAdministration. This assay has been validated pursuantto the CLIA regulations and is used for clinicalpurposes. Vitamin D, 25-OH, Total 40 30 - 100 ng/mL [facility] Comment:Vitamin D, 25-Hydrox y reports concentrations of twocommon forms, 25-OHD2 and 25-OHD3. 25-OHD3 indicatesboth endogenous production and supplementation.25-OHD2 is an indicator of exogenous sources such asdiet or supplementation. Therapy is based onmeasurement of Total 25-OHD, with levels <20 ng/mLindicative of Vitamin D deficiency, while levelsbetween 20 ng/mL and 30 ng/mL suggest insufficiency.Optimal levels are > or = 30 ng/mL.For additional information, please refer tohttp://education.[employer]/faq/VAQ780(This link is being provided for informational/educational purposes only.) 10/12/2024 9:31 AM EDT 10/12/2024 12:32 PM EDT us Generic External Data Provider LAB BLOOD ORDERAB LES Final Result [facility] [address] [place] [phone] * Vitamin B12 (Cobalamin) and Folate Panel, Serum (10/12/2024 9:31 AM EDT) Vitamin B12 361 200 - 900 pg/mL [facility] Comment:NORMAL 200-900 PG/ML INDETERMINATE 160-199 PG/ML DEFICIENT < 160 PG/ML Folate 12.1 > or = 4.0 ng/mL [facility] Comment:Reference Values:> o r = 4.0 ng/mL< 4.0 ng/mL suggests folate deficiency Methotrexate, aminopterin and folinic acid(leucovorin) are chemotherapeutic agents whose molecularstructures are similar to folate; therefore, the Architectfolate assay cannot be used for patients using these drugs. 10/12/2024 9:31 AM EDT 10/12/2024 12:27 PM EDT us Generic External Data Provider LAB BLOOD ORDERAB LES Final Result Performing Organization Address [facility] Co de Phone Number [facility] [address] [place] [phone] * TSH with Reflex to Free T4 (10/12/2024 9:31 AM EDT) TSH reflex Free T4 1.75 0.32 - 4.0 uIU/mL [facility] 10/12/2024 9:31 AM EDT 10/12/2024 12:27 PM EDT Generic External Data Provider LAB BLOOD ORDERAB LES Final Result Performing Organization Address [facility] de Phone Number [facility] [address] [place] [phone] * Ferritin (10/12/2024 9:31 AM EDT) Ferritin 38 10 - 250 ng/mL [facility] 10/12/2024 9:31 AM EDT 10/12/2024 12:27 PM EDT Generic External Data Provider LAB BLOOD ORDERAB LES Final Result Performing Organization Address [facility] de Phone Number [facility] [address] [place] [address] [phone] * Hemoglobin A1c (09/26/2024 9:23 AM EDT) Hemoglobin A1c 5.5 <6.0 % [facility] Comment:Hemoglobin A1C Refer ence Range Adults: 4.8 - 6.0 % Non diabetic: < 6.0 % Goal: < 7.0 %Additional Action Suggested: > 8.0 %Note: Hemoglobin A1c results are invalid for patients with abnormal amounts of HbF. Blood transfusions may impact the HbA1c concentration in the patient sample. Estimated Average Glucose 111 mg/dL [facility] Comment:eAG = Estimated ave rage glucose which is %A1C expressed asaverage glucose, using the formula of the H7U-RamlojnZeweaeu Glucose study (ADAG), Diabetes Care, Vol.31,#8,2007 Blood Venous blood specimen / Unknown 09/26/2024 9:23 AM EDT 09/26/2024 9:23 AM EDT us Aaron Name MD LAB BLOOD ORDERABLES Final Resul t [facility] [address] [place] [phone] * Lipid Panel, Standard (09/26/2024 9:23 AM EDT) Triglycerides 84 <150 mg/dL [facility] Comment:Desirable Triglyceri de: less than 150 mg/dLBorderline High Triglyceride 150-199 mg/dLHigh Triglyceride: 200-499 mg/dLVery High Triglyceride: greater than or equal to 5OO mg/dL Cholesterol 161 <200 mg/dL [facility] Comment:Desirable Cholestero l: less than 200 mg/dLBorderline High Cholesterol: 200-239 mg/dLHigh Cholesterol: greater than 239 mg/dL LDL Cholesterol Calculated 88 <100 mg/dL [facility] Comment:Desirable LDL: less than 100 mg/dLNear Optimal/Above Optimal LDL: 110- 129 mg/dLBorderline High LDL: 130-159 mg/dLHigh LDL: 160-189 mg/dLVery High LDL: greater than or equal to 190 mg/dL HDL Cholesterol 57 >40 mg/dL [facility] Comment:Desirable HDL: great er than 40 mg/dL Note: This HDL assay may give artificially low results in patients with liver disease. Blood Venous blood specimen / Unknown 09/26/2024 9:23 AM EDT 09/26/2024 9:23 AM EDT us Aaron Martinez MD LAB BLOOD ORDERABLES Final Resul t [facility] [address] [place], [place] [phone] * (ABNORMAL) Comprehensive Metabolic Panel (09/26/2024 9:23 AM EDT) Sodium 142 135 - 145 mmol/L [facility] Potassium 4.3 3.3 - 5.1 mmol/L [facility] Chloride 102 96 - 108 mmol/L [facility] Carbon Dioxide 32(H) 22 - 29 mmol/L [facility] Anion Gap 12 12 - 20 [facility] Urea Nitrogen (BUN) 18(H) 9 - 16 mg/dL [facility] Creatinine, Serum 0.76 0.5 - 1.4 mg/dL [facility] Estimated Glomerular Filt Rate >60 [facility] Comment:Chronic Kidney Disea se: Estimated GFR < 60 mL/min/1.21m9Yiisrv Kidney Disease: Estimated GFR < 15 mL/min/1.73m2 Glucose 89 60 - 115 mg/dL [facility] Calcium 10.3(H) 8.4 - 10.2 mg/dL [facility] Bilirubin, Total 0.6 0.0 - 1.0 mg/dL [facility] Aspartate Amino Transferase 23 5 - 31 U/L [facility] Alanine Aminotransferase 26 0 - 31 U/L [facility] Total Protein 7.2 6.5 - 8.0 g/dL [facility] Albumin Level 4.5 3.5 - 5.0 g/dL [facility] Alkaline Phosphatase 66 39 - 117 U/L [facility] Blood Venous blood specimen / Unknown 09/26/2024 9:23 AM EDT 09/26/2024 9:23 AM EDT us Aaron Martinez MD LAB BLOOD ORDERABLES Final Resul t [facility] [address] [place] [phone] * BI Mammogram Screening Tomosynthesis Bilateral (10/21/2023 9:00 AM EDT) Anatomical Region Laterality Modality Breast Bilateral Mammography 10/21/2023 9:00 AM EDT Narrative 11/24/2023 10:41 AM EDT [facility] [address] [place] [address] Mammography Report Signed Patient: Lorie Casiano MR#: [id number] : 1955 Acct:[id number] Age/Sex: 67 / F ADM Date: 10/21/23 Loc: HO.MAMMO Attending Dr: Aaron Martinez MD Ordering Physician: Aaron Martinez MD Results: 2Benign Fi ndings Date of Service: 10/21/23 Follow Up: 1 Year From [facility] Mammogram Procedure(s): MM tomosynthesis screening BI Accession Number(s): [id number] cc: Aaron Martinez MD EXAMINATION: MM SCREENING [...] Rakel Wilkes DO 11/24/2023 10:38 AM EDT RP Dictated By: Rakel Wilkes DO Signed By: <Electronically signed by Rakel Wilkes DO in OV> 11/24/23 1038 DD/ 9 TD/TT: 10/21/23 09 Egg Gatherer: Procedure Note Donotuseinterpreter, Image - [facility] [address] [place] [address] Mammography Report Signed Patient: Lorie CasianoMR#: [id number] : 1955cct:[id number] Age/Sex: 67 / FADM Date: 10/21/23 Loc: HO.MAMMO Attending Dr: Aaron Martinez MD Ordering Physician: Aaron Martinez MDResults: 2Benign Fi ndings Date of Service: 10/21/23Follow Up: 1 Year From Orig inal Mammogram Procedure(s): MM tomosynthesis screening BI Accession Number(s): [id number] cc: Aaron Martinez MD EXAMINATION: MM SCREENING [...] Rakel Wilkes DO 11/24/2023 10:38 AM EDT RP Dictated By: Rakel Wilkes DO Signed By: <Electronically signed by Rakel Wilkes DO in OV> 11/24/23 1038 DD/ 0900 TD/TT: 10/21/23 0920 Egg Gatherer: us Aaron Martinez MD IMG BI PROCEDURES Edited Result - Final * Hm Colonoscopy (08/07/2023) Colonoscopy Normal Normal us aAron Martinez MD HEALTH MAINTENANCE Final Result * HEPATITIS C ANTIBODY RFLX (01/27/2020 8:30 AM EST) Hepatitis C Antibody Nonreactive Nonreactive [facility] Comment: Antibodies to HCV not detected; does not exclude early acute HCV infection. 01/27/2020 8:30 AM EST Aaron Martinez MD HISTORICAL/NON ORDERABLE LABS Fi nal Result [facility] [address] [place] [address], from Last 3 Months or Most Recently Relevant to Health Maintenance Insurance MEDICARE [facility] STANDARD * Guarantor: Lorie Casiano Account Type Relation to Patient Date of Phone Billing Address Personal/Family Self [address] [place] Care Teams Vegetable Handler Relationship Specialty Start Date End Date Name, MD Aaron [address] [place] [phone] PCP - General Family Medicine 09/23/16
--- OUTSIDE RECORDS SUMMARY | 2024-10-26 09:06 | XMS_ITS | Encounter Summary ---
Author Organization [employer] Address [address] [place] [address] [address] [place] [address] Care Team Providers Care Glove Turner And Former Name Role Phone Name, Aaron PORTILLO Primary Care Provider [phone] Brennan Barrera RN Unavailable [phone] Encounter Details Date Type Department Care Team (Late st Contact Info) Description 04/08/2022 Orders Only [facility] [address] [place] [address] Libby Butcher LPN Social History Tobacco Use [...] Description 01/06/2025 10:15 AM EST Office Visit [facility] [address] [place], [place] [phone] Name, MD Aaron [address] [place], [place] [phone] documented as of this encounter Visit Diagnoses Not on filedocumented in this encounter Care Teams Glove Turner And Former Relationship Specialty Start Date End Date NameAaron MD [address] [place], [place] [phone] PCP - General Family Medicine 09/23/16 Brennan Barrera RN [address] [place] [phone] Abrasive Band WinderPipelayer 08/24/23 11/18/23 documented as of this encounter
--- OUTSIDE RECORDS SUMMARY | 2024-10-26 09:06 | XMS_ITS | Encounter Summary ---
Author Organization [employer] Address [address] [facility] [address]t [place] [address] Care Team Providers Care Programming Engineer Name Role Phone Michelle, Aaron PORTILLO Primary Care Provider [phone] Brennan Barrera RN Unavailable Reason for Visit * Reason Onset Date Comments Referral 08/18/2023 Encounter Details Date Type Department Care Team (Late st Contact Info) Description 08/18/2023 Telephone [facility] [address] [place], [place] [phone] Name, MD Aaron [address] [place], [place] [phone] Referral Social History Tobacco Use Types Packs/Day [...] be referred to a orthopedic located in [place]. Please contact pt at [phone] documented in this encounter Plan of Treatment Upcoming Encounters Date Type Department Care Team (Late st Contact Info) Description 01/06/2025 10:15 AM EST Office Visit [facility] [address] [place] [address] Name, MD Aaron [address] [place] [address] documented as of this encounter Visit Diagnoses Not on filedocumented in this encounter Additional Health Concerns Assessment Noted Time PHQ-9 Depression Total Score: 8 05/01/19 24 9:58 AM EST documented as of this encounter Care Teams Programming Engineer Relationship Specialty Start Date End Date Name, MD Aaron [address] [place] [phone] PCP - General Family Medicine 09/23/16 Brennan Barrera RN [address] [place] [phone] Jewel Oliving Machine OperatorPacker Sausage And Wiener 08/24/23 11/18/23 documented as of this encounter
== END 2024-10-26 08:37 | disposition home or self-care (01) ==
LOC: HO.MAMMO 08:36
PROVIDERS: Absent Provider Obstetrics & Gynecology; PCP Internal Medicine Geriatric Medicine; Visit Provider Internal Medicine Geriatric Medicine
DX: Z12.31 Encounter for screening mammogram for malignant neoplasm of breast (principal)
CPT/HCPCS: 77063; 77067

== ENCOUNTER → 2024-10-26 09:15 | Outpatient (BNV) | payer MEDICARE, MEDICAID, SELFPAY | PROVIDERS: Absent Provider Obstetrics & Gynecology; PCP Internal Medicine Geriatric Medicine; Visit Provider Internal Medicine | DX: Z12.31 Encounter for screening mammogram for malignant neoplasm of breast (principal) | CPT/HCPCS: 77063; 77067 ==

== ENCOUNTER 2025-01-13 12:17 | Outpatient (AMB) | payer MEDICARE, MEDICAID, SELFPAY ==
[2025-01-13 12:25] VITALS: BP 152/68; PULSE 90; BMI 30.4
--- NOTE | 2025-01-13 12:25 | A.OFFVIS_ITS ---
Vital Signs 3 01/13/25 12:25 Height 5 ft 1 in Weight 161 lb BMI 30.4 BP 152/68 H Blood Pressure Location Rt brachial Position Sitting Pulse 90 Intake Visit Reasons: Skin lesion Intake Note: Patient referred by PCP Dr. Martinez for assessment of lesions ? cyst vs. lipoma. Two on chest and two on back. Present for yrs. Patient c/o: becoming bothersome, enlarging. Surgery Tech Required: No Accompanied by: Self / Same As Patient Allergies begum Allergy (Verified 01/13/25 12:27) Itching pollen extracts Allergy (Verified 01/13/25 12:27) Sneezing tomato Allergy (Verified 01/13/25 12:27) Hives Medication List - Last Reconciled 01/13/25 by Jose Guadalupe Ordoñez MD acetaminophen (Tylenol Extra Strength) 500 mg PO Q6H PRN albuterol sulfate 1 amp inhalation QID amlodipine 1 tab PO QAM atorvastatin 80 mg PO DAILY calcium carbonate-vitamin D3 600 mg-20 mcg (800 unit) 1 tab PO fluticasone furoate-vilanterol 200-25 mcg/dose (Breo Ellipta) 1 inh inhalation DAILY melatonin 3 mg PO BEDTIME metformin mg PO montelukast (Singulair) 10 mg PO BEDTIME naproxen 500 mg PO BID omeprazole 1 cap PO QAM polyvinyl alcohol 1.4% (Artificial Tears (polyvinyl alcohol)) 1 drp ophthalmic (eye) BID-QID PRN tiotropium bromide 2.5 mcg/actuation (Spiriva Respimat) 2 puffs inhalation DAILY valsartan-hydrochlorothiazide 320-25 mg 1 tab PO DAILY Ventolin HFA 90 mcg/actuation (albuterol sulfate) 2 puffs PO Q4-6H PRN NS HPI Comments Details: Patient presents with her daughter. She reports a long history of ?lumps? under her chest and her left lower back. She describes them as bothersome and desires removal. She denies any trauma or instrumentation to the areas. 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, bilateral Hypovitaminosis D Age related osteoporosis COVID-19 vaccine series completed Pre-diabetes GERD (gastroesophageal reflux disease) Arthritis Asthma Hypertension Osteoarthritis of left knee Surgical History History of left knee surgery Hx of breast biopsy Hx of hysterectomy H/O colonoscopy Hx of hand surgery Hx of knee surgery H/O unilateral oophorectomy History of total right knee replacement Family History Maternal Aunt Breast CA Mother Colon cancer Arthritis Sister Arthritis Social History Household Members: Family Household Members Other:: daughter Housing: House Are you a primary care professionals to a significant other at home: No Do you presently have visiting nurse or other home services: No Alcohol intake: current Alcohol intake frequency: holidays/special occasions only Comment: chronic back pain Patient Tobacco Use Status: Former Tobacco user Tobacco use type: Cigarette Years Smoked: 20 Second Hand Smoke Exposure: No Advance Directives Date on File: 07/17/17 service: No Current occupational status: disabled Current occupation: rt handed Female Reproductive History Menstrual Age of Menarche: 9 Review of Systems Const All systems reviewed & are unremarkable except as noted in HPI and below Physical Exam Vital Signs: Last Vital Signs Pulse 90 01/13/25 12:25 BP 152/68 H 01/13/25 12:25 BMI result Body Mass Index 30.4 Const General: cooperative, healthy appearing, comfortable, no acute distress and well developed Orientation/consciousness: oriented to person, oriented to place and oriented to time HEENT Head: Yes normal to inspection, Yes normocephalic and Yes atraumatic Eyes General: appearance normal, both eyes and all related structures Pupils: Equal, round and reactive pupils present EOM: EOMs intact bilaterally Neck Neck: Yes normal visual inspection Chest Chest/axillae images: 2 1. Left peristernal sebaceous cyst 1-2cm in diameter and right upper soft mass consistent with lipoma (deep) 2-3cm in diameter. 2. Lipoma 2-3cm Resp Effort & Inspection: normal respiratory effort and able to speak in complete sentences Cardio Rate: regular rate Rhythm: regular rhythm GI Inspection: Yes normal to inspection General: Yes no CVA tenderness Back/Spine/Pelvis Back: no CVA tenderness Cervical Spine: normal cervical lordosis Thoracic/Lumbar Spine: thoracic and lumbar spine normal to inspection Back/spine/pelvis image: 2 1. 3-4cm soft tissue mass consistent with lipoma 2. Inferior 1-2cm vague soft tissue mass consistent with possible lipoma Neuro General: oriented to person, oriented to place and oriented to time Cranial nerves: Yes CN's II-XII intact bilaterally and Yes Equal, round and reactive pupils present Extrem General: Yes normal to inspection Assessment & Plan Assessment & Plan (1) Sebaceous cyst: Code(s): L72.3 - Sebaceous cyst Category: Medical Plan: I told the patient I felt excision of the sebaceous cyst on the left chest was reasonable. I reviewed with her the risks that are involved and these include but are not limited to bleeding, infection, pain, unsightly scarring and recurrence. She indicated that she understood and also indicated that she wished to proceed. (2) Lipoma: Code(s): D17.9 - Benign lipomatous neoplasm, unspecified Category: Medical Plan: I told the patient I felt excision of the lipoma on her right chest and 2 lipomas on the left lower back was appropriate. I reviewed with her the risks that are involved and again she indicated that she wished to proceed. Coding Level of Care Code New Pt Level 3 (66702) Diagnoses Sebaceous cyst L72.3 Lipoma D17.9 Time Spent (min) 30 Comment Patient visit record review and coordination of care
--- OUTSIDE RECORDS SUMMARY | 2025-01-13 12:46 | XMS_ITS | Clinical Summary ---
Author Organization [employer] Address [address] [facility] 7t [place] [address] Care Team Providers Care Corrugator Name Role Phone Name, Aaron PORTILLO Primary Care Provider [phone] Allergies Active Allergy Reactions Criticality Noted Date Comments Tomato Hives 08/05/2023 Medications albuterol (2.5 MG/3ML) 0.083% nebulizer solution inhale 3 milliliter by nebulization route 4 times every day 270 mL 2 023 Active zoledronic acid (Reclast) 5 MG/100ML solution Infuse 5 mg into a venous catheter yearly. Active Ventolin HFA 108 (90 Base) MCG/ACT inhaler INHALE 2 PUFFS BY MOUTH EVERY 4 TO 6 HOURS NEEDED 18 g 4 024 Active azelastine (Astelin) 0.1 % nasal spray [...] AND IN THE EVENING 60 tablet 11 025 Active valsartan-hydroCH LOROthiazide (Diovan-HCT) 320-25 MG tablet TAKE 1 TABLET BY MOUTH EVERY DAY 30 tablet 5 025 Active citalopram (CeleXA) 10 MG tablet Take [...] mouth in the morning. 90 tablet 2 025 Active atorvastatin (Lipitor) 80 MG tablet TAKE 1 TABLET BY MOUTH ONCE DAILY IN THE MORNING 90 tablet 4 025 Active fluticasone (Flonase) 50 MCG/ACT nasal spray INSTILL 2 SPRAYS IN EACH NOSTRIL ONCE DAILY SHAKE GENTLY 16 g 2 Active Breo Ellipta 200-25 MCG/ACT aerosol powder Inhale 1 puff Once per day. 025 Active mometasone-formot jeni (Dulera) 200-5 MCG/ACT inhaler Inhale 2 puffs in the morning and at bedtime. Rinse mouth with water after use to reduce aftertaste and incidence of candidiasis. Do not swallow. 024 2024 Discontinued(D uplicate order (will not trigger notification to Pharmacy)) Active Problems Problem Noted Date Diagnosed Date Asthma 01/06/2025 Atrophic vaginitis 01/06/2025 Fatigue 01/06/2025 GERD (gastroesophageal reflux disease) History of colon polyps 01/06/2025 Hypovitaminosis D 01/06/2025 LLQ abdominal pain 01/06/2025 Low back pain 01/06/2025 Nocturia 01/06/2025 Osteoarthritis of hands, bilateral 01/06/2025 Osteoarthritis of lumbar spine 01/06/2025 Pelvic mass 01/06/2025 Pelvic pain 01/06/2025 Snoring 01/06/2025 Urinary frequency 01/06/2025 Well woman exam 01/06/2025 Pre-diabetes 08/19/2024 ANDRAE (obstructive sleep apnea) 07/14/2023 [...] patient: No CT followup indicated. Osteoporosis 10/02/2016 Osteoarthritis 10/02/2016 HTN (hypertension) 10/02/2016 Overview (2023): BP improved on repeat. [...] Problem Noted Date Diagnosed Date Resolved Date Moderate persistent asthma 10/02/2016 0 05/01/2023 Encounters Date Type Department Care Team Description 01/06/2025 10:15 AM EST Office Visit [facility] [address] [place] [address] NameAaron MD Hypertension, unspecified type (Primary Dx); Recurrent major depressive episodes, mild (CMS/HCC); Chronic insomnia; Skin cyst 01/06/2025 Travel 01/05/2025 Telephone [facility] [address] [place], [place] [phone] Aaron Martinez MD chartprep 11/19/2024 Refill [facility] [address] [place], [place] [phone] Aaron Martinez MD 11/04/2024 Refill [facility] [address] [place], [place] [phone] Aaron Matrinez MD from Last 3 Months Immunizations Immunization Administration Dates Next Due Influenza High-dose Quadriva lent Preservative Free 11/15/2021,11/04/2020 Influenza Quadrivalent Adjuvanted 01/19/2023 Influenza injectable quadriv alent IIV4 with preservative 12/28/2017,12/16/2016 Influenza injectable quadriv alent preservative free 12/03/2019 Influenza, High Dose Seasona l, Preservative Free 11/14/2024,11/11/2023,03/07/2019 Moderna Covid-19 Vaccine 12+ 01/25/2021,06/22/19 21,05/24/2020 Moderna Covid-19 Vaccine 6+ Bivalent 02/06/2022 Pneumococcal Conjugate PCV 13 03/07/2019 Pneumococcal Conjugate PCV 20 01/28/2023 Pneumococcal Polysaccharide PPSV23 10/24/2016 RSV Bivalent 02/11/2023 Tdap 10/02/2016 Zoster, Recombinant 02/10/2021,11/17/2020 Social History Tobacco Use Types Packs/Day Years Used Date Smoking Tobacco: Former Cigarettes Passive Smoke Exposure: Past Smokeless Tobacco: Never Tobacco Cessation:Counseling Given: Not Answered Alcohol Use Standard Drinks/Week Comments Yes 0 (1 standard drink = 0.6 oz pur e alcohol) social Alcohol Answer Date Recorded How often do you have a drink containing alcohol ? 0 01/06/2025 How many drinks containing a lcohol do you have on a typical day when you are drinking? 0 01/06/2025 How often do you have six or more drinks on one occasion? 0 01/06/2025 Depression Answer Date Recorded Patient Health Questionnaire-9 Score 7 01/06/2025 Patient Health Questionnaire-9 Score 7 01/06/2025 Last PHQ-9: Questionnaire Data Not on file 1 03/08/2024 Housing Stability Answer Date Recorded What is [...] Answer Date Recorded Patient Health Questionnaire-2 Score 1 01/06/2025 Internet Access Answer Date Recorded Internet Access [...] Sign Reading Time Taken Comments Blood Pressure 132/70 01/06/2025 10:15 AM EST Pulse 84 01/06/2025 10:15 AM EST Temperature 36.5 C (97.7 F) 01/06/2025 10:15 AM EST Respiratory Rate 20 01/06/2025 10:15 AM EST Oxygen Saturation 98% 08/19/2024 11:02 AM EDT Inhaled Oxygen Concentration - - Weight 73.6 kg (162 lb 3.2 oz) 01/06/2025 10:15 AM EST Height 154.9 cm (5' 1 ) 01/06/2025 10:15 AM EST Body Mass Index 30.65 01/06/2025 10:15 AM EST Plan of Treatment Upcoming Encounters Date Type Department Care Team (Late st Contact Info) Description 04/11/2025 10:00 AM EST Office Visit [facility] [address] [place] [address] Name, MD Aaron [address] [place] [address] Health Maintenance Due Date Last Done Comments CT Colonography 1955 FIT DNA/Cologuard 1955 FIT 1955 FOBT 1955 Sigmoidoscopy 1955 COVID-19 Vaccine ( season) 2024 02/20/2023, 02/06/2022, 01/25/2021, Additional history exists SDOH Screening 08/12/2025 08/12/2024 Alcohol/Substance Use Screening 01/06/2026 01/06/2025 Depression Screening 01/06/2026 01/06/2025, 01/07/20 Tobacco Screening 01/06/2026 01/06/2025 DTaP/Tdap/Td Vaccines (2 - Td or Tdap) 10/02/2026 10/02/2016 Mammogram 10/26/2026 10/26/2024, 09/24, 10/15/2022, Additional history exists Lipid Panel 09/26/2029 09/26/2024, 02/24, 05/22/2022 Colonoscopy 08/06/2033 08/07/2023, 08/07/2023 Colorectal Cancer Screening 08/06/2033 Hepatitis C Screening Completed 01/27/2020 Zoster Vaccines Completed 02/10/2021, 11/17/2020 Pneumococcal Vaccine: 50+ Years Completed 01/28/2023, 03/07/2019, 10/24/2016 RSV Patients and Patients Aged 60 years or older Completed 02/11/2023 Influenza Vaccine Completed 11/14/2024, , 01/19/2023, Additional history exists HIB Vaccines Aged Out [...] Procedure Name Priority Date/Time Associated Diagnosis Comments BI MAMMOGRAM SCREENING TOMOSYNTHESIS BILATERAL Routine 10/26/2024 8:45 AM EDT LIPID PANEL, STANDARD Routine 09/26/2024 9:23 AM EDT High cholesterol On statin therapy HM COLONOSCOPY Routine 08/07/2023 ZZZ HISTORICAL HEPATITIS C ANTIBODY RFLX Routine 01/27/2020 8:30 AM EST from Last 3 Months or Most Recently Relevant to Health Maintenance Results * BI Mammogram Screening Tomosynthesis Bilateral (10/26/2024 8:45 AM EDT) Anatomical Region Laterality Modality Breast Bilateral Mammography 10/26/2024 8:45 AM EDT Narrative 10/28/2024 2:17 PM EDT [facility] [address] [place] [address] Dr. Davis, [place] [address] Mammography Report Signed Patient: Lorie Casiano MR#: [id number] : 1955 Acct:[id number] Age/Sex: 68 / F ADM Date: 10/26/24 Loc: MAMMO Attending Dr: Aaron Martinez MD Ordering Physician: Bridger Muñoz MD Results: 2Benign Findings Date of Service: 10/26/24 Follow Up: 1 Year From Orig inal Mammogram Procedure(s): MM tomosynthesis screening BI Accession Number(s): [id number] cc: Name,Aaron PORTILLO; Bridger Muñoz MD EXAMINATION: MM SCREENING DIGITAL BREAST TOMOSYNTHESIS, BILATERAL CLINICAL INFORMATION: Screening. Asymptomatic. COMPARISON: Mammography: Comparison is made with available priors TECHNIQUE: Digital breast mammography with tomosynthesis is performed in both the craniocaudal and mediolateral oblique views along with computer-aided detection (CAD). FINDINGS: There are scattered areas of fibroglandular density (ACR BI-RADS breast composition Category b). Bilateral excisional biopsies. Bilateral scattered asymmetries are stable. There are no significant masses, abnormal calcifications, [...] mammogram. Electronically signed by: Rakel Wilkes DO 10/28/2024 02:14 PM EDT Dictated By: Rakel Wilkes DO Signed By: <Electronically signed by Rakel Wilkes DO in OV> 10/28/24 1414 DD/ 0845 TD/TT: 10/26/24 0905 Medical Office Manager: Procedure Note Donotuseinterpreter, Image - 10/28/2024 [facility] [address] Davis, [place] [address] Mammography Report Signed Patient: Lorie CasianoMR#: [id number] : 4Acct:[id number] Age/Sex: 68 / FADM Date: 10/26/24 Loc: HO.MAMMO Attending Dr: Aaron Martinez MD Ordering Physician: Bridger Muñoz MDResults: 2Benign Findings Date of Service: 10/26/24Follow Up: 1 Year From [facility] ina Mammogram Procedure(s): MM tomosynthesis screening BI Accession Number(s): [id number] cc: Name,Aaron PORTILLO; Bridger Muñoz MD EXAMINATION: MM SCREENING DIGITAL BREAST TOMOSYNTHESIS, BILATERAL CLINICAL INFORMATION: Screening. Asymptomatic. COMPARISON: Mammography: Comparison is made with available priors TECHNIQUE: Digital breast mammography with tomosynthesis is performed in both the craniocaudal and mediolateral oblique views along with computer-aided detection (CAD). FINDINGS: There are scattered areas of fibroglandular density (ACR BI-RADS breast composition Category b). Bilateral excisional biopsies. Bilateral scattered asymmetries are stable. There are no significant masses, abnormal calcifications, [...] mammogram. Electronically signed by: Rakel Wilkes DO 10/28/2024 02:14 PM EDT Dictated By: Rakel Wilkes DO Signed By: <Electronically signed by Rakel Wilkes DO in OV> 10/28/24 1414 DD/ 0845 TD/TT: 10/26/24 0905 Medical Office Manager: us [facility] External Provider IMG BI PROCEDURES Final Result * Lipid Panel, Standard (09/26/2024 9:23 AM EDT) Triglycerides 84 <150 mg/dL [facility] Comment:Desirable Triglyceri de: less than 150 mg/dLBorderline High Triglyceride 150-199 mg/dLHigh Triglyceride: 200-499 mg/dLVery High Triglyceride: greater than or equal to 5OO mg/dL Cholesterol 161 <200 mg/dL [facility] Comment:Desirable Cholestero l: less than 200 mg/dLBorderline High Cholesterol: 200-239 mg/dLHigh Cholesterol: greater than 239 mg/dL LDL Cholesterol Calculated 88 <100 mg/dL [facility] Comment:Desirable LDL: less than 100 mg/dLNear Optimal/Above Optimal LDL: 110- 129 mg/dLBorderline High LDL: 130-159 mg/dLHigh LDL: 160-189 mg/dLVery High LDL: greater than or equal to 190 mg/dL HDL Cholesterol 57 >40 mg/dL [facility] Comment:Desirable HDL: great er than 40 mg/dL Note: This HDL assay may give artificially low results in patients with liver disease. Blood Venous blood specimen / Unknown 09/26/2024 9:23 AM EDT 09/26/2024 9:23 AM EDT us Aaron Martinez MD LAB BLOOD ORDERABLES Final Resul t Performing Organization Address [facility] Co de Phone Number LABS [address] [place] [address] [phone] * Hm Colonoscopy (08/07/2023) Colonoscopy Normal Normal us Aaron Martinez MD HEALTH MAINTENANCE Final Result * HEPATITIS C ANTIBODY RFLX (01/27/2020 8:30 AM EST) Hepatitis C Antibody Nonreactive Nonreactive [facility] Comment: Antibodies to HCV not detected; does not exclude early acute HCV infection. 01/27/2020 8:30 AM EST us Aaron Martinez MD HISTORICAL/NON ORDERABLE LABS Fi nal Result Performing Organization Address [facility] Co de Phone Number [facility] [address] from Last 3 Months or Most Recently Relevant to Health Maintenance Insurance MEDICARE [facility] Care Teams Corrugator Relationship Specialty Start Date End Date Name, MD Aaron [address] [place] [phone] PCP - General Family Medicine 09/23/16
--- OUTSIDE RECORDS SUMMARY | 2025-01-13 12:46 | XMS_ITS | Encounter Summary ---
Author Organization [employer] Address [address] [facility] [address] 7[address] [place] [address] Care Team Providers Care Parts Counter Representative Name Role Phone Name, Aaron PORTILLO Primary Care Provider [phone] Brennan Barrera RN Unavailable [phone] Encounter Details Date Type Department Care Team (Late st Contact Info) Description 08/05/2023 Telephone [facility] [address] [place], [place] [phone] Kaci Ferraro, RN Social History Tobacco Use [...] Description 04/11/2025 10:00 AM EST Office Visit [facility] [address] [place] [phone] Name, MD Aaron [address] [place] [phone] documented as of this encounter Visit Diagnoses Not on filedocumented in this encounter Additional Health Concerns Assessment Noted Time PHQ-9 Depression Total Score: 8 05/01/19 24 9:58 AM EST documented as of this encounter Care Teams Parts Counter Representative Relationship Specialty Start Date End Date Name, MD Aaron [address] [place] [address] PCP - General Family Medicine 09/23/16 Brennan Barrera RN [address] [place] [phone] Rubber AttacherMoth Proofer 08/24/23 11/18/23 documented as of this encounter
--- OUTSIDE RECORDS SUMMARY | 2025-01-13 12:46 | XMS_ITS | Encounter Summary ---
Author Organization [employer] Address [address] [facility] 7t [place] [address] Care Team Providers Care Physician Allergist Immunologist Name Role Phone Name, Aaron PORTILLO Primary Care Provider [phone] Brennan Barrera RN Unavailable [phone] Reason for Visit * Reason Onset Date Comments Nurse Triage 08/03/2023 Encounter Details Date Type Department Care Team (Late st Contact Info) Description 08/03/2023 Telephone [facility] [address] [place], [place] [phone] Name, MD Aaron [address] [place], [place] [phone] Nurse Triage Social History Tobacco Use Types [...] 08/03/2023 3:49 PM EDT Triage call with [employer] [place]er ID [id number] Pt is calling regarding left lower quadrant pain. [facility]was [facility] in [facility] today in apt with Dr. Muñoz regarding pelvic pain. Pt is concerned because when finished with apt told Pt to go to ED if pain increases. Pt does have an appointment for sonogram on the . Pt last BM was yesterday, neg for constipation. Pt is advised to come to [facility] hours [id number] and 830am-400pm -fri. if needed. Home [...] acuity questions The caller accepted this outcome Divehi speaking documented in this encounter Plan of Treatment Upcoming Encounters Date Type Department Care Team (Late st Contact Info) Description 04/11/2025 10:00 AM EST Office Visit [facility] [address] [place] [phone] Name, MD Aaron [address] [place] [address] documented as of this encounter Visit Diagnoses Not on filedocumented in this encounter Additional Health Concerns Assessment Noted Time PHQ-9 Depression Total Score: 8 05/01/19 24 9:58 AM EST documented as of this encounter Care Teams Physician Allergist Immunologist Relationship Specialty Start Date End Date Name, MD Aaron [address] [place] [address] PCP - General Family Medicine 09/23/16 Brennan Barrera RN [address] [place] [address] Deli ClerkPostdoctoral Research Fellow 08/24/23 11/18/23 documented as of this encounter
--- OUTSIDE RECORDS SUMMARY | 2025-01-13 12:46 | XMS_ITS | Encounter Summary ---
Author Organization [employer] Address [address] [place] [address] 7t [place] [address] Care Team Providers Care Fagoting Machine Operator Name Role Phone Name, Aaron PORTILLO Primary Care Provider [phone] Brennan Barrera RN Unavailable [phone] Encounter Details Date Type Department Care Team (Late st Contact Info) Description 03/18/2022 Orders Only [facility] [address] [place] [address] Libby Butcher LPN Social History Tobacco Use [...] Description 04/11/2025 10:00 AM EST Office Visit [facility] [address] [place], [place] [phone] Name, MD Aaron [address] [place], [place] [phone] documented as of this encounter Visit Diagnoses Not on filedocumented in this encounter Care Teams Fagoting Machine Operator Relationship Specialty Start Date End Date NameAaron MD [address] [place], [place] [phone] PCP - General Family Medicine 09/23/16 Brennan Barrera RN [address] [place] [id number] Performance Improvement DirectorDirector Of Income Tax 08/24/23 11/18/23 documented as of this encounter
--- OUTSIDE RECORDS SUMMARY | 2025-01-13 12:46 | XMS_ITS | Encounter Summary ---
Author Organization [employer] [facility] Address [address] [place] [address] 7t [place] [address] Care Team Providers Care Pull Up Hand Name Role Phone Name, Aaron PORTILLO Primary Care Provider [phone] Brennan Barrera RN Unavailable [phone] Encounter Details Date Type Department Care Team (Late st Contact Info) Description 07/24/2022 Abstract [facility] [address] [place] [address] Name, MD Aaron [address] [place] [phone] Social History Tobacco Use Types Packs/Day Years [...] Description 04/11/2025 10:00 AM EST Office Visit [facility] [address] [place] [address] Name, MD Aaron [address] [place] [address] documented as of this encounter Visit Diagnoses Not on filedocumented in this encounter Additional Health Concerns Assessment Noted Time PHQ-9 Depression Total Score: 10 023 9:31 AM EDT documented as of this encounter Care Teams Pull Up Hand Relationship Specialty Start Date End Date Name, MD Aaron [address] [place] [address] PCP - General Family Medicine 09/23/16 Brennan Barrera RN [address] [place] [address] Soil Science Technical OfficerShellacker 08/24/23 11/18/23 documented as of this encounter
--- OUTSIDE RECORDS SUMMARY | 2025-01-13 12:46 | XMS_ITS | Encounter Summary ---
Author Organization [employer] Address [address] [facility] [address] [place] [address] Care Team Providers Care Voice Systems Engineer Name Role Phone Michelle, Aaron PORTILLO Primary Care Provider [phone] Brennan Barrera RN Unavailable [phone] Reason for Visit * Reason Onset Date Comments Referral 08/18/2023 Encounter Details Date Type Department Care Team (Late st Contact Info) Description 08/18/2023 Telephone [facility] [address] [place], [place] [phone] Name, MD Aaron [address] [place], [place] [phone] Referral Social History Tobacco Use Types Packs/Day [...] be referred to a orthopedic located in [place]. Please contact pt at [phone] documented in this encounter Plan of Treatment Upcoming Encounters Date Type Department Care Team (Late st Contact Info) Description 04/11/2025 10:00 AM EST Office Visit [facility] [address] [place] [address] Name, MD Aaron [address] [place] [address] documented as of this encounter Visit Diagnoses Not on filedocumented in this encounter Additional Health Concerns Assessment Noted Time PHQ-9 Depression Total Score: 8 05/01/19 24 9:58 AM EST documented as of this encounter Care Teams Voice Systems Engineer Relationship Specialty Start Date End Date Name, MD Aaron [address] [place] [id number] PCP - General Family Medicine 09/23/16 Brennan Barrera RN [address] [place] [address] Service CoordinatorPropellant Assembler 08/24/23 11/18/23 documented as of this encounter
--- OUTSIDE RECORDS SUMMARY | 2025-01-13 12:46 | XMS_ITS | Encounter Summary ---
Author Organization [employer] Address [address] [facility] [address] [place] [address] Care Team Providers Care Senior Portfolio Manager Name Role Phone Name, Aaron PORTILLO Primary Care Provider [phone] Brennan Barrera RN Unavailable [phone] Encounter Details Date Type Department Care Team ([facility] st Contact Info) Description 07/31/2023 Telephone [facility] [address] [place], [place] [phone] Name, MD Aaron [address] [place] [address] Social History Tobacco Use Types Packs/Day Years [...] Description 04/11/2025 10:00 AM EST Office Visit [facility] [address] [place] [phone] Name, MD Aaron [address] [place] [address] documented as of this encounter Visit Diagnoses Not on filedocumented in this encounter Additional Health Concerns Assessment Noted Time PHQ-9 Depression Total Score: 8 05/01/19 24 9:58 AM EST documented as of this encounter Care Teams Senior Portfolio Manager Relationship Specialty Start Date End Date Name, MD Aaron [address] [place] [address] PCP - General Family Medicine 09/23/16 Brennan Barrera, KAREEM [address] [place] [address] Liner Reroll TenderChildren'S Aide 08/24/23 11/18/23 documented as of this encounter
--- OUTSIDE RECORDS SUMMARY | 2025-01-13 12:46 | XMS_ITS | Encounter Summary ---
Author Organization [employer] Address [address] [place] [address] 7[address] [place] [address] Care Team Providers Care Blender / Cook Name Role Phone Name, Aaron PORTILLO Primary Care Provider [phone] Brennan Barrera RN Unavailable [phone] Encounter Details Date Type Department Care Team (Late st Contact Info) Description 04/08/2022 Orders Only [facility] [address] [place] [address] Libby Butcher LPN Social History Tobacco Use [...] Description 04/11/2025 10:00 AM EST Office Visit [facility] [address] [place], [place] [phone] Name, MD Aaron [address] [place], [place] [phone] documented as of this encounter Visit Diagnoses Not on filedocumented in this encounter Care Teams Blender / Cook Relationship Specialty Start Date End Date NameAaron MD [address] [place], [place] [phone] PCP - General Family Medicine 09/23/16 Brennan Barrera RN [address] [place] [phone] Guard SupervisorLaborer Demolition 08/24/23 11/18/23 documented as of this encounter
== END 2025-01-13 12:47 | disposition home or self-care (01) ==
LOC: HO.HGS 12:18
PROVIDERS: PCP Internal Medicine Geriatric Medicine; Referring Provider Internal Medicine Geriatric Medicine; Visit Provider Surgery
DX: L72.3 Sebaceous cyst (principal); D17.9 Benign lipomatous neoplasm, unspecified
CPT/HCPCS: 99203

== ENCOUNTER → 2025-01-13 12:17 | Outpatient (BNVA) | payer MEDICARE, MEDICAID, SELFPAY | PROVIDERS: PCP Internal Medicine Geriatric Medicine; Referring Provider Internal Medicine Geriatric Medicine; Visit Provider Surgery | DX: D17.1 Benign lipomatous neoplasm of skin and subcutaneous tissue of trunk (principal); L72.3 Sebaceous cyst; Z87.891 Personal history of nicotine dependence | CPT/HCPCS: 99202 ==

== ENCOUNTER 2025-01-16 08:45 | Outpatient (AMB) | payer MEDICARE, MEDICAID, SELFPAY ==
--- NOTE | 2025-01-16 08:35 | A.OFFVIS_ITS ---
Vital Signs 01/16/25 08:54 Height 5 ft 1 in Weight 164 lb 3.91 oz BMI 31.0 BP 110/64 Blood Pressure Location Rt brachial Position Sitting Pulse 89 Pulse Source Pulse Oximeter Pulse Oximetry (%) 97 Oxygen Delivery Method Room Air Intake Visit Reasons: Asthma Allergies begum Allergy (Verified 01/16/25 08:58) Itching pollen extracts Allergy (Verified 01/16/25 08:58) Sneezing tomato Allergy (Verified 01/16/25 08:58) Hives HPI HPI Asthma: Details: Lorie is a pleasant 69 year old female, former 20+ pack year smoker, quit 20 years ago with underlying asthma and GERD. Since last visit she has been well controlled on Breo, Spiriva, Singulair, requiring albuterol MDI infrequently. She denies any visits to urgent care or hospitalizations related to respiratory distress since last visit. At this time she denies any respiratory symptoms. Patient underwent HST 03/2024 which revealed moderate ANDRAE during REM with AHI of 28, minimal nocturnal hypoxemia less than 88% for 4.2 minutes, lowest oxygen saturation 80% an average oxygen saturation 93%. She was started on CPAP therapy in APAP mode settings 5-20 cm H2O. She reports issues with proper mask fitting and plans to reach out to [facility] to address this as her compliance has not been suboptimal which she attributes to discomfort. 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, bilateral Hypovitaminosis D Age related osteoporosis COVID-19 vaccine series completed Pre-diabetes GERD (gastroesophageal reflux disease) Arthritis Asthma Hypertension Osteoarthritis of left knee Surgical History History of left knee surgery Hx of breast biopsy Hx of hysterectomy H/O colonoscopy Hx of hand surgery Hx of knee surgery H/O unilateral oophorectomy History of total right knee replacement Family History Maternal Aunt Breast CA Mother Colon cancer Arthritis Sister Arthritis Social History Household Members: Family Household Members Other:: daughter Housing: House Are you a primary critical care transport nurse to a significant other at home: No Do you presently have visiting nurse or other home services: No Alcohol intake: current Alcohol intake frequency: holidays/special occasions only Comment: chronic back pain Patient Tobacco Use Status: Former Tobacco user Tobacco use type: Cigarette Years Smoked: 20 Second Hand Smoke Exposure: No Advance Directives Date on File: 07/17/17 service: No Current occupational status: disabled Current occupation: rt handed Female Reproductive History Menstrual Age of Menarche: 9 Review of Systems Const Denies chills, Denies excessive sweating, Denies fever(s), Denies headache(s) and Denies night sweats Eyes Denies dry eyes, Denies irritation and Denies itchy eyes ENT Reports Normal hearing present, Denies headache(s), Denies nasal congestion, Denies nasal discharge, Denies post nasal drip and Denies sore throat Card Denies chest pain, Denies chest pain at rest, Denies chest pain with activity, Denies claudication, Denies leg edema, Denies dyspnea, Denies dyspnea on exertion, Denies orthopnea and Denies paroxysmal nocturnal dyspnea Resp Denies chest congestion, Denies cough, Denies excessive phlegm production, Denies pain on inspiration, Denies pain with cough, Denies dyspnea, Denies dyspnea on exertion, Denies stridor and Denies wheezing Musc Denies myalgias Neuro Reports Normal hearing present and Denies headache(s) Endo Denies excessive sweating Srinivas/Lymph Denies lymphadenopathy Aller/Immun Denies itchy eyes, Denies seasonal rhinorrhea and Denies wheezing Physical Exam Vital Signs: Last Vital Signs Pulse 89 01/16/25 08:54 BP 110/64 01/16/25 08:54 Pulse Ox 97 01/16/25 08:54 Oxygen Delivery Method Room Air 01/16/25 08:54 BMI result Body Mass Index 31.0 Const General: cooperative, healthy appearing, comfortable, no acute distress, well developed and alert Orientation/consciousness: patient oriented x3 Limitations: no limitations HEENT Head: Yes normal to inspection, Yes normocephalic and Yes atraumatic Ears: hearing grossly normal bilaterally and external ears normal Eyes General: appearance normal, both eyes and all related structures Eyelids: Yes eyelids normal Sclerae: sclerae normal EOM: EOMs intact bilaterally Neck Neck: Yes normal visual inspection and Yes no lymphadenopathy Lymphatic: no lymphadenopathy noted Chest Chest palpation & inspection: normal inspection of the chest Resp Effort & Inspection: normal respiratory effort, able to speak in complete sentences, no audible wheezes, no cough, no stridor, not tachypneic, no tripod positioning and no use of accessory muscles Auscultation: clear to auscultation bilaterally Cardio Jugular venous distension: no JVD Rate: regular rate Rhythm: regular rhythm Skin Other: warm, dry General skin exam: no rashes or lesions noted Neuro General: patient oriented x3 Cranial nerves: Yes Normal hearing present Cognition (Neuro): normal cognition Gait exam (Neuro): Normal gait present Extrem General: Yes normal to inspection, Yes capillary refill normal, Yes no clubbing, cyanosis or edema and Yes no pedal edema Psych Appearance: grossly normal and well kempt Speech and movement: Normal speech and movement present and Clear speech present Affect: normal affect Attitude: cooperative Thought process: Normal thought process present Thought content: Normal thought content present Insight: Good insight present (Psych) Judgement: Good judgement present (Psych) Assessment & Plan Assessment & Plan (1) Asthma: Code(s): J45.909 - Unspecified asthma, uncomplicated Category: Medical (2) Environmental allergies: Code(s): Z91.09 - Other allergy status, other than to drugs and biological substances Category: Medical (3) Personal history of tobacco use: Code(s): Z87.891 - Personal history of nicotine dependence Category: Social Hx (4) Obstructive sleep apnea: Code(s): G47.33 - Obstructive sleep apnea (adult) (pediatric) Category: Medical Plan Patient reports excellent control of respiratory symptoms on current regimen of Breo, Spiriva, Singulair and Albuterol MDI PRN, advised to continue. Reviewed compliance report which demonstrates poor adherence, using >4 hours only 13% of the time for the last 30 days. Discussed importance of compliance and benefits of use including reducing health risks, improving daily function and overall termite helper outcomes. She is motivated to increase usage once she is able to trial an alternative mask, aware she has to call [facility] to obtain. All questions were answered and patient is in agreement of plan. Will follow up in 3 months or sooner if needed. Medications: Refilled tiotropium bromide 2.5 mcg/actuation (Spiriva Respimat) 2 puffs inhalation DAILY 3 ea 1RF fluticasone furoate-vilanterol 200-25 mcg/dose (Breo Ellipta) 1 inh inhalation DAILY 3 ea 1RF Coding Level of Care Code Est Pt Level 4 (97835) Diagnoses Asthma J45.909 Environmental allergies Z91.09 Personal history of tobacco use Z87.891 Obstructive sleep apnea G47.33
[2025-01-16 08:54] VITALS: BP 110/64; PULSE 89; O2SAT 97; BMI 31.0
== END 2025-01-16 09:16 | disposition home or self-care (01) ==
LOC: HO.HPS 08:46
PROVIDERS: PCP Internal Medicine Geriatric Medicine; Visit Provider Nurse Practitioner Family
DX: J45.909 Unspecified asthma, uncomplicated (principal); Z91.09 Other allergy status, other than to drugs and biological substances; Z87.891 Personal history of nicotine dependence; G47.33 Obstructive sleep apnea (adult) (pediatric)
CPT/HCPCS: 99214

== ENCOUNTER → 2025-01-16 08:45 | Outpatient (BNVA) | payer MEDICARE, MEDICAID, SELFPAY | PROVIDERS: PCP Internal Medicine Geriatric Medicine; Visit Provider Nurse Practitioner Family | DX: J45.909 Unspecified asthma, uncomplicated (principal); G47.33 Obstructive sleep apnea (adult) (pediatric); Z99.89 Dependence on other enabling machines and devices; Z87.891 Personal history of nicotine dependence; Z91.09 Other allergy status, other than to drugs and biological substances | CPT/HCPCS: 99212 ==

== ENCOUNTER 2025-01-31 08:26 | Outpatient (REF) | payer MEDICARE, MEDICAID, SELFPAY ==
--- NOTE | ~2025-01-31 | MM_ITS ---
EXAMINATION: DXA BONE DENSITY AXIAL HISTORY: Z78.0 - Asymptomatic menopausal state TECHNIQUE: MOLOME Dual energy absorptiometry (DEXA) of the lumbar spine, total left hip, and femoral neck was performed. COMPARISON: Comparison is made with the prior examination was recent dated January 2023. FINDINGS: The bone mineral density of the lumbar spine (L1-L2) is 0.929 g/cm2, corresponding to a T-score of -2.0, and a Z-score of -0.5. This is indicative of osteopenia. This represents a BMD change of 0.7% compared to the prior exam. This is not statistically significant. The bone mineral density of the left total hip is 0.772 g/cm2, corresponding to a T-score of -1.9, and a Z-score of -0.5. This is indicative of osteopenia. This represents a BMD change of 10.8% compared to the prior exam. This is statistically significant. The bone mineral density of the left femoral neck is 0.714 g/cm2, corresponding to a T-score of -2.3, and a Z-score of -0.7. This is indicative of osteopenia. This represents a BMD change of 8.3% compared to the prior exam. This is statistically significant. FRACTURE RISK: The FRAX index suggests a ten year probability of major osteoporotic fracture of 7.8%, and of hip fracture 1.9%. MM/XR DEXA axial skeleton IMPRESSION: Based on bone mineral density, and according to World Health Organization (WHO) criteria, the diagnosis is consistent with osteopenia based on lowest T score of -2.3 in the left femoral neck. Treatment Recommendations: NOF guidelines recommend consideration for treatment in postmenopausal women and men age 50 and older presenting with the following: -A hip or vertebral (clinical or morphometric) fracture. -T-score less than or equal to -2.5 at the femoral neck or spine after appropriate evaluation to exclude secondary causes. -Low bone mass at the hip or spine and a 10-year fracture probability by FRAX of greater than or equal to 3% for hip fracture or greater than or equal to 20% for major osteoporotic fracture based on the [place] adapted WHO algorithm. Other Recommendations: All treatment decisions require clinical judgment and consideration of individual patient factors, including patient preferences, comorbidities, previous drug use, risk factors not captured in the FRAX model (e.g. frailty, falls, vitamin D deficiency, increased bone turnover, interval significant decline in bone density) and possible under or overestimation of fracture risk by FRAX. Additional medical evaluation for secondary cause of low bone mineral density may be appropriate. FUTURE SCAN RECOMMENDATION: People with diagnosed cases of osteoporosis or at high risk for fracture should have regular bone mineral density tests. For patients eligible for Medicare, routine testing is allowed once every 2 years. The testing frequency can be increased to one year for patients who have rapidly progressing disease, those who are receiving or discontinuing medical therapy to restore bone mass, or have additional risk factors. Statistically, 68% of repeat scans fall within 1 SD (+/- 0.010 g/cm2 for AP spine L1-L4) and 1 SD (+/- 0.012 g/cm2 for femur total) FRAX is a trademark of the [employer] [place] [facility] [employer], a World Health Organization (WHO) Collaborating Center. Electronically signed by: Renate Sheehan MD 01/31/2025 09:11 AM [facility]
== END 2025-01-31 08:27 | disposition home or self-care (01) ==
LOC: HO.MAMMO 08:26
PROVIDERS: Absent Provider Obstetrics & Gynecology; PCP Internal Medicine Geriatric Medicine; Visit Provider Internal Medicine Geriatric Medicine
DX: Z78.0 Asymptomatic menopausal state (principal)
CPT/HCPCS: 77080

== ENCOUNTER → 2025-01-31 08:45 | Outpatient (BNV) | payer MEDICARE, MEDICAID, SELFPAY | PROVIDERS: Absent Provider Obstetrics & Gynecology; PCP Internal Medicine Geriatric Medicine; Visit Provider Radiology Diagnostic Radiology | DX: E28.39 Other primary ovarian failure (principal) | CPT/HCPCS: 77080 ==

== ENCOUNTER 2025-02-02 08:32 | Outpatient (AMB) | payer MEDICARE, MEDICAID, SELFPAY ==
--- NOTE | 2025-02-02 08:35 | A.OFFVIS_ITS ---
Intake Visit Reasons: 6m/PVR/UA Intake Note: Patient is present for 6M/UA/PVR Urology Medication:NONE Antibiotic Allergy:NONE Blood Thinner:NONE Last PVR:60ML'S Todays PVR:114ML'S Engineering Agent Required: No Allergies begum Allergy (Verified 02/02/25 23:01) Itching pollen extracts Allergy (Verified 02/02/25 23:01) Sneezing tomato Allergy (Verified 02/02/25 23:01) Hives Medication List - Last Reconciled 02/02/25 by ANA Mills-LEATHA acetaminophen (Tylenol Extra Strength) 500 mg PO Q6H PRN albuterol sulfate 1 amp inhalation QID amlodipine 1 tab PO QAM atorvastatin 80 mg PO DAILY azelastine 1 spray intranasal BID calcium carbonate-vitamin D3 600 mg-20 mcg (800 unit) 1 tab PO citalopram 10 mg PO DAILY fluticasone furoate-vilanterol 200-25 mcg/dose (Breo Ellipta) 1 inh inhalation DAILY fluticasone propionate 50 mcg/actuation 2 sprays intranasal DAILY gabapentin 100 mg PO DAILY melatonin 3 mg PO BEDTIME PRN metformin mg PO naproxen 500 mg PO BID omeprazole 1 cap PO QAM polyvinyl alcohol 1.4% (Artificial Tears (polyvinyl alcohol)) 1 drp ophthalmic (eye) BID-QID PRN tiotropium bromide 2.5 mcg/actuation (Spiriva Respimat) 2 puffs inhalation DAILY valsartan-hydrochlorothiazide 320-25 mg 1 tab PO DAILY Ventolin HFA 90 mcg/actuation (albuterol sulfate) 2 puffs PO Q4-6H PRN NS HPI Comments Details: Lorie is a pleasant 68-year-old female patient of Dr. Martinez. She has a past medical history of osteoarthritis, pre diabetes, GERD, arthritis, asthma, and hypertension. She presents to the office today for follow-up. In discussion with the patient today she reports noting over the last 3 months she has been experiencing episodes of intermittent flank pain. She also discusses having experienced episodes of urinary frequency. In office urinalysis results reviewed with the patient today. PVR 114 mL. When asked she denies incontinence, hematuria, dysuria, foul smelling urine, changes to urinary stream, fever, and or chills. Previous workup has included a retroperitoneal ultrasound 4/24 noting bilateral kidneys with no calculi and or hydronephrosis. Small cortical and parapelvic simple cyst noted. No follow-up imaging is recommended per radiology report. The bladder is well distended and normal. Bladder ureteral jets are demonstrated. Pre void bladder volume is approximately 150 mL. Postvoid bladder volume is approximately 10 mL. Unremarkable renal bladder ultrasound. Patient has also had sleep study that noted no sleep apnea. She otherwise denies any other issues or concerns at this time. 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, bilateral Hypovitaminosis D Age related osteoporosis COVID-19 vaccine series completed Pre-diabetes GERD (gastroesophageal reflux disease) Arthritis Asthma Hypertension Osteoarthritis of left knee Surgical History History of left knee surgery Hx of breast biopsy Hx of hysterectomy H/O colonoscopy Hx of hand surgery Hx of knee surgery H/O unilateral oophorectomy History of total right knee replacement Family History Maternal Aunt Breast CA Mother Colon cancer Arthritis Sister Arthritis Social History Household Members: Family Household Members Other:: daughter Housing: House Are you a primary health and social care teacher to a significant other at home: No Do you presently have visiting nurse or other home services: No Alcohol intake: current Alcohol intake frequency: holidays/special occasions only Comment: chronic back pain Patient Tobacco Use Status: Former Tobacco user Tobacco use type: Cigarette Years Smoked: 20 Second Hand Smoke Exposure: No Advance Directives Date on File: 07/17/17 service: No Current occupational status: disabled Current occupation: rt handed Female Reproductive History Menstrual Age of Menarche: 9 Review of Systems Eyes Reports no additional complaints ENT Reports no additional complaints Card Reports as per HPI Resp Reports as per HPI GI Reports as per HPI Reports as per HPI Musc Reports as per HPI Neuro Reports no additional complaints Psych Reports no additional complaints Endo Reports no additional complaints Srinivas/Lymph Reports no additional complaints Aller/Immun Reports no additional complaints Physical Exam Const General: cooperative, healthy appearing, comfortable, no acute distress, well developed, alert and awake Orientation/consciousness: patient oriented x3 Limitations: no limitations HEENT Head: Yes normal to inspection, Yes normocephalic and Yes atraumatic Ears: hearing grossly normal bilaterally Eyes General: appearance normal, both eyes and all related structures Neck Neck: Yes normal visual inspection and Yes trachea midline Chest Chest palpation & inspection: normal inspection of the chest Resp Effort & Inspection: normal respiratory effort and able to speak in complete sentences Cardio Rate: regular rate GI Inspection: Yes normal to inspection General: Yes no CVA tenderness Back/Spine/Pelvis Back: no CVA tenderness Skin General skin exam: no rashes or lesions noted Neuro General: patient oriented x3 Extrem General: Yes normal to inspection Psych Appearance: grossly normal and well kempt Mental Status: mental status grossly normal Speech and movement: Normal speech and movement present and Clear speech present Affect: normal affect Attitude: cooperative Thought process: Normal thought process present Thought content: Normal thought content present Insight: Fair insight present (Psych) Judgement: Fair judgement present (Psych) Office Procedures Post Void Residual Post Residual Void Post Void Residual (PVR): 114 [id number] Void Residual by ultrasound Results AMB Urinalysis, Automated UA Leukoctes 0 Enrique/uL Last Edit by STEFAN Dean on 02/02/25 08:53 UA Nitrite Negative Last Edit by STEFAN Dean on 02/02/25 08:53 UA Urobilinogen 0.2 mg/dL Last Edit by STEFAN Dean on 02/02/25 08:5 3 UA Protein 0 mg/dL Last Edit by STEFAN Dean on 02/02/25 08:53 UA pH 7.0 Last Edit by STEFAN Dean on 02/02/25 08:53 UA Blood 0 Uvaldo/uL Last Edit by STEFAN Dean on 02/02/25 08:53 UA Specific Edison 1.015 Last Edit by STEFAN Dean on 02/02/25 08: 53 UA Ketone Negative Last Edit by STEFAN Dean on 02/02/25 08:53 UA Bilirubin 0 mg/dL Last Edit by STEFAN Dean on 02/02/25 08:53 UA Glucose 0 mg/dL Last Edit by STEFAN Dean on 02/02/25 08:53 Results Reviewed Results Reviewed: Laboratory Last Values Urine pH (Auto) 7.0 02/02/25 08:52 Specific Edison (Auto) 1.015 02/02/25 08:52 Urine Protein (Auto) 0 mg/dL 02/02/25 08:52 Glucose (UA)(Auto) 0 mg/dL 02/02/25 08:52 Urine Ketones (Auto) Negative 02/02/25 08:52 Urine Blood (Auto) 0 Uvaldo/uL 02/02/25 08:52 Urine Nitrite (Auto) Negative 02/02/25 08:52 Urine Bilirubin (Auto) 0 mg/dL 02/02/25 08:52 Urine Urobilinogen (Auto) 0.2 mg/dL 02/02/25 08:52 Leukocyte Esterase (Auto) 0 Enrique/uL 02/02/25 08:52 Assessment & Plan Assessment & Plan (1) Urinary frequency: Code(s): R35.0 - Frequency of micturition Category: Medical (2) Nocturia: Code(s): R35.1 - Nocturia Category: Medical (3) Flank pain: Code(s): R10.A0 - Flank pain, unspecified side Category: Medical (4) Renal cyst: Code(s): N28.1 - Cyst of kidney, acquired Category: Medical (5) Incomplete bladder emptying: Code(s): R33.9 - Retention of urine, unspecified Category: Medical Plan In office urinalysis results with the patient today; as noted above. PVR 114ml. We discussed potential causes of lower urinary tract symptoms patient is experiencing as well as further treatment options and risks and benefits of these treatment options. Will obtain renal ultrasound for further assessment evaluation. We discussed attempting to double void to assist with bladder emptying. We did discuss initiation of potential low-dose alpha-cat to assist with bladder emptying. All questions were answered. We also discussed bladder triggers and irritants. We discussed the importance of limiting fluids 2-3 hours prior to bed to decrease episodes of nocturia. Follow-up in 1-3 months with imaging; or sooner with any issues, concerns, and or questions. Orders: Orders AMB Urinalysis Automated Today Z13.9 - Encounter for screening, unspecified US renal BI Today N20.0 - Calculus of kidney Patient Instructions: The patient had an opportunity to ask questions regarding the treatment plan. All questions were answered. Physical exam, labs, and imaging were discussed and reviewed in detail. As well as risks, benefits, and discussion of treatment choices. No major barriers to understanding were identified. The patient expressed understanding and agreement with the above treatment plan. The patient was made aware they should contact our office by phone for worsening of their current condition, the appearance of new symptoms, or with any questions or concerns. Compliance is encouraged with any medications and follow up testing that is ordered. It is a privilege to be allowed the opportunity to participate in? your urological care.? Again, if you have any questions or concerns If you have any questions or concerns please do not hesitate to contact me. The office is [phone]. This note is constructed using voice recognition software. While every effort has been made to ensure accuracy morgue technician errors may have been included. Yours sincerely, BELLO Mills Coding Level of Care Code Est Pt Level 3 (33626) Add On Problem Visit Only Diagnoses Urinary frequency R35.0 Nocturia R35.1 Flank pain R10.A0 Renal cyst N28.1 Incomplete bladder emptying R33.9 CPT Codes Post Residual Void - PVR CPT Code: 65455-Jtpv Void Residual by ultrasound ([id number])
== END 2025-02-02 09:17 | disposition home or self-care (01) ==
LOC: HO.HUSH 08:33
PROVIDERS: PCP Internal Medicine Geriatric Medicine; Visit Provider Nurse Practitioner Family
DX: Z13.9 Encounter for screening, unspecified (principal)

== ENCOUNTER → 2025-02-02 08:32 | Outpatient (BNVA) | payer MEDICARE, MEDICAID, SELFPAY | PROVIDERS: PCP Internal Medicine Geriatric Medicine; Visit Provider Nurse Practitioner Family | DX: R35.0 Frequency of micturition (principal); R35.1 Nocturia; R10.A0 Flank pain, unspecified side; N28.1 Cyst of kidney, acquired; R33.9 Retention of urine, unspecified; Z13.9 Encounter for screening, unspecified | CPT/HCPCS: 51798; 81003; 99212 ==